=== PATIENT | female | born 1935 | race Caucasian/White ===

== ENCOUNTER 2019-07-28 20:53 | Observation (INO) | payer OTHER, SELFPAY ==
--- NOTE | ~2019-07-28 | XR_ITS ---
EXAMINATION: XR chest 2V EXAM DATE: 07/28/2019 21:34 INDICATION: Hypertension. TECHNIQUE: Frontal and lateral projections of the chest obtained and reviewed. There is no prior arline dy for comparison. FINDINGS: The lungs are clear. There are no pleural effusions. The cardiomediastinal silhouette is within normal limits. There is no pneumothorax suspected. Mild to moderate thoracolumbar scoliosis. IMPRESSION: No acute cardiopulmonary findings. Reviewed, dictated and finalized at location A.
--- NOTE | ~2019-07-28 | CT_ITS ---
EXAMINATION: CT brain wo con EXAM DATE: 07/29/2019 00:05 INDICATION: Generalized weakness for 3 days. Confusion. TECHNIQUE: Spiral CT of the head was performed without contrast. Axial, coronal and sagittal images were reviewed. The dose-length product (DLP) for this examination was 605.33 mGy-cm. The exposure w as tailored according to patient size, and iterative reconstruction (ASIR) was used as additional dos e reduction technique. Comparison is made to prior examination from 05/21/2011. FINDINGS: There is no acute intraparenchymal hemorrhage. No evidence of intraparenchymal brain mass lesion. No evidence of acute infarction. Please note that initial head CT has limited sensitivity f or small or acute infarctions. There is small old left internal capsule lacunar infarction. This was present on the prior study. There is mild periventricular and subcortical hypodensity, nonspecific but probably related to small vessel ischemic disease. There is moderate prominence of the sulci an d ventricles related to cerebral atrophy. There is intracranial carotid arteriosclerosis. There ar e no extra-axial collections. There is no mass effect or midline shift. Patient has had bilateral o cular lens surgery. Soft tissue is unremarkable. The visualized sinuses and mastoid air cells are w ell aerated. IMPRESSION: 1. 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 2. Chronic age related findings. Reviewed, dictated and finalized at location G.
--- NOTE | ~2019-07-28 | US_ITS ---
EXAMINATION: US carotid duplex BI DATE: 07/29/2019 09:37 INDICATION: Infarcts in left internal capsule and left basal ganglia. TECHNIQUE: Grayscale, color Doppler, and pulsed Doppler images of the cervical carotid arteries were obtained. The degree of vessel stenosis is placed in one of the following categories: normal, <50%, 5 0-69%, >=70% but less than near-occlusion, near-occlusion, or total occlusion. Note that percent sten osis relative to normal distal artery lumen diameter is indirectly measured from velocity measurement s as described by Pb, et al. Radiology 2003; 229:340-346. COMPARISON: Ultrasound 01/20/2010 FINDINGS: RIGHT: The right common carotid artery (CCA) peak systolic velocity (PSV) is 74 cm/s. The right internal car otid artery (ICA) PSV is 86 cm/s. The right ICA end-diastolic velocity (EDV) is 18 cm/s. The right IC A/CCA PSV ratio is 1.2. Grayscale and color Doppler images yield an estimate of <50% diameter reducti on from plaque in the ICA. There is antegrade flow in the right vertebral artery. LEFT: The left CCA PSV is 79 cm/s. The left ICA PSV is 96 cm/s. The left ICA EDV is 27 cm/s. The left ICA/C CA PSV ratio is 1.2. Grayscale and color Doppler images yield an estimate of <50% diameter reduction from plaque in the ICA. There is antegrade flow in the left vertebral artery. IMPRESSION: 1. <50% stenosis in the right internal carotid artery. 2. <50% stenosis in the left internal carotid artery. Reviewed, dictated and finalized at location A.
--- NOTE | ~2019-07-28 | MR_ITS ---
EXAMINATION: MR brain/brain stem wo/w con DATE: 07/29/2019 09:24 INDICATION: Confusion. TECHNIQUE: Magnetic resonance imaging (MRI) of the brain and brainstem was performed without and with 14 mL MultiHance intravenous contrast. Sequences included sagittal and axial T1-weighted FSE, axial diffusion-weighted FS EPI, axial T2*-weighted GRE, axial T2-weighted FLAIR Propeller, and axial T2-we ighted Propeller. Postcontrast sequences included axial and coronal T1-weighted FSE. Apparent diffusi on coefficient (ADC) maps were created. COMPARISON: Brain MRI 01/20/2010, head CT 07/28/2019 FINDINGS: There are old infarcts involving the left internal capsule and left basal ganglia. There ar e scattered areas of nonspecific increased T2-weighted signal intensity in the cerebral white matter. There is no intracranial hemorrhage, acute infarction, or abnormal intracranial mass lesion. The noemy tricles are normal in size. The paranasal sinuses are clear. There are likely changes of ocular lens replacement surgeries. The mastoid air cells are normal. IMPRESSION: 1. Old infarcts involving the left internal capsule and left basal ganglia. 2. Mild nonspecific cerebral white matter disease, which likely represents chronic small vessel ische maria del rosario disease. Reviewed, dictated and finalized at location A. IMPRESSION: 1. Old infarcts involving the left internal capsule and left basal ganglia. 2. Mild nonspecific cerebral white matter disease, which likely represents housing relocation priscilla small vessel ischemic disease.
[2019-07-28 20:49] VITALS: BP 165/112; PULSE 84; RESP 20; TEMP 37.4; O2SAT 99
--- NOTE | 2019-07-28 20:58 | ECG_ITS ---
Measurements Intervals [place] Rate: 82 P: 66 ID: [id number] QRS: -26 QRSD: 104 T: 97 QT: 335 QTc: 392 Interpretive Statements SINUS RHYTHM BORDERLINE ST-T WAVE ABNORMALITY- HIGH LATERAL LEADS BASELINE WANDER- I, AVL BORDERLINE ECG Electronically Signed On 07-29-2019 7:20:26 CDT by Sunday Alston D.O.
[2019-07-28 21:23] LABS: Basophils Percent Auto 0.5 % (0.2-1.2); Eosinophils Absolute Auto 0.1 K/mm3 (0-0.3); Eosinophils Percent Auto 1.2 % (0-4.4); Hematocrit 31.5 % (37.0-47.0); Hemoglobin 10.6 g/dL (12.0-15.0); Immature Granulocyte Absolute 0.03 K/mm3 (0.00-0.031); Immature Granulocyte Percent A 0.4 % (0-0.5); Lymphocytes Absolute Auto 2.31 K/mm3 (0.9-3.2); Lymphocytes Percent Auto 30.4 % (18.3-44.2); Mean Corpuscular HGB Conc 33.7 g/dl (32-36); Mean Corpuscular Hemoglobin 31.8 pg (26-34); Mean Corpuscular Volume 94.6 fl (80-100); Monocytes Percent Auto 12.5 % (2.6-8.5); Neutrophils Absolute Auto 4.2 K/mm3 (1.3-6.7); Platelet Count Result 243 k/mm3 (150-375); Red Blood Count 3.33 M/mm3 (4.2-5.4); Red Cell Distribution Width 12.7 % (11.5-14.5); White Blood Count 7.6 K/mm3 (4.5-10.0)
[2019-07-28 21:26] LABS: Add Urine Microscopic? YES; Appearance Urine Clear (Clear); Bacteria Urine Trace /hpf; Bilirubin Urine Negative (Negative); Blood Urine 1+ (Negative); Color Urine Colorless (Yellow); Glucose Urine UA Negative (Negative); Ketones Urine Negative (Negative); Leukocyte Esterase Ur Negative LEU/UL (Negative); Nitrate Urine Negative (Negative); Protein Urine 2+ mg/dL (Negative); RBC Urine 0-2 /hpf (0-2); Specific Grav Ur 1.006 (1.001-1.035); Squamous Epithelial Cell Urine Rare /hpf (Few); Urobilinogen Urine Negative mg/dL (<2.0); WBC Urine 0-3 /hpf
[2019-07-28 21:37] LABS: Alanine Aminotransferase 13 U/L (4-35); Albumin Level 4.5 g/dL (3.5-5.1); Alkaline Phosphatase 89 U/L (38-126); Aspartate Amino Transferase 28 U/L (14-36); Bilirubin,Total 0.6 mg/dL (0.2-1.3); Blood Urea Nitrogen 23 mg/dL (7-17); Calcium 9.2 mg/dL (8.4-10.2); Carbon Dioxide 25 mmol/L (22-30); Chloride 100 mmol/L (98-107); Estimated Glomerular Filt Rate 48; Glucose 118 mg/dL (65-105); Potassium 4.1 mmol/L (3.4-5.0); Sodium 133 mmol/L (137-145)
[2019-07-28 21:50] VITALS: BP 213/84; PULSE 76; RESP 20; O2SAT 100
--- NOTE | 2019-07-28 21:54 | PC.NURSE ---
pt able to ambulate to restroom and return without only stand by assistance. Tolerated well, denies increased pain or SOB.
--- NOTE | 2019-07-28 22:53 | PC.NURSE ---
Pt transported to new room assignment. Report given to SATYA Campbell.
--- NOTE | 2019-07-28 23:39 | ED.GENADULT ---
HPI - General Adult General Chief complaint: Weakness Stated complaint: weak Time Seen by Provider: 07/28/19 22:23 Source: patient and family Mode of arrival: EMS History of Present Illness HPI narrative: This patient is an 84 year old female who presents for evaluation of confusion. Patient's niece is at bedside giving history. She states she talked to patient at 730 pm and she appeared out of it . She states that she was confused and she could not tell her what she did today or if she took her medications. Patient lives alone and she states she does not normally have confusion. She denies history of dementia. Previous to that she last talked to her Saturday and she was normal at that time. Patient has no complaints. She does not remember is she took her medications today. Related Data Home Medications Medication Instructions Recorded Confirmed aspirin 325 mg PO DAILY 07/28/19 07/29/19 lisinopril-hydrochlorothiazide 1 tablet PO BID 07/28/19 07/29/19 metformin 500 mg PO BID 07/28/19 07/29/19 simvastatin 20 mg PO HS 07/28/19 07/29/19 sulindac 200 mg PO BID 07/28/19 07/29/19 omega 5-mqp-ivq-fish oil [Fish Oil] 300 cap PO DAILY 07/29/19 07/29/19 sennosides-docusate sodium 1 tab-cap PO EVERY OTHER DAY 07/29/19 07/29/19 Allergies Allergy/AdvReac Type Severity Reaction Status Date / Time No Known Allergies Allergy Verified 07/28/19 22:52 Review of Systems Review of Systems: All systems reviewed & are unremarkable except as noted in HPI and below Constitutional: Constitutional: Denies chills, Denies fever(s) and Denies weakness Eyes: Eyes: Reports no additional eye complaints Cardiovascular: Cardiovascular: Denies chest pain Respiratory: Respiratory: Denies cough and Denies dyspnea Gastrointestinal: Gastrointestinal: Denies abdominal pain and Denies vomiting Neurologic: Denies dizziness, Denies headache(s) and Denies focal weakness [facility] Past Medical History Medical History (Updated 07/29/19 @ 08:06 by Kusum Peralta MD) Hypertension Surgical History Surgical History (Updated 07/28/19 @ 23:40 by Kusum Peralta MD) History of left knee replacement Social History Social History Smoking status: Never smoker Alcohol intake: never Substance use: never Substance use type: does not use Gender identity (if verbalized by the patient): Female Spiritual care concerns: No Exam Narrative: Exam Narrative: GENERAL: Well-appearing, well-nourished, and in no acute distress. HEAD: Normocephalic, atraumatic EYES: PERRLA and EOMI, conjunctiva clear without discharge EARS: TM's clear bilaterally without erythema or dullness NOSE: Nares clear, no rhinorrhea or epistaxis THROAT:Mucous membranes moist, Oropharynx normal without erythema, exudate, peritonsillar swelling or fluctuance NECK: Supple, without lymphadenopathy or mass RESPIRATORY: No respiratory distress, Airway patent, Respirations non-labored, Clear to auscultation without rales, rhonchi or wheeze HEART: Regular rate and rhythm. No murmur heard. Normal peripheral pulses. ABDOMEN: Soft, nontender, nondistended, normal active bowel sounds. No masses. No rebound or guarding, No organomegaly. EXTREMITIES: No edema, normal strength with full range of motion. SKIN: Warm, dry, normal color without rash NEURO: Alert and oriented x person, place, date. CN 2-12 grossly intact. No focal deficits. speech is slow, PSYCH: Normal mood and affect. Course Consultations Consultation #1: I discussed case with Dr. Rodriguez who accepts patient for TIA, stroke rule out give patient new confusion Date: 07/29/19 Time: 02:40 Vital Signs Vital signs: Vital Signs Temperature 99.4 F 07/28/19 20:49 Pulse Rate 84 07/28/19 20:49 Respiratory Rate 20 07/28/19 20:49 Blood Pressure 165/112 H 07/28/19 20:49 Pulse Oximetry 99 07/28/19 20:49 Temperature 99.3 F 07/29/19 06:00 Pulse Rate 72 07/29/19 06:00 Respiratory Rate 18
[2019-07-28 23:52] VITALS: BP 190/59; PULSE 78; RESP 19; O2SAT 100
[2019-07-28] MEDS: lisinopriL 20 MG TABLET PO (23:54)
[2019-07-28] MEDS: hydroCHLOROthiazide 12.5 MG CAPSULE PO (23:54)
[2019-07-29] VITALS (11 sets, daily range): BP systolic 112–184; BP diastolic 58–94; PULSE 62–80; RESP 16–20; TEMP 36.6–37.4; O2SAT 97–100; BMI 26.8
--- NOTE | 2019-07-29 | ECHO_ITS ---
Patient Info Name: Liza Clark Age: 84 years : 1935 Gender: Female Ht: 62 in Wt: 146 lbs BSA: 1.72 m2 HR: 62 bpm Heart Rhythm: Sinus Rhythm Technical Quality: Good Exam Date: 07/29/2019 12:42 PM Exam Location: [facility] Pulmonary Exam Room: 324 Patient Status: Inpatient Admit Date: 07/29/2019 Staff Ordering Physician: Barrett Burks PA-C Architectural Project Manager: Mandie Niño RDCS Attending Provider: Barrett Burks PA-C Referring Physician: Vitaliy CUELLAR; Exam Type: CA echo doppler w bubble study Study Info Indications - hx/o cva mental status change confusion Complete two-dimensional, color flow and Doppler transthoracic echocardiogram is performed with agitated saline. Contrast/Agitated Saline Contrast/Ag. Saline: Agitated Saline Amount: 20.00 ml Existing IV Access: Yes Summary 1. Good global left ventricular systolic function. Apical lateral hypokinesis noted on the apical four-chamber view. Estimated ejection fraction 60-65%. Grade 1 diastolic dysfunction is present. Moderate concentric left ventricular hypertrophy is present. 2. There is mild aortic valve calcification with no stenosis. 3. Left atrial chamber dimension is moderately enlarged. 4. The mitral valve annulus is moderately calcified with no regurgitation. 5. Bubble study did not show any evidence of an intracardiac shunt during normal respiration and Valsalva. 6. Normal sinus rhythm. Left Ventricle Left ventricular chamber dimension is normal. Left ventricular systolic function is normal, estimated at 60-65%. There is moderately increased left ventricular wall thickness. Left ventricular septal wall motion is normal. The left ventricular diastolic function is grade I diastolic dysfunction. Right Ventricle Right ventricular chamber dimension is normal. Right ventricular systolic function is normal. Left Atria Left atrial chamber dimension is moderately enlarged. Right Atria Right atrial chamber dimension is normal. Aortic Valve The aortic valve is trileaflet. There is no aortic valve sclerosis. There is no aortic valve stenosis. There is no aortic valve regurgitation. There is mild aortic valve calcification with no stenosis. Pulmonic Valve The pulmonic valve is normal. There is no pulmonic valve stenosis. There is no pulmonic regurgitation. Mitral Valve The mitral valve has thickened leaflets. There is no mitral valve stenosis. There is no mitral valve regurgitation. The mitral valve annulus is moderately calcified with no regurgitation. Tricuspid Valve The tricuspid valve leaflets are normal. There is no significant tricuspid valve stenosis. There is trace tricuspid valve regurgitation. No pulmonary hypertension, estimated pulmonary arterial systolic pressure is 31 mmHg. Pericardium/Pleural The pericardium appears normal. There is no pericardial effusion. Inferior Vena Cava Normal inferior vena cava with >50% collapse upon inspiration consistent with Empty right atrial pressure, 10 mmHg. Aorta The aortic root size at the sinus of Valsalva is normal. The prox ascending aorta size is normal. There is mild aortic atherosclerosis. Left Ventricular Outflow Tract Name Value Normal LVOT 2D
[2019-07-29 00:26] LABS: Troponin I 0.014 ng/mL (0.000-0.034)
--- NOTE | 2019-07-29 03:52 | ADMGEN ---
This patient, Liza Clark, was admitted to [facility] Surg Room 324-01. Patient/family oriented to hospital policies and general routines including ID bracelet, bed and alarms, visiting hours, pain management, procedures, bathroom and other care routines, personal items, smoking policy, room service/diet, and visiting hours. Valuables list has been completed. Information on how to activate the Rapid Response Team has been discussed. Patient/Family are encouraged to report perceived risks to care and to ask questions if they do not understand what they are told or what they should do.
[2019-07-29 07:59] LABS: Glucose Point of Care 111 (65-105)
[2019-07-29 08:14] LABS: Hematocrit 31.9 % (37.0-47.0); Hemoglobin 10.8 g/dL (12.0-15.0); Mean Corpuscular HGB Conc 33.9 g/dl (32-36); Mean Corpuscular Hemoglobin 31.7 pg (26-34); Mean Corpuscular Volume 93.5 fl (80-100); Mean Platelet Volume 9.8 fl (7.4-10.4); Platelet Count Result 238 k/mm3 (150-375); Red Blood Count 3.41 M/mm3 (4.2-5.4); Red Cell Distribution Width 12.8 % (11.5-14.5); White Blood Count 6.8 K/mm3 (4.5-10.0)
[2019-07-29 08:30] LABS: Hemoglobin A1C 6.5 % (<5.7)
[2019-07-29 08:31] LABS: Blood Urea Nitrogen 18 mg/dL (7-17); Calcium 9.4 mg/dL (8.4-10.2); Carbon Dioxide 26 mmol/L (22-30); Chloride 104 mmol/L (98-107); Estimated CRCL calculation 31 ml/min; Estimated Glomerular Filt Rate 48; Glucose 119 mg/dL (65-105); Potassium 4.1 mmol/L (3.4-5.0); Sodium 136 mmol/L (137-145)
[2019-07-29 09:35] LABS: Folic Acid > 20.0 ng/mL (2.76->20)
--- NOTE | 2019-07-29 10:29 | PM.IMHP ---
H&P: HPI History of Present Illness Chief complaint: confusion Narrative: Liza Clark is a 84 year old female with history of CVA (2009), HTN, and prediabetes who presented to the ER via EMS from home on 07/27 with reports of elevated blood pressure and confusion while at home. Patient is a fair historian, but does not provide detailed information on some of her history. She is A&Ox4 for me today. History is obtained via EMS, patient, and grand-neice, Mikala, who summoned EMS yesterday. Per patient she is in the hospital due to her high blood pressure . When asked for other reasons coming into the hospital, she states I guess I was a bit confused yesterday . When discussed with Mikala, she states she called her yesterday evening to check in on her and noticed she was not making much sense, not finishing sentences at times, and not knowing what she did or ate earlier in the day. She came to her house and measured her BP which was 210/90 which prompted her to summon EMS; on their arrival, BP was 210/110, per Mikala, which prompted them to proceed to the ER. Mikala denies any other signs or symptoms she noticed. Patient denies any other signs/symptoms as well, and has no other complaints at this moment, other than wanting to leave to care for her dogs at home. Denies recent cold/infection, f/c/s, myalgias/arthralgias, headaches, dizziness, lightheadedness, changes in v/h, cp/palpitations, sob/cough, n/v/d/c, abd pain, changes in BMs, dysuria, hematuria, cloudy urine, calf pain/swelling. While in the ER, patient's BP was found to be as high as 213/84, but significantly improved after she received a home dose of her lisinopril-HCTZ. Patient admitted under the setting of HTN urgency and CVA r/o. Imaging thus far has been unremarkable. Review of Systems Review of Systems: All systems reviewed & are unremarkable except as noted in HPI and below PMFSH Past Medical History Medical History Breast CA CVA, old, dysarthria DJD (degenerative joint disease) GERD (gastroesophageal reflux disease) Hypertension Prediabetes Surgical History Surgical History H/O left mastectomy History of cataract surgery History of hemorrhoidectomy History of left knee replacement History of right hip replacement History of shoulder surgery Social History Social History (Updated 07/29/19 @ 10:46 by Barrett Burks PA-C) Social History: Patient lives at home alone. Grand-niece, Mikala, checks in on her occasionally, either via phone or physically, although has been less due to COVID outbreak. Her PCP is Dr. Coleman. She is listed as a Full Code Smoking status: Never smoker Alcohol intake: never Substance use: never Substance use type: does not use Gender identity (if verbalized by the patient): Female Spiritual care concerns: No Meds Home Medications and Allergies Home Medications Medication Instructions Recorded Confirmed Type aspirin 325 mg PO DAILY 07/28/19 07/29/19 History lisinopril-hydrochlorothiazide 1 tablet PO BID 07/28/19 07/29/19 History metformin 500 mg PO BID 07/28/19 07/29/19 History simvastatin 20 mg PO HS 07/28/19 07/29/19 History sulindac 200 mg PO BID 07/28/19 07/29/19 History omega 3-gai-bbs-fish oil [Fish Oil] 300 cap PO DAILY 07/29/19 07/29/19 History sennosides-docusate sodium 1 tab-cap PO EVERY OTHER DAY 07/29/19 07/29/19 History Allergies Allergy/AdvReac Type Severity Reaction Status Date / Time No Known Allergies Allergy Verified 07/28/19 22:52 Vital Signs Vital Signs - 24 hr 07/28/19 20:49 07/28/19 21:50 07/28/19 23:52 Temperature 99.4 F Pulse Rate 84 76 78 Respiratory Rate 20 20 19 Blood Pressure 165/112 H 213/84 H 190/59 H Pulse Oximetry 99 100 100 07/29/19 00:52 07/29/19 02:45 07/29/19 03:30 Temperature 99.4 F Pulse Rate 79 77 77 Respiratory Rate 16 17 18 Blood Press
[2019-07-29] MEDS: OMEGA 3 POLYUNSAT FATTY ACIDS 1 GM CAP PO (11:47)
[2019-07-29] MEDS: ASPIRIN 325 MG TABLET PO (11:47)
[2019-07-29 12:47] LABS: Glucose Point of Care 159 (65-105)
[2019-07-29] MEDS: lisinopriL 20 MG TABLET PO (17:18)
[2019-07-29] MEDS: hydroCHLOROthiazide 12.5 MG CAPSULE PO (17:18)
[2019-07-29 18:29] LABS: Glucose Point of Care 206 (65-105)
[2019-07-29] MEDS: SIMVASTATIN 20 MG TABLET PO (20:05)
[2019-07-29 21:18] LABS: Glucose Point of Care 255 (65-105)
[2019-07-30] VITALS: PULSE 86
[2019-07-30 04:00] VITALS: PULSE 63
[2019-07-30 06:00] VITALS: BP 179/62; PULSE 79; RESP 16; TEMP 36.6; O2SAT 99
[2019-07-30 06:25] LABS: Blood Urea Nitrogen 27 mg/dL (7-17); Carbon Dioxide 25 mmol/L (22-30); Chloride 103 mmol/L (98-107); Estimated CRCL calculation 27 ml/min; Estimated Glomerular Filt Rate 39; Glucose 127 mg/dL (65-105); Magnesium 1.9 mg/dL (1.6-2.3); Potassium 4.2 mmol/L (3.4-5.0); Sodium 134 mmol/L (137-145)
[2019-07-30 08:00] VITALS: PULSE 77
[2019-07-30 08:18] LABS: Glucose Point of Care 112 (65-105)
[2019-07-30] MEDS: ASPIRIN 325 MG TABLET PO (08:38)
[2019-07-30] MEDS: CYANOCOBALAMIN INJ 1,000 MCG/ML VIAL 1000 MCG IM (08:39)
[2019-07-30] MEDS: lisinopriL 20 MG TABLET PO (08:39)
[2019-07-30] MEDS: OMEGA 3 POLYUNSAT FATTY ACIDS 1 GM CAP PO (08:39)
[2019-07-30] MEDS: hydroCHLOROthiazide 12.5 MG CAPSULE PO (08:39)
[2019-07-30] MEDS: AMLODIPINE BESYLATE 2.5 MG TABLET PO (09:04)
--- NOTE | 2019-07-30 09:27 | PM.DS ---
DS: Admitting Diagnosis Admitting Diagnosis Admitting Diagnosis: Essential (primary) hypertension DS: Discharge Diagnosis Discharge Diagnosis (1) Hypertension: Code(s): I10 - Essential (primary) hypertension Status: Acute Assessment and Plan: Patient's BP in the field and on arrival in 200s. BP 170s this morning and 150s-160s sys overnight. Amlodipine 2.5 mg daily added this morning. Unclear if patient is compliant with home medication at home, but discussed with Mikala who will be monitoring her medications more closely. Will continue her home lisinopril-HCTZ at Start amlodipine 2.5 mg at discharge Will need prompt F/u with PCP. Discussed with both patient and Mikala that she needs to monitor her BP daily after discharge. Hold amlodipine if having symptoms or if hypotensive; she is to call PCP with any issues. Both patient and Mikala understood and agreeable with plan (2) Acute confusion: Code(s): R41.0 - Disorientation, unspecified Status: Acute Assessment and Plan: CVA workup and r/o. MRI of brain today negative for acute stroke; old strokes noted. Carotid Dopplers unremarkable. Echo grossly unremarkable for etiology of symptoms; normal EF, no intracardiac shunting. Confusion possibly related to hypertensive urgency vs less likely TIA or dehydration. Patient appears to be at baseline today. Telemetry shows sinus rhythm with occasional PAC/PVC vs artifact; asymptomatic. F/u with PCP (3) CVA, old, 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 Status: Acute Assessment and Plan: MRI of brain shows old CVAs. Patient states CVA in 2009 Continue home dose omega 3, simvastatin, and full dose aspirin Monitor (4) Prediabetes: Code(s): R73.03 - Prediabetes Status: Acute Assessment and Plan: A1c 6.5; technically diabetic Will hold metformin during stay; will continue at discharge Accuchecks ACHS, hypoglycemia protocol, correctional insulin, diabetic diet during stay Monitor (5) DJD (degenerative joint disease): Code(s): M19.90 - Unspecified osteoarthritis, unspecified site Status: Acute Assessment and Plan: Patient has no issues at the moment Sulindac held as this is NF; resume at discharge Monitor DS: Summary Hospital Course Reason for hospitalization: Hypertensive urgency; confusion Hospital Course: Patient is a 84 yo F with history of CVA with known dysarthria, GERD, and HTN who presented to the ER via EMS from home on 07/27 with reports of elevated blood pressure and confusion while at home. Per Mikala romero, patient's BP was in the 200s sys while at home. While in the ER, she was found to have BP as high as 213/84. Given confusion while at home, there was concern over possible CVA. Patient admitted under this setting. Please see H&P for further details. Presenting VS: Temp Pulse Resp BP Pulse Ox 99.4 F 84 20 165/112 H 99 07/28/19 20:49 07/28/19 20:49 07/28/19 20:49 07/28/19 20:49 07/28/19 20:49 Presenting Pertinent labs: CBC, chemistry, UA grossly unremarkable Micro: none Imaging: Chest X-Ray 07/28/19 21:35 IMPRESSION: No acute cardiopulmonary findings. Head CT 07/29/19 00:06 IMPRESSION: 1. 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 2. Chronic age related findings. Brain MRI 07/29/19 09:29 IMPRESSION: 1. Old infarcts involving the left internal capsule and left basal ganglia. 2. Mild nonspecific cerebral white matter disease, which likely represents chronic small vessel ischemic disease. Carotid Doppler Study 07/29/19 09:38 IMPRESSION: 1. <50% stenosis in the right internal carotid artery. 2. <50% stenosis in the left internal carotid artery. Echo 07/29/19 Summary 1. Good global left
[2019-07-30 10:08] VITALS: BP 174/70
[2019-07-30 10:09] VITALS: PULSE 67
== END 2019-07-30 11:19 | disposition home or self-care (01) ==
LOC: ANHED 07-29 02:44 → ANH3MEDSUR 07-29 03:04
PROVIDERS: Physician Assistant; Admitting Provider Internal Medicine; Emergency Provider General Practice; PCP Family Medicine Adolescent Medicine; Visit Provider Internal Medicine
DX: I16.0 Hypertensive urgency (principal); I10 Essential (primary) hypertension; R41.0 Disorientation, unspecified; I69.322 Dysarthria following cerebral infarction; R73.03 Prediabetes; K21.9 Gastro-esophageal reflux disease without esophagitis; M19.90 Unspecified osteoarthritis, unspecified site; Z79.899 Other long term (current) drug therapy; Z85.3 Personal history of malignant neoplasm of breast; Z96.641 Presence of right artificial hip joint; Z96.652 Presence of left artificial knee joint
CPT/HCPCS: 36415; 70450; 70553; 71046; 80048; 80053; 81001; 82607; 82746; 83036; 83735; 84443; 84484; 85025; 85027; 93005; 93306; 93880; 96372; 96375; 97161; 97165; 99285; A9270; A9577; G0378; J3420

== ENCOUNTER 2019-08-02 15:23 | Emergency (ER) | payer OTHER, SELFPAY ==
[2019-08-02] VITALS (32 sets, daily range): BP systolic 175–227; BP diastolic 66–91; PULSE 66–85; RESP 9–19; TEMP 36.8–37.6; O2SAT 94–100
--- NOTE | ~2019-08-02 | CT_ITS ---
EXAMINATION: CT brain wo con EXAM DATE: 08/02/2019 16:29 INDICATION: Elevated blood pressure, central headache. TECHNIQUE: Spiral CT of the head was performed without contrast. Axial, coronal and sagittal images were reviewed. The dose-length product (DLP) for this examination was 605.33 mGy-cm. The exposure w as tailored according to patient size, and iterative reconstruction (ASIR) was used as additional dos e reduction technique. Comparison is made to prior examination from 07/28/2019. FINDINGS: There is no acute intraparenchymal hemorrhage. No evidence of intraparenchymal brain mass lesion. No evidence of acute infarction. Please note that initial head CT has limited sensitivity f or small or acute infarctions. Small old left internal capsular lacunar infarction. Small old left b geraldo ganglia lacunar infarctions. There is mild to moderate periventricular and subcortical hypodensi ty, nonspecific but probably related to small vessel ischemic disease. There is mild to moderate pr ominence of the sulci and ventricles related to cerebral atrophy. There is intracranial carotid art eriosclerosis. There are no extra-axial collections. There is no mass effect or midline shift. Pat ient has had bilateral ocular lens surgery. Soft tissue is unremarkable. The visualized sinuses and mastoid air cells are well aerated. There is no significant interval change. IMPRESSION: 1. Small old left sided lacunar infarctions. 2. Chronic age related findings. Reviewed, dictated and finalized at location A.
--- NOTE | 2019-08-02 16:02 | ED.GENADULT ---
HPI - General Adult General Chief complaint: Recheck/Abnormal Lab/Rx Stated complaint: Elevated blood pressure Time Seen by Provider: 08/02/19 16:02 Source: patient and family History of Present Illness HPI narrative: Patient is a 84 y/o female complaining headache and high blood pressure. She state that she feel pressure in her head and feels like her head is going to explode. This started about 10:00 AM this morning. She rates her headache as 8/10. She believes that her headache is worsened by HTN. She checked her BP earlier and systolic was over 200. Related Data Home Medications Medication Instructions Recorded Confirmed aspirin 325 mg PO DAILY 07/28/19 07/29/19 lisinopril-hydrochlorothiazide 1 tablet PO BID 07/28/19 07/29/19 metformin 500 mg PO BID 07/28/19 07/29/19 simvastatin 20 mg PO HS 07/28/19 07/29/19 sulindac 200 mg PO BID 07/28/19 07/29/19 omega 1-yit-qkf-fish oil [Fish Oil] 300 cap PO DAILY 07/29/19 07/29/19 sennosides-docusate sodium 1 tab-cap PO EVERY OTHER DAY 07/29/19 07/29/19 Allergies Allergy/AdvReac Type Severity Reaction Status Date / Time No Known Allergies Allergy Verified 07/28/19 22:52 Review of Systems Constitutional: Constitutional: Denies chills, Denies fever(s), Reports headache(s) and Denies weakness Eyes: Eyes: Denies blurry vision ENT: Denies headache(s) and Denies neck pain Cardiovascular: Cardiovascular: Denies chest pain and Denies dyspnea Respiratory: Respiratory: Denies cough and Denies dyspnea Gastrointestinal: Gastrointestinal: Denies abdominal pain, Denies diarrhea, Denies nausea and Denies vomiting Genitourinary: Genitourinary: Denies hematuria and Denies dysuria Musculoskeletal: Musculoskeletal: Denies back pain and Denies neck pain Neurologic: Reports headache(s) and Denies weakness PMFSH Past Medical History Medical History Breast CA CVA, old, dysarthria DJD (degenerative joint disease) GERD (gastroesophageal reflux disease) Hypertension Prediabetes Surgical History Surgical History H/O left mastectomy History of cataract surgery History of hemorrhoidectomy History of left knee replacement History of right hip replacement History of shoulder surgery Social History Social History Social History: Patient lives at home alone. Grand-niece, Mikala, checks in on her occasionally, either via phone or physically, although has been less due to COVID outbreak. Her PCP is Dr. Coleman. She is listed as a Full Code Smoking status: Never smoker Alcohol intake: never Substance use: never Substance use type: does not use Gender identity (if verbalized by the patient): Female Spiritual care concerns: No Exam Const: General: no acute distress and well developed Orientation/consciousness: oriented to person, oriented to place, oriented to time and patient oriented x3 HENMT: Head: normocephalic Ears: external ears normal General nose exam: Normal external nose present Eyes: General: appearance normal, both eyes and all related structures Conjunctivae: conjunctivae normal Neck: Neck: normal visual inspection and full ROM Chest: Chest palpation & inspection: normal inspection of the chest and no tenderness Resp: Effort & Inspection: normal respiratory effort Cardio: Rate: regular rate Rhythm: regular rhythm GI: GI Palp: No abdominal tenderness and Yes Soft to palpation Skin: General skin exam: normal color and turgor normal Neuro: General: oriented to person, oriented to place, oriented to time and patient oriented x3 Cranial nerves: Yes CN's II-XII intact bilaterally Cognition (Neuro): normal cognition Speech: normal speech Motor exam (neuro): 5/5 motor strength present throughout Sensory Exam: normal sensation Coordination: sawder-nz-lmbf test normal and qaas-za-[id number] test n
--- NOTE | 2019-08-02 16:03 | ECG_ITS ---
Measurements Intervals Cub Run Rate: 76 P: 27 AR: 192 QRS: -32 QRSD: 128 T: 87 QT: 358 QTc: 404 Interpretive Statements SINUS RHYTHM LEFT AXIS DEVIATION INTRAVENTRICULAR CONDUCTION DELAY EARLY PRECORDIAL R/S TRANSITION NONSPECIFIC ST & T-WAVE ABNORMALITY- HIGH LATERAL LEADS BASELINE ARTIFACT- V3 BORDERLINE ECG Electronically Signed On 08-02-2019 19:33:03 CDT by Sunday Alston D.O.
[2019-08-02 16:48] LABS: Basophils Percent Auto 0.6 % (0.2-1.2); Eosinophils Absolute Auto 0.1 K/mm3 (0-0.3); Eosinophils Percent Auto 0.8 % (0-4.4); Hematocrit 30.8 % (37.0-47.0); Hemoglobin 10.1 g/dL (12.0-15.0); Immature Granulocyte Absolute 0.03 K/mm3 (0.00-0.031); Immature Granulocyte Percent A 0.5 % (0-0.5); Lymphocytes Absolute Auto 1.73 K/mm3 (0.9-3.2); Lymphocytes Percent Auto 27.7 % (18.3-44.2); Mean Corpuscular HGB Conc 32.8 g/dl (32-36); Mean Corpuscular Hemoglobin 30.9 pg (26-34); Mean Corpuscular Volume 94.2 fl (80-100); Monocytes Absolute Auto 0.6 K/mm3 (0.1-0.6); Monocytes Percent Auto 9.9 % (2.6-8.5); Neutrophils Absolute Auto 3.8 K/mm3 (1.3-6.7); Neutrophils Percent Auto 60.5 % (45.5-73.1); Platelet Count Result 264 k/mm3 (150-375); Red Blood Count 3.27 M/mm3 (4.2-5.4); Red Cell Distribution Width 12.7 % (11.5-14.5); White Blood Count 6.2 K/mm3 (4.5-10.0)
[2019-08-02 17:00] LABS: Blood Urea Nitrogen 26 mg/dL (7-17); Calcium 9.4 mg/dL (8.4-10.2); Carbon Dioxide 26 mmol/L (22-30); Chloride 99 mmol/L (98-107); Estimated CRCL calculation 35 ml/min; Estimated Glomerular Filt Rate 53; Glucose 165 mg/dL (65-105); Potassium 4.6 mmol/L (3.4-5.0); Sodium 133 mmol/L (137-145)
[2019-08-02] MEDS: AMLODIPINE BESYLATE 5 MG TABLET PO (17:42)
--- NOTE | 2019-08-02 19:23 | PC.NURSE ---
Assumed care of pt at this time. report from SATYA Green
--- NOTE | 2019-08-02 20:30 | PC.NURSE ---
IV removed from L hand. not originally charted.
== END 2019-08-02 20:30 | disposition home or self-care (01) ==
PROVIDERS: Emergency Provider Emergency Medicine; PCP Family Medicine Adolescent Medicine
DX: R51 Headache (principal); I10 Essential (primary) hypertension; Z85.3 Personal history of malignant neoplasm of breast; I69.922 Dysarthria following unspecified cerebrovascular disease; K21.9 Gastro-esophageal reflux disease without esophagitis; R73.03 Prediabetes; Z79.82 Long term (current) use of aspirin; Z79.84 Long term (current) use of oral hypoglycemic drugs; Z98.49 Cataract extraction status, unspecified eye; Z96.652 Presence of left artificial knee joint; Z96.641 Presence of right artificial hip joint; I45.9 Conduction disorder, unspecified; R94.31 Abnormal electrocardiogram [ECG] [EKG]
CPT/HCPCS: 36415; 70450; 80048; 85025; 93005; 99284; A9270

== ENCOUNTER 2020-05-11 11:38 | Emergency (ER) | payer OTHER, SELFPAY ==
--- NOTE | ~2020-05-11 | XR_ITS ---
EXAMINATION: XR hip RT 2V w AP pelvis EXAM DATE: 05/11/2020 13:24 INDICATION: No known recent injury provided at this time. Pain of the right hip. TECHNIQUE: Right hip frontal, 'frog leg' projections for interpretation. Frontal projection pelvis. Comparison is made to prior examination from 07/17/2017. FINDINGS: There is right hip arthroplasty, hardware in expected position. Severe left hip arthritis with mild protrusio acetabula. Some advanced lower lumbar spondylosis. There are no acute fractures o r dislocations identified. There is no subcutaneous gas. The soft tissue is unremarkable. Lumbar l evoscoliosis and spondylosis. IMPRESSION: 1. Intact right hip arthroplasty. 2. Severe left hip arthritis. Reviewed, dictated and finalized at location A.
--- NOTE | ~2020-05-11 | US_ITS ---
EXAMINATION: US venous doppler [facility] EXAM DATE: 05/11/2020 13:31 INDICATION: Left leg swelling. TECHNIQUE: Multiple grayscale, color flow and Doppler images of the left lower extremity deep venous system were obtained and reviewed. There is no prior study for comparison. FINDINGS: The left common femoral, femoral and profunda veins demonstrate normal color flow, respirat ory variation, augmentation and compressibility. Compressibility, color flow confirmed within the le ft popliteal, posterior tibial, peroneal, and greater saphenous veins. IMPRESSION: 1. No left lower extremity deep venous thrombosis. Reviewed, dictated and finalized at location A.
--- NOTE | ~2020-05-11 | XR_ITS ---
EXAMINATION: XR femur LT min 2V EXAM DATE: 05/11/2020 13:24 INDICATION: Initial encounter following injury, with pain of the left femur. TECHNIQUE: Left femur frontal and lateral projections of the proximal aspect, frontal and lateral pro jections of the lower aspect for review. Comparison is made to prior examination from 04/20/2014. FINDINGS: There is severe left hip arthritis, significant progression compared to 2014. There is left knee arthroplasty, hardware is intact. There are no acute fractures identified. Extensive arterial s clerosis of the initial femoral artery. IMPRESSION: 1. Severe left hip arthritis. 2. Intact knee arthroplasty. Reviewed, dictated and finalized at location A.
[2020-05-11 11:52] VITALS: BP 152/50; PULSE 82; RESP 16; TEMP 36.4; O2SAT 100
--- NOTE | 2020-05-11 12:15 | PC.NURSE ---
Pt's son Antonio Frazier contacted at [phone] and informed that he can come into the room after being screened.
[2020-05-11 12:17] VITALS: BP 152/50; PULSE 82; RESP 18; TEMP 36.4; O2SAT 100
[2020-05-11 12:21] VITALS: BP 176/66; O2SAT 100
[2020-05-11 12:32] VITALS: BP 171/64; O2SAT 99
--- NOTE | 2020-05-11 12:53 | ED.GENADULT ---
HPI - General Adult General Chief complaint: Unspecified Stated complaint: hip pain Time Seen by Provider: 05/11/20 12:23 Source: patient and family Mode of arrival: ambulatory Limitations: no limitations History of Present Illness HPI narrative: This is an 84 year old female with history of right hip arthroplasty in 1999 who presents for evaluation of right hip pain. Her son states patient started complaining of pain to her right posterior hip since yesterday morning. She denies falling. She has been able to walk and she denies pain at rest. She has been taking aleve and using aspercreme, and it has improved her pain. She denies numbness tingling or weakness. She is also concerned that she hit her left thigh in February. She reports she had a large bruise to her left thigh at time. She reports she continues to have left leg swelling so she is concern that this may have caused her pain to her right posterior hip. Related Data Home Medications Medication Instructions Recorded Confirmed aspirin 325 mg PO DAILY 07/28/19 07/29/19 lisinopril-hydrochlorothiazide 1 tablet PO BID 07/28/19 07/29/19 metformin 1,000 mg PO DAILY 07/28/19 07/29/19 simvastatin 20 mg PO HS 07/28/19 07/29/19 sulindac 200 mg PO BID 07/28/19 07/29/19 sennosides-docusate sodium 1 tab-cap PO EVERY OTHER DAY 07/29/19 07/29/19 amlodipine 5 mg PO BID 05/11/20 nwkldmtw-yua-LN-lycopen-lutein 1 tablet PO DAILY 05/11/20 [Centrum Silver] omega 0-cod-rei-fish oil [Fish Oil] 1 cap DAILY 05/11/20 Allergies Allergy/AdvReac Type Severity Reaction Status Date / Time No Known Allergies Allergy Unverified 05/11/20 12:23 Review of Systems Review of Systems: Narrative: CONSTITUTIONAL: Denies fever, chills, or sweats. EYES: Denies visual changes, redness, or discharge. ENT: Denies rhinorrhea, congestion, sore throat, or otalgia. CARDIOVASCULAR: Denies chest pain, palpitations, or edema. RESPIRATORY: Denies cough or dyspnea. GASTROINTESTINAL: Denies abdominal pain, nausea, vomiting, or diarrhea. GENITOURINARY: Denies dysuria or hematuria. SKIN: Denies rash or itching. NEUROLOGIC: Denies headache, numbness, or weakness. PSYCHIATRIC: Denies anxiety or depression. All systems reviewed & are unremarkable except as noted in HPI and below Constitutional: Constitutional: Denies body ache(s), Denies chills and Denies fatigue PMFSH Past Medical History Medical History (Updated 05/11/20 @ 23:30 by Kusum Peralta MD) Breast CA CVA, old, dysarthria DJD (degenerative joint disease) GERD (gastroesophageal reflux disease) Hypertension Prediabetes Surgical History Surgical History H/O left mastectomy History of cataract surgery History of hemorrhoidectomy History of left knee replacement History of right hip replacement History of shoulder surgery Social History Social History Social History: Patient lives at home alone. Grand-niece, Mikala, checks in on her occasionally, either via phone or physically, although has been less due to COVID outbreak. Her PCP is Dr. Coleman. She is listed as a Full Code Smoking status: Never smoker Alcohol intake: never Substance use: never Substance use type: does not use Gender identity (if verbalized by the patient): Female Spiritual care concerns: No Exam Narrative: Exam Narrative: GENERAL: Well-appearing, well-nourished, and in no acute distress. HEAD: Normocephalic, atraumatic EYES: PERRLA and EOMI, conjunctiva clear without discharge THROAT:Mucous membranes moist, NECK: Supple, without lymphadenopathy or mass RESPIRATORY: No respiratory distress, Airway patent, Respirations non-labored, Clear to auscultation without rales, rhonchi or wheeze HEART: Regular rate and rhythm. No murmur heard. Normal peripheral pulses. ABDOMEN: Soft, nontender, nondistended, normal active bowel sounds. No m
[2020-05-11 13:58] LABS: Basophils Percent Auto 0.4 % (0.2-1.2); Eosinophils Percent Auto 0.5 % (0-4.4); Hematocrit 29.8 % (37.0-47.0); Hemoglobin 9.8 g/dL (12.0-15.0); Immature Granulocyte Absolute 0.05 K/mm3 (0.00-0.031); Immature Granulocyte Percent A 0.7 % (0-0.5); Lymphocytes Absolute Auto 1.56 K/mm3 (0.9-3.2); Lymphocytes Percent Auto 21.2 % (18.3-44.2); Mean Corpuscular HGB Conc 32.9 g/dl (32-36); Mean Corpuscular Hemoglobin 31.3 pg (26-34); Mean Corpuscular Volume 95.2 fl (80-100); Mean Platelet Volume 9.9 fl (7.4-10.4); Monocytes Absolute Auto 0.5 K/mm3 (0.1-0.6); Monocytes Percent Auto 6.6 % (2.6-8.5); Neutrophils Absolute Auto 5.2 K/mm3 (1.3-6.7); Neutrophils Percent Auto 70.6 % (45.5-73.1); Platelet Count Result 235 k/mm3 (150-375); Red Blood Count 3.13 M/mm3 (4.2-5.4); Red Cell Distribution Width 12.7 % (11.5-14.5); White Blood Count 7.4 K/mm3 (4.5-10.0)
[2020-05-11 14:11] LABS: Alanine Aminotransferase 14 U/L (4-35); Albumin Level 4.2 g/dL (3.5-5.1); Alkaline Phosphatase 150 U/L (38-126); Anion Gap 9 mmol/L (8-16); Aspartate Amino Transferase 24 U/L (14-36); Bilirubin,Total 0.4 mg/dL (0.2-1.3); Blood Urea Nitrogen 24 mg/dL (7-17); CRP < 0.5 mg/dL (<1.0); Calcium 9.8 mg/dL (8.4-10.2); Carbon Dioxide 27 mmol/L (22-30); Chloride 104 mmol/L (98-107); Estimated CRCL calculation 25 ml/min; Estimated Glomerular Filt Rate 36; Glucose 148 mg/dL (65-105); Potassium 4.4 mmol/L (3.4-5.0); Sodium 140 mmol/L (137-145)
--- NOTE | 2020-05-11 14:45 | PC.NURSE ---
pt ambulated well with walker. c/o pain to right buttock when walking. edp notified.
== END 2020-05-11 15:30 | disposition home or self-care (01) ==
PROVIDERS: Emergency Provider General Practice; PCP Family Medicine Adolescent Medicine
DX: M25.551 Pain in right hip (principal); M79.89 Other specified soft tissue disorders; I69.922 Dysarthria following unspecified cerebrovascular disease; K21.9 Gastro-esophageal reflux disease without esophagitis; R73.03 Prediabetes; Z98.42 Cataract extraction status, left eye; Z96.652 Presence of left artificial knee joint; Z96.641 Presence of right artificial hip joint
CPT/HCPCS: 36415; 73502; 73552; 80053; 85025; 86140; 93971; 99284

== ENCOUNTER 2020-05-24 16:05 | Inpatient (IN) | payer OTHER, SELFPAY ==
[2020-05-24] VITALS (18 sets, daily range): BP systolic 132–176; BP diastolic 60–117; PULSE 77–99; RESP 13–20; TEMP 36.4; O2SAT 98–100
--- NOTE | ~2020-05-24 | MR_ITS ---
EXAMINATION: MR abdomen wo con DATE: 05/26/2020 13:08 INDICATION: Pancreas mass. TECHNIQUE: Magnetic resonance imaging (MRI) of the abdomen was performed without intravenous contrast . Sequences included coronal T2-weighted FS FSE, coronal and axial FS FIESTA, axial T2-weighted FSE, coronal LAVA-flex, axial STIR FSE, axial DWI, axial dual-echo T1-weighted FSPGR, and axial LAVA. COMPARISON: CT abdomen and pelvis 05/25/2020, CT abdomen 05/11/2004 FINDINGS: The liver and spleen are normal. The gallbladder is absent. There are multiple cystic lesions in the pancreas measuring up to 13 mm. Some of these cystic lesions are contiguous with the main pancreatic duct, which is at the upper normal limits of normal in size. The adrenal glands are normal. There is mild atrophy of right kidney. Left kidney is normal. There are no dilated loops of bowel. There are n o pathologically enlarged lymph nodes. There is no free intraperitoneal fluid. IMPRESSION: 1. Multiple cystic lesions of the pancreas measuring up to 13 mm. The differential diagnosis includes pseudocyst, intraductal papillary mucinous neoplasm (IPMN), mucinous cystic neoplasm (MCN), serous c ystadenoma, and neuroendocrine tumor. Abdomen MRI without and with contrast is recommended in 2 years . Reviewed, dictated and finalized at location A. IMPRESSION: 1. Multiple cystic lesions of the pancreas measuring up to 13 mm. The different ial diagnosis includes pseudocyst, intraductal papillary mucinous neoplasm (IPM N), mucinous cystic neoplasm (MCN), serous cystadenoma, and neuroendocrine tumo r. Abdomen MRI without and with contrast is recommended in 2 years.
--- NOTE | ~2020-05-24 | US_ITS ---
EXAMINATION: US venous doppler [facility] DATE: 05/25/2020 17:32 INDICATION: Right lower limb swelling. TECHNIQUE: Grayscale ultrasound images without and with compression and Doppler ultrasound images of the bilateral lower extremity veins were obtained. COMPARISON: None. FINDINGS: The visualized portions of right common femoral vein, profunda (deep) femoral vein, femoral vein, pop liteal vein, peroneal veins, posterior tibial veins, and greater saphenous vein outflow are patent. The visualized portions of left common femoral vein, profunda femoral vein, femoral vein, popliteal v ein, peroneal veins, posterior tibial veins, and greater saphenous vein outflow are patent. IMPRESSION: 1. No deep venous thrombosis. Reviewed, dictated and finalized at location A.
--- NOTE | ~2020-05-24 | XR_ITS ---
EXAMINATION: XR femur RT min 2V DATE: 05/25/2020 17:08 INDICATION: Right femur pain. TECHNIQUE: 2 views of right femur on 4 radiographs were obtained. COMPARISON: Right hip radiographs 05/11/2020, 07/17/2017 FINDINGS: There is a total right hip arthroplasty in near-anatomic alignment with chronic lucencies a round the acetabular component. No fracture. The right knee demonstrates severe osteoarthritis of the medial compartment and mild osteoarthritis of the lateral and patellofemoral compartments. There is a small knee joint effusion. IMPRESSION: 1. Total right hip arthroplasty with chronic lucencies around the acetabular component, consistent wi th loosening. 2. Severe right knee osteoarthritis. 3. Knee joint effusion. Reviewed, dictated and finalized at location A. IMPRESSION: 1. Total right hip arthroplasty with chronic lucencies around the acetabular co mponent, consistent with loosening. 2. Severe right knee osteoarthritis. 3. Knee joint effusion.
--- NOTE | ~2020-05-24 | CT_ITS ---
EXAMINATION: CT abdomen pelvis wo con DATE: 05/25/2020 01:45 INDICATION: Acute gastrointestinal bleed. TECHNIQUE: Computed tomography (CT) of the abdomen and pelvis was performed without intravenous contr ast. Automated exposure control and iterative reconstruction technique were employed. The dose-length product was 557.05 mGy-cm. COMPARISON: CT abdomen dated 05/11/2004 FINDINGS: Status post left mastectomy with overlying left breast prosthesis. A couple calcified nodules at the left lung base, calcified paraesophageal lymph nodes and multiple small splenic calcifications, all c onsistent with old granulomatous disease. Heart size is normal. Atherosclerotic coronary artery calci fications. Aortic valve callus location. No pericardial or pleural effusion. Small sliding-type hiata l hernia. There is suggestion of mild wall thickening at the gastric pylorus with mild stranding in t he in the adjacent mesentery. Cholecystectomy clips the gallbladder fossa. Liver, bilateral adrenal glands and kidneys are normal. There is fatty atrophy of the pancreas with a few residual nodular densities along the body and tail of the pancreas which are not appreciated on the prior study. There is mild colonic diverticulosis wi th a sigmoid predominance. There is no adjacent inflammatory change to suggest diverticulitis. Small bowel and appendix are normal. Bladder, anteverted uterus and bilateral adnexa are unremarkable. Sma ll fat-containing left inguinal hernia. No free intraperitoneal gas or fluid. No pathologically enlar ged abdominal or pelvic lymphadenopathy. Upper lumbar levoscoliosis with severe spondylosis. Severe l eft hip osteoarthritis. Right total hip arthroplasty with lucency at the bone cement interface at the radiolucent acetabular component. IMPRESSION: 1. Mild wall thickening at the gastric pylorus with mild stranding in the adjacent fat raising suspic ion for gastritis or peptic ulcer disease. 2. Small sliding-type hiatal hernia. 3. Couple residual nodular densities along the body and tail of the otherwise atrophic pancreas with differential including peripancreatic tissue, peripancreatic lymph nodes, neoplasia or dilated pancre atic ductal side branches related to chronic pancreatitis. Consider further evaluation with clinical history and with pre and postcontrast MRI. 4. Mild colonic diverticulosis. 5. Small fat-containing left inguinal hernia. Reviewed, dictated and finalized at location A. IMPRESSION: 1. Mild wall thickening at the gastric pylorus with mild stranding in the adjac ent fat raising suspicion for gastritis or peptic ulcer disease. 2. Small sliding-type hiatal hernia. 3. Couple residual nodular densities along the body and tail of the otherwise a trophic pancreas with differential including peripancreatic tissue, peripancrea tic lymph nodes, neoplasia or dilated pancreatic ductal side branches related t o chronic pancreatitis. Consider further evaluation with clinical history and w ith pre and postcontrast MRI. 4. Mild colonic diverticulosis. 5. Small fat-containing left inguinal hernia.
--- NOTE | ~2020-05-24 | XR_ITS ---
EXAMINATION: XR hip RT min 3V w AP pelvis DATE: 05/25/2020 17:09 INDICATION: Right hip pain. TECHNIQUE: An anteroposterior view of the pelvis and 3 views of right hip were obtained. COMPARISON: Pelvis and right hip radiographs 05/11/2020 FINDINGS: There is a total right hip arthroplasty in near-anatomic alignment with chronic lucencies a round the acetabular component and acetabular protrusio. No fracture. There is severe left hip osteoa rthritis. There is lumbar levoscoliosis and moderate spondylosis. IMPRESSION: 1. Total right hip arthroplasty in near-anatomic alignment with chronic lucencies around the acetabul ar component, consistent with loosening. 2. Severe left hip osteoarthritis. Reviewed, dictated and finalized at location A. IMPRESSION: 1. Total right hip arthroplasty in near-anatomic alignment with chronic lucenci es around the acetabular component, consistent with loosening. 2. Severe left hip osteoarthritis.
--- NOTE | ~2020-05-24 | US_ITS ---
EXAMINATION: US hip asp inj w image RT DATE: 05/26/2020 13:52 INDICATION: Right hip pain with right total hip arthroplasty loosening. Assess for infection. TECHNIQUE: The procedure including the risks and benefits was discussed with the patient. Risks discu ssed included bleeding and infection. The patient understood the risks and agreed to proceed. The sk in overlying the right hip was prepped and draped in usual sterile fashion. Anesthetic was administe red with 1% lidocaine subcutaneously. A 20 gauge final needle was advanced under continuous ultrasoun d observation to a small fluid collection along the anterior margin of the neck of the femoral compon ent of a right total hip arthroplasty. 5 mm of hsbjeud-ctajz-hjftslp fluid was aspirated and sent to the lab for Gram stain and cultures as ordered by the referring physician. The needle was removed an d the entry site was cleaned and dressed. Post procedure ultrasound demonstrated no hemorrhage. FINDINGS: Ultrasound images demonstrate a small hypoechoic fluid collection centered near the head ne ck junction of an echogenic and shadowing right total hip arthroplasty. Subsequent images demonstrate the needle tip within the fluid collection. IMPRESSION: 1. Successful Ultrasound-guided right hip aspiration. Reviewed, dictated and finalized at location A.
[2020-05-24 17:05] LABS: Prothrombin Time 13.6 Seconds (11.1-14.7)
[2020-05-24 17:06] LABS: Partial Thromboplastin Time 26.7 SECONDS (22.3-36.8)
[2020-05-24 17:07] LABS: Basophils Percent Auto 0.2 % (0.2-1.2); Eosinophils Percent Auto 0.2 % (0-4.4); Hematocrit 24.4 % (37.0-47.0); Hemoglobin 8.2 g/dL (12.0-15.0); Immature Granulocyte Absolute 0.09 K/mm3 (0.00-0.031); Immature Granulocyte Percent A 0.7 % (0-0.5); Lymphocytes Absolute Auto 1.31 K/mm3 (0.9-3.2); Lymphocytes Percent Auto 10.1 % (18.3-44.2); Mean Corpuscular HGB Conc 33.6 g/dl (32-36); Mean Corpuscular Hemoglobin 31.3 pg (26-34); Mean Corpuscular Volume 93.1 fl (80-100); Mean Platelet Volume 9.8 fl (7.4-10.4); Monocytes Absolute Auto 1.4 K/mm3 (0.1-0.6); Monocytes Percent Auto 10.5 % (2.6-8.5); Neutrophils Absolute Auto 10.1 K/mm3 (1.3-6.7); Neutrophils Percent Auto 78.3 % (45.5-73.1); Platelet Count Result 340 k/mm3 (150-375); Red Blood Count 2.62 M/mm3 (4.2-5.4); Red Cell Distribution Width 12.6 % (11.5-14.5); White Blood Count 12.9 K/mm3 (4.5-10.0)
[2020-05-24 17:11] LABS: Alanine Aminotransferase 14 U/L (4-35); Albumin Level 3.9 g/dL (3.5-5.1); Alkaline Phosphatase 105 U/L (38-126); Anion Gap 6 mmol/L (8-16); Aspartate Amino Transferase 24 U/L (14-36); Bilirubin,Total 0.3 mg/dL (0.2-1.3); Blood Urea Nitrogen 30 mg/dL (7-17); Calcium 9.2 mg/dL (8.4-10.2); Carbon Dioxide 28 mmol/L (22-30); Chloride 96 mmol/L (98-107); Estimated Glomerular Filt Rate 31; Glucose 234 mg/dL (65-105); Potassium 4.5 mmol/L (3.4-5.0); Sodium 130 mmol/L (137-145)
--- NOTE | 2020-05-24 20:32 | ED.GIBLEED ---
HPI - GI Bleed General Chief complaint: GI Bleed Stated complaint: tarry stools for week Time Seen by Provider: 05/24/20 19:34 History of Present Illness HPI Narrative: Patient is an 84-year-old female who presents ER with blood in stool. Patient recently evaluated for hip injury. She has been taking sulindac, naproxen and prednisone at different intervals for this pain. She reports she has had increased acid reflux burning in the back of her throat. No fevers or chills or sweats. No loss of consciousness. No grossly bloody loose stools just pencil-like black stools. Related Data Home Medications Medication Instructions Recorded Confirmed aspirin 325 mg PO DAILY 07/28/19 07/29/19 lisinopril-hydrochlorothiazide 1 tablet PO BID 07/28/19 07/29/19 metformin 1,000 mg PO DAILY 07/28/19 07/29/19 simvastatin 20 mg PO HS 07/28/19 07/29/19 sulindac 200 mg PO BID 07/28/19 07/29/19 sennosides-docusate sodium 1 tab-cap PO EVERY OTHER DAY 07/29/19 07/29/19 amlodipine 5 mg PO BID 05/11/20 tnhltbcp-ejq-HE-lycopen-lutein 1 tablet PO DAILY 05/11/20 [Centrum Silver] omega 4-zoc-ozp-fish oil [Fish Oil] 1 cap DAILY 05/11/20 Allergies Allergy/AdvReac Type Severity Reaction Status Date / Time No Known Allergies Allergy Unverified 05/11/20 12:23 Review of Systems Review of Systems: All systems reviewed & are unremarkable except as noted in HPI and below Constitutional: Constitutional: Denies chills and Denies fever(s) Cardiovascular: Cardiovascular: Denies chest pain, Denies rapid heart rate and Denies radiating jaw, neck or arm pain Respiratory: Respiratory: Denies cough and Denies dyspnea Gastrointestinal: Gastrointestinal: Denies abdominal pain, Denies constipation, Reports heartburn, Denies diarrhea, Denies nausea and Denies vomiting Genitourinary: Genitourinary: Denies nocturia, Denies dysuria and Denies flank pain PMFSH Past Medical History Medical History (Updated 05/24/20 @ 21:30 by Rudolph Loza MD) Breast CA CVA, old, dysarthria DJD (degenerative joint disease) GERD (gastroesophageal reflux disease) Hypertension Prediabetes Surgical History Surgical History H/O left mastectomy History of cataract surgery History of hemorrhoidectomy History of left knee replacement History of right hip replacement History of shoulder surgery Social History Social History Social History: Patient lives at home alone. Grand-niece, Mikala, checks in on her occasionally, either via phone or physically, although has been less due to COVID outbreak. Her PCP is Dr. Coleman. She is listed as a Full Code Smoking status: Never smoker Alcohol intake: never Substance use: never Substance use type: does not use Gender identity (if verbalized by the patient): Female Spiritual care concerns: No Exam Narrative: Exam Narrative: GENERAL: Well-appearing, well-nourished, and in no acute distress. HEAD: Normocephalic, atraumatic. ENT: Mucous membranes moist. CHEST: Clear to auscultation. No respiratory distress. HEART: Regular rate and rhythm. Normal peripheral pulses. ABDOMEN: Soft, nontender, nondistended. Stool on digital rectal exam that is guaiac positive. No gross blood. Nonthrombosed nonbleeding external hemorrhoids noted that are not tender. EXTREMITIES: Normal range of motion. No edema. SKIN: Warm, dry, no rash. NEURO: Alert and oriented x3. PSYCH: Normal mood and affect. Course Course Emergency Course: Discussed case with Dr. Juan Antonio Gómez who recommends patient be admitted and started on Protonix. Will likely require EGD. Vital Signs Vital signs: Vital Signs Temperature 97.5 F L 05/24/20 17:30 Pulse Rate 84 05/24/20 17:30 Respiratory Rate 18 05/24/20 17:30 Blood Pressure 143/84 H 05/24/20 17:30 Pulse Oximetry 100 05/24/20 17:30 Temperature 97.5 F L 05/24/20 17:30 Pu
[2020-05-24] MEDS: PANTOPRAZOLE SODIUM IV 40 MG VIAL IV PUSH (20:51)
--- NOTE | 2020-05-24 21:22 | PC.NURSE ---
Per FILEMON Loza, no orthostatic blood pressures needed at this time.
[2020-05-25] VITALS (18 sets, daily range): BP systolic 128–189; BP diastolic 48–86; PULSE 68–89; RESP 14–20; TEMP 36.4–37.1; O2SAT 97–100; BMI 26.2
--- NOTE | 2020-05-25 00:18 | ADMGEN ---
This patient, Liza Clark, was admitted to [facility] Surg Room 324-02. Patient/family oriented to hospital policies and general routines including ID bracelet, bed and alarms, visiting hours, pain management, procedures, bathroom and other care routines, personal items, smoking policy, room service/diet, and visiting hours. Information on how to activate the Rapid Response Team has been discussed. Patient/Family are encouraged to report perceived risks to care and to ask questions if they do not understand what they are told or what they should do.
[2020-05-25 01:32] LABS: Hematocrit 21.1 % (37.0-47.0)
--- NOTE | 2020-05-25 01:36 | PM.IMHP ---
H&P: HPI History of Present Illness Date/Time: 05/25/20 01:36 Chief Complaint: Bloody Stools+ Narrative: This is an 84-year-old female with known history of chronic hypertension, hyperlipidemia, and prediabetes who presented to the hospital with a complaint of bloody stools. Patient is known to be on aspirin therapy and has recently been taking NSAIDs secondary to a recent fall for which she was seen in the ER approximately 2 weeks ago. The patient denies any nausea or vomiting but did report black stools. She denies any fevers, chills, cough, chest pain, palpitations, shortness of breath, or passing out. On my encounter with the patient amelia she is complaining of right lower quadrant abdominal pain on exam. She denies any dysuria, hematuria, or focal neurological deficits. ER provider has consulted gastroenterology and we been asked to admit the patient to the hospital for what appears to be an acute GI bleed. Patient can't tell me the last time she has had a colonoscopy performed. Review of Systems Review of Systems: All systems reviewed & are unremarkable except as noted in HPI and below PMFSH Past Medical History Medical History Acute blood loss anemia Breast CA CVA, old, dysarthria DJD (degenerative joint disease) GERD (gastroesophageal reflux disease) GIB (gastrointestinal bleeding) Hip pain, right Hypertension Melena NSAID long-term use Prediabetes Surgical History Surgical History H/O left mastectomy History of cataract surgery History of hemorrhoidectomy History of left knee replacement History of right hip replacement History of shoulder surgery Social History Social History Social History: Patient lives at home alone. Grand-niece, Mikala, checks in on her occasionally, either via phone or physically, although has been less due to COVID outbreak. Her PCP is Dr. Coleman. She is listed as a Full Code Smoking status: Never smoker Alcohol intake: never Substance use: never Substance use type: does not use Gender identity (if verbalized by the patient): Female Spiritual care concerns: No Meds Home Medications and Allergies Home Medications Medication Instructions Recorded Confirmed Type aspirin 325 mg PO DAILY 07/28/19 05/25/20 History lisinopril-hydrochlorothiazide 1 tablet PO BID 07/28/19 05/25/20 History metformin 1,000 mg PO DAILY 07/28/19 05/25/20 History simvastatin 20 mg PO HS 07/28/19 05/25/20 History sulindac 200 mg PO BID 07/28/19 05/25/20 History sennosides-docusate sodium 1 tab-cap PO EVERY OTHER DAY 07/29/19 05/25/20 History amlodipine 5 mg PO BID 05/11/20 05/25/20 History tghqeaku-eit-SG-lycopen-lutein 1 tablet PO DAILY 05/11/20 05/25/20 History [Centrum Silver] omega 4-nmd-yxy-fish oil [Fish Oil] 1 cap PO DAILY 05/11/20 05/25/20 History Allergies Allergy/AdvReac Type Severity Reaction Status Date / Time No Known Allergies Allergy Verified 05/25/20 01:57 Vital Signs Vital Signs - 24 hr 05/24/20 17:30 05/24/20 19:26 05/24/20 19:42 Temperature 36.4 C L Pulse Rate 84 80 83 Respiratory Rate 18 16 18 Blood Pressure 143/84 H 132/84 Pulse Oximetry 100 98 05/24/20 19:45 05/24/20 20:00 05/24/20 21:10 Temperature Pulse Rate 84 78 81 Respiratory Rate 19 20 16 Blood Pressure 176/60 H Pulse Oximetry 99 05/24/20 21:21 05/24/20 21:30 05/24/20 21:33 Temperature Pulse Rate 80 83 77 Respiratory Rate 13 17 17 Blood Pressure 148/117 H Pulse Oximetry 05/24/20 21:45 05/24/20 21:46 05/24/20 22:15 Temperature Pulse Rate 80 81 83 Respiratory Rate 13 14 13 Blood Pressure 155/60 H Pulse Oximetry 100 05/24/20 22:32 05/24/20 22:45 05/24/20 22:46 Temperature Pulse Rate 82 80 82 Respiratory Rate 18 19 16 Blood Pressure 156/61 H Pulse Oximetry
[2020-05-25] MEDS: SODIUM CHLORIDE 0.9% IV 1,000 ML 125 ML IV CONT (03:24)
[2020-05-25 06:53] LABS: Basophils Percent Auto 0.3 % (0.2-1.2); Eosinophils Absolute Auto 0.1 K/mm3 (0-0.3); Eosinophils Percent Auto 0.6 % (0-4.4); Immature Granulocyte Absolute 0.08 K/mm3 (0.00-0.031); Immature Granulocyte Percent A 0.8 % (0-0.5); Lymphocytes Absolute Auto 2.01 K/mm3 (0.9-3.2); Mean Corpuscular HGB Conc 32.8 g/dl (32-36); Mean Corpuscular Hemoglobin 30.9 pg (26-34); Monocytes Absolute Auto 1.1 K/mm3 (0.1-0.6); Monocytes Percent Auto 10.6 % (2.6-8.5); Neutrophils Absolute Auto 7.3 K/mm3 (1.3-6.7); Neutrophils Percent Auto 68.7 % (45.5-73.1); Platelet Count Result 270 k/mm3 (150-375); Red Blood Count 2.17 M/mm3 (4.2-5.4); Red Cell Distribution Width 12.7 % (11.5-14.5); White Blood Count 10.6 K/mm3 (4.5-10.0)
[2020-05-25 06:58] LABS: Hematocrit 20.4 % (37.0-47.0); Hemoglobin 6.7 g/dL (12.0-15.0)
[2020-05-25 07:01] LABS: Glucose Point of Care 159 (65-105)
[2020-05-25 07:05] LABS: Anion Gap 2 mmol/L (8-16); Blood Urea Nitrogen 34 mg/dL (7-17); Carbon Dioxide 27 mmol/L (22-30); Chloride 102 mmol/L (98-107); Estimated CRCL calculation 22 ml/min; Estimated Glomerular Filt Rate 36; Glucose 160 mg/dL (65-105); Potassium 4.5 mmol/L (3.4-5.0); Sodium 131 mmol/L (137-145)
[2020-05-25] MEDS: TUBING, BLOOD PLUM PUMP TUBING 1 EACH XX (11:00)
--- NOTE | 2020-05-25 11:44 | WPDANESEPPF ---
Anes - Initial Pre Proc Eval Procedure: Operation Date: 05/25/20 14:30 Proposed Procedures p Esophagogastroduodenoscopy - Toan Giron MD Date/Time: 05/25/20 11:44 Surgeon: Molly Nicholson PA-C Pre Op Diagnosis: gi bleed Patient Data Age: 84 Gender: F Height: 5 ft 2 in Weight: 64.9 kg Last Vital Signs Temp 97.9 F 05/25/20 11:36 Pulse 76 05/25/20 11:36 Resp 20 05/25/20 11:36 BP 189/63 H 05/25/20 11:36 Pulse Ox 98 05/25/20 11:36 Allergies Allergy/AdvReac Type Severity Reaction Status Date / Time No Known Allergies Allergy Verified 05/25/20 01:57 Home Medications Medication Instructions Recorded Confirmed Type aspirin 325 mg PO DAILY 07/28/19 05/25/20 History lisinopril-hydrochlorothiazide 1 tablet PO BID 07/28/19 05/25/20 History metformin 1,000 mg PO DAILY 07/28/19 05/25/20 History simvastatin 20 mg PO HS 07/28/19 05/25/20 History sulindac 200 mg PO BID 07/28/19 05/25/20 History sennosides-docusate sodium 1 tab-cap PO EVERY OTHER DAY 07/29/19 05/25/20 History amlodipine 5 mg PO BID 05/11/20 05/25/20 History rczvdijd-ser-XG-lycopen-lutein 1 tablet PO DAILY 05/11/20 05/25/20 History [Centrum Silver] omega 7-bbp-fgt-fish oil [Fish Oil] 1 cap PO DAILY 05/11/20 05/25/20 History Laboratory Tests 05/24/20 05/24/20 05/24/20 16:47 16:47 16:47 WBC 12.9 K/mm3 H K/mm3 (4.5-10.0) RBC 2.62 M/mm3 L M/mm3 (4.2-5.4) Hgb 8.2 g/dL L g/dL (12.0-15.0) Hct 24.4 % L % (37.0-47.0) MCV 93.1 fl fl (80-100) MCH 31.3 pg pg (26-34) MCHC 33.6 g/dl g/dl (32-36) RDW 12.6 % % (11.5-14.5) Plt Count 340 k/mm3 k/mm3 (150-375) MPV 9.8 fl fl (7.4-10.4) Immature Gran % (Auto) 0.7 % H % (0-0.5) Neut % (Auto) 78.3 % H % (45.5-73.1) Lymph % (Auto) 10.1 % L % (18.3-44.2) Hendricks % (Auto) 10.5 % H % (2.6-8.5) Eos % (Auto) 0.2 % % (0-4.4) Baso % (Auto) 0.2 % % (0.2-1.2) Lymph # (Auto) 1.31 K/mm3 K/mm3 (0.9-3.2) Hendricks # (Auto) 1.4 K/mm3 H K/mm3 (0.1-0.6) Eos # (Auto) 0.0 K/mm3 K/mm3 (0-0.3) Baso # (Auto) 0.0 K/mm3 K/mm3 (0.0-0.1) Abs Immat Gran (auto) 0.09 K/mm3 H K/mm3 (0.00-0.031) Absolute Neuts (auto) 10.1 K/mm3 H K/mm3 (1.3-6.7) Absolute Nucleated RBC 0.0 K/mm3 K/mm3 (0.0-0.012) Nucleated RBC % 0.0 % % (0.0-0.2) PT 13.6 Seconds Seconds (11.1-14.7) INR 1.0 APTT 26.7 SECONDS SECONDS (22.3-36.8) Sodium 130 mmol/L L mmol/L (137-145) Potassium 4.5 mmol/L mmol/L (3.4-5.0) Chloride 96 mmol/L L mmol/L (98-107) Carbon Dioxide 28 mmol/L mmol/L (22-30) Anion Gap 6 mmol/L L mmol/L (8-16) BUN 30 mg/dL H mg/dL (7-17) Creatinine 1.60 mg/dL H mg/dL (0.7-1.0) Estim Creat Clear Calc Not Reportable Estimated GFR 31 L (59 - ) Glucose 234 mg/dL H mg/dL (65-105) POC Capillary Glucose Calcium 9.2 mg/dL mg/dL (8.4-10.2) Total Bilirubin 0.3 mg/dL mg/dL (0.2-1.3) AST 24 U/L U/L (14-36) ALT 14 U/L U/L (4-35) Alkaline Phosphatase 105 U/L U/L (38-126) Total Protein 7.0 g/dL g/dL (6.3-8.2) Albumin 3.9 g/dL g/dL (3.5-5.1) Blood Type Antibody Screen Crossmatch 05/24/20 05/25/20 05/25/20 16:47 01:17 06:13 WBC RBC Hgb 7.0 g/dL L g/dL (12.0-15.0) Hct 21.1 % L % (37.0-47.0) MCV MCH MCHC RDW Plt Count MPV Immature Gran % (Auto) Neut % (Auto) Lymph % (Auto) Hendricks % (Auto) Eos % (Auto)
--- NOTE | 2020-05-25 12:13 | WPDGICN ---
Assessment and Plan Assessment and plan (1) GIB (gastrointestinal bleeding): Code(s): K92.2 - Gastrointestinal hemorrhage, unspecified Status: Acute Assessment and Plan: on protonix iv, getting blood transfusion will proceed with urgent EGD (2) Melena: Code(s): K92.1 - Melena Status: Acute Assessment and Plan: recently taking nsaid's, now on ppi, trend hb and EGD shamika (3) Acute blood loss anemia: Code(s): D62 - Acute posthemorrhagic anemia Status: Acute Assessment and Plan: transfusion (4) Acute renal failure: Qualifiers: Acute renal failure type: unspecified Qualified Code(s): N17.9 - Acute kidney failure, unspecified Code(s): N17.9 - Acute kidney failure, unspecified Status: Acute Assessment and Plan: medical management, also using nsaid's (5) Hypertension: Qualifiers: Hypertension type: essential hypertension Qualified Code(s): I10 - Essential (primary) hypertension Code(s): I10 - Essential (primary) hypertension Status: Chronic (6) Abdominal pain: Qualifiers: Abdominal location: right lower quadrant Qualified Code(s): R10.31 - Right lower quadrant pain Code(s): R10.9 - Unspecified abdominal pain Status: Acute (7) NSAID long-term use: Code(s): Z79.1 - meterman (current) use of non-steroidal anti-inflammatories (NSAID) Status: Acute Assessment and Plan: discontinue (8) Hip pain, right: Code(s): M25.551 - Pain in right hip Status: Acute Assessment and Plan: chronic pain, worse lately GI Consult Note Consult date/time: 05/25/20 12:13 Reason for consult: melena HPI: Liza Clark is a 84 year old female here with new onset of dark stools. She has history of hypertension, hyperlipidemia, also right hip arthroplasty in 1999 who was in the ER several days ago for evaluation of right hip pain, no history of falls and since then has been taking aleve and ibuprofen. Still complaining of pain in right hip, she is not taking any ppi and denies history of ulcers. Hb 9.8 during recent ER visit, most recent 6.7, bun 34, creat 1.4 (normal at baseline). She is getting blood transfusion and started on ppi iv. CT scan reviewed, mild wall thickening at the gastric pylorus with mild stranding in the adjacent fat raising suspicion for gastritis or peptic ulcer disease, small sliding-type hiatal hernia. Review of Systems Constitutional: Constitutional: Reports weakness Eyes: Eyes: Denies blurry vision ENT: Reports Normal hearing present Cardiovascular: Cardiovascular: Denies chest pain Respiratory: Respiratory: Denies cough Gastrointestinal: Gastrointestinal: Reports melena Genitourinary: Genitourinary: Denies hematuria Musculoskeletal: Musculoskeletal: Reports arthralgias (right hip) Integumentary/Breasts: Skin/Breast: Denies pruritus Neurologic: Denies headache(s) Psychiatric: Psychiatric: Reports no additional psychiatric complaints [facility] Past Medical History Medical History Breast CA CVA, old, dysarthria DJD (degenerative joint disease) GERD (gastroesophageal reflux disease) Hypertension Prediabetes Surgical History Surgical History H/O left mastectomy History of cataract surgery History of hemorrhoidectomy History of left knee replacement History of right hip replacement History of shoulder surgery Social History Social History Social History: Patient lives at home alone. Grand-niece, Mikala, checks in on her occasionally, either via phone or physically, although has been less due to COVID outbreak. Her PCP is Dr. Coleman. She is listed as a Full Code Smoking status: Never smoker Alcohol intake: never Substance use: never Substance use type: does n
[2020-05-25] MEDS: LACTATED RINGERS 1,000 ML 150 ML IV CONT (12:15)
--- NOTE | 2020-05-25 14:44 | PM.IMPN ---
Progress Note: A&P Assessment and Plan (1) Acute upper GI bleed: Code(s): K92.2 - Gastrointestinal hemorrhage, unspecified Status: Acute Assessment and Plan: Patient has been taking NSAIDs daily due to her right hip pain. She is not on any and acids for this. Patient is also on a high dose aspirin due to history of old strokes in the past. Patient's H&H this morning was severely low at 6.7/20% and required 1 unit of blood to be transfused. Repeat H&H after transfusion was 9.3/27%. Acute GI bleed is from reflux esophagitis, gastritis, gastric ulcer and duodenitis which was found on the EGD today by Dr. Romano. Patient is to be continued on IV Protonix drip and to continue monitoring H&H. Recommended discontinuing NSAIDs and hold aspirin at this time. GI would like to repeat EGD in 3 months for further assessment on healing She is able to eat a liquid diet tonight and continue monitoring. Monitor H&H, transfuse p.r.n.. Gastroenterology has been consulted and appreciate GI input. (2) Frequent urination: Code(s): R35.0 - Frequency of micturition Status: Acute Assessment and Plan: Nurse states the patient is complaining of needing to urinate about every 20-30 minutes. Will check a urinalysis for further evaluation and rule out UTI. Pending UA with reflux culture results. (3) Hip pain, right: Code(s): M25.551 - Pain in right hip Status: Acute Assessment and Plan: Patient is complaining of a lot of pain to her right hip. She had a hip surgery in the past. She has been taking a lot of NSAIDs recently due to this increased hip pain. She has not seen an orthopedic surgeon for this as an outpatient yet. I will recheck x-rays of her right hip, order physical and occupational therapy to evaluate her. Order a heating pad, pain control with Tylenol and tramadol if needed. No acute abnormality noted on physical examination. (4) Acute renal failure: Qualifiers: Acute renal failure type: unspecified Qualified Code(s): N17.9 - Acute kidney failure, unspecified Code(s): N17.9 - Acute kidney failure, unspecified Status: Acute Assessment and Plan: Likely pre renal in secondary to GI bleeding. Continue IV fluids challenge. Baseline kidney function appears to be around 1.1 Creatinine this morning improved to 1.4 Monitor renal function, avoid nephrotoxin agents. Consider renal ultrasound and Nephrology consultation in a.m.. Monitor urine output (5) Abdominal pain: Qualifiers: Abdominal location: right lower quadrant Qualified Code(s): R10.31 - Right lower quadrant pain Code(s): R10.9 - Unspecified abdominal pain Status: Acute Assessment and Plan: No more abdominal pain at this time. CT abd/pelvis showed mild wall thickening at the gastric pylorus with mild stranding suspicious for gastritis or peptic ulcer disease. After EGD showing signs of gastric ulcer, esophagitis, duodenitis her pain is improved and she is was wanting to eat at this time Continue monitoring. (6) Hypertension: Qualifiers: Hypertension type: essential hypertension Qualified Code(s): I10 - Essential (primary) hypertension Code(s): I10 - Essential (primary) hypertension Status: Chronic Assessment and Plan: Patient's blood pressure is still elevated today, 148/57 this morning. Could be secondary to pain, holding her oral medications due to EGD. Will restart the patient's amlodipine which he takes twice daily, will hold lisinopril and hydrochlorothiazide at this time due to elevated creatinine levels. If improved tomorrow will consider restarting other home medications Monitor blood press
[2020-05-25] MEDS: SODIUM CHLORIDE 0.9% IV 250 ML 30 ML IV CONT (15:00)
[2020-05-25 15:30] LABS: Hematocrit 27.6 % (37.0-47.0); Hemoglobin 9.3 g/dL (12.0-15.0)
[2020-05-25] MEDS: traMADol HCL (*CRX) 25 MG TABLET PO (15:53)
[2020-05-25] MEDS: amLODIPine BESYLATE 5 MG TABLET PO (15:54)
[2020-05-25 17:47] LABS: Glucose Point of Care 142 (65-105)
[2020-05-25] MEDS: SODIUM CHLORIDE 0.9% IV 1,000 ML 75 ML IV CONT (19:52)
[2020-05-26] VITALS (8 sets, daily range): BP systolic 149–173; BP diastolic 65–70; PULSE 66–91; RESP 18; TEMP 36.5–37.2; O2SAT 100
[2020-05-26 00:30] LABS: Glucose Point of Care 174 (65-105)
[2020-05-26 06:44] LABS: Glucose Point of Care 111 (65-105)
[2020-05-26 07:16] LABS: Hematocrit 26.6 % (37.0-47.0); Hemoglobin 9.1 g/dL (12.0-15.0); Mean Corpuscular HGB Conc 34.2 g/dl (32-36); Mean Corpuscular Hemoglobin 30.1 pg (26-34); Mean Corpuscular Volume 88.1 fl (80-100); Mean Platelet Volume 9.5 fl (7.4-10.4); Platelet Count Result 288 k/mm3 (150-375); Red Blood Count 3.02 M/mm3 (4.2-5.4); Red Cell Distribution Width 14.9 % (11.5-14.5)
[2020-05-26 07:34] LABS: Anion Gap 5 mmol/L (8-16); Blood Urea Nitrogen 24 mg/dL (7-17); Calcium 8.4 mg/dL (8.4-10.2); Carbon Dioxide 24 mmol/L (22-30); Chloride 106 mmol/L (98-107); Estimated CRCL calculation 24 ml/min; Estimated Glomerular Filt Rate 39; Glucose 116 mg/dL (65-105); Potassium 3.9 mmol/L (3.4-5.0); Sodium 135 mmol/L (137-145)
[2020-05-26 07:40] LABS: Hemoglobin A1C 5.9 % (<5.7)
--- NOTE | 2020-05-26 08:31 | PCOTNOTE ---
Attempt OT evaluation, per RN hold occupational therapy evaluation today due to medical status, will follow and attempt at later time.
[2020-05-26] MEDS: amLODIPine BESYLATE 5 MG TABLET PO ×2 (08:32→17:07)
[2020-05-26] MEDS: SENNA/DOCUSATE SODIUM TABLET 1 TAB PO (08:32)
[2020-05-26] MEDS: SODIUM CHLORIDE 0.9% IV 1,000 ML 75 ML IV CONT (08:39)
--- NOTE | 2020-05-26 09:34 | PCPTNOTE ---
Attempted PT SATYA moraes stated to hold therapy due to medical status. Will try again at later time.
--- NOTE | 2020-05-26 10:06 | WPDGIPROGNO ---
Progress Note: A&P Assessment and Plan (1) GIB (gastrointestinal bleeding): Code(s): K92.2 - Gastrointestinal hemorrhage, unspecified Status: Acute Assessment and Plan: she had a large gastric ulcer with clot treated with gold probe but also duodenal/esophageal ulcers all from NSAID's use hb stable after transfusion, ok to advance her diet and will switch now to protonix twice daily (still in drip) (2) Acute blood loss anemia: Code(s): D62 - Acute posthemorrhagic anemia Status: Acute Assessment and Plan: better after transfusion continue to monitor (3) Gastric ulcer: Code(s): K25.9 - Gastric ulcer, unspecified as acute or chronic, without hemorrhage or perforation Status: Acute Assessment and Plan: consider to repeat egd in 3 months to assess for healing I will [facility] ppi twice daily given findings (4) Melena: Code(s): K92.1 - Melena Status: Acute (5) Duodenal ulcer: Code(s): K26.9 - Duodenal ulcer, unspecified as acute or chronic, without hemorrhage or perforation Status: Acute (6) NSAID long-term use: Code(s): 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 Her main complaint is persistent pain in her hip Review of Systems Review of Systems: All systems reviewed & are unremarkable except as noted in HPI and below Exam Const: General: comfortable and no acute distress Other: elderly HENMT: General nose exam: Normal nares present Eyes: General: appearance normal, both eyes and all related structures Neck: Neck: no JVD Resp: Auscultation: clear to auscultation bilaterally Cardio: Rate: regular rate Rhythm: regular rhythm GI: Inspection: non-distended GI Palp: Yes Soft to palpation Skin: General skin exam: normal color Neuro: Speech: normal speech Motor exam (neuro): Normal motor muscle tone present throughout Extrem: General: normal to inspection Psych: Mental Status: mental status grossly normal Objective Data Vital Signs Vital Signs: Vital Signs - 24 hr 05/25/20 10:13 05/25/20 11:13 05/25/20 11:36 Temperature 97.5 F L 97.9 F 97.9 F Pulse Rate 77 76 76 Respiratory Rate 14 20 20 Blood Pressure 160/86 H 189/63 H 189/63 H Pulse Oximetry 100 98 98 05/25/20 11:58 05/25/20 12:00 05/25/20 12:40 Temperature 97.5 F L Pulse Rate 75 83 68 Respiratory Rate 18 16 Blood Pressure 182/69 H 128/48 L Pulse Oximetry 100 100 05/25/20 12:44 05/25/20 12:50 05/25/20 13:45 Temperature Pulse Rate 68 69 73 Respiratory Rate 16 18 18 Blood Pressure 128/48 L 146/58 H 187/54 H Pulse Oximetry 100 100 98 05/25/20 14:00 05/25/20 16:00 05/25/20 20:00 Temperature 98.1 F Pulse Rate 72 83 89 Respiratory Rate 16 Blood Pressure 175/52 H Pulse Oximetry 97 05/25/20 22:00 05/26/20 00:00 05/26/20 04:00 Temperature 98.7 F Pulse Rate 83 79 66 Respiratory Rate 20 Blood Pressure 156/65 H Pulse Oximetry 100 05/26/20 06:00 Temperature 97.7 F Pulse Rate 72 Respiratory Rate 18 Blood Pressure 149/65 H Pulse Oximetry 100 Intake/Output Intake/Output: Intake & Output 05/23/20 05/24/20 05/25/20 05/26/20 23:59 23:59 23:59 23:59 Intake Total 2800 2210 Output Total 1900 Balance 900 2210 Meds/Results Medications: Active Medications Generic Name Dose Route Start Last Admin Trade Name Freq PRN Reason Stop Dose Admin Amlodipine Besylate 5 mg 05/25/20 17:00 05/26/20 08:32 Amlodipine Besylate 5 Mg Tablet PO 5 mg BID ALEXYS Administration Dextrose 12.5 gm 05/25/20 01:44 Dextrose 50% 25 Gm/50 Ml Syringe IV PUSH
--- NOTE | 2020-05-26 11:26 | PM.IMPN ---
Progress Note: A&P Assessment and Plan (1) Right hip pain: Code(s): M25.551 - Pain in right hip Status: Acute Assessment and Plan: Patient is complaining of a lot of pain to her right hip. She had a hip surgery in the past. She has been taking a lot of NSAIDs recently due to this increased hip pain. She has not seen an orthopedic surgeon for this as an outpatient yet. 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 Called Dr. Kyle her Ortho Surgeon of her Right Hip who recommended after reviewing her XR that we need to rule out infection with a right hip aspiration- Cell Count, Culture, Cytology and Gram Stain Dr. Kyle recommended her to follow up with [facility] for any further surgery that is needed on her right hip. She may need further reconstruction and it would be better to go to [facility]. This will need to be a referral from her Primary Care Provider. Continue PT/OT Continue with heating pad, pain control with Tylenol, tramadol or [place] if needed. (2) Acute upper GI bleed: Code(s): K92.2 - Gastrointestinal hemorrhage, unspecified Status: Acute Assessment and Plan: Patient has been taking NSAIDs daily due to her right hip pain. She is not on any and acids for this. Patient is also on a high dose aspirin due to history of old strokes in the past. Patient's H&H 05/25/20 was severely low at 6.7/20% and required 1 unit of blood to be transfused. Repeat H&H stable today 9.1/26.6%. Acute GI bleed is from reflux esophagitis, gastritis, gastric ulcer and duodenitis which was found on the EGD today by Dr. Romano. Patient is to be continued on IV Protonix drip and to continue monitoring H&H. Recommended discontinuing NSAIDs and hold aspirin at this time. GI would like to repeat EGD in 3 months for further assessment on healing GI to advance diet Monitor H&H, transfuse p.r.n.. Gastroenterology has been consulted and appreciate GI input. (3) Acute renal failure: Qualifiers: Acute renal failure type: unspecified Qualified Code(s): N17.9 - Acute kidney failure, unspecified Code(s): N17.9 - Acute kidney failure, unspecified Status: Acute Assessment and Plan: Likely pre renal in secondary to GI bleeding. Continue IV fluids challenge. Baseline kidney function appears to be around 1.1 Creatinine this morning improved to 1.3 Monitor renal function, avoid nephrotoxin agents. Consider renal ultrasound and Nephrology consultation in a.m.. Monitor urine output (4) Frequent urination: Code(s): R35.0 - Frequency of micturition Status: Acute Assessment and Plan: Nurse states the patient is complaining of needing to urinate about every 20-30 minutes. UA shows 2+ protein and 1+ glucose. No abnormality or signs of infection. (5) Abdominal pain: Qualifiers: Abdominal location: right lower quadrant Qualified Code(s): R10.31 - Right lower quadrant pain Code(s): R10.9 - Unspecified abdominal pain Status: Acute Assessment and Plan: No more abdominal pain at this time. CT abd/pelvis showed mild wall thickening at the gastric pylorus with mild stranding suspicious for gastritis or peptic ulcer disease. After EGD showing signs of gastric ulcer, esophagitis, duodenitis her pain is improved and she is was wanting to eat at this time Continue monitoring. (6) Hypertension: Qualifiers: Hypertension type: essential hypertension Qualified Code(s): I10 - Essential (primary) hypertension Code(s): I10 - Essential (primary) hyperten
[2020-05-26 12:16] LABS: Add Urine Microscopic? YES; Appearance Urine Clear (Clear); Bacteria Urine Trace /hpf; Bilirubin Urine Negative (Negative); Blood Urine Negative (Negative); Color Urine Straw (Yellow); Glucose Urine UA 1+ mg/dL (Negative); Ketones Urine Negative (Negative); Leukocyte Esterase Ur Negative LEU/UL (Negative); Nitrate Urine Negative (Negative); Protein Urine 2+ mg/dL (Negative); Specific Grav Ur 1.009 (1.001-1.035); Squamous Epithelial Cell Urine Rare /hpf (Few); Urobilinogen Urine Negative mg/dL (<2.0); WBC Urine 0-3 /hpf
[2020-05-26] MEDS: INSULIN ASPART (*BKC) 100 UNITS/ML SUB-Q (12:20)
--- NOTE | 2020-05-26 12:41 | PC.NURSE ---
Was unable to get a stool collection bowl in time for patient to have a bowel movement. Unable to send a IFOB sample at this time.
[2020-05-26 12:58] LABS: Glucose Point of Care 213 (65-105)
[2020-05-26 17:41] LABS: Glucose Point of Care 123 (65-105)
[2020-05-26] MEDS: PANTOPRAZOLE SODIUM IV 40 MG VIAL IV PUSH (19:27)
[2020-05-26 21:16] LABS: Glucose Point of Care 211 (65-105)
[2020-05-27] VITALS (7 sets, daily range): BP systolic 125–147; BP diastolic 59–61; PULSE 73–81; RESP 16–18; TEMP 36.4; O2SAT 97–100
[2020-05-27 06:08] LABS: Hematocrit 25.2 % (37.0-47.0); Hemoglobin 8.5 g/dL (12.0-15.0)
[2020-05-27 06:23] LABS: Anion Gap 6 mmol/L (8-16); Blood Urea Nitrogen 19 mg/dL (7-17); Calcium 8.5 mg/dL (8.4-10.2); Carbon Dioxide 22 mmol/L (22-30); Chloride 107 mmol/L (98-107); Estimated CRCL calculation 24 ml/min; Estimated Glomerular Filt Rate 39; Glucose 132 mg/dL (65-105); Potassium 4.1 mmol/L (3.4-5.0); Sodium 135 mmol/L (137-145)
[2020-05-27] MEDS: amLODIPine BESYLATE 5 MG TABLET PO ×2 (08:15→16:51)
[2020-05-27] MEDS: PANTOPRAZOLE SODIUM IV 40 MG VIAL IV PUSH (08:15)
[2020-05-27 08:16] LABS: Glucose Point of Care 131 (65-105)
[2020-05-27] MEDS: HYDROcodone/acetaminophen (*CRX) 5-325 MG TABLET 1 TAB PO (08:29)
[2020-05-27 11:27] LABS: Appearance Synovial Fluid Cloudy (Clear); Color Synovial Fluid Red (Colorless); Source Synovial Fluid Synovial fluid
[2020-05-27 11:28] LABS: Lymphocytes Synovial Fluid 59 %; Macrophages Synovial Fluid 3 %
[2020-05-27 11:29] LABS: Monocytes Synovial Fluid 10 %; Other Cells Synovial Fluid 18 %
[2020-05-27 11:30] LABS: Crystals Synovial Fluid None Seen (None Seen); Neutrophils Synovial Fluid 10 % (0-25)
[2020-05-27 12:06] LABS: Glucose Point of Care 258 (65-105)
[2020-05-27] MEDS: INSULIN ASPART (*BKC) 100 UNITS/ML SUB-Q (12:52)
[2020-05-27] MEDS: traMADol HCL (*CRX) 25 MG TABLET PO (14:16)
[2020-05-27 15:15] LABS: Hemoglobin 9.1 g/dL (12.0-15.0)
--- NOTE | 2020-05-27 15:42 | PM.DS ---
DS: Admitting Diagnosis Admitting Diagnosis Admitting Diagnosis: Dark stool DS: Discharge Diagnosis Discharge Diagnosis (1) Right hip pain: Code(s): M25.551 - Pain in right hip Status: Acute Assessment and Plan: Patient is complaining of a lot of pain to her right hip. She had a hip surgery in the past. She has been taking a lot of NSAIDs recently due to this increased hip pain. She has not seen an orthopedic surgeon for this as an outpatient yet. 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 Called Dr. Kyle her Ortho Surgeon of her Right Hip who recommended after reviewing her XR that we need to rule out infection. Right hip aspiration- Cell Count showing red cloudy with normal nuc cells. Culture Anaerobic shows moderate WBC, no organism seen and Aerobic shows no growth. Gram Stain shows rare WBCs. No organism. Pending Cytology. Dr. Kyle recommended her to follow up with [facility] for any further surgery that is needed on her right hip. She may need further reconstruction and it would be better to go to [facility]. This will need to be a referral from her Primary Care Provider. Hip is better at this time. Plan for her to continue with heating pad, pain control with Tylenol, tramadol if needed. (2) Acute upper GI bleed: Code(s): K92.2 - Gastrointestinal hemorrhage, unspecified Status: Acute Assessment and Plan: Patient has been taking NSAIDs daily due to her right hip pain. She is not on any and acids for this. Patient is also on a high dose aspirin due to history of old strokes in the past. Patient's H&H 05/25/20 was severely low at 6.7/20% and required 1 unit of blood to be transfused. Repeat H&H stable today 9.1/27%. Acute GI bleed is from reflux esophagitis, gastritis, gastric ulcer and duodenitis which was found on the EGD today by Dr. Romano. 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 Recommended discontinuing NSAIDs Dr. Romano recommends holding aspirin for at least 2 weeks, follow-up with primary care provider for further evaluation and recommendations on restarting aspirin and to consider low-dose aspirin. GI would like to repeat EGD in 3 months for further assessment on healing Patient is feeling better at this time and requesting discharge. Will have her check labs in 1 week and follow-up with primary care provider. Attempted to call her primary care's office but he was not there, left a message with his aide about the patient getting an appointment in 1 week. She says they will call her on Saturday for scheduling. (3) Acute renal failure: Qualifiers: Acute renal failure type: unspecified Qualified Code(s): N17.9 - Acute kidney failure, unspecified Code(s): N17.9 - Acute kidney failure, unspecified Status: Acute Assessment and Plan: Likely pre renal in secondary to GI bleeding. Continue IV fluids challenge. Creatinine this morning stable, 1.3 (4) Frequent urination: Code(s): R35.0 - Frequency of micturition Status: Acute Assessment and Plan: Nurse states the patient is complaining of needing to urinate about every 20-30 minutes. UA shows 2+ protein and 1+ glucose. No abnormality or signs of infection. Could be from IV fluids. (5) Abdominal pain: Qualifiers: Abdominal location: right lower quadrant Qualified Code(s): R10.31 - Right lower quadrant pain Code(s): R10.9 - Unspecified abdominal pain Status: Acute Assessment and Plan: No more abdominal pain at this time. CT abd/pelvis showed mild wall thickening at the gastric pylorus with mild strandi
--- NOTE | 2020-05-27 16:00 | WPDGIPROGNO ---
Progress Note: A&P Assessment and Plan (1) GIB (gastrointestinal bleeding): Code(s): K92.2 - Gastrointestinal hemorrhage, unspecified Status: Acute Assessment and Plan: she had a large gastric ulcer with clot treated with gold probe but also duodenal/esophageal ulcers all from NSAID's use hb stable after transfusion she will need fdc ppi twice a day and do not use any more nsaid's (this was discussed with her nephew at her bedside today) no more melena and she is going home today (2) Acute blood loss anemia: Code(s): D62 - Acute posthemorrhagic anemia Status: Acute Assessment and Plan: better after transfusion cbc as outpatient also hold aspirin at least for 2 weeks and then her primary can reassess (3) Gastric ulcer: Code(s): K25.9 - Gastric ulcer, unspecified as acute or chronic, without hemorrhage or perforation Status: Acute Assessment and Plan: consider to repeat egd in 3 months to assess for healing I will favor fdc ppi twice daily given findings (4) Melena: Code(s): K92.1 - Melena Status: Acute (5) Duodenal ulcer: Code(s): K26.9 - Duodenal ulcer, unspecified as acute or chronic, without hemorrhage or perforation Status: Acute (6) NSAID long-term use: Code(s): Z79.1 - emt intermediate (current) use of non-steroidal anti-inflammatories (NSAID) Status: Acute Assessment and Plan: discontinue (7) Hip pain, right: Code(s): M25.551 - Pain in right hip Status: Acute Assessment and Plan: ortho evaluated patient Subjective Date/time seen: 05/27/20 15:00 Interval history: she is eating regular diet and no more melena Review of Systems Review of Systems: All systems reviewed & are unremarkable except as noted in HPI and below Exam Const: General: comfortable and no acute distress Other: elderly HENMT: General nose exam: Normal nares present Eyes: General: appearance normal, both eyes and all related structures Neck: Neck: no JVD Resp: Auscultation: clear to auscultation bilaterally Cardio: Rate: regular rate Rhythm: regular rhythm GI: Inspection: non-distended GI Palp: Yes Soft to palpation Skin: General skin exam: normal color Neuro: Speech: normal speech Motor exam (neuro): Normal motor muscle tone present throughout Extrem: General: normal to inspection Psych: Mental Status: mental status grossly normal Objective Data Vital Signs Vital Signs: Vital Signs - 24 hr 05/26/20 22:00 05/27/20 00:00 05/27/20 04:00 Temperature 98.9 F Pulse Rate 81 77 73 Respiratory Rate 18 Blood Pressure 173/66 H Pulse Oximetry 100 05/27/20 06:00 05/27/20 08:00 05/27/20 10:22 Temperature 97.6 F Pulse Rate 77 81 Respiratory Rate 18 Blood Pressure 147/61 H Pulse Oximetry 99 97 05/27/20 12:00 05/27/20 14:00 Temperature 97.5 F L Pulse Rate 80 77 Respiratory Rate 16 Blood Pressure 125/59 L Pulse Oximetry 100 Intake/Output Intake/Output: Intake & Output 05/24/20 05/25/20 05/26/20 05/27/20 23:59 23:59 23:59 23:59 Intake Total 2800 4390 1650 Output Total 1900 230 300 Balance 900 4160 1350 Meds/Results Radiology Results: ITS Impressions Abdomen/Pelvis CT 05/25/20 07:54 IMPRESSION: 1. Mild wall thickening at the gastric pylorus with mild stranding in the adjacent fat raising suspicion for gastritis or peptic ulcer disease. 2. Small sliding-type hiatal hernia. 3. Couple residual nodular densities along the body and tail of the otherwise atrophic pancreas with differential including peripancreatic tissue, peripancreatic lymph nodes, neoplasia or dilated pancreatic ductal side branches related to chronic pancreatitis. Consider further evaluation with clinical history and with pre and postcontrast MRI. 4. Mild colonic diverticulosis. 5. Small fat-containing left inguinal hernia. Femur X-Ray 05/25/20 17:09 IMPRESSION: 1. Total right h
== END 2020-05-27 17:15 | disposition home health service (06) | DRG 378 ==
LOC: ANHED 21:30 → ANH3MEDSUR 22:17
PROVIDERS: Internal Medicine Gastroenterology; Physician Assistant; Admitting Provider Family Medicine; Emergency Provider Emergency Medicine; PCP Family Medicine Adolescent Medicine; Visit Provider Family Medicine
PROC: 0DJ08ZZ Inspection of Upper Intestinal Tract, Via Natural or Artificial Opening Endoscopic (ICD-10-PCS; CPT 43235; principal; 2020-05-25 14:30)
DX: K25.0 Acute gastric ulcer with hemorrhage (principal); D62 Acute posthemorrhagic anemia; N17.9 Acute kidney failure, unspecified; T39.395A Adverse effect of other nonsteroidal anti-inflammatory drugs [NSAID], initial encounter; R93.5 Abnormal findings on diagnostic imaging of other abdominal regions, including retroperitoneum; M25.551 Pain in right hip; Z96.641 Presence of right artificial hip joint; K29.80 Duodenitis without bleeding; K21.00 Gastro-esophageal reflux disease with esophagitis, without bleeding; K44.9 Diaphragmatic hernia without obstruction or gangrene; R35.0 Frequency of micturition; R73.03 Prediabetes; M19.90 Unspecified osteoarthritis, unspecified site; I10 Essential (primary) hypertension; E78.5 Hyperlipidemia, unspecified; Z96.652 Presence of left artificial knee joint; I69.322 Dysarthria following cerebral infarction; Z79.1 Long term (current) use of non-steroidal anti-inflammatories (NSAID); Z85.3 Personal history of malignant neoplasm of breast; Z79.82 Long term (current) use of aspirin
CPT/HCPCS: 20611; 36415; 36430; 73502; 73552; 74176; 74181; 80048; 80053; 81001; 82948; 83036; 85014; 85018; 85025; 85027; 85610; 85730; 86850; 86900; 86901; 86920; 87070; 87075; 87081; 87205; 88108; 88305; 89051; 89060; 93970; 96365; 96366; 96375; 97110; 97116; 97161; 97165; 97535; 99285; A9270; C9113; G0378; J0131; J1815; J2001; J2704; J7030; J7050; J7060; J7120; P9016

== ENCOUNTER 2020-06-02 12:51 | Outpatient (NON) | payer OTHER, SELFPAY ==
[2020-06-02 12:59] LABS: Hematocrit 23.9 % (37.0-47.0); Hemoglobin 7.9 g/dL (12.0-15.0); Mean Corpuscular HGB Conc 33.1 g/dl (32-36); Mean Corpuscular Hemoglobin 30.2 pg (26-34); Mean Corpuscular Volume 91.2 fl (80-100); Mean Platelet Volume 9.4 fl (7.4-10.4); Platelet Count Result 271 k/mm3 (150-375); Red Blood Count 2.62 M/mm3 (4.2-5.4); Red Cell Distribution Width 13.6 % (11.5-14.5); White Blood Count 5.3 K/mm3 (4.5-10.0)
[2020-06-02 13:29] LABS: Anion Gap 4 mmol/L (8-16); Blood Urea Nitrogen 20 mg/dL (7-17); Calcium 8.7 mg/dL (8.4-10.2); Carbon Dioxide 26 mmol/L (22-30); Chloride 102 mmol/L (98-107); Estimated Glomerular Filt Rate 31; Glucose 138 mg/dL (65-105); Potassium 4.6 mmol/L (3.4-5.0); Sodium 132 mmol/L (137-145)
== END 2020-06-02 12:52 ==
PROVIDERS: PCP Family Medicine Adolescent Medicine; Visit Provider Physician Assistant
DX: D62 Acute posthemorrhagic anemia (principal); K25.9 Gastric ulcer, unspecified as acute or chronic, without hemorrhage or perforation; K26.9 Duodenal ulcer, unspecified as acute or chronic, without hemorrhage or perforation; N17.9 Acute kidney failure, unspecified
CPT/HCPCS: 80048; 85027

== ENCOUNTER 2020-06-08 03:51 | Emergency (ER) | payer OTHER, SELFPAY ==
--- NOTE | ~2020-06-08 | XR_ITS ---
EXAMINATION: XR hip RT 2V w AP pelvis EXAM DATE: 06/08/2020 04:48 INDICATION: pain x 1 month, no injury, rt hip replacement 20 years ago. TECHNIQUE: Right hip frontal, 'frog leg' projections for interpretation. Frontal projection pelvis. Comparison is made to prior examination from 05/25/2020. FINDINGS: Again there is total right hip arthroplasty intact. There is chronic lucency surrounding th e acetabular component, consistent with loosening of this component. There is moderate to severe left hip primary osteoarthritis. There are no acute fractures identified. There are arterial calcificatio ns, arteriosclerosis. There is no significant interval change. IMPRESSION: 1. Total right hip arthroplasty with chronic acetabular component lucency at its articulation with the pelvis, consistent with loosening. 2. Moderate to severe left hip osteoarthritis. Reviewed, dictated and finalized at location A.
[2020-06-08 03:57] VITALS: BP 194/69; PULSE 86; RESP 18; TEMP 36.9; O2SAT 100
--- NOTE | 2020-06-08 04:05 | ED.GENADULT ---
HPI - General Adult General Chief complaint: Extremity Problem,Nontraumatic Stated complaint: right hip pain Time Seen by Provider: 06/08/20 03:54 History of Present Illness HPI narrative: Patient 84-year-old female that presents to emergency department with chief complaint of right hip pain. Patient reports that she has been having discomfort for some time was started on a nonsteroidal admitted to the hospital after she had worsening pain and then developed a GI bleed. The patient states that currently she is having pain in the right hip states it hurts more whenever she moves it and is improved with rest. The patient reports that she has been holding her legs down and has had them in a dependent position whenever she sits continuously the patient reports that she has had some increasing peripheral edema to her lower extremities. Patient denies chest pain denies shortness of breath. The patient denies any trauma to the hip or extremities Related Data Home Medications Medication Instructions Recorded Confirmed aspirin 325 mg PO DAILY 07/28/19 05/25/20 lisinopril-hydrochlorothiazide 1 tablet PO BID 07/28/19 05/25/20 metformin 1,000 mg PO DAILY 07/28/19 05/25/20 simvastatin 20 mg PO HS 07/28/19 05/25/20 sennosides-docusate sodium 1 tab-cap PO EVERY OTHER DAY 07/29/19 05/25/20 Centrum Silver 1 tablet PO DAILY 05/11/20 05/25/20 amlodipine 5 mg PO BID 05/11/20 05/25/20 omega 3-nci-qhq-fish oil [Fish Oil] 1 cap PO DAILY 05/11/20 05/25/20 Allergies Allergy/AdvReac Type Severity Reaction Status Date / Time No Known Allergies Allergy Verified 05/25/20 01:57 Review of Systems Review of Systems: Narrative: A 10 system review of systems was completed on the patient and is negative except for what is stated in the HPI. Nursing and ancillary documentation was reviewed. [facility] Past Medical History Medical History Acute blood loss anemia Breast CA CVA, old, dysarthria DJD (degenerative joint disease) Duodenal ulcer Gastric ulcer GERD (gastroesophageal reflux disease) GIB (gastrointestinal bleeding) Hip pain, right Hypertension Melena NSAID long-term use Prediabetes Surgical History Surgical History H/O left mastectomy History of cataract surgery History of hemorrhoidectomy History of left knee replacement History of right hip replacement History of shoulder surgery Social History Social History Social History: Patient lives at home alone. Grand-niece, Mikala, checks in on her occasionally, either via phone or physically, although has been less due to COVID outbreak. Her PCP is Dr. Coleman. She is listed as a Full Code Smoking status: Never smoker Alcohol intake: never Substance use: never Substance use type: does not use Gender identity (if verbalized by the patient): Female Spiritual care concerns: No Exam Narrative: Exam Narrative: GENERAL: Well-appearing, well-nourished, and in no acute distress. HEAD: Normocephalic, atraumatic. EYES: PERRLA and EOMI. ENT: Nares clear, no rhinorrhea or epistaxis. Mucous membranes moist. NECK: Supple. CHEST: Clear to auscultation. No respiratory distress. HEART: Regular rate and rhythm. No murmur heard. Normal peripheral pulses. ABDOMEN: Soft, nontender, nondistended, normal active bowel sounds. EXTREMITIES: Normal range of motion. No edema. SKIN: Warm, dry, no rash. NEURO: No focal deficits. Alert and oriented x3. PSYCH: Normal mood and affect. Course Vital Signs Vital signs: Vital Signs Temperature 36.9 C 06/08/20 03:57 Pulse Rate 86 06/08/20 03:57 Respiratory Rate 18 06/08/20 03:57 Blood Pressure 194/69 H 06/08/20 03:57 Pulse Oximetry 100 06/08/20 03:57 Temperature 36.9 C 06/08/20 03:57 Pulse Rate 86 06/08/20 03:57 Respiratory Rate
[2020-06-08] MEDS: MORPHINE SULFATE (*CRX) 4 MG/ML INJ IV PUSH (04:24)
[2020-06-08 04:25] LABS: Basophils Percent Auto 0.8 % (0.2-1.2); Eosinophils Absolute Auto 0.2 K/mm3 (0-0.3); Hematocrit 26.5 % (37.0-47.0); Hemoglobin 8.7 g/dL (12.0-15.0); Immature Granulocyte Absolute 0.01 K/mm3 (0.00-0.031); Immature Granulocyte Percent A 0.2 % (0-0.5); Lymphocytes Absolute Auto 1.38 K/mm3 (0.9-3.2); Lymphocytes Percent Auto 27.5 % (18.3-44.2); Mean Corpuscular HGB Conc 32.8 g/dl (32-36); Mean Corpuscular Hemoglobin 30.3 pg (26-34); Mean Corpuscular Volume 92.3 fl (80-100); Mean Platelet Volume 9.2 fl (7.4-10.4); Monocytes Absolute Auto 0.6 K/mm3 (0.1-0.6); Monocytes Percent Auto 12.7 % (2.6-8.5); Neutrophils Absolute Auto 2.8 K/mm3 (1.3-6.7); Neutrophils Percent Auto 55.8 % (45.5-73.1); Platelet Count Result 301 k/mm3 (150-375); Red Blood Count 2.87 M/mm3 (4.2-5.4); Red Cell Distribution Width 13.7 % (11.5-14.5)
[2020-06-08 04:45] LABS: NT Pro B Type Natriuretic Pept 1140 PG/ML (5-100)
[2020-06-08 04:50] LABS: Alanine Aminotransferase 13 U/L (4-35); Albumin Level 3.9 g/dL (3.5-5.1); Alkaline Phosphatase 103 U/L (38-126); Anion Gap 6 mmol/L (8-16); Aspartate Amino Transferase 34 U/L (14-36); Bilirubin,Total 0.5 mg/dL (0.2-1.3); Blood Urea Nitrogen 20 mg/dL (7-17); Calcium 8.7 mg/dL (8.4-10.2); Carbon Dioxide 24 mmol/L (22-30); Chloride 104 mmol/L (98-107); Estimated CRCL calculation 25 ml/min; Estimated Glomerular Filt Rate 36; Glucose 110 mg/dL (65-105); Potassium 4.7 mmol/L (3.4-5.0); Sodium 134 mmol/L (137-145)
[2020-06-08 05:59] VITALS: BP 166/76; PULSE 52; RESP 18; TEMP 36.6; O2SAT 100
== END 2020-06-08 05:59 | disposition home or self-care (01) ==
PROVIDERS: Emergency Provider Emergency Medicine; PCP Family Medicine Adolescent Medicine
DX: M25.551 Pain in right hip (principal); I69.922 Dysarthria following unspecified cerebrovascular disease; K21.9 Gastro-esophageal reflux disease without esophagitis; I10 Essential (primary) hypertension; R73.03 Prediabetes; Z85.3 Personal history of malignant neoplasm of breast; Z79.82 Long term (current) use of aspirin; Z79.84 Long term (current) use of oral hypoglycemic drugs
CPT/HCPCS: 36415; 73502; 80053; 83880; 85025; 96374; 99284; J2270

== ENCOUNTER 2020-08-29 12:54 | Emergency (ER) | payer OTHER, SELFPAY ==
[2020-08-29] VITALS (21 sets, daily range): BP systolic 132–213; BP diastolic 64–125; PULSE 74–95; RESP 18–20; TEMP 36.2; O2SAT 94–100
[2020-08-29 13:23] LABS: Basophils Percent Auto 0.5 % (0.2-1.2); Eosinophils Percent Auto 0.5 % (0-4.4); Hematocrit 29.3 % (37.0-47.0); Hemoglobin 9.4 g/dL (12.0-15.0); Immature Granulocyte Absolute 0.01 K/mm3 (0.00-0.031); Immature Granulocyte Percent A 0.2 % (0-0.5); Lymphocytes Absolute Auto 1.53 K/mm3 (0.9-3.2); Lymphocytes Percent Auto 23.8 % (18.3-44.2); Mean Corpuscular HGB Conc 32.1 g/dl (32-36); Mean Corpuscular Hemoglobin 29.2 pg (26-34); Mean Platelet Volume 9.3 fl (7.4-10.4); Monocytes Absolute Auto 0.8 K/mm3 (0.1-0.6); Monocytes Percent Auto 12.1 % (2.6-8.5); Neutrophils Absolute Auto 4.1 K/mm3 (1.3-6.7); Neutrophils Percent Auto 62.9 % (45.5-73.1); Platelet Count Result 302 k/mm3 (150-375); Red Blood Count 3.22 M/mm3 (4.2-5.4); Red Cell Distribution Width 15.3 % (11.5-14.5); White Blood Count 6.4 K/mm3 (4.5-10.0)
[2020-08-29 13:33] LABS: Alanine Aminotransferase 14 U/L (4-35); Albumin Level 4.2 g/dL (3.5-5.1); Alkaline Phosphatase 82 U/L (38-126); Anion Gap 10 mmol/L (8-16); Aspartate Amino Transferase 28 U/L (14-36); Bilirubin,Total 0.3 mg/dL (0.2-1.3); Blood Urea Nitrogen 24 mg/dL (7-17); Calcium 9.4 mg/dL (8.4-10.2); Carbon Dioxide 20 mmol/L (22-30); Chloride 105 mmol/L (98-107); Estimated CRCL calculation 23 ml/min; Estimated Glomerular Filt Rate 39; Glucose 164 mg/dL (65-105); Lipase 21 U/L (23-300); Sodium 135 mmol/L (137-145)
--- NOTE | 2020-08-29 14:36 | PC.NURSE ---
Patient reports no complaints at this time and that she is not able to give a urine sample due to going to the bathroom in the waiting room without obtaining a sample.
[2020-08-29 15:39] LABS: Add Urine Microscopic? YES; Appearance Urine Clear (Clear); Bilirubin Urine Negative (Negative); Blood Urine Negative (Negative); Color Urine Straw (Yellow); Glucose Urine UA Negative (Negative); Ketones Urine Negative (Negative); Leukocyte Esterase Ur Negative LEU/UL (Negative); Mucus Urine Rare /lpf; Nitrate Urine Negative (Negative); Protein Urine 3+ mg/dL (Negative); RBC Urine 0-2 /hpf (0-2); Squamous Epithelial Cell Urine Rare /hpf (Few); Urobilinogen Urine Negative mg/dL (<2.0); WBC Urine 0-3 /hpf
--- NOTE | 2020-08-29 15:56 | PC.NURSE ---
Patient ambulatory to the restroom without difficulty and in no distress. patient reports having no pain.
--- NOTE | 2020-08-29 16:05 | ED.GENADULT ---
HPI - General Adult General Chief complaint: Nausea/Vomiting/Diarrhea Stated complaint: Feels Terrible Time Seen by Provider: 08/29/20 14:41 Source: patient History of Present Illness HPI narrative: Patient is a 85 y/o female complaining moderate generalized weakness, nausea and shakiness since this morning. There is no known alleviating or exacerbating factor. She has no vomiting. She has no focal weakness or numbness. Related Data Home Medications Medication Instructions Recorded Confirmed aspirin 325 mg PO DAILY 07/28/19 05/25/20 lisinopril-hydrochlorothiazide 1 tablet PO BID 07/28/19 05/25/20 metformin 1,000 mg PO DAILY 07/28/19 05/25/20 simvastatin 20 mg PO HS 07/28/19 05/25/20 sennosides-docusate sodium 1 tab-cap PO EVERY OTHER DAY 07/29/19 05/25/20 Centrum Silver 1 tablet PO DAILY 05/11/20 05/25/20 omega 3-tmj-xym-fish oil [Fish Oil] 1 cap PO DAILY 05/11/20 05/25/20 Allergies Allergy/AdvReac Type Severity Reaction Status Date / Time No Known Allergies Allergy Verified 05/25/20 01:57 Review of Systems Review of Systems: All systems reviewed & are unremarkable except as noted in HPI and below Constitutional: Constitutional: Denies chills, Denies fever(s), Denies headache(s) and Reports weakness Eyes: Eyes: Denies blurry vision ENT: Denies headache(s) and Denies neck pain Cardiovascular: Cardiovascular: Denies chest pain and Denies dyspnea Respiratory: Respiratory: Denies cough and Denies dyspnea Gastrointestinal: Gastrointestinal: Denies abdominal pain, Denies diarrhea, Reports nausea and Denies vomiting Genitourinary: Genitourinary: Denies hematuria and Denies dysuria Musculoskeletal: Musculoskeletal: Denies back pain and Denies neck pain Neurologic: Denies headache(s), Reports weakness and Reports other ( shaky ) [facility] Past Medical History Medical History Acute blood loss anemia Breast CA CVA, old, dysarthria DJD (degenerative joint disease) Duodenal ulcer Gastric ulcer GERD (gastroesophageal reflux disease) GIB (gastrointestinal bleeding) Hip pain, right Hypertension Melena NSAID long-term use Prediabetes Surgical History Surgical History H/O left mastectomy History of cataract surgery History of hemorrhoidectomy History of left knee replacement History of right hip replacement History of shoulder surgery Social History Social History Social History: Patient lives at home alone. Grand-niece, Mikala, checks in on her occasionally, either via phone or physically, although has been less due to COVID outbreak. Her PCP is Dr. Coleman. She is listed as a Full Code Smoking status: Never smoker Alcohol intake: never Substance use: never Substance use type: does not use Gender identity (if verbalized by the patient): Female Spiritual care concerns: No Exam Const: General: no acute distress and well developed Orientation/consciousness: oriented to person, oriented to place, oriented to time and patient oriented x3 HENMT: Head: normocephalic Ears: external ears normal General nose exam: Normal external nose present Eyes: General: appearance normal, both eyes and all related structures Conjunctivae: conjunctivae normal Neck: Neck: normal visual inspection and full ROM Chest: Chest palpation & inspection: normal inspection of the chest and no tenderness Resp: Effort & Inspection: normal respiratory effort Auscultation: clear to auscultation bilaterally Cardio: Rate: regular rate Rhythm: regular rhythm GI: GI Palp: No abdominal tenderness and Yes Soft to palpation Skin: General skin exam: normal color and turgor normal Neuro: General: oriented to person, oriented to place, oriented to time and patient oriented x3 Cognition (Neuro): normal cognition Extrem: General: normal to inspection, full ROM and no
[2020-08-29] MEDS: ONDANSETRON INJ 4 MG/2 ML VIAL IV PUSH (16:15)
[2020-08-29] MEDS: SODIUM CHLORIDE 0.9% IV 1,000 ML 999 ML IV CONT (16:15)
[2020-08-29] MEDS: LORazepam INJ (*CRX) 2 MG/ML VIAL 0.5 MG IV PUSH (16:16)
[2020-08-29] MEDS: lisinopriL 20 MG TABLET PO (19:49)
[2020-08-29] MEDS: hydroCHLOROthiazide 12.5 MG CAPSULE PO (19:49)
--- NOTE | 2020-08-29 19:54 | PC.NURSE ---
Pt initially refused amlodipine as ordered for elevated bp, reports her doctor 'took her off of that medicine'. pt's nephew present in room and verbally argumentative with staff. Left dept. to go home and get pt's medication bottles. pt a/o x 4. reports she would like to go home multiple times to this RN and ED MD. Lisinopril/Hctz given as ordered.
--- NOTE | 2020-08-29 20:33 | PC.NURSE ---
This RN spoke with pt's emergency contact, shawn Alvarez, who reports he will be here in approx. 10 min to pick pt up.
--- NOTE | 2020-08-29 20:35 | PC.NURSE ---
Pt iv removed. discharge packet provided and pt verbally instructed to follow up with pcp and continue taking home medications as ordered. verbalized understanding. taken to wr in [place] by acquisitions editor.
== END 2020-08-29 20:59 | disposition home or self-care (01) ==
PROVIDERS: Emergency Medicine; Emergency Provider Emergency Medicine; PCP Family Medicine Adolescent Medicine
DX: R53.1 Weakness (principal); F41.9 Anxiety disorder, unspecified; I10 Essential (primary) hypertension; I69.922 Dysarthria following unspecified cerebrovascular disease; K21.9 Gastro-esophageal reflux disease without esophagitis; R73.03 Prediabetes; Z90.10 Acquired absence of unspecified breast and nipple; Z85.3 Personal history of malignant neoplasm of breast; Z98.49 Cataract extraction status, unspecified eye; Z96.652 Presence of left artificial knee joint; Z96.641 Presence of right artificial hip joint; Z79.82 Long term (current) use of aspirin
CPT/HCPCS: 36415; 80053; 81001; 83690; 85025; 96361; 96374; 96375; 99284; A9270; J2060; J2405; J7030

== ENCOUNTER 2020-11-22 02:47 | Day surgery (SDC) | payer OTHER, SELFPAY ==
[2020-11-14 14:24] VITALS: BMI 25.8
[2020-11-22] MEDS: LACTATED RINGERS 1,000 ML 150 ML IV CONT (09:33)
[2020-11-22 09:44] VITALS: BP 191/69; PULSE 63; RESP 18; TEMP 36.6; O2SAT 100
[2020-11-22 09:47] LABS: Glucose Point of Care 103 mg/dl (65-105)
--- NOTE | 2020-11-22 10:12 | WPDANESEPPF ---
Anes - Initial Pre Proc Eval Procedure: Operation Date: 11/22/20 10:30 Proposed Procedures p Esophagogastroduodenoscopy - Toan Giron MD Date/Time: 11/22/20 10:12 Surgeon: Toan Giron MD Pre Op Diagnosis: gastric ulcer Patient Data Age: 85 Gender: F Height: 1.57 m Weight: 56.3 kg Last Vital Signs Temp 98 F 11/22/20 09:44 Pulse 63 11/22/20 09:44 Resp 18 11/22/20 09:44 BP 191/69 H 11/22/20 09:44 Pulse Ox 100 11/22/20 09:44 Allergies Allergy/AdvReac Type Severity Reaction Status Date / Time No Known Allergies Allergy Verified 11/22/20 09:42 Home Medications Medication Instructions Recorded Confirmed Type aspirin 325 mg PO DAILY 07/28/19 11/22/20 History lisinopril-hydrochlorothiazide 1 tablet PO BID 07/28/19 11/22/20 History metformin 500 mg PO BID 07/28/19 11/22/20 History simvastatin 20 mg PO HS 07/28/19 11/22/20 History sennosides-docusate sodium 1 tab-cap PO EVERY OTHER DAY 07/29/19 11/22/20 History Centrum Silver 1 tablet PO DAILY 05/11/20 11/22/20 History omega 9-hro-stv-fish oil [Fish Oil] 1 cap PO DAILY 05/11/20 11/22/20 History pantoprazole 40 mg PO BID #60 tablet 05/27/20 11/22/20 Rx spironolactone 50 mg PO DAILY 11/14/20 11/22/20 History Laboratory Tests 11/22/20 09:45 POC Capillary Glucose 103 mg/dl mg/dl (65-105) Patient hx anesthesia problems: none Family hx anesthesia problems: none Results Review: All pre-operative results and documents have been reviewed as part of the pre-operative evaluation. [facility] Past Medical History Medical History Acute blood loss anemia Breast CA CVA, old, dysarthria DJD (degenerative joint disease) Duodenal ulcer Gastric ulcer GERD (gastroesophageal reflux disease) GIB (gastrointestinal bleeding) Hip pain, right Hypertension Melena NSAID long-term use Prediabetes Surgical History Surgical History H/O left mastectomy History of cataract surgery History of hemorrhoidectomy History of left knee replacement History of right hip replacement History of shoulder surgery Social History Social History Social History: Patient lives at home alone. Grand-niece, Mikala, checks in on her occasionally, either via phone or physically, although has been less due to COVID outbreak. Her PCP is Dr. Coleman. She is listed as a Full Code Smoking status: Never smoker Alcohol intake: never Substance use: never Substance use type: does not use Living arrangements: alone Gender identity (if verbalized by the patient): Female Spiritual care concerns: No Anes - Eval Final PreProcedure Day of Procedure 11/22/20 10:12 Patient weight: overweight Heart: regular rate and rhythm Lungs: clear to auscultation Airway: Mallampati scale class II Neurological: alert and oriented Last oral intake: >/= 8 hours ASA classification: III Emergent: no Anesthetic plan: proceed Anesthesia type and monitoring: general GIVS and standard monitoring Results Review: All pre-operative results and documents have been reviewed as part of the pre-operative evaluation. Informed Consent: The patient's anesthetic plan and its attendant risks and benefits were discussed with the patient/family/POA. Questions were solicited and answers provided to the satisfaction of the patient/family/POA.
--- NOTE | 2020-11-22 10:35 | PM.HPGS ---
History of Present Illness History of Present Illness Consent: Risks, benefits, and alternatives have been discussed and questions answered. Patient agrees to proceed with procedure. Chief complaint: gastric ulcer Narrative: Liza Clark is a 85 year old female with gastric ulcer 04/2020, she denies any bleeding but she can not tell me if still taking ppi (she has poor memory) Review of Systems Constitutional: Constitutional: Denies headache(s) and Denies weakness Eyes: Eyes: Denies blurry vision ENT: Reports Normal hearing present, Denies headache(s) and Denies neck pain Cardiovascular: Cardiovascular: Denies chest pain and Denies dyspnea Respiratory: Respiratory: Denies dyspnea Gastrointestinal: Gastrointestinal: Reports no additional gastrointestinal complaints Genitourinary: Genitourinary: Denies dysuria Musculoskeletal: Musculoskeletal: Denies neck pain Integumentary/Breasts: Skin/Breast: Denies dry skin Neurologic: Reports Normal hearing present, Denies headache(s) and Denies weakness Psychiatric: Psychiatric: Denies anxiety Endocrine: Endocrine: Denies change in body appearance Hematologic/Lymphatic: Hematologic/Lymphatic: Denies easy bleeding Allergic/Immunologic: Allergic/Immunologic: Denies urticaria PMFSH Past Medical History Medical History Acute blood loss anemia Breast CA CVA, old, dysarthria DJD (degenerative joint disease) Duodenal ulcer Gastric ulcer GERD (gastroesophageal reflux disease) GIB (gastrointestinal bleeding) Hip pain, right Hypertension Melena NSAID long-term use Prediabetes Surgical History Surgical History H/O left mastectomy History of cataract surgery History of hemorrhoidectomy History of left knee replacement History of right hip replacement History of shoulder surgery Social History Social History Social History: Patient lives at home alone. Grand-niece, Mikala, checks in on her occasionally, either via phone or physically, although has been less due to COVID outbreak. Her PCP is Dr. Coleman. She is listed as a Full Code Smoking status: Never smoker Alcohol intake: never Substance use: never Substance use type: does not use Living arrangements: alone Gender identity (if verbalized by the patient): Female Spiritual care concerns: No Meds Home Medications and Allergies Home Medications Medication Instructions Recorded Confirmed Type aspirin 325 mg PO DAILY 07/28/19 11/22/20 History lisinopril-hydrochlorothiazide 1 tablet PO BID 07/28/19 11/22/20 History metformin 500 mg PO BID 07/28/19 11/22/20 History simvastatin 20 mg PO HS 07/28/19 11/22/20 History sennosides-docusate sodium 1 tab-cap PO EVERY OTHER DAY 07/29/19 11/22/20 History Centrum Silver 1 tablet PO DAILY 05/11/20 11/22/20 History omega 3-zzj-ofy-fish oil [Fish Oil] 1 cap PO DAILY 05/11/20 11/22/20 History pantoprazole 40 mg PO BID #60 tablet 05/27/20 11/22/20 Rx spironolactone 50 mg PO DAILY 11/14/20 11/22/20 History Allergies Allergy/AdvReac Type Severity Reaction Status Date / Time No Known Allergies Allergy Verified 11/22/20 09:42 Vital Signs Vital Signs - 24 hr 11/22/20 09:44 Temperature 98 F Pulse Rate 63 Respiratory Rate 18 Blood Pressure 191/69 H Pulse Oximetry 100 Exam Const: General: comfortable and no acute distress HENMT: General nose exam: Normal nares present Eyes: General: appearance normal, both eyes and all related structures Neck: Neck: no JVD Resp: Auscultation: clear to auscultation bilaterally Cardio: Rate: regular rate Rhythm: regular rhythm GI: Inspection: non-distended GI Palp: Yes Soft to palpation Skin: General skin exam: normal color Neuro: General: gait normal Speech: normal speech Extrem: General: normal to inspection Psych: Mental Status:
[2020-11-22 10:55] VITALS: BP 171/47; PULSE 62; RESP 20; O2SAT 100
[2020-11-22 11:05] VITALS: BP 173/68; PULSE 62; RESP 16; O2SAT 95
[2020-11-22 11:15] VITALS: BP 180/81; PULSE 65; RESP 18; O2SAT 100
== END 2020-11-22 11:30 | disposition home or self-care (01) ==
PROVIDERS: PCP Family Medicine Adolescent Medicine; Visit Provider Internal Medicine Gastroenterology
PROC: 0DJ08ZZ Inspection of Upper Intestinal Tract, Via Natural or Artificial Opening Endoscopic (ICD-10-PCS; CPT 43235; principal; 2020-11-22 10:30)
DX: Z09 Encounter for follow-up examination after completed treatment for conditions other than malignant neoplasm (principal); K44.9 Diaphragmatic hernia without obstruction or gangrene; K22.2 Esophageal obstruction; K29.50 Unspecified chronic gastritis without bleeding; Z87.11 Personal history of peptic ulcer disease; I69.322 Dysarthria following cerebral infarction; K21.9 Gastro-esophageal reflux disease without esophagitis; I10 Essential (primary) hypertension; R73.03 Prediabetes; Z85.3 Personal history of malignant neoplasm of breast; Z79.82 Long term (current) use of aspirin; Z79.84 Long term (current) use of oral hypoglycemic drugs
CPT/HCPCS: 43249; 43239; 82948; 88305; C1726; J2704; J7120

== ENCOUNTER 2021-06-24 13:25 | Observation (INO) | payer OTHER, SELFPAY ==
[2021-06-24] VITALS (7 sets, daily range): BP systolic 153–206; BP diastolic 61–88; PULSE 73–92; RESP 15–18; TEMP 36.4–37.2; O2SAT 98–100; BMI 23.6
[2021-06-24 13:50] LABS: Basophils Absolute Auto 0.1 K/mm3 (0.0-0.1); Basophils Percent Auto 1.1 % (0.2-1.2); Eosinophils Absolute Auto 0.1 K/mm3 (0-0.3); Eosinophils Percent Auto 1.2 % (0-4.4); Hematocrit 32.8 % (37.0-47.0); Hemoglobin 10.5 g/dL (12.0-15.0); Immature Granulocyte Absolute 0.01 K/mm3 (0.00-0.031); Immature Granulocyte Percent A 0.2 % (0-0.5); Lymphocytes Percent Auto 24.6 % (18.3-44.2); Mean Corpuscular Volume 96.8 fl (80-100); Monocytes Absolute Auto 0.6 K/mm3 (0.1-0.6); Monocytes Percent Auto 10.5 % (2.6-8.5); Neutrophils Absolute Auto 3.6 K/mm3 (1.3-6.7); Neutrophils Percent Auto 62.4 % (45.5-73.1); Platelet Count Result 239 k/mm3 (150-375); Red Blood Count 3.39 M/mm3 (4.2-5.4); Red Cell Distribution Width 14.8 % (11.5-14.5); White Blood Count 5.7 K/mm3 (4.5-10.0)
[2021-06-24 14:12] LABS: Troponin I 0.019 ng/mL (0.000-0.034)
[2021-06-24 14:15] LABS: Alanine Aminotransferase 14 U/L (4-35); Albumin Level 3.8 g/dL (3.5-5.1); Alkaline Phosphatase 71 U/L (38-126); Anion Gap 4 mmol/L (8-16); Aspartate Amino Transferase 26 U/L (14-36); Bilirubin,Total 0.8 mg/dL (0.2-1.3); Blood Urea Nitrogen 38 mg/dL (7-17); Calcium 9.1 mg/dL (8.4-10.2); Carbon Dioxide 16 mmol/L (22-30); Chloride 112 mmol/L (98-107); Estimated CRCL calculation 15 ml/min; Estimated Glomerular Filt Rate 24; Glucose 166 mg/dL (65-110); Potassium 6.1 mmol/L (3.4-5.0); Sodium 132 mmol/L (137-145)
--- NOTE | 2021-06-24 14:18 | ECG_ITS ---
Measurements Intervals [place] Rate: 82 P: 30 [place]: 167 QRS: -19 QRSD: 99 T: 83 QT: 338 QTc: 396 Interpretive Statements SINUS RHYTHM WITH SINUS ARRHYTHMIA NONSPECIFIC ST & T-WAVE ABNORMALITY COMPARED TO ECG 08/02/2019 16:37:57 SINUS ARRHYTHMIA NOW PRESENT T-WAVE ABNORMALITY NOW PRESENT Electronically Signed On 06-24-2021 16:16:56 CDT by Comfort Mtz M.D.
--- NOTE | 2021-06-24 14:26 | ED.GENADULT ---
HPI - General Adult General Chief complaint: Recheck/Abnormal Lab/Rx Stated complaint: hypertension Time Seen by Provider: 06/24/21 13:28 Source: patient, RN notes reviewed and old records reviewed Mode of arrival: ambulatory Limitations: no limitations History of Present Illness HPI narrative: 85-year-old female history of hypertension presenting to the emergency department for evaluation of elevated blood pressure over the last 48 hours. Niece states that the patient's blood pressure has been running over 200 systolic for the last 2 days. Patient also states that she has had decreased p.o. intake due to loss of appetite. Patient suspects that she is taking her medications but her niece is the one who sets up the medications in her pillbox and patient is unaware of the medications that she takes. Patient's only complaint is decreased p.o. intake for the last 2 days. Patient denies any associated chest pain or shortness of breath. Patient denies any associated nausea vomiting diarrhea or abdominal pain. Patient does have history of diabetes and hypertension. Related Data Home Medications Medication Instructions Recorded Confirmed lisinopril-hydrochlorothiazide 1 tablet PO BID 07/28/19 11/22/20 sennosides-docusate sodium 1 tab-cap PO EVERY OTHER DAY 07/29/19 11/22/20 Centrum Silver 1 tablet PO DAILY 05/11/20 11/22/20 omega 5-xcy-kkl-fish oil [Fish Oil] 1 cap PO DAILY 05/11/20 11/22/20 spironolactone 50 mg PO DAILY 11/14/20 11/22/20 amlodipine 5 mg tablet 5 mg PO BID 03/16/21 03/16/21 hydrocodone 5 mg-acetaminophen 325 1 tablet PO Q6H PRN 03/16/21 03/16/21 mg tablet metformin 500 mg tablet,extended 1,000 mg PO DAILY tablet 03/16/21 release 24 hr Allergies Allergy/AdvReac Type Severity Reaction Status Date / Time No Known Allergies Allergy Verified 03/16/21 12:41 Review of Systems Review of Systems: CONSTITUTIONAL: Denies fever, chills, or sweats. EYES: Denies visual changes, redness, or discharge. ENT: Denies rhinorrhea, congestion, sore throat, or otalgia. CARDIOVASCULAR: Denies chest pain, palpitations, or edema. RESPIRATORY: Denies cough or dyspnea. GASTROINTESTINAL: See HPI GENITOURINARY: Denies dysuria or hematuria. SKIN: Denies rash or itching. MUSCULOSKELETAL: Denies back pain, joint pain, or myalgia. NEUROLOGIC: Denies headache, numbness, or weakness. 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 Grand-niece, Mikala, checks in on her occasionally, either via phone or physically, although has been less due to COVID outbreak. Her PCP is Dr. Coleman. She is listed as a Full Code Smoking status: Never smoker Second hand tobacco smoke exposure: No Alcohol intake: never Substance use: never Substance use type: does not use Gender identity (if verbalized by the patient): Female Sexual Orientation (if Verbalized by the Patient): Straight or Heterosexual Spiritual care concerns: No Agree to blood products: Yes Exam Narrative: APPEARANCE: Well appearing, no pain, no distress, well-nourished. HEAD: normocephalic, atraumatic. EYES: PERRLA/EOMI, conjunctivae clear. THROAT: Pharynx clear, no exudate. NECK: Supple. No adenopathy, no masses. RESPIRATORY: Airway patent, respirations nonlabored. Clear to auscultation bilaterally, no ral
[2021-06-24] MEDS: CALCIUM GLUCONATE 1,000 MG/10 ML VIAL 1000 MG IV PUSH (14:30)
[2021-06-24] MEDS: SODIUM BICARBONATE 8.4% 50 MEQ/50 ML SYRINGE IV PUSH (14:30)
[2021-06-24] MEDS: SODIUM ZIRCONIUM CYCLOSILICATE 10 GM POWD.PACK PO (14:30)
[2021-06-24] MEDS: DEXTROSE 50% 25 GM/50 ML SYRINGE IV PUSH (14:30)
[2021-06-24] MEDS: INSULIN HUMAN REGULAR (*BKC) 100 UNITS/ML 10 UNITS IV PUSH (14:31)
[2021-06-24 15:25] LABS: Add Urine Microscopic? YES; Appearance Urine Cloudy (Clear); Bacteria Urine Trace /hpf; Bilirubin Urine Negative (Negative); Blood Urine Negative (Negative); Color Urine Yellow (Yellow); Glucose Urine UA 3+ mg/dL (Negative); Ketones Urine Negative (Negative); Leukocyte Esterase Ur Trace LEU/UL (Negative); Nitrate Urine Negative (Negative); Protein Urine 3+ mg/dL (Negative); RBC Urine 0-2 /hpf (0-2); Specific Grav Ur 1.012 (1.001-1.035); Squamous Epithelial Cell Urine Occasional /hpf (Few); Urobilinogen Urine Negative mg/dL (<2.0)
[2021-06-24] MEDS: SODIUM CHLORIDE 0.9% IV 1,000 ML 150 ML IV CONT (15:54)
[2021-06-24] MEDS: hydrALAZINE HCL 20 MG/ML VIAL 10 MG IV PUSH (15:54)
--- NOTE | 2021-06-24 16:48 | PM.IMHP ---
H&P: HPI History of Present Illness Date/Time: 06/24/21 16:48 ED-HPI narrative: 85-year-old female history of hypertension presenting to the emergency department for evaluation of elevated blood pressure over the last 48 hours. Niece states that the patient's blood pressure has been running over 200 systolic for the last 2 days. Patient also states that she has had decreased p.o. intake due to loss of appetite. Patient suspects that she is taking her medications but her niece is the one who sets up the medications in her pillbox and patient is unaware of the medications that she takes. Patient's only complaint is decreased p.o. intake for the last 2 days. Patient denies any associated chest pain or shortness of breath. Patient denies any associated nausea vomiting diarrhea or abdominal pain. patient is 85-year-old female with history of hypertension who lives home alone and was brought emergency department and was found to have emergently elevated blood pressure systolic to 200, and potassium was 6.1, and metabolic acidosis unfortunately patient is not able to provide any review of symptoms or history, her niece who manages her medication is not present and the ER I tried to call her no answer, left a message, spoke with ER physician, patient was given hydralazine her blood pressure trending, patient with hyperkalemia there are no acute changes on EKG patient is given Lokelma, for metabolic acidosis most likely secondary to acute on chronic kidney disease patient was given bicarb 50 meq IV push time and being hydrated, repeat labs are ordered and will follow-up. 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 Grand-niece, Mikala, checks in on her occasionally, either via phone or physically, although has been less due to COVID outbreak. Her PCP is Dr. Coleman. She is listed as a Full Code Smoking status: Never smoker Second hand tobacco smoke exposure: Yes Alcohol intake: never Substance use: never Substance use type: does not use Gender identity (if verbalized by the patient): Female Sexual Orientation (if Verbalized by the Patient): Straight or Heterosexual Spiritual care concerns: No Agree to blood products: Yes Meds Home Medications and Allergies Home Medications Medication Instructions Recorded Confirmed Type lisinopril-hydrochlorothiazide 1 tablet PO BID 07/28/19 06/24/21 History Centrum Silver 1 tablet PO DAILY 05/11/20 06/24/21 History omega 0-eip-sna-fish oil [Fish Oil] 1 cap PO DAILY 05/11/20 06/24/21 History spironolactone 50 mg PO DAILY 11/14/20 06/24/21 History metformin 500 mg tablet,extended 1,000 mg PO DAILY tablet 03/16/21 06/24/21 History release 24 hr pantoprazole 40 mg tablet,delayed 40 mg PO BID #180 tablet 03/16/21 06/24/21 Rx release silver sulfadiazine 1 % topical 1 applic TOPICAL DAILY #50 g 03/16/21 06/24/21 Rx cream simvastatin 20 mg tablet 20 mg PO HS #90 tablet 03/27/21 06/24/21 Rx
--- NOTE | 2021-06-24 16:53 | PC.NURSE ---
called to lab for BMP. they state they have it and will run it. IMU waiting for lab result to see if pt can go to a medical floor instead of IMU.
[2021-06-24 17:02] LABS: Anion Gap 6 mmol/L (8-16); Blood Urea Nitrogen 38 mg/dL (7-17); Calcium 9.4 mg/dL (8.4-10.2); Carbon Dioxide 18 mmol/L (22-30); Chloride 112 mmol/L (98-107); Estimated CRCL calculation 15 ml/min; Estimated Glomerular Filt Rate 24; Glucose 95 mg/dL (65-110); Potassium 5.2 mmol/L (3.4-5.0); Sodium 136 mmol/L (137-145)
--- NOTE | 2021-06-24 17:11 | PC.NURSE ---
Spoke with Dr. Chinchilla regarding decrease in pt's potassium after treatment. Potassium down from 6.1 to 5.2. Pt's BP has decreased to WNL as well. Down from 202/71 to 156/[address] Chinchilla agrees with downgrade/admission to med/tele instead of IMU. Supervisor [employer] aware
[2021-06-24 17:14] LABS: Troponin I 0.023 ng/mL (0.000-0.034)
--- NOTE | 2021-06-24 17:16 | PC.NURSE ---
IMU called and states Dr. Chinchilla is okay w/ pt going to a medical tele bed instead of IMU. cost control supervisor and charge authorizer made aware and will call back with a new bed number.
--- NOTE | 2021-06-24 18:29 | ADMGEN ---
This patient, Liza Clark, was admitted to Medical Room 256-. Patient/family oriented to hospital policies and general routines including ID bracelet, bed and alarms, visiting hours, pain management, procedures, bathroom and other care routines, personal items, smoking policy, room service/diet, and visiting hours. Information on how to activate the Rapid Response Team has been discussed. Patient/Family are encouraged to report perceived risks to care and to ask questions if they do not understand what they are told or what they should do.
[2021-06-24 21:15] LABS: Glucose Point of Care 133 mg/dl (65-105)
[2021-06-25] VITALS (12 sets, daily range): BP systolic 151–170; BP diastolic 62–88; PULSE 73–84; RESP 15–21; TEMP 36.1–37; O2SAT 97–100
[2021-06-25 05:25] LABS: Hematocrit 28.5 % (37.0-47.0); Hemoglobin 9.2 g/dL (12.0-15.0); Mean Corpuscular HGB Conc 32.3 g/dl (32-36); Mean Platelet Volume 9.8 fl (7.4-10.4); Platelet Count Result 198 k/mm3 (150-375); Red Blood Count 2.97 M/mm3 (4.2-5.4); Red Cell Distribution Width 14.9 % (11.5-14.5); White Blood Count 5.1 K/mm3 (4.5-10.0)
[2021-06-25 05:36] LABS: Anion Gap 4 mmol/L (8-16); Blood Urea Nitrogen 33 mg/dL (7-17); Calcium 8.7 mg/dL (8.4-10.2); Carbon Dioxide 17 mmol/L (22-30); Chloride 115 mmol/L (98-107); Estimated CRCL calculation 16 ml/min; Estimated Glomerular Filt Rate 25; Glucose 112 mg/dL (65-110); Magnesium 1.7 mg/dL (1.6-2.3); Potassium 5.3 mmol/L (3.4-5.0); Sodium 136 mmol/L (137-145)
[2021-06-25 07:52] LABS: Glucose Point of Care 107 mg/dl (65-105)
[2021-06-25] MEDS: amLODIPine BESYLATE 5 MG TABLET PO (10:07)
[2021-06-25] MEDS: SODIUM CHLORIDE 0.9% IV 1,000 ML 100 ML IV CONT ×2 (10:07→22:03)
[2021-06-25] MEDS: MULTIVITAMINS /C LUTEIN (CENTRUM SILVER) TABLET *BKC 1 TAB PO (10:07)
[2021-06-25] MEDS: OMEGA 3 POLYUNSAT FATTY ACIDS 1 GM CAP PO (10:07)
[2021-06-25] MEDS: ASPIRIN 325 MG TABLET PO (10:07)
[2021-06-25] MEDS: PANTOPRAZOLE 40 MG TABLET PO ×2 (10:08→20:41)
[2021-06-25 11:11] LABS: Glucose Point of Care 156 mg/dl (65-105)
[2021-06-25] MEDS: SODIUM ZIRCONIUM CYCLOSILICATE 10 GM POWD.PACK PO (12:04)
--- NOTE | 2021-06-25 12:21 | PM.IMPN ---
Progress Note: A&P Assessment and Plan (1) Acute hyperkalemia: Code(s): E87.5 - Hyperkalemia Status: Acute Assessment and Plan: most likely secondary dehydration and acute on chronic kidney disease, patient remains clinically stable there are no acute changes on EKG is given Lokelma and will monitor. 06/25/2021 inerval history: Patient is a very hard of hearing and does not want to put her hearing aids, patient remains confused, her blood pressure is trending down her potassium is still high will give the patient Lokelma, patient with CHARLI a creatinine is still elevated unable to resume patient's home medication lisinopril and hydrochlorothiazide, will start the patient on amlodipine 5 mg q.day and monitor her blood pressure is it is trending down, will have PT OT evaluate the and further recommendation to follow, may not be able to take care of herself and may need a placement. will continue gently hydrate the patient and monitor further recommendation to follow. (2) CHARLI (acute kidney injury): Code(s): N17.9 - Acute kidney failure, unspecified Status: Acute Assessment and Plan: most likely secondary to dehydration and due to poor p.o. intake patient is being gently hydrated will monitor (3) Generalized anxiety disorder: Code(s): F41.1 - Generalized anxiety disorder Status: Acute Assessment and Plan: will continue home regimen and monitor (4) Type 2 diabetes mellitus with diabetic peripheral angiopathy without gangrene: Code(s): E11.51 - Type 2 diabetes mellitus with diabetic peripheral angiopathy without gangrene Status: Acute Assessment and Plan: will continue home regimen and monitor with sliding scale (5) Metabolic acidosis: Code(s): E87.2 - Acidosis Status: Acute Assessment and Plan: most likely secondary to acute on chronic kidney disease and dehydration patient was given bicarb and being hydrated will monitor (6) Hypertensive urgency: Code(s): I16.0 - Hypertensive urgency Status: Acute Assessment and Plan: patient appeared to have dementia and poor historian most likely patient had not been taking home medication now has a him urgently elevated blood pressure, patient remains clinically stable, patient was given hydralazine, blood pressure is trending down once medications are reconciled will resume home medication Subjective Date/time seen: 06/25/21 12:21 HPI: patient is 85-year-old female with history of hypertension who lives home alone and was brought emergency department and was found to have emergently elevated blood pressure systolic to 200, and potassium was 6.1, and metabolic acidosis unfortunately patient is not able to provide any review of symptoms or history, her niece who manages her medication is not present and the ER I tried to call her no answer, left a message, spoke with ER physician, patient was given hydralazine her blood pressure trending, patient with hyperkalemia there are no acute changes on EKG patient is given Lokelma, for metabolic acidosis most likely secondary to acute on chronic kidney disease patient was given bicarb 50 meq IV push time and being hydrated, repeat labs are ordered and will follow-up. 06/25/2021 inerval history: Patient is a very hard of hearing and does not want to put her hearing aids, patient remains confused, her blood pressure is trending down her potassium is still high will give the patient Lokelma, patient with CHARLI a creatinine is still elevated unable to resume patient's home medication lisinopril and hydrochlorothiazide, will start the patient on amlodipine 5 mg q.day and monitor her blood pressure is it is trending down, will have PT OT evaluate the and further recommendation to follow, may not be able to take care of herself and may need a placement. will continue gently hydrate the patient and monitor further recommendation to follow. Exam Na
[2021-06-25 16:10] LABS: Glucose Point of Care 148 mg/dl (65-105)
[2021-06-25] MEDS: SIMVASTATIN 20 MG TABLET PO (20:41)
[2021-06-25 21:10] LABS: Glucose Point of Care 110 mg/dl (65-105)
[2021-06-26] VITALS (7 sets, daily range): BP systolic 148–173; BP diastolic 60–70; PULSE 75–93; RESP 18–20; TEMP 36.1–36.8; O2SAT 98–100
[2021-06-26 05:44] LABS: Hematocrit 29.1 % (37.0-47.0); Hemoglobin 9.6 g/dL (12.0-15.0); Mean Corpuscular Hemoglobin 31.2 pg (26-34); Mean Corpuscular Volume 94.5 fl (80-100); Mean Platelet Volume 9.9 fl (7.4-10.4); Platelet Count Result 200 k/mm3 (150-375); Red Blood Count 3.08 M/mm3 (4.2-5.4); Red Cell Distribution Width 14.9 % (11.5-14.5); White Blood Count 5.6 K/mm3 (4.5-10.0)
[2021-06-26 06:18] LABS: Anion Gap 6 mmol/L (8-16); Blood Urea Nitrogen 30 mg/dL (7-17); Calcium 8.1 mg/dL (8.4-10.2); Carbon Dioxide 16 mmol/L (22-30); Chloride 115 mmol/L (98-107); Estimated CRCL calculation 17 ml/min; Estimated Glomerular Filt Rate 27; Glucose 107 mg/dL (65-110); Potassium 4.2 mmol/L (3.4-5.0); Sodium 137 mmol/L (137-145)
[2021-06-26 07:37] LABS: Glucose Point of Care 111 mg/dl (65-105)
[2021-06-26] MEDS: ASPIRIN 325 MG TABLET PO (09:05)
[2021-06-26] MEDS: OMEGA 3 POLYUNSAT FATTY ACIDS 1 GM CAP PO (09:05)
[2021-06-26] MEDS: MULTIVITAMINS /C LUTEIN (CENTRUM SILVER) TABLET *BKC 1 TAB PO (09:05)
[2021-06-26] MEDS: amLODIPine BESYLATE 5 MG TABLET PO (09:05)
[2021-06-26] MEDS: PANTOPRAZOLE 40 MG TABLET PO ×2 (09:05→20:41)
[2021-06-26 11:34] LABS: Glucose Point of Care 188 mg/dl (65-105)
--- NOTE | 2021-06-26 12:25 | PM.DS ---
DS: Admitting Diagnosis Discharge Date 06/26/2021 Admitting Diagnosis hyperkalemia, elevated blood pressure and dehydration DS: Discharge Diagnosis Discharge Diagnosis (1) Acute hyperkalemia: Code(s): E87.5 - Hyperkalemia Status: Acute Assessment and Plan: most likely secondary dehydration and acute on chronic kidney disease, patient remains clinically stable there are no acute changes on EKG is given Lokelma and will monitor. 06/25/2021 inerval history: Patient is a very hard of hearing and does not want to put her hearing aids, patient remains confused, her blood pressure is trending down her potassium is still high will give the patient Lokelma, patient with CHARLI a creatinine is still elevated unable to resume patient's home medication lisinopril and hydrochlorothiazide, will start the patient on amlodipine 5 mg q.day and monitor her blood pressure is it is trending down, will have PT OT evaluate the and further recommendation to follow, may not be able to take care of herself and may need a placement. will continue gently hydrate the patient and monitor further recommendation to follow. (2) CHARLI (acute kidney injury): Code(s): N17.9 - Acute kidney failure, unspecified Status: Acute Assessment and Plan: most likely secondary to dehydration and due to poor p.o. intake patient is being gently hydrated will monitor (3) Generalized anxiety disorder: Code(s): F41.1 - Generalized anxiety disorder Status: Acute Assessment and Plan: will continue home regimen and monitor (4) Type 2 diabetes mellitus with diabetic peripheral angiopathy without gangrene: Code(s): E11.51 - Type 2 diabetes mellitus with diabetic peripheral angiopathy without gangrene Status: Acute Assessment and Plan: will continue home regimen and monitor with sliding scale (5) Metabolic acidosis: Code(s): E87.2 - Acidosis Status: Acute Assessment and Plan: most likely secondary to acute on chronic kidney disease and dehydration patient was given bicarb and being hydrated will monitor (6) Hypertensive urgency: Code(s): I16.0 - Hypertensive urgency Status: Acute Assessment and Plan: patient appeared to have dementia and poor historian most likely patient had not been taking home medication now has a him urgently elevated blood pressure, patient remains clinically stable, patient was given hydralazine, blood pressure is trending down once medications are reconciled will resume home medication DS: Summary Hospital Course Reason for hospitalization: ED-HPI narrative: 85-year-old female history of hypertension presenting to the emergency department for evaluation of elevated blood pressure over the last 48 hours. Niece states that the patient's blood pressure has been running over 200 systolic for the last 2 days. Patient also states that she has had decreased p.o. intake due to loss of appetite. Patient suspects that she is taking her medications but her niece is the one who sets up the medications in her pillbox and patient is unaware of the medications that she takes. Patient's only complaint is decreased p.o. intake for the last 2 days. Patient denies any associated chest pain or shortness of breath. Patient denies any associated nausea vomiting diarrhea or abdominal pain. patient is 85-year-old female with history of hypertension who lives home alone and was brought emergency department and was found to have emergently elevated blood pressure systolic to 200, and potassium was 6.1, and metabolic acidosis unfortunately patient is not able to provide any review of symptoms or history, her niece who manages her medication is not present and the ER I tried to call her no answer, left a message, spoke with ER physician, patient was given hydralazine her blood pressure trending, patient with hyperkalemia there are no acute changes on EKG patient is given
[2021-06-26] MEDS: SILVER SULFADIAZINE 1% CR 400 GM JAR (*BKC) 1 APPLIC TOPICAL (12:50)
--- NOTE | 2021-06-26 13:56 | PM.IMPN ---
Progress Note: A&P Assessment and Plan (1) Acute hyperkalemia: Code(s): E87.5 - Hyperkalemia Status: Acute Assessment and Plan: most likely secondary dehydration and acute on chronic kidney disease, patient remains clinically stable there are no acute changes on EKG is given Lokelma and will monitor. 06/25/2021 inerval history: Patient is a very hard of hearing and does not want to put her hearing aids, patient remains confused, her blood pressure is trending down her potassium is still high will give the patient Lokelma, patient with CHARLI a creatinine is still elevated unable to resume patient's home medication lisinopril and hydrochlorothiazide, will start the patient on amlodipine 5 mg q.day and monitor her blood pressure is it is trending down, will have PT OT evaluate the and further recommendation to follow, may not be able to take care of herself and may need a placement. will continue gently hydrate the patient and monitor further recommendation to follow. 06/26/2021 inerval history: Patient is a very hard of hearing and does not want to put her hearing aids, patient remains confused, her blood pressure is trending down her potassium was high, gave the patient Lokelma, patient with CHARLI a creatinine is still elevated unable to resume patient's home medication lisinopril and hydrochlorothiazide, will start the patient on amlodipine 5 mg q.day and monitor her blood pressure is it is trending down, will continue gentle hydration, as her CO2 is still low and Scr is high, will have PT OT evaluate the patient and further recommendation to follow, may not be able to take care of herself and may need a placement. will continue gently hydration and monitor further recommendation to follow. (2) CHARLI (acute kidney injury): Code(s): N17.9 - Acute kidney failure, unspecified Status: Acute Assessment and Plan: most likely secondary to dehydration and due to poor p.o. intake patient is being gently hydrated will monitor (3) Generalized anxiety disorder: Code(s): F41.1 - Generalized anxiety disorder Status: Acute Assessment and Plan: will continue home regimen and monitor (4) Type 2 diabetes mellitus with diabetic peripheral angiopathy without gangrene: Code(s): E11.51 - Type 2 diabetes mellitus with diabetic peripheral angiopathy without gangrene Status: Acute Assessment and Plan: will continue home regimen and monitor with sliding scale (5) Metabolic acidosis: Code(s): E87.2 - Acidosis Status: Acute Assessment and Plan: most likely secondary to acute on chronic kidney disease and dehydration patient was given bicarb and being hydrated will monitor (6) Hypertensive urgency: Code(s): I16.0 - Hypertensive urgency Status: Acute Assessment and Plan: patient appeared to have dementia and poor historian most likely patient had not been taking home medication now has a him urgently elevated blood pressure, patient remains clinically stable, patient was given hydralazine, blood pressure is trending down once medications are reconciled will resume home medication Subjective Date/time seen: 06/26/21 13:56 06/26/2021 inerval history: Patient is a very hard of hearing and does not want to put her hearing aids, patient remains confused, her blood pressure is trending down her potassium was high, gave the patient Lokelma, patient with CHARLI a creatinine is still elevated unable to resume patient's home medication lisinopril and hydrochlorothiazide, will start the patient on amlodipine 5 mg q.day and monitor her blood pressure is it is trending down, will continue gentle hydration, as her CO2 is still low and Scr is high, will have PT OT evaluate the patient and further recommendation to follow, may not be able to take care of herself and may need a placement. will continue gently hydration and monitor further recommendation to follow.
[2021-06-26] MEDS: SODIUM CHLORIDE 0.9% IV 1,000 ML 100 ML IV CONT (14:32)
[2021-06-26 16:44] LABS: Glucose Point of Care 141 mg/dl (65-105)
[2021-06-26] MEDS: SIMVASTATIN 20 MG TABLET PO (20:41)
[2021-06-26 20:58] LABS: Glucose Point of Care 117 mg/dl (65-105)
[2021-06-27] MEDS: SODIUM CHLORIDE 0.9% IV 1,000 ML 100 ML IV CONT (02:32)
[2021-06-27 05:16] LABS: Hematocrit 28.3 % (37.0-47.0); Hemoglobin 9.4 g/dL (12.0-15.0); Mean Corpuscular HGB Conc 33.2 g/dl (32-36); Mean Corpuscular Hemoglobin 31.2 pg (26-34); Platelet Count Result 203 k/mm3 (150-375); Red Blood Count 3.01 M/mm3 (4.2-5.4); White Blood Count 5.5 K/mm3 (4.5-10.0)
[2021-06-27 05:33] LABS: Anion Gap 5 mmol/L (8-16); Blood Urea Nitrogen 31 mg/dL (7-17); Calcium 7.9 mg/dL (8.4-10.2); Carbon Dioxide 16 mmol/L (22-30); Chloride 115 mmol/L (98-107); Estimated CRCL calculation 18 ml/min; Estimated Glomerular Filt Rate 29; Glucose 106 mg/dL (65-110); Potassium 4.2 mmol/L (3.4-5.0); Sodium 136 mmol/L (137-145)
[2021-06-27 06:00] VITALS: BP 151/90; PULSE 73; RESP 21; TEMP 36.1; O2SAT 100
[2021-06-27 08:07] LABS: Glucose Point of Care 105 mg/dl (65-105)
[2021-06-27] MEDS: PANTOPRAZOLE 40 MG TABLET PO (09:14)
[2021-06-27] MEDS: amLODIPine BESYLATE 5 MG TABLET PO (09:14)
[2021-06-27] MEDS: ASPIRIN 325 MG TABLET PO (09:14)
[2021-06-27] MEDS: MULTIVITAMINS /C LUTEIN (CENTRUM SILVER) TABLET *BKC 1 TAB PO (09:14)
[2021-06-27] MEDS: OMEGA 3 POLYUNSAT FATTY ACIDS 1 GM CAP PO (09:14)
[2021-06-27] MEDS: SILVER SULFADIAZINE 1% CR 400 GM JAR (*BKC) 1 APPLIC TOPICAL (09:26)
--- NOTE | 2021-06-27 09:29 | PM.IMPN ---
Progress Note: A&P Assessment and Plan (1) Acute hyperkalemia: Code(s): E87.5 - Hyperkalemia Status: Acute Assessment and Plan: most likely secondary dehydration and acute on chronic kidney disease, patient remains clinically stable there are no acute changes on EKG is given Lokelma and will monitor. (2) CHARLI (acute kidney injury): Code(s): N17.9 - Acute kidney failure, unspecified Status: Acute Assessment and Plan: most likely secondary to dehydration and due to poor p.o. intake patient is being gently hydrated will monitor continue IV hydration (3) Generalized anxiety disorder: Code(s): F41.1 - Generalized anxiety disorder Status: Acute Assessment and Plan: will continue home regimen and monitor (4) Type 2 diabetes mellitus with diabetic peripheral angiopathy without gangrene: Code(s): E11.51 - Type 2 diabetes mellitus with diabetic peripheral angiopathy without gangrene Status: Acute Assessment and Plan: will continue home regimen and monitor with sliding scale (5) Metabolic acidosis: Code(s): E87.2 - Acidosis Status: Acute Assessment and Plan: most likely secondary to acute on chronic kidney disease and dehydration patient was given bicarb and being hydrated will monitor (6) Hypertensive urgency: Code(s): I16.0 - Hypertensive urgency Status: Acute Assessment and Plan: patient appeared to have dementia and poor historian most likely patient had not been taking home medication now has a him urgently elevated blood pressure, patient was given hydralazine, titrate blood pressure medication (7) Back pain: Code(s): M54.9 - Dorsalgia, unspecified Status: Acute Assessment and Plan: Lower back pain associated with right leg numbness will get MRI of the thoracic spine re-evaluate continue pain control (8) Pancreatic cyst: Code(s): K86.2 - Cyst of pancreas Status: Acute Assessment and Plan: Pancreatic cyst on the recent MRI follow-up with PCP as outpatient Subjective Date/time seen: 06/27/21 09:29 Interval history: Patient seen and examined Patient feels weak still complaining of back pain also complained of right leg numbness Patient denies fever headache chest pain shortness of breath I am seeing the patient for acute renal failure Exam Narrative: Alert Chest no wheeze crackles Abdomen nontender nondistended CVS S1 + S2 Lower extremity edema Neurology weakness lower extremity bilateral 4/5 Objective Data Vital Signs Vital Signs: Vital Signs - 24 hr 06/26/21 12:00 06/26/21 14:00 06/26/21 22:00 Temperature 98.2 F 97.2 F L Pulse Rate 87 80 85 Respiratory Rate 18 20 Blood Pressure 148/60 H 173/64 H Pulse Oximetry 100 98 06/27/21 06:00 Temperature 97.0 F L Pulse Rate 73 Respiratory Rate 21 H Blood Pressure 151/90 H Pulse Oximetry 100 Intake/Output Intake/Output: Intake & Output 06/24/21 06/25/21 06/26/21 06/27/21 23:59 23:59 23:59 23:59 Intake Total 120 2790 2672 1770 Output Total 600 1100 Balance 120 2790 2072 670 Meds/Results Medications: Active Medications Generic Name Dose Route Start Last Admin Trade Name Freq PRN Reason Stop Dose Admin Amlodipine Besylate 5 mg 06/25/21 09:00 06/27/21 09:14 Amlodipine Besylate 5 Mg Tablet PO 5 mg QAM ALEXYS Administration Aspirin 325 mg 06/25/21 09:00 06/27/21 09:14 Aspirin 325 Mg Tablet PO 325 mg DAILY ALEXYS Administration Dextrose 12.5 gm 06/24/21 17:03 Dextrose 50% 25 Gm/50 Ml Syringe IV PUSH PRN PRN Hypoglycemia Protocol Docusate Sodium 100 mg 06/25/21 00:01 Docusate Sodium 100 Mg Capsule PO DAILY PRN Constipation Fish Oil 1 gm 06/25/21 09:00 06/27/21 09:14 Brillion 3 Polyunsat Fatty Acids 1 Gm Cap PO 1 gm DAILY ALEXYS Administration Glucagon 1 mg 06/24/21 17:03 Glucagon For Inj 1 Mg Vial IM PRN P
[2021-06-27 11:46] LABS: Glucose Point of Care 141 mg/dl (65-105)
[2021-06-27] MEDS: DOCUSATE SODIUM 100 MG CAPSULE PO (12:17)
--- NOTE | 2021-06-27 12:25 | PM.DS ---
DS: Admitting Diagnosis Discharge Date 06/28/2019 Admitting Diagnosis Hypertensive urgency DS: Discharge Diagnosis Discharge Diagnosis (1) Acute hyperkalemia: Code(s): E87.5 - Hyperkalemia Status: Acute Assessment and Plan: most likely secondary dehydration and acute on chronic kidney disease, patient remains clinically stable there are no acute changes on EKG is given Lokelma repeat CMP in 1 week resolved DC ALMA-inhibitor Aldactone (2) CHARLI (acute kidney injury): Code(s): N17.9 - Acute kidney failure, unspecified Status: Acute Assessment and Plan: most likely secondary to dehydration and due to poor p.o. intake treated with IV hydration results (3) Generalized anxiety disorder: Code(s): F41.1 - Generalized anxiety disorder Status: Acute Assessment and Plan: will continue home regimen and monitor (4) Type 2 diabetes mellitus with diabetic peripheral angiopathy without gangrene: Code(s): E11.51 - Type 2 diabetes mellitus with diabetic peripheral angiopathy without gangrene Status: Acute Assessment and Plan: will continue home regimen a (5) Metabolic acidosis: Code(s): E87.2 - Acidosis Status: Acute Assessment and Plan: most likely secondary to acute on chronic kidney disease and dehydration patient was given bicarb and being hydrated will monitor (6) Hypertensive urgency: Code(s): I16.0 - Hypertensive urgency Status: Acute Assessment and Plan: patient appeared to have dementia and poor historian most likely patient had not been taking home medication now has a him urgently elevated blood pressure, patient was given hydralazine, titrate blood pressure medication Patient will be discharged on amlodipine and Lasix blood pressure improved patient asymptomatic Acute on top of chronic renal failure improved follow-up with PCP as outpatient repeat CMP in 1 week (7) Pancreatic cyst: Code(s): K86.2 - Cyst of pancreas Status: Acute Assessment and Plan: Pancreatic cyst on the recent MRI follow-up with PCP as outpatient DS: Summary Hospital Course Hospital Course: 85 years old female with past medical history of hypertension presented to the hospital with generalized weakness uncontrolled hypertension associated with acute renal failure and hyperkalemia Aldactone and lisinopril was discontinued patient was treated with IV fluid patient was started on amlodipine also was given p.r.n. hydralazine her blood pressure has improved renal function improved hyperkalemia resolved patient to follow-up with PCP in 1 week Renal function improved Restart Lasix Follow-up with PCP in 1 week Time Spent with Patient Time attestation: Total time spent providing and/or coordinating discharge services: DS: Data Data Completed and Pending Labs on day of discharge: Labs from last 24 hours 06/27/21 06/27/21 06/27/21 11:31 08:04 04:57 WBC RBC Hgb Hct MCV MCH MCHC RDW Plt Count MPV Sodium 136 L Potassium 4.2 Chloride 115 H Carbon Dioxide 16 L Anion Gap 5 L BUN 31 H Creatinine 1.70 H Estim Creat Clear Calc 18 Estimated GFR 29 L Glucose 106 POC Capillary Glucose 141 H 105 Calcium 7.9 L 06/27/21 06/26/21 06/26/21 04:57 20:30 16:33 WBC 5.5 RBC 3.01 L Hgb 9.4 L Hct 28.3 L MCV 94.0 MCH 31.2 MCHC 33.2 RDW 15.0 H Plt Count 203 MPV 10.0 Sodium Potassium Chloride Carbon Dioxide Anion Gap BUN Creatinine Estim Creat Clear Calc Estimated GFR Glucose POC Capillary Glucose 117 H 141 H Calcium Discharge Plan Discharge Attending physician on discharge: Olena Chinchilla Discharging Clinician: Olena Chinchilla Patient Disposition: Home, Self-Care Activity: as tolerated Diet: heart healthy Discharge Instructions: Patient will be taken car
[2021-06-27 14:00] VITALS: BP 152/66; PULSE 83; RESP 18; TEMP 36.4; O2SAT 100
== END 2021-06-27 16:20 | disposition home or self-care (01) ==
LOC: ANHED 15:43 → ANH2MED 06-25 07:42
PROVIDERS: Admitting Provider Internal Medicine; Emergency Provider Emergency Medicine; PCP Family Medicine Adolescent Medicine; Visit Provider Family Medicine
DX: E87.5 Hyperkalemia (principal); I16.0 Hypertensive urgency; N17.9 Acute kidney failure, unspecified; F41.1 Generalized anxiety disorder; E11.51 Type 2 diabetes mellitus with diabetic peripheral angiopathy without gangrene; E87.2 Acidosis; K86.2 Cyst of pancreas; M54.9 Dorsalgia, unspecified; R20.0 Anesthesia of skin
CPT/HCPCS: 36415; 80048; 80053; 81001; 82948; 83735; 84484; 85025; 85027; 93005; 96361; 96374; 96375; 97161; 97165; 97535; 99285; A9270; G0378; J0360; J0610; J1815; J7030

== ENCOUNTER 2021-07-10 08:03 | Inpatient (IN) | payer OTHER, SELFPAY ==
[2021-07-10] VITALS (34 sets, daily range): BP systolic 150–225; BP diastolic 41–100; PULSE 59–81; RESP 11–28; TEMP 36.1–36.9; O2SAT 91–100; BMI 25.9
--- NOTE | 2021-07-10 | ECHO_ITS ---
Patient Info Name: Liza Clark Age: 86 years : 1935 Gender: Female Ht: 62 in Wt: 143 lbs BSA: 1.70 m2 HR: 78 bpm BP: 180 / 79 mmHg Technical Quality: Fair Exam Date: 07/10/2021 2:32 PM Exam Location: [facility] Pulmonary Exam Room: 201 Patient Status: Outpatient Admit Date: 07/10/2021 Staff Ordering Physician: Tessie Ramos NP Solution Strategist: Mandie Niño RDCS Attending Provider: Zach Garcia MD Referring Physician: Rachel PATTERSON; Exam Type: CA echo doppler color flow Study Info Indications - ELEVATED BNP SOB Complete two-dimensional, color flow and Doppler transthoracic echocardiogram is performed. Summary 1. Complete two-dimensional, color flow and Doppler transthoracic echocardiogram is performed. 2. Borderline LV enlargement, moderate LVH, moderate global LV systolic dysfunction, ejection fraction about 35-40%. Diastolic dysfunction is present with elevated left atrial pressures. Moderate left atrial enlargement. Mild right atrial enlargement. Mild mitral annular calcification, mild MR. Mild aortic valve calcification, no significant stenosis by Doppler. Mild TR, severe pulmonary hypertension, RVSP 64 mmHg. Left Ventricle Left ventricular chamber dimension is mildly enlarged. Left ventricular systolic function is moderately reduced, estimated at 35-40%. There is moderately increased left ventricular wall thickness. The left ventricular diastolic function is abnormal. Right Ventricle Right ventricular chamber dimension is normal. Right ventricular systolic function is normal. Left Atria Left atrial chamber dimension is moderately enlarged. Right Atria Right atrial chamber dimension is mildly enlarged. Aortic Valve There is mild aortic valve calcification. Pulmonic Valve The pulmonic valve is not well visualized. There is trace pulmonic regurgitation. Mitral Valve There is mild mitral valve regurgitation. There is mild mitral valve calcification. Tricuspid Valve The tricuspid valve leaflets are normal. There is mild tricuspid valve regurgitation. Severe pulmonary hypertension, estimated pulmonary arterial systolic pressure is 64 mmHg. Pericardium/Pleural There is trivial pericardial effusion. Aorta The aortic root size at the sinus of Valsalva is normal. Left Ventricular Outflow Tract Name Value Normal LVOT 2D LVOT Diameter 2.0 cm LVOT Doppler LVOT Peak Gradient 4 mmHg LVOT Mean Gradient 2 mmHg LVOT VTI 24 cm LVOT VTI/AV VTI Ratio 0.9 LVOT Stroke Volume 76 ml LVOT CO 13.2 l/min LVOT CI 7.8 l/min/m2 Pulmonic Valve Name Value Normal PV Doppler PV Peak Gradient 3 mmHg
--- NOTE | ~2021-07-10 | US_ITS ---
EXAMINATION: US retroperitoneal comp DATE: 07/14/2021 10:08 INDICATION: Renal failure TECHNIQUE: Multiple ultrasound grayscale images of the kidneys were obtained. COMPARISON: CT abdomen and pelvis dated 05/25/2020 FINDINGS: The right kidney measures 10.9 x 2.9 x 3.1 cm. The left kidney measures 9.2 x 3.4 x 4.0 cm. The kidne ys demonstrate normal echogenicity. There is no hydronephrosis in either kidney. No stones identifie d. The bladder is normal. IMPRESSION: 1. Mild bilateral renal atrophy. No hydronephrosis. Reviewed, dictated and finalized at location A.
--- NOTE | ~2021-07-10 | XR_ITS ---
EXAMINATION: XR knee LT 2V DATE: 07/17/2021 13:17 INDICATION: Left knee pain and swelling. TECHNIQUE: 2 views of left knee were obtained. COMPARISON: Left femur radiographs 05/11/2020 FINDINGS: There is a total left knee arthroplasty in near-anatomic alignment with patellar resurfacin g. No fracture. No periprosthetic lucency to suggest loosening or infection. No knee joint effusion. IMPRESSION: 1. Total left knee arthroplasty in near-anatomic alignment. Reviewed, dictated and finalized at location A.
--- NOTE | ~2021-07-10 | XR_ITS ---
EXAMINATION: XR knee RT 2V DATE: 07/17/2021 13:17 INDICATION: Right knee pain and swelling. TECHNIQUE: 2 views of right knee were obtained. COMPARISON: Right femur radiographs 05/25/2020 FINDINGS: There is varus angulation at the knee. No fracture. There is severe osteoarthritis of media l and patellofemoral compartments and mild osteoarthritis of lateral compartment. No knee joint effus ion. IMPRESSION: 1. Severe right knee osteoarthritis. Reviewed, dictated and finalized at location A.
--- NOTE | ~2021-07-10 | XR_ITS ---
EXAMINATION: XR chest 2V DATE: 07/10/2021 08:34 INDICATION: Shortness of breath. TECHNIQUE: Frontal and lateral views of the chest were obtained. COMPARISON: Chest 2 views 07/28/2019 FINDINGS: There are small pleural effusions. There are airspace opacities at the lung bases. There is a diffuse interstitial pattern in the lungs. The heart size is obscured. No pneumothorax. IMPRESSION: 1. Diffuse lung disease, likely a combination of pulmonary edema and basilar atelectasis versus pneum onia. 2. Small pleural effusions. Reviewed, dictated and finalized at location B. IMPRESSION: 1. Diffuse lung disease, likely a combination of pulmonary edema and basilar at electasis versus pneumonia. 2. Small pleural effusions.
--- NOTE | ~2021-07-10 | XR_ITS ---
EXAMINATION: XR chest 2V DATE: 07/14/2021 10:08 INDICATION: Shortness of breath TECHNIQUE: frontal and lateral views of the chest were obtained. COMPARISON: Chest radiograph dated 07/10/21 FINDINGS: Small lung volumes with opacities in the bilateral mid and lower lung zones consistent with small to moderate-sized bilateral pleural effusions and associated basilar atelectasis and/or pneumonia. Cardi ac silhouette is largely obscured but appears enlarged. Visualized bones and soft tissues are unremar kable. IMPRESSION: 1. Diffuse opacities of the mid and lower lungs which may represent edema or pneumonia. 2: Small pleural effusions. Reviewed, dictated and finalized at location A. IMPRESSION: 1. Diffuse opacities of the mid and lower lungs which may represent edema or pn eumonia. 2: Small pleural effusions.
--- NOTE | 2021-07-10 08:06 | ECG_ITS ---
Measurements Intervals [place] Rate: 72 P: -39 HI: 164 QRS: -20 QRSD: 113 T: 81 QT: 398 QTc: 437 Interpretive Statements SINUS RHYTHM ATRIAL AND VENTRICULAR PREMATURE COMPLEXES INTRAVENTRICULAR CONDUCTION DELAY LEFT VENTRICULAR HYPERTROPHY WITH ST-T CHANGE CANNOT RULE OUT SEPTAL INFARCT, AGE INDETERMINATE BASELINE ARTIFACT- I, II, III, AVR, V4-V6 ABNORMAL ECG Electronically Signed On 07-10-2021 8:16:17 CDT by Sunday Alston D.O.
[2021-07-10 08:32] LABS: Basophils Percent Auto 0.3 % (0.2-1.2); Eosinophils Absolute Auto 0.1 K/mm3 (0-0.3); Eosinophils Percent Auto 0.4 % (0-4.4); Hematocrit 31.4 % (37.0-47.0); Hemoglobin 10.1 g/dL (12.0-15.0); Immature Granulocyte Absolute 0.18 K/mm3 (0.00-0.031); Immature Granulocyte Percent A 1.3 % (0-0.5); Lymphocytes Absolute Auto 0.92 K/mm3 (0.9-3.2); Lymphocytes Percent Auto 6.7 % (18.3-44.2); Mean Corpuscular HGB Conc 32.2 g/dl (32-36); Mean Corpuscular Hemoglobin 30.7 pg (26-34); Mean Corpuscular Volume 95.4 fl (80-100); Mean Platelet Volume 9.7 fl (7.4-10.4); Monocytes Absolute Auto 1.1 K/mm3 (0.1-0.6); Monocytes Percent Auto 7.9 % (2.6-8.5); Neutrophils Absolute Auto 11.5 K/mm3 (1.3-6.7); Neutrophils Percent Auto 83.4 % (45.5-73.1); Platelet Count Result 340 k/mm3 (150-375); Red Blood Count 3.29 M/mm3 (4.2-5.4); Red Cell Distribution Width 14.7 % (11.5-14.5); White Blood Count 13.8 K/mm3 (4.5-10.0)
[2021-07-10 08:43] LABS: Alanine Aminotransferase 19 U/L (6-35); Albumin Level 4.3 g/dL (3.5-5.1); Alkaline Phosphatase 93 U/L (38-126); Anion Gap 10 mmol/L (8-16); Aspartate Amino Transferase 30 U/L (14-36); Bilirubin,Total 0.9 mg/dL (0.2-1.3); Blood Urea Nitrogen 49 mg/dL (7-17); Calcium 8.9 mg/dL (8.4-10.2); Carbon Dioxide 22 mmol/L (22-30); Chloride 100 mmol/L (98-107); Estimated CRCL calculation 11 ml/min; Estimated Glomerular Filt Rate 17; Glucose 157 mg/dL (65-110); Potassium 4.6 mmol/L (3.4-5.0); Sodium 132 mmol/L (137-145)
[2021-07-10 08:49] LABS: NT Pro B Type Natriuretic Pept 23800 pg/mL (5-100); Troponin I 0.022 ng/mL (0.000-0.034)
[2021-07-10 09:00] LABS: Alveolar/Arterial O2 Gradient 166.9 mmHg; Base Excess ABG -4.7 mEq/l (+/-2.0); Fractional Inspired Oxygen 40 %; HCO3 ABG 19.5 mEq/l (22.0-26.0); Oxygen Content ABG 13.6 %vol (16.0-22.0); PCO2 ABG 32.6 mmHg (35.0-45.0); PO2 ABG 80.8 mmHg (80.0-100.0); PO2 FiO2 Ratio Arterial Blood 2.02 %; Total Hemoglobin 10.2 g/dL (12.0-18.0); pH ABG 7.394 (7.350-7.450)
[2021-07-10 09:02] LABS: Device NASAL CANNULA; Modified Allen's Test Pass; Site Drawn LEFT RADIAL
[2021-07-10] MEDS: NITROGLYCERIN SL 0.4 MG TABLET SUBLINGUAL (09:11)
[2021-07-10] MEDS: FUROSEMIDE INJ 40 MG/4 ML VIAL IV PUSH ×2 (09:11→20:28)
--- NOTE | 2021-07-10 09:15 | PC.NURSE ---
pt tolerating cpap well. pulse ox 100% decreased work of breathing noted.
[2021-07-10 09:28] LABS: INR 1.2; Partial Thromboplastin Time 29.4 SECONDS (22.3-36.8); Prothrombin Time 14.3 Seconds (11.1-14.7)
--- NOTE | 2021-07-10 10:14 | ED.SOB ---
HPI - SOB/Dyspnea General Chief Complaint: Shortness of Breath/Dyspnea Stated Complaint: dyspnea Time Seen by Provider: 07/10/21 08:36 Source: patient, EMS and old records reviewed History of Present Illness HPI Narrative: Patient presents with shortness of breath. She reports she had a hard time sleeping last night due to shortness of breath and she is unable to lay flat as her symptoms were worse. Her symptoms worsened throughout the night and were severe this morning so she called EMS to come in for evaluation. She was recent hospitalized at this facility for hypertensive urgency and CHARLI. She denies prior history of CHF or COPD. Patient denies cough or fevers denies any focal areas of pain such as chest pain. She denies any abdominal pain nausea vomiting or diarrhea. Related Data Home Medications Medication Instructions Recorded Confirmed Centrum Silver 1 tablet PO DAILY 05/11/20 07/10/21 omega [id number] oil [Fish Oil] 1 cap PO DAILY 05/11/20 07/10/21 metformin 500 mg tablet,extended 500 mg PO BID tablet 03/16/21 07/10/21 release 24 hr docusate sodium [Colace] 100 mg PO HS 06/24/21 07/10/21 lorazepam 0.5 mg PO BID PRN 06/24/21 07/10/21 furosemide [Lasix] 40 mg PO DAILY 07/10/21 07/10/21 pantoprazole 40 mg PO DAILY 07/10/21 07/10/21 Allergies Allergy/AdvReac Type Severity Reaction Status Date / Time No Known Allergies Allergy Verified 07/10/21 12:42 Review of Systems Review of Systems: CONSTITUTIONAL: Denies fever, chills, or sweats. EYES: Denies visual changes, redness, or discharge. ENT: Denies rhinorrhea, congestion, sore throat, or otalgia. CARDIOVASCULAR: Denies chest pain, palpitations, or edema. RESPIRATORY: Reports shortness of breath GASTROINTESTINAL: Denies abdominal pain, nausea, vomiting, or diarrhea. GENITOURINARY: Denies dysuria or hematuria. SKIN: Denies rash or itching. MUSCULOSKELETAL: Denies back pain, joint pain, or myalgia. NEUROLOGIC: Denies headache, numbness, dizziness, or weakness. PSYCHIATRIC: Denies anxiety or depression. 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 Social History Social History (Updated 07/10/21 @ 12:47 by Tessie Ramos NP) Social History: Patient lives at home alone. Grand-niece, Mikala, checks in on her occasionally, either via phone or physically, although has been less due to COVID outbreak. Her PCP is Dr. Coleman. She is listed as a Do not resuscitate. Smoking status: Never smoker Second hand tobacco smoke exposure: Yes Alcohol intake: never Substance use: never Substance use type: does not use Gender identity (if verbalized by the patient): Female Sexual Orientation (if Verbalized by the Patient): Straight or Heterosexual Spiritual care concerns: No Agree to blood products: Yes Exam Narrative: GENERAL: Well-appearing, well-nourished, speaking in 3 word sentences HEAD: Normocephalic, atraumatic. EYES: PERRLA and EOMI. ENT: Nares clear, no rhinorrhea or epistaxis. Mu
--- NOTE | 2021-07-10 10:38 | PC.NURSE ---
pts tyroneece made aware of pts results and plan of care
[2021-07-10 11:37] LABS: SARS-CoV-2 RNA PCR Negative
--- NOTE | 2021-07-10 12:11 | PM.IMHP ---
H&P: HPI History of Present Illness Date/Time: 07/10/21 12:11Joel is a 86-year-old female patient who came into the emergency room with complaints of shortness of breath. The patient stated that she was unable to sleep due to the shortness of breath. She was not able to lay flat due to her symptoms. Her symptoms became worse during the night and more severe this morning. She called EMS to come in to the emergency room to be evaluated. she denies any history of congestive heart failure COPD. She does not wear oxygen at home. The patient is currently on BiPAP. Today patient's white count elevated to 13.8. Her H and H is 10.1 and 31.4 she does have chronic anemia. Arterial blood gases pH 7.394. CO2 is 32.6. Bicarb 19.5. She was placed on a BiPAP she is now 12/6 and is wanting to get off the BiPAP. The patient states that she is a DNR. Creatinine today is 2.7 with her last creatinine on 06/27/2021 at 1.7. Her BMP is 23,800. she is negative for COVID today. Her lisinopril/ hydrochlorothiazide, spironolactone and metformin are on hold. Patient was started on Lasix and Januvia as well as amlodipine. The patient did not receive any approval for Januvia from her insurance company at this time. chest x-ray was read as diffuse lung disease, likely a combination of pulmonary edema and basilar atelectasis versus pneumonia. Small pleural effusions. The patient was given a azithromycin and Rocephin as well as Lasix and nitroglycerin in the emergency room. Patient is being admitted to observation status on the date of service of 07/10/2021. ( Patient was recently discharged from here on 06/27/2021 with a diagnosis of hyperkalemia, acute kidney injury, generalized anxiety, diabetes type 2, metabolic acidosis, hypertensive urgency, and pancreatic cyst.) Chief Complaint: Shortness of breath Review of Systems Review of Systems: All systems reviewed & are unremarkable except as noted in HPI and below Constitutional: Constitutional: Reports as per HPI and Reports no additional constitutional complaints Eyes: Eyes: Reports as per HPI and Reports no additional eye complaints ENT: Reports system reviewed and no additional complaints, except as documented and Reports Normal hearing present Cardiovascular: Cardiovascular: Reports no additional cardiovascular complaints Respiratory: Respiratory: Reports no additional respiratory complaints and Reports no additional respiratory complaints Gastrointestinal: Gastrointestinal: Reports as per HPI and Reports no additional gastrointestinal complaints Musculoskeletal: Musculoskeletal: Reports no additional musculoskeletal complaints Integumentary/Breasts: Skin/Breast: Reports system reviewed and no additional complaints, except as docu and Reports as per HPI Neurologic: Reports system reviewed and no additional complaints, except as documented, Reports as per HPI and Reports Normal hearing present Psychiatric: Psychiatric: Reports no additional psychiatric complaints and Reports as per HPI Endocrine: Endocrine: Reports no additional endocrine complaints Hematologic/Lymphatic: Hematologic/Lymphatic: Reports no additional hematologic/lymphatic complaints Allergic/Immunologic: Allergic/Immunologic: Reports no additional allergic/immunologic complaints PMFSH Past Medical History Medical History Abdominal pain Acute hyperkalemia Acute renal failure Chronic kidney disease, stage 3a CVA, old, 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
--- NOTE | 2021-07-10 12:36 | PC.NURSE ---
This patient, Liza Clark, was admitted to IMU Room 201-01. Patient/family oriented to hospital policies and general routines including ID bracelet, bed and alarms, visiting hours, pain management, procedures, bathroom and other care routines, personal items, smoking policy, room service/diet, and visiting hours. Information on how to activate the Rapid Response Team has been discussed. Patient/Family are encouraged to report perceived risks to care and to ask questions if they do not understand what they are told or what they should do.
[2021-07-10 12:52] LABS: Glucose Point of Care 168 mg/dl (65-105)
[2021-07-10 16:39] LABS: Glucose Point of Care 113 mg/dl (65-105)
[2021-07-10 16:47] LABS: Hemoglobin A1C 5.7 % (<5.7)
[2021-07-10] MEDS: hydrALAZINE HCL 20 MG/ML VIAL 10 MG IV PUSH (19:00)
[2021-07-10 19:58] LABS: Glucose Point of Care 232 mg/dl (65-105)
[2021-07-10] MEDS: METOPROLOL TARTRATE 25 MG TABLET PO (20:28)
[2021-07-10] MEDS: DOCUSATE SODIUM 100 MG CAPSULE PO (20:28)
[2021-07-10] MEDS: SIMVASTATIN 20 MG TABLET PO (20:28)
[2021-07-11] VITALS (12 sets, daily range): BP systolic 170–188; BP diastolic 69–80; PULSE 62–88; RESP 18–24; TEMP 36–36.8; O2SAT 93–98
[2021-07-11 04:39] LABS: Basophils Percent Auto 0.3 % (0.2-1.2); Eosinophils Absolute Auto 0.1 K/mm3 (0-0.3); Eosinophils Percent Auto 0.8 % (0-4.4); Hematocrit 28.6 % (37.0-47.0); Hemoglobin 9.4 g/dL (12.0-15.0); Immature Granulocyte Absolute 0.05 K/mm3 (0.00-0.031); Immature Granulocyte Percent A 0.5 % (0-0.5); Lymphocytes Absolute Auto 1.16 K/mm3 (0.9-3.2); Lymphocytes Percent Auto 10.9 % (18.3-44.2); Mean Corpuscular HGB Conc 32.9 g/dl (32-36); Mean Corpuscular Hemoglobin 31.2 pg (26-34); Monocytes Absolute Auto 1.1 K/mm3 (0.1-0.6); Monocytes Percent Auto 10.5 % (2.6-8.5); Neutrophils Absolute Auto 8.2 K/mm3 (1.3-6.7); Platelet Count Result 313 k/mm3 (150-375); Red Blood Count 3.01 M/mm3 (4.2-5.4); Red Cell Distribution Width 14.9 % (11.5-14.5); White Blood Count 10.7 K/mm3 (4.5-10.0)
[2021-07-11 04:51] LABS: Alanine Aminotransferase 16 U/L (6-35); Albumin Level 3.6 g/dL (3.5-5.1); Alkaline Phosphatase 72 U/L (38-126); Anion Gap 9 mmol/L (8-16); Aspartate Amino Transferase 25 U/L (14-36); Bilirubin,Total 0.6 mg/dL (0.2-1.3); Blood Urea Nitrogen 53 mg/dL (7-17); Calcium 8.5 mg/dL (8.4-10.2); Carbon Dioxide 23 mmol/L (22-30); Chloride 98 mmol/L (98-107); Estimated CRCL calculation 14 ml/min; Estimated Glomerular Filt Rate 19; Glucose 133 mg/dL (65-110); Lactate Dehydrogenase 522 U/L (313-618); Potassium 4.3 mmol/L (3.4-5.0); Sodium 130 mmol/L (137-145)
[2021-07-11] MEDS: METOPROLOL TARTRATE 25 MG TABLET PO ×2 (08:10→20:52)
[2021-07-11] MEDS: FUROSEMIDE INJ 40 MG/4 ML VIAL IV PUSH ×2 (08:10→20:52)
[2021-07-11] MEDS: PANTOPRAZOLE 40 MG TABLET PO (08:10)
[2021-07-11] MEDS: ASPIRIN 325 MG TABLET PO (08:10)
[2021-07-11] MEDS: OMEGA 3 POLYUNSAT FATTY ACIDS 1 GM CAP PO (08:10)
[2021-07-11] MEDS: MULTIVITAMINS /C LUTEIN (CENTRUM SILVER) TABLET *BKC 1 TAB PO (08:10)
[2021-07-11] MEDS: buPROPion HCL XL (24 HR) 150 MG TABCR PO (08:10)
[2021-07-11 09:09] LABS: Glucose Point of Care 130 mg/dl (65-105)
[2021-07-11] MEDS: INSULIN ASPART (*BKC) 100 UNITS/ML SUB-Q (12:19)
[2021-07-11 12:26] LABS: Glucose Point of Care 225 mg/dl (65-105)
[2021-07-11] MEDS: LORazepam (*CRX) 0.5 MG TABLET PO ×2 (12:49→20:52)
--- NOTE | 2021-07-11 16:09 | PM.IMPN ---
Progress Note: A&P Assessment and Plan (1) Community acquired pneumonia: Code(s): J18.9 - Pneumonia, unspecified organism Status: Acute Assessment and Plan: patient has some mild elevation in her white blood count. She was treated with azithromycin and Rocephin. However the patient was recently hospitalized. 07/11/2021 interval history: patient 86-year-old female presented emergency department with a complaint of shortness of breath and lower extremity swelling patient states her symptoms were getting progressively worse and she was not able to sleep due 2 orthopnea most likely secondary to acute on chronic systolic congestive heart failure and recent echo showed moderately reduced ejection fraction of 35-40% patient is being diuresed a will continue to monitor, patient with history of chronic kidney disease patient being diuresed will closely monitor patient kidney function, patient chest x-ray also concerning for pneumonia with slightly elevated white count but no fever, patient is started on ceftriaxone and azithromycin, will repeat chest x-ray in 2 days and further recommendation to follow, patient is a very hard of hearing, will have a PT OT evaluate the patient patient will benefit going to SNF for rehab. (2) Pulmonary edema: Qualifiers: Chronicity: acute Qualified Code(s): J81.0 - Acute pulmonary edema Code(s): J81.1 - Chronic pulmonary edema Status: Acute Assessment and Plan: Continue with IV Lasix and an echo. Patient's BNP is elevated. Chest x-ray was read as small pleural effusions. Monitor her renal functions closely with the Lasix use. (3) CHARLI (acute kidney injury): Code(s): N17.9 - Acute kidney failure, unspecified Status: Acute Assessment and Plan: This is acute on chronic renal failure stage 3. Continue to monitor patient's BUN and creatinine daily. Patient recently was taken off of lisinopril and hydrochlorothiazide. She was also taken off of the metformin as well. (4) HTN (hypertension): Qualifiers: Hypertension type: unspecified Qualified Code(s): I10 - Essential (primary) hypertension Code(s): I10 - Essential (primary) hypertension Status: Acute Assessment and Plan: Patient is currently on metoprolol. Continue with her home dose. 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 (6) Other ill-defined heart diseases: Code(s): I51.89 - Other ill-defined heart diseases Status: Acute Assessment and Plan: An echo has been ordered. She is on metoprolol and Lasix. (7) Type 2 diabetes mellitus with diabetic chronic kidney disease: Code(s): E11.22 - Type 2 diabetes mellitus with diabetic chronic kidney disease Status: Acute Assessment and Plan: I did start her on sliding scale insulin. The patient was taken off of metformin most likely due to her renal failure. She was not able to get her insurance approval for Januvia. Subjective Date/time seen: 07/11/21 16:09 HPI-This is a 86-year-old female patient who came into the emergency room with complaints of shortness of breath. The patient stated that she was unable to sleep due to the shortness of breath. She was not able to lay flat due to her symptoms. Her symptoms became worse during the night and more severe this morning. She called EMS to come in to the emergency room to be evaluated. she denies any history of congestive heart failure COPD. She does not wear oxygen at home. The patient is currently on BiPAP. Today patient's white count elevated to 13.8. Her H and H is 10.1 and 31.4 she does have chronic anemia. Arterial blood gases pH 7.394. CO2 is 32.6. Bicarb 19.5. She was placed on a BiPAP she is now 12/6 and is wanting to get off the BiPAP. The patient states that she is a DNR. Creatinine today is 2.7 with her last creatinine
[2021-07-11 16:15] LABS: Glucose Point of Care 130 mg/dl (65-105)
--- NOTE | 2021-07-11 16:41 | PC.NURSE ---
Notified Dr. Chinchilla of patient's elevated BP. This AM BP was 187/69, Metoprolol 25mg PO and Lasix 40mg IVP was given. Vital signs obtained on afternoon rounds, and BP is still elevated at 188/76 in R arm and 186/73 in L arm. New order for Hydralazine 25mg PO PRN for SBP > 160. Amlodipine 5mg PO daily, first dose now. Don't give both medications together. We don't need to drop her blood pressure too fast. Give Amlodipine now and recheck BP in one hour.
[2021-07-11] MEDS: amLODIPine BESYLATE 5 MG TABLET PO (17:40)
[2021-07-11] MEDS: hydrALAZINE HCL 25 MG TABLET PO (18:52)
[2021-07-11 20:43] LABS: Glucose Point of Care 193 mg/dl (65-105)
[2021-07-11] MEDS: SIMVASTATIN 20 MG TABLET PO (20:52)
[2021-07-11] MEDS: DOCUSATE SODIUM 100 MG CAPSULE PO (20:52)
[2021-07-12] VITALS (9 sets, daily range): BP systolic 135–175; BP diastolic 56–86; PULSE 64–85; RESP 18–22; TEMP 35.9–36.6; O2SAT 93–99
[2021-07-12 07:55] LABS: Glucose Point of Care 227 mg/dl (65-105)
[2021-07-12] MEDS: OMEGA 3 POLYUNSAT FATTY ACIDS 1 GM CAP PO (08:14)
[2021-07-12] MEDS: FUROSEMIDE INJ 40 MG/4 ML VIAL IV PUSH ×2 (08:14→20:23)
[2021-07-12] MEDS: MULTIVITAMINS /C LUTEIN (CENTRUM SILVER) TABLET *BKC 1 TAB PO (08:14)
[2021-07-12] MEDS: METOPROLOL TARTRATE 25 MG TABLET PO ×2 (08:14→20:23)
[2021-07-12] MEDS: ASPIRIN 325 MG TABLET PO (08:14)
[2021-07-12] MEDS: amLODIPine BESYLATE 5 MG TABLET PO (08:14)
[2021-07-12] MEDS: LORazepam (*CRX) 0.5 MG TABLET PO (08:14)
[2021-07-12] MEDS: PANTOPRAZOLE 40 MG TABLET PO (08:14)
[2021-07-12] MEDS: buPROPion HCL XL (24 HR) 150 MG TABCR PO (08:14)
[2021-07-12] MEDS: INSULIN ASPART (*BKC) 100 UNITS/ML SUB-Q (08:15)
[2021-07-12 12:22] LABS: Glucose Point of Care 88 mg/dl (65-105)
--- NOTE | 2021-07-12 15:05 | PM.IMPN ---
Progress Note: A&P Assessment and Plan (1) Community acquired pneumonia: Code(s): J18.9 - Pneumonia, unspecified organism Status: Acute Assessment and Plan: Rocephin and azithromycin IV (2) Pulmonary edema: Qualifiers: Chronicity: acute Qualified Code(s): J81.0 - Acute pulmonary edema Code(s): J81.1 - Chronic pulmonary edema Status: Acute Assessment and Plan: Continue with IV Lasix and an echo. Patient's BNP is elevated. Chest x-ray was read as small pleural effusions. Monitor her renal functions closely with the Lasix use. (3) CHARLI (acute kidney injury): Code(s): N17.9 - Acute kidney failure, unspecified Status: Acute Assessment and Plan: This is acute on chronic renal failure stage 3. Continue to monitor patient's BUN and creatinine daily. Patient recently was taken off of lisinopril and hydrochlorothiazide. She was also taken off of the metformin as well. (4) HTN (hypertension): Qualifiers: Hypertension type: unspecified Qualified Code(s): I10 - Essential (primary) hypertension Code(s): I10 - Essential (primary) hypertension Status: Acute Assessment and Plan: Patient is currently on metoprolol. Continue with her home dose. 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 (6) Other ill-defined heart diseases: Code(s): I51.89 - Other ill-defined heart diseases Status: Acute Assessment and Plan: An echo has been ordered. She is on metoprolol and Lasix. (7) Type 2 diabetes mellitus with diabetic chronic kidney disease: Code(s): E11.22 - Type 2 diabetes mellitus with diabetic chronic kidney disease Status: Acute Assessment and Plan: I did start her on sliding scale insulin. Subjective Date/time seen: 07/12/21 15:05 Patient denies shortness of breath but she does appear to be mildly short of breath. She was resting comfortably when I entered the room. Exam Narrative: elderly frail Patient is comfortable, NAD HEENT: eyes are clear and none icteric LUNGS: bilateral fair air entry with rales and rhonchi HEART: RR S1S2 ABD: BS+, Soft and nontender Lower extremities: edema SKIN: nonjaundiced Neuro: grossly intact. Const: General: cooperative, comfortable, no acute distress, well developed, alert, awake, Physically active and ill appearing Nutritional Appearance: average body habitus Orientation/consciousness: oriented to person and oriented to place Limitations: no limitations HENMT: Head: normal to inspection, No palpable skull fracture present, normocephalic and atraumatic Ears: hearing grossly normal bilaterally and external ears normal General nose exam: Normal external nose present Eyes: General: appearance normal, both eyes and all related structures Alignment and Position: alignment normal Periorbital: periorbital findings normal Eyelids: eyelids normal Conjunctivae: conjunctivae normal Sclera: sclerae normal Cornea: corneas normal EOM: EOMs intact bilaterally Neck: Neck: normal visual inspection and full ROM Chest: Chest palpation & inspection: normal inspection of the chest Resp: Effort & Inspection: normal respiratory effort ( Currently on BiPAP) Auscultation: clear to auscultation bilaterally and diminished lung sounds Cardio: Palpation: normal PMI Rate: regular rate Rhythm: regular rhythm Heart sounds: S1 normal heart sound present and S2 normal heart sound present Peripheral pulses: Peripheral pulses 2+ throughout GI: Inspection: distended Auscultation: normal bowel sounds Rectal Exam: deferred Back/Spine/Pelvis: Cervical Spine: cervical ROM normal Skin: General skin exam: normal color Lesions: no lesions Rashes: no rashes Trauma: no lacerations or abrasions Wounds: no wounds Hair: normal Nails: normal Neuro: General: oriented to person and oriente
[2021-07-12 15:37] LABS: Hematocrit 32.2 % (37.0-47.0); Hemoglobin 10.5 g/dL (12.0-15.0); Mean Corpuscular HGB Conc 32.6 g/dl (32-36); Mean Corpuscular Hemoglobin 31.2 pg (26-34); Mean Corpuscular Volume 95.5 fl (80-100); Mean Platelet Volume 9.8 fl (7.4-10.4); Platelet Count Result 363 k/mm3 (150-375); Red Blood Count 3.37 M/mm3 (4.2-5.4); Red Cell Distribution Width 14.6 % (11.5-14.5); White Blood Count 8.7 K/mm3 (4.5-10.0)
[2021-07-12 16:29] LABS: Glucose Point of Care 143 mg/dl (65-105)
--- NOTE | 2021-07-12 16:32 | PC.NURSE ---
This patient, Liza Clark, was transferred to [[id number] ] on 07/12/21 at 1610. Personal belongings sent with patient. Report given to [ Norma @ 1600]. Appropriate documentation sent with patient.
[2021-07-12] MEDS: DOCUSATE SODIUM 100 MG CAPSULE PO (20:23)
[2021-07-12] MEDS: SIMVASTATIN 20 MG TABLET PO (20:23)
[2021-07-12 20:35] LABS: Glucose Point of Care 259 mg/dl (65-105)
[2021-07-13 04:38] VITALS: BP 168/67; PULSE 67; RESP 18; TEMP 36.4; O2SAT 98
[2021-07-13] MEDS: hydrALAZINE HCL 25 MG TABLET PO ×2 (05:12→16:45)
[2021-07-13 05:46] LABS: Hematocrit 30.1 % (37.0-47.0); Hemoglobin 10.1 g/dL (12.0-15.0); Mean Corpuscular HGB Conc 33.6 g/dl (32-36); Mean Corpuscular Hemoglobin 31.2 pg (26-34); Mean Corpuscular Volume 92.9 fl (80-100); Mean Platelet Volume 9.5 fl (7.4-10.4); Platelet Count Result 350 k/mm3 (150-375); Red Blood Count 3.24 M/mm3 (4.2-5.4); White Blood Count 7.4 K/mm3 (4.5-10.0)
[2021-07-13 06:01] LABS: Anion Gap 5 mmol/L (8-16); Blood Urea Nitrogen 50 mg/dL (7-17); Calcium 8.3 mg/dL (8.4-10.2); Carbon Dioxide 26 mmol/L (22-30); Chloride 93 mmol/L (98-107); Estimated CRCL calculation 12 ml/min; Estimated Glomerular Filt Rate 18; Glucose 140 mg/dL (65-110); Sodium 124 mmol/L (137-145)
[2021-07-13 06:09] LABS: NT Pro B Type Natriuretic Pept 14500 pg/mL (5-100)
[2021-07-13 07:54] LABS: Glucose Point of Care 155 mg/dl (65-105)
[2021-07-13 08:00] VITALS: PULSE 67; RESP 18; O2SAT 98
[2021-07-13 08:36] VITALS: O2SAT 97
[2021-07-13] MEDS: METOPROLOL TARTRATE 25 MG TABLET PO ×2 (09:40→19:45)
[2021-07-13] MEDS: ASPIRIN 325 MG TABLET PO (09:41)
[2021-07-13] MEDS: amLODIPine BESYLATE 5 MG TABLET PO (09:41)
[2021-07-13] MEDS: OMEGA 3 POLYUNSAT FATTY ACIDS 1 GM CAP PO (09:41)
[2021-07-13] MEDS: MULTIVITAMINS /C LUTEIN (CENTRUM SILVER) TABLET *BKC 1 TAB PO (09:41)
[2021-07-13] MEDS: PANTOPRAZOLE 40 MG TABLET PO (09:41)
[2021-07-13] MEDS: buPROPion HCL XL (24 HR) 150 MG TABCR PO (09:41)
[2021-07-13] MEDS: FUROSEMIDE INJ 40 MG/4 ML VIAL IV PUSH ×2 (09:46→19:47)
--- NOTE | 2021-07-13 11:14 | PM.IMPN ---
Progress Note: A&P Assessment and Plan (1) Community acquired pneumonia: Code(s): J18.9 - Pneumonia, unspecified organism Status: Acute Assessment and Plan: Rocephin and azithromycin IV (2) Pulmonary edema: Qualifiers: Chronicity: acute Qualified Code(s): J81.0 - Acute pulmonary edema Code(s): J81.1 - Chronic pulmonary edema Status: Acute Assessment and Plan: sob improved (3) CHARLI (acute kidney injury): Code(s): N17.9 - Acute kidney failure, unspecified Status: Acute Assessment and Plan: This is acute on chronic renal failure stage 3. ? worsening cr on ckd consult renal (4) HTN (hypertension): Qualifiers: Hypertension type: unspecified Qualified Code(s): I10 - Essential (primary) hypertension Code(s): I10 - Essential (primary) hypertension Status: Acute Assessment and Plan: Patient is currently on metoprolol. Continue with her home dose. 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 (6) Other ill-defined heart diseases: Code(s): I51.89 - Other ill-defined heart diseases Status: Acute Assessment and Plan: An echo has been ordered. She is on metoprolol and Lasix. (7) Type 2 diabetes mellitus with diabetic chronic kidney disease: Code(s): E11.22 - Type 2 diabetes mellitus with diabetic chronic kidney disease Status: Acute Assessment and Plan: ssi Subjective Date/time seen: 07/13/21 11:14 reports sob improved no new complaints wants to go home Exam Narrative: elderly frail Patient is comfortable, NAD HEENT: eyes are clear and none icteric LUNGS: bilateral fair air entry with rales and rhonchi HEART: RR S1S2 ABD: BS+, Soft and nontender Lower extremities: edema SKIN: nonjaundiced Neuro: grossly intact. Const: General: cooperative, comfortable, no acute distress, well developed, alert, awake, Physically active and ill appearing Nutritional Appearance: average body habitus Orientation/consciousness: oriented to person and oriented to place Limitations: no limitations HENMT: Head: normal to inspection, No palpable skull fracture present, normocephalic and atraumatic Ears: hearing grossly normal bilaterally and external ears normal General nose exam: Normal external nose present Eyes: General: appearance normal, both eyes and all related structures Alignment and Position: alignment normal Periorbital: periorbital findings normal Eyelids: eyelids normal Conjunctivae: conjunctivae normal Sclera: sclerae normal Cornea: corneas normal EOM: EOMs intact bilaterally Neck: Neck: normal visual inspection and full ROM Chest: Chest palpation & inspection: normal inspection of the chest Resp: Effort & Inspection: normal respiratory effort ( Currently on BiPAP) Auscultation: clear to auscultation bilaterally and diminished lung sounds Cardio: Palpation: normal PMI Rate: regular rate Rhythm: regular rhythm Heart sounds: S1 normal heart sound present and S2 normal heart sound present Peripheral pulses: Peripheral pulses 2+ throughout GI: Inspection: distended Auscultation: normal bowel sounds Rectal Exam: deferred Back/Spine/Pelvis: Cervical Spine: cervical ROM normal Skin: General skin exam: normal color Lesions: no lesions Rashes: no rashes Trauma: no lacerations or abrasions Wounds: no wounds Hair: normal Nails: normal Neuro: General: oriented to person and oriented to place Cranial nerves: Yes Normal hearing present Speech: normal speech Extrem: General: normal to inspection Right upper extremity: normal to inspection Left upper extremity: normal to inspection Right lower extremity: normal to inspection Left lower extremity: normal to inspection Psych: Appearance: grossly normal Mental Status: mental status grossly normal Speech and movement: Normal speech and movem
[2021-07-13 11:53] LABS: Glucose Point of Care 286 mg/dl (65-105)
[2021-07-13] MEDS: LORazepam (*CRX) 0.5 MG TABLET PO (12:10)
[2021-07-13] MEDS: ACETAMINOPHEN 325 MG TABLET 650 MG PO (12:14)
[2021-07-13] MEDS: INSULIN ASPART (*BKC) 100 UNITS/ML SUB-Q (12:15)
[2021-07-13 14:00] VITALS: BP 192/71; PULSE 64; RESP 20; TEMP 36; O2SAT 100
[2021-07-13 16:26] LABS: Glucose Point of Care 113 mg/dl (65-105)
[2021-07-13 19:35] VITALS: BP 158/65; PULSE 66; RESP 16; TEMP 36.4; O2SAT 99
[2021-07-13 19:45] VITALS: PULSE 66
[2021-07-13] MEDS: SIMVASTATIN 20 MG TABLET PO (19:46)
[2021-07-13] MEDS: DOCUSATE SODIUM 100 MG CAPSULE PO (19:46)
[2021-07-13 23:32] LABS: Glucose Point of Care 183 mg/dl (65-105)
[2021-07-14] VITALS (8 sets, daily range): BP systolic 171–185; BP diastolic 63–86; PULSE 56–66; RESP 16–24; TEMP 36.3–36.6; O2SAT 92–100
[2021-07-14] MEDS: ALBUTEROL SULFATE NEB 2.5 MG/3 ML INH INHALATION (03:18)
[2021-07-14 07:50] LABS: Glucose Point of Care 171 mg/dl (65-105)
[2021-07-14 09:17] LABS: Anion Gap 11 mmol/L (8-16); Blood Urea Nitrogen 47 mg/dL (7-17); Calcium 8.6 mg/dL (8.4-10.2); Carbon Dioxide 24 mmol/L (22-30); Chloride 86 mmol/L (98-107); Estimated CRCL calculation 14 ml/min; Estimated Glomerular Filt Rate 22; Glucose 241 mg/dL (65-110); Potassium 4.4 mmol/L (3.4-5.0); Sodium 121 mmol/L (137-145)
[2021-07-14] MEDS: ONDANSETRON INJ 4 MG/2 ML VIAL IV PUSH (09:32)
--- NOTE | 2021-07-14 09:33 | PM.CNNEP ---
Assessment and Plan Additional Plan 1. Liza has chronic kidney disease. She has no symptoms from the kidneys at this point. I do not think her nausea is from CKD with her GFR of 22. This is likely due to diabetes and hypertension. She also probably has vascular disease as well which may be playing a role. There are other causes for kidney disease 2, such as glomerulonephritis, interstitial nephritis, obstruction, infiltrative diseases, and vascular disease. I do not think any of these are necessarily occurring but we will check screening tests for these. 2. The patient has acute on chronic kidney disease. Her renal function was worse before the hospital stay. This may have been progression of kidney disease or this may be an acute process due to her diuretics. Her creatinine did rise while she was in the hospital but in spite of continuing to get diuretics her creatinine improved today. Sometimes renal venous hypertension can cause a rise in creatinine when volume overloaded and diuresis can actually help the creatinine. The pattern of her creatinine is not very reflective of this process, however. At this point will get urine electrolytes and a renal ultrasound and see where we stand. I am going to repeat her chest x-ray to see where we are with her volume status. She still does require oxygen. She is at4L right now. Some of the hypoxia may be due to pneumonia and some due to volume. Will see what the repeat chest x-ray shows. 3. The patient has anemia. Will check iron levels. She does not need EPO. 4. The patient has hyponatremia. she has chronically mildly low sodium. This has worsened in the last couple of days. This is likely due to her COPD and pulmonary hypertension In addition to Bupropion,diuretics, and possibly pantoprazole.. Of the things can cause hyponatremia as well. RFID ENGINEER issues can however she does not have any major RFID ENGINEER symptoms and CT brain in the past was negative when her sodium was already low. She has no history of cancer. We can check serum and urine osmolality As well as a cortisol and TSH. I think we have to keep her on pantoprazole because of her history of ulcers. she is on bupropion as well. I will cut the dose to 75. Will add salt tablets because she is on diuretics. Will follow the sodium as we go. 5. Diabetes. This is being managed by the hospitalists. 6. The patient has hypertension. Her blood pressure is high. She is currently on metoprolol and amlodipine. Will increase the amlodipine to 10. If swelling becomes more of an issue we will look for something else to use. 7. The patient has pulmonary hypertension. She is getting supportive care History of Present Illness Reason for Consult Consult date: 07/14/21 Chief Complaint Chief complaint: Hypoxia History of Present Illness Narrative: Liza is a very pleasant 86-year-old lady who has multiple medical problems including diabetes, GERD, hyperlipidemia, history of hyperkalemia, chronic kidney disease stage IIIB, old stroke, duodenal ulcer, gastric ulcer, GERD, long-term NSAID use, hypertension. The patient came in the hospital because she was short of breath. This had been going on for a few days. Is worse when she lay flat and better when she sat up. This was associated with little bit of swelling. she did not have chest pain. She has a little bit of a cough. No fevers. She is on spironolactone, hydrochlorothiazide at home. She went to the emergency room because of her shortness of breath. There chest x-ray showed that she had pleural effusions and possible pneumonia. She is felt to have shortness of breath due to pneumonia plus fluid overload. She was treated with antibiotics and furosemide. Her breathing has gotten better. She does still have a little bit of swelling. She has heart disease. She has moderate reduction of her ejection fraction and severe pulmonary hyper
[2021-07-14] MEDS: amLODIPine BESYLATE 5 MG TABLET PO (09:37)
[2021-07-14] MEDS: ASPIRIN 325 MG TABLET PO (09:37)
[2021-07-14] MEDS: hydrALAZINE HCL 25 MG TABLET PO ×2 (09:37→17:24)
[2021-07-14] MEDS: OMEGA 3 POLYUNSAT FATTY ACIDS 1 GM CAP PO (09:38)
[2021-07-14] MEDS: buPROPion HCL XL (24 HR) 150 MG TABCR PO (09:38)
[2021-07-14] MEDS: METOPROLOL TARTRATE 25 MG TABLET PO ×2 (09:38→21:07)
[2021-07-14] MEDS: FUROSEMIDE INJ 40 MG/4 ML VIAL IV PUSH (09:38)
[2021-07-14] MEDS: MULTIVITAMINS /C LUTEIN (CENTRUM SILVER) TABLET *BKC 1 TAB PO (09:38)
[2021-07-14] MEDS: PANTOPRAZOLE 40 MG TABLET PO (09:38)
[2021-07-14 10:54] LABS: Creatine Kinase 177 U/L (30-135)
[2021-07-14 11:01] LABS: Complement C3 120 mg/dL (88-165)
[2021-07-14 11:06] LABS: Parathyroid Intact 122.6 pg/mL (7.5-53.5)
[2021-07-14 11:30] LABS: Iron 48 ug/dL (37-170)
[2021-07-14 11:37] LABS: Glucose Point of Care 196 mg/dl (65-105)
[2021-07-14 11:37] LABS: Erythrocyte Sedimentation Rate 39 mm/hr (0-20)
[2021-07-14 11:39] LABS: Percent Iron Saturation 16 % (20-50)
[2021-07-14 12:20] LABS: Folic Acid > 20.0 ng/mL (2.76->20)
--- NOTE | 2021-07-14 12:36 | PM.IMPN ---
Progress Note: A&P Assessment and Plan (1) Community acquired pneumonia: Code(s): J18.9 - Pneumonia, unspecified organism Status: Acute Assessment and Plan: Rocephin and azithromycin IV (2) Pulmonary edema: Qualifiers: Chronicity: acute Qualified Code(s): J81.0 - Acute pulmonary edema Code(s): J81.1 - Chronic pulmonary edema Status: Acute Assessment and Plan: sob improved (3) CHARLI (acute kidney injury): Code(s): N17.9 - Acute kidney failure, unspecified Status: Acute Assessment and Plan: This is acute on chronic renal failure stage 3. ? worsening cr on ckd consult renal. Likely close to new baseline given the fact that she will need additional diuretic therapy. (4) HTN (hypertension): Qualifiers: Hypertension type: unspecified Qualified Code(s): I10 - Essential (primary) hypertension Code(s): I10 - Essential (primary) hypertension Status: Acute Assessment and Plan: Patient is currently on metoprolol. Will adjust her dose of amlodipine. 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 (6) Other ill-defined heart diseases: Code(s): I51.89 - Other ill-defined heart diseases Status: Acute Assessment and Plan: An echo has been ordered. She is on metoprolol and Lasix. (7) Type 2 diabetes mellitus with diabetic chronic kidney disease: Code(s): E11.22 - Type 2 diabetes mellitus with diabetic chronic kidney disease Status: Acute Assessment and Plan: ssi (8) Hyponatremia: Code(s): E87.1 - Hypo-osmolality and hyponatremia Status: Acute Assessment and Plan: Monitor electrolytes, appreciate renal input. Likely multifactorial. Salt tab started. Subjective Date/time seen: 07/14/21 12:36 Breathing is better. Exam Narrative: elderly frail Patient is comfortable, NAD HEENT: eyes are clear and none icteric LUNGS: bilateral fair air entry with rales and rhonchi HEART: RR S1S2 ABD: BS+, Soft and nontender Lower extremities: edema SKIN: nonjaundiced Neuro: grossly intact. Const: General: cooperative, comfortable, no acute distress, well developed, alert, awake, Physically active and ill appearing Nutritional Appearance: average body habitus Orientation/consciousness: oriented to person and oriented to place Limitations: no limitations HENMT: Head: normal to inspection, No palpable skull fracture present, normocephalic and atraumatic Ears: hearing grossly normal bilaterally and external ears normal General nose exam: Normal external nose present Eyes: General: appearance normal, both eyes and all related structures Alignment and Position: alignment normal Periorbital: periorbital findings normal Eyelids: eyelids normal Conjunctivae: conjunctivae normal Sclera: sclerae normal Cornea: corneas normal EOM: EOMs intact bilaterally Neck: Neck: normal visual inspection and full ROM Chest: Chest palpation & inspection: normal inspection of the chest Resp: Effort & Inspection: normal respiratory effort ( Currently on BiPAP) Auscultation: clear to auscultation bilaterally and diminished lung sounds Cardio: Palpation: normal PMI Rate: regular rate Rhythm: regular rhythm Heart sounds: S1 normal heart sound present and S2 normal heart sound present Peripheral pulses: Peripheral pulses 2+ throughout GI: Inspection: distended Auscultation: normal bowel sounds Rectal Exam: deferred Back/Spine/Pelvis: Cervical Spine: cervical ROM normal Skin: General skin exam: normal color Lesions: no lesions Rashes: no rashes Trauma: no lacerations or abrasions Wounds: no wounds Hair: normal Nails: normal Neuro: General: oriented to person and oriented to place Cranial nerves: Yes Normal hearing present Speech: normal speech Extrem: General: normal to inspection Right upper extremity
[2021-07-14] MEDS: LORazepam (*CRX) 0.5 MG TABLET PO ×2 (12:41→21:11)
[2021-07-14] MEDS: ACETAMINOPHEN 325 MG TABLET 650 MG PO (17:23)
[2021-07-14] MEDS: SODIUM CHLORIDE 1 GM TABLET PO (17:24)
[2021-07-14] MEDS: polyethylene glycoL 3350 17 GM POWD.PACK PO (17:24)
[2021-07-14 17:32] LABS: Glucose Point of Care 121 mg/dl (65-105)
[2021-07-14] MEDS: DOCUSATE SODIUM 100 MG CAPSULE PO (21:09)
[2021-07-14] MEDS: SIMVASTATIN 20 MG TABLET PO (21:09)
[2021-07-14 22:01] LABS: Glucose Point of Care 145 mg/dl (65-105)
[2021-07-15] VITALS (7 sets, daily range): BP systolic 135–180; BP diastolic 55–70; PULSE 54–69; RESP 16–18; TEMP 36.4–36.8; O2SAT 96–100
[2021-07-15 06:40] LABS: Albumin Level 3.3 g/dL (3.5-5.1); Anion Gap 7 mmol/L (8-16); Blood Urea Nitrogen 46 mg/dL (7-17); Calcium 8.4 mg/dL (8.4-10.2); Carbon Dioxide 28 mmol/L (22-30); Chloride 87 mmol/L (98-107); Estimated CRCL calculation 14 ml/min; Estimated Glomerular Filt Rate 22; Glucose 118 mg/dL (65-110); Phosphorus 4.3 mg/dL (2.5-4.5); Potassium 4.3 mmol/L (3.4-5.0); Sodium 122 mmol/L (137-145)
[2021-07-15 08:20] LABS: Glucose Point of Care 124 mg/dl (65-105)
[2021-07-15 08:37] LABS: NT Pro B Type Natriuretic Pept 12500 pg/mL (5-100)
[2021-07-15] MEDS: MULTIVITAMINS /C LUTEIN (CENTRUM SILVER) TABLET *BKC 1 TAB PO (08:53)
[2021-07-15] MEDS: amLODIPine BESYLATE 5 MG TABLET 10 MG PO (08:53)
[2021-07-15] MEDS: PANTOPRAZOLE 40 MG TABLET PO (08:53)
[2021-07-15] MEDS: OMEGA 3 POLYUNSAT FATTY ACIDS 1 GM CAP PO (08:53)
[2021-07-15] MEDS: METOPROLOL TARTRATE 25 MG TABLET PO ×2 (08:53→20:31)
[2021-07-15] MEDS: SODIUM CHLORIDE 1 GM TABLET PO ×2 (08:53→17:16)
[2021-07-15] MEDS: ASPIRIN 325 MG TABLET PO (08:54)
[2021-07-15] MEDS: buPROPion HCL 75 MG TABLET PO (08:54)
[2021-07-15] MEDS: FUROSEMIDE INJ 40 MG/4 ML VIAL IV PUSH (08:55)
[2021-07-15] MEDS: hydrALAZINE 10 MG TABLET PO ×4 (08:58→20:31)
[2021-07-15] MEDS: polyethylene glycoL 3350 17 GM POWD.PACK PO (08:58)
--- NOTE | 2021-07-15 10:06 | PM.IMPN ---
Progress Note: A&P Assessment and Plan (1) Community acquired pneumonia: Code(s): J18.9 - Pneumonia, unspecified organism Status: Acute Assessment and Plan: Rocephin and azithromycin IV (2) Pulmonary edema: Qualifiers: Chronicity: acute Qualified Code(s): J81.0 - Acute pulmonary edema Code(s): J81.1 - Chronic pulmonary edema Status: Acute Assessment and Plan: sob improved (3) CHARLI (acute kidney injury): Code(s): N17.9 - Acute kidney failure, unspecified Status: Acute Assessment and Plan: This is acute on chronic renal failure stage 3. ? worsening cr on ckd consult renal. Likely close to new baseline given the fact that she will need additional diuretic therapy. (4) HTN (hypertension): Qualifiers: Hypertension type: unspecified Qualified Code(s): I10 - Essential (primary) hypertension Code(s): I10 - Essential (primary) hypertension Status: Acute Assessment and Plan: Patient is currently on metoprolol. Will adjust her dose of amlodipine. Will add hydralazine to help with blood pressure (5) Pancreatic cyst: Code(s): K86.2 - Cyst of pancreas Status: Acute Assessment and Plan: Chronic. (6) Other ill-defined heart diseases: Code(s): I51.89 - Other ill-defined heart diseases Status: Acute Assessment and Plan: An echo has been ordered. She is on metoprolol and Lasix. (7) Type 2 diabetes mellitus with diabetic chronic kidney disease: Code(s): E11.22 - Type 2 diabetes mellitus with diabetic chronic kidney disease Status: Acute Assessment and Plan: ssi (8) Hyponatremia: Code(s): E87.1 - Hypo-osmolality and hyponatremia Status: Acute Assessment and Plan: Monitor electrolytes, appreciate renal input. Likely multifactorial. Salt tab started. Subjective Date/time seen: 07/15/21 10:06 Feeling better Exam Narrative: elderly frail Patient is comfortable, NAD HEENT: eyes are clear and none icteric LUNGS: bilateral fair air entry with rales and rhonchi HEART: RR S1S2 ABD: BS+, Soft and nontender Lower extremities: edema SKIN: nonjaundiced Neuro: grossly intact. Const: General: cooperative, comfortable, no acute distress, well developed, alert, awake, Physically active and ill appearing Nutritional Appearance: average body habitus Orientation/consciousness: oriented to person and oriented to place Limitations: no limitations HENMT: Head: normal to inspection, No palpable skull fracture present, normocephalic and atraumatic Ears: hearing grossly normal bilaterally and external ears normal General nose exam: Normal external nose present Eyes: General: appearance normal, both eyes and all related structures Alignment and Position: alignment normal Periorbital: periorbital findings normal Eyelids: eyelids normal Conjunctivae: conjunctivae normal Sclera: sclerae normal Cornea: corneas normal EOM: EOMs intact bilaterally Neck: Neck: normal visual inspection and full ROM Chest: Chest palpation & inspection: normal inspection of the chest Resp: Effort & Inspection: normal respiratory effort ( Currently on BiPAP) Auscultation: clear to auscultation bilaterally and diminished lung sounds Cardio: Palpation: normal PMI Rate: regular rate Rhythm: regular rhythm Heart sounds: S1 normal heart sound present and S2 normal heart sound present Peripheral pulses: Peripheral pulses 2+ throughout GI: Inspection: distended Auscultation: normal bowel sounds Rectal Exam: deferred Back/Spine/Pelvis: Cervical Spine: cervical ROM normal Skin: General skin exam: normal color Lesions: no lesions Rashes: no rashes Trauma: no lacerations or abrasions Wounds: no wounds Hair: normal Nails: normal Neuro: General: oriented to person and oriented to place Cranial nerves: Yes Normal hearing present Speech: normal speech Extrem: General:
[2021-07-15] MEDS: LORazepam (*CRX) 0.5 MG TABLET PO ×2 (11:24→20:31)
[2021-07-15 11:47] LABS: Glucose Point of Care 190 mg/dl (65-105)
--- NOTE | 2021-07-15 13:19 | PM.PNNEP ---
Progress Note: A&P Additional Plan 1. Liza has chronic kidney disease. She has no symptoms from the kidneys at this point. nausea is better. Renal ultrasound shows bilateral renal atrophy. Urinalysis shows protein plus sugar. Complements are okay. CPK is normal This is likely due to diabetes and hypertension. She also probably has vascular disease as well which may be playing a role. 2. The patient has acute on chronic kidney disease. Her renal function was worse before the hospital stay. This may have been progression of kidney disease or this may be an acute process due to her diuretics. Possibly prerenal from cardiorenal. her creatinine is about the same as it was. Will continue with the diuretics. 3. The patient has anemia. T sat is low. Add ferrous sulfate. 4. The patient has hyponatremia. she has chronically mildly low sodium. This has worsened in the last couple of days. This is likely due to her COPD and pulmonary hypertension In addition to Bupropion,diuretics, and possibly pantoprazole. Other the things can cause hyponatremia as well. 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 She has no history of cancer. osmolalityis pending TSH and cortisol are okay. I think we have to keep her on pantoprazole because of her history of ulcers. she is on Half dose bupropion. She is on salt tablets and furosemide. Will follow the sodium as we go. 5. Diabetes. This is being managed by the hospitalists. 6. The patient has hypertension. Her blood pressure is high. She is currently on Diuretics, metoprolol and amlodipine. her pulse is 60 so metoprolol is maxed out. Amlodipine is at the max dose. Will add hydralazine 7. The patient has pulmonary hypertension. She is getting supportive care Subjective Date/time seen: 07/15/21 13:19 Interval history: Liza is feeling about the same. Sitting up in a chair. Still on 4L of oxygen. She denies shortness of breath Review of Systems Cardiovascular: Cardiovascular: Reports no additional cardiovascular complaints Respiratory: Respiratory: Reports no additional respiratory complaints Gastrointestinal: Gastrointestinal: Reports no additional gastrointestinal complaints Genitourinary: Genitourinary: Reports no additional female genitourinary complaints Exam Narrative: WDWN in NAD skin no rash head ncat lungs decreased breath sounds at the bases cor reg no rub abd BS+ nontender and soft ext no edema. Objective Data Vital Signs Vital Signs: Vital Signs - 24 hr 07/14/21 14:00 07/14/21 15:45 07/14/21 21:07 Temperature 36.3 C L Pulse Rate 64 66 Respiratory Rate 16 Blood Pressure 171/63 H Pulse Oximetry 92 96 07/14/21 22:00 07/15/21 06:00 07/15/21 08:53 Temperature 36.4 C 36.4 C Pulse Rate 66 60 60 Respiratory Rate 20 18 Blood Pressure 185/82 H 180/70 H Pulse Oximetry 98 100 Intake/Output Intake/Output: Intake & Output 07/12/21 07/13/21 07/14/21 07/15/21 23:59 23:59 23:59 23:59 Intake Total 8337 987 9491 590 Output Total 1200 2300 750 400 Balance 610 -1410 730 190 Meds/Results Medications: Active Medications Generic Name Dose Route Start Last Admin Trade Name Freq PRN Reason Stop Dose Admin Acetaminophen 650 mg 07/13/21 12:04 07/14/21 17:23 Acetaminophen 325 Mg Tablet PO 650 mg Q6H PRN Administration Mild Pain (1-3) or Fever Albuterol 2.5 mg 07/14/21 03:01 07/14/21 03:18 Albuterol Sulfate Neb 2.5 Mg/3 Ml Inh INHALATION 2.5 mg Q6HRT PRN Administration Shortness Of Breath Amlodipine Besylate 10 mg 07/15/21 09:00 07/15/21 08:53 Amlodipine Besylate 5 Mg Tablet PO 10 mg QAM ALEXYS Administration Aspirin 325 mg 07/11/21 09:00 07/15/21 08:54 Aspirin 325 Mg Tablet PO 325 mg DAILY ALEXYS Administration Bupr
[2021-07-15 17:03] LABS: Glucose Point of Care 147 mg/dl (65-105)
[2021-07-15] MEDS: FERROUS SULFATE 324 MG TABLET PO (17:16)
[2021-07-15 17:46] LABS: Appearance Urine Clear (Clear); Bilirubin Urine Negative (Negative); Blood Urine Negative (Negative); Color Urine Yellow (Yellow); Glucose Urine UA Trace mg/dL (Negative); Ketones Urine Negative (Negative); Leukocyte Esterase Ur Negative LEU/UL (NEGATIVE); Nitrate Urine Negative (Negative); Protein Urine 3+ mg/dL (Negative); Specific Grav Ur >= 1.030 (1.001-1.035); Urobilinogen Urine 0.2 mg/dL (<2.0)
[2021-07-15 17:56] LABS: Creatinine Urine 75.3 mg/dL
[2021-07-15 17:57] LABS: Bacteria Urine Trace /hpf; Hyaline Casts Urine 15-19 /lpf; Mucus Urine Rare /lpf; RBC Urine 0-2 /hpf (0-2); Squamous Epithelial Cell Urine Few /hpf (Few); WBC Urine 0-3 /hpf (0-3)
[2021-07-15 17:58] LABS: Add Urine Microscopic? YES
[2021-07-15 18:04] LABS: Sodium Urine Random 25 meq/L
[2021-07-15 18:14] LABS: Total Protein Urine Random > 600 mg/dL
[2021-07-15 20:14] LABS: Glucose Point of Care 167 mg/dl (65-105)
[2021-07-15] MEDS: DOCUSATE SODIUM 100 MG CAPSULE PO (20:31)
[2021-07-15] MEDS: ACETAMINOPHEN 325 MG TABLET 650 MG PO (20:31)
[2021-07-15] MEDS: SIMVASTATIN 20 MG TABLET PO (20:31)
[2021-07-16] VITALS (8 sets, daily range): BP systolic 133–156; BP diastolic 52–59; PULSE 58–72; RESP 16–22; TEMP 35.8–36.9; O2SAT 95–98
[2021-07-16 06:14] LABS: Hematocrit 27.1 % (37.0-47.0); Mean Corpuscular HGB Conc 33.2 g/dl (32-36); Mean Corpuscular Hemoglobin 30.6 pg (26-34); Mean Corpuscular Volume 92.2 fl (80-100); Mean Platelet Volume 9.5 fl (7.4-10.4); Platelet Count Result 354 k/mm3 (150-375); Red Blood Count 2.94 M/mm3 (4.2-5.4); Red Cell Distribution Width 13.5 % (11.5-14.5); White Blood Count 8.9 K/mm3 (4.5-10.0)
[2021-07-16 06:18] LABS: Anion Gap 8 mmol/L (8-16); Blood Urea Nitrogen 53 mg/dL (7-17); Calcium 8.2 mg/dL (8.4-10.2); Carbon Dioxide 26 mmol/L (22-30); Chloride 88 mmol/L (98-107); Estimated CRCL calculation 14 ml/min; Estimated Glomerular Filt Rate 21; Glucose 113 mg/dL (65-110); Potassium 4.4 mmol/L (3.4-5.0); Sodium 122 mmol/L (137-145)
[2021-07-16 08:06] LABS: Glucose Point of Care 158 mg/dl (65-105)
[2021-07-16] MEDS: ACETAMINOPHEN 325 MG TABLET 650 MG PO ×3 (08:47→22:21)
[2021-07-16] MEDS: OMEGA 3 POLYUNSAT FATTY ACIDS 1 GM CAP PO (08:48)
[2021-07-16] MEDS: ASPIRIN 325 MG TABLET PO (08:48)
[2021-07-16] MEDS: LORazepam (*CRX) 0.5 MG TABLET PO ×2 (08:48→20:58)
[2021-07-16] MEDS: PANTOPRAZOLE 40 MG TABLET PO (08:48)
[2021-07-16] MEDS: amLODIPine BESYLATE 5 MG TABLET 10 MG PO (08:48)
[2021-07-16] MEDS: SODIUM CHLORIDE 1 GM TABLET PO ×2 (08:48→16:51)
[2021-07-16] MEDS: MULTIVITAMINS /C LUTEIN (CENTRUM SILVER) TABLET *BKC 1 TAB PO (08:48)
[2021-07-16] MEDS: buPROPion HCL 75 MG TABLET PO (08:48)
[2021-07-16] MEDS: hydrALAZINE 10 MG TABLET PO ×4 (08:48→20:58)
[2021-07-16] MEDS: METOPROLOL TARTRATE 25 MG TABLET PO ×2 (08:48→20:57)
[2021-07-16] MEDS: FERROUS SULFATE 324 MG TABLET PO ×2 (08:49→16:51)
[2021-07-16] MEDS: FUROSEMIDE INJ 40 MG/4 ML VIAL IV PUSH ×2 (08:49→16:51)
--- NOTE | 2021-07-16 10:20 | PCPTNOTE ---
Patient declined Physical Therapy at this time.
--- NOTE | 2021-07-16 11:27 | PCOTNOTE ---
Attempted to see pt for Occupational Therapy tx this AM at 11:26am. Due to pt observed to be very lethargic and not able to keep eyes open. RN reports that pt has been experiencing a mild anxiety attack this AM with pt c/o SOB despite o2 level in WNL at . Therapist will attempt later today if appropriate. Will continue per poc duration/frequency tomorrow.
[2021-07-16 11:52] LABS: Glucose Point of Care 283 mg/dl (65-105)
--- NOTE | 2021-07-16 11:54 | PCPTNOTE ---
Patient refused treatment this session due to not being able to breath and hear. RN and optometric assistant states patient is more anxious today.
[2021-07-16] MEDS: INSULIN ASPART (*BKC) 100 UNITS/ML SUB-Q (12:02)
--- NOTE | 2021-07-16 12:29 | PM.PNNEP ---
Progress Note: A&P Additional Plan 1. Liza has chronic kidney disease. She has no symptoms from the kidneys at this point. nausea is better. Renal ultrasound shows bilateral renal atrophy. Urinalysis shows protein plus sugar. Complements are okay. CPK is normal This is likely due to diabetes and hypertension. She also probably has vascular disease as well which may be playing a role. 2. The patient has acute on chronic kidney disease. Her renal function was worse before the hospital stay. This may have been progression of kidney disease or this may be an acute process due to her diuretics. Possibly prerenal from cardiorenal syndrome. her creatinine is about the same as it was. Will continue with the diuretics. still has some shortness of breath. Will increase the dose to twice a day. 3. The patient has anemia. T sat is low. Add ferrous sulfate. 4. The patient has hyponatremia. she has chronically mildly low sodium. This is stable from yesterday. This is likely due to her COPD and pulmonary hypertension In addition to Bupropion,diuretics, and possibly pantoprazole. Other the things can cause hyponatremia as well. 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 She has no history of cancer. osmolalityis pending TSH and cortisol are okay. I think we have to keep her on pantoprazole because of her history of ulcers. she is on Half dose bupropion. She is on salt tablets and furosemide. Will increase the furosemide to twice a day. This may help with free water clearance. Will fluid restrict [id number]. Will follow the sodium . 5. Diabetes. This is being managed by the hospitalists. 6. The patient has hypertension. Her blood pressure is high. She is currently on Diuretics, Hydralazine, metoprolol and amlodipine. her pulse is 60 so metoprolol is maxed out. Amlodipine is at the max dose. blood pressure looks better 7. The patient has pulmonary hypertension. She is getting supportive care Subjective Date/time seen: 07/16/21 12:29 Interval history: Liza is feeling about the same. sitting in semi-Jacobs's position eating lunch. She is complaining some shortness of breath. Still on 4L of oxygen. Exam Narrative: WDWN in NAD skin no rash head ncat lungs decreased breath sounds at the bases cor reg no rub or gallop abd BS+ nontender and soft ext no edema or cyanosis. Objective Data Vital Signs Vital Signs: Vital Signs - 24 hr 07/15/21 13:45 07/15/21 16:30 07/15/21 18:41 Temperature 36.4 C L Pulse Rate 54 L Respiratory Rate 16 Blood Pressure 135/62 Pulse Oximetry 96 100 98 07/15/21 19:36 07/15/21 20:31 07/16/21 05:32 Temperature 36.8 C 36.9 C Pulse Rate 69 69 72 Respiratory Rate 18 16 Blood Pressure 146/55 H 156/55 H Pulse Oximetry 97 95 07/16/21 08:48 07/16/21 09:00 07/16/21 10:40 Temperature 36.6 C Pulse Rate 72 58 L Respiratory Rate 16 Blood Pressure 144/59 H Pulse Oximetry 95 96 Intake/Output Intake/Output: Intake & Output 07/13/21 07/14/21 07/15/21 07/16/21 23:59 23:59 23:59 23:59 Intake Total 890 1480 1180 880 Output Total 2300 750 400 Balance -1410 730 780 880 Meds/Results Medications: Active Medications Generic Name Dose Route Start Last Admin Trade Name Freq PRN Reason Stop Dose Admin Acetaminophen 650 mg 07/13/21 12:04 07/16/21 08:47 Acetaminophen 325 Mg Tablet PO 650 mg Q6H PRN Administration Mild Pain (1-3) or Fever Albuterol 2.5 mg 07/14/21 03:01 07/14/21 03:18 Albuterol Sulfate Neb 2.5 Mg/3 Ml Inh INHALATION 2.5 mg Q6HRT PRN Administration Shortness Of Breath Amlodipine Besylate 10 mg 07/15/21 09:00 07/16/21 08:48 Amlodipine Besylate 5 Mg Tablet PO 10 mg QAM ALEXYS Administration Aspirin 325 mg 07/11/21 09:
--- NOTE | 2021-07-16 12:39 | PCOTNOTE ---
Attempted to see pt 2nd time today, however, pt continued to refuse due to fatigue and increase anxiety. Will continue per poc duration/frequency tomorrow.
[2021-07-16 16:38] LABS: Glucose Point of Care 153 mg/dl (65-105)
[2021-07-16] MEDS: DOCUSATE SODIUM 100 MG CAPSULE PO (20:57)
[2021-07-16] MEDS: SIMVASTATIN 20 MG TABLET PO (20:57)
[2021-07-16] MEDS: polyethylene glycoL 3350 17 GM POWD.PACK PO (20:58)
[2021-07-16 21:21] LABS: Glucose Point of Care 152 mg/dl (65-105)
[2021-07-17] VITALS (7 sets, daily range): BP systolic 148–156; BP diastolic 54–77; PULSE 55–70; RESP 18–20; TEMP 36.5–36.6; O2SAT 95–97
[2021-07-17] MEDS: ACETAMINOPHEN 325 MG TABLET 650 MG PO ×3 (05:37→20:49)
[2021-07-17 06:56] LABS: Albumin Level 3.1 g/dL (3.5-5.1); Anion Gap 8 mmol/L (8-16); Blood Urea Nitrogen 60 mg/dL (7-17); Calcium 7.8 mg/dL (8.4-10.2); Carbon Dioxide 26 mmol/L (22-30); Chloride 85 mmol/L (98-107); Estimated CRCL calculation 15 ml/min; Estimated Glomerular Filt Rate 21; Glucose 115 mg/dL (65-110); Phosphorus 4.3 mg/dL (2.5-4.5); Potassium 4.5 mmol/L (3.4-5.0); Sodium 119 mmol/L (137-145)
[2021-07-17 07:40] LABS: Glucose Point of Care 137 mg/dl (65-105)
[2021-07-17] MEDS: SODIUM CHLORIDE 1 GM TABLET PO ×2 (09:49→16:25)
[2021-07-17] MEDS: ASPIRIN 325 MG TABLET PO (09:49)
[2021-07-17] MEDS: OMEGA 3 POLYUNSAT FATTY ACIDS 1 GM CAP PO (09:49)
[2021-07-17] MEDS: amLODIPine BESYLATE 5 MG TABLET 10 MG PO (09:49)
[2021-07-17] MEDS: FERROUS SULFATE 324 MG TABLET PO ×2 (09:49→16:25)
[2021-07-17] MEDS: buPROPion HCL 75 MG TABLET PO (09:49)
[2021-07-17] MEDS: METOPROLOL TARTRATE 25 MG TABLET PO ×2 (09:50→20:49)
[2021-07-17] MEDS: MULTIVITAMINS /C LUTEIN (CENTRUM SILVER) TABLET *BKC 1 TAB PO (09:50)
[2021-07-17] MEDS: hydrALAZINE 10 MG TABLET PO ×4 (09:50→20:49)
[2021-07-17] MEDS: PANTOPRAZOLE 40 MG TABLET PO (09:50)
[2021-07-17] MEDS: FUROSEMIDE INJ 40 MG/4 ML VIAL IV PUSH ×2 (09:51→16:25)
[2021-07-17 11:49] LABS: Glucose Point of Care 149 mg/dl (65-105)
--- NOTE | 2021-07-17 11:51 | PM.IMPN ---
Progress Note: A&P Assessment and Plan (1) Community acquired pneumonia: Code(s): J18.9 - Pneumonia, unspecified organism Status: Acute Assessment and Plan: Rocephin and azithromycin IV Last day, July 18, 2021 (2) Pulmonary edema: Qualifiers: Chronicity: acute Qualified Code(s): J81.0 - Acute pulmonary edema Code(s): J81.1 - Chronic pulmonary edema Status: Acute Assessment and Plan: sob improved (3) CHARLI (acute kidney injury): Code(s): N17.9 - Acute kidney failure, unspecified Status: Acute Assessment and Plan: This is acute on chronic renal failure stage 3. ? worsening cr on ckd consult renal. Likely close to new baseline given the fact that she will need additional diuretic therapy. (4) HTN (hypertension): Qualifiers: Hypertension type: unspecified Qualified Code(s): I10 - Essential (primary) hypertension Code(s): I10 - Essential (primary) hypertension Status: Acute Assessment and Plan: Patient is currently on metoprolol. Will adjust her dose of amlodipine. Will add hydralazine to help with blood pressure (5) Pancreatic cyst: Code(s): K86.2 - Cyst of pancreas Status: Acute Assessment and Plan: Chronic. (6) Other ill-defined heart diseases: Code(s): I51.89 - Other ill-defined heart diseases Status: Acute Assessment and Plan: An echo has been ordered. She is on metoprolol and Lasix. (7) Type 2 diabetes mellitus with diabetic chronic kidney disease: Code(s): E11.22 - Type 2 diabetes mellitus with diabetic chronic kidney disease Status: Acute Assessment and Plan: ssi (8) Hyponatremia: Code(s): E87.1 - Hypo-osmolality and hyponatremia Status: Acute Assessment and Plan: Per Nephrology. Question need to increase salt tabs. Sodium level has dropped no neurologic side effects. Once sodium stabilized above 120 week and send the patient to skilled facility Subjective Date/time seen: 07/17/21 11:51 No complaints, off oxygen Exam Narrative: elderly frail Patient is comfortable, NAD HEENT: eyes are clear and none icteric LUNGS: bilateral fair air entry with rales and rhonchi HEART: RR S1S2 ABD: BS+, Soft and nontender Lower extremities: edema SKIN: nonjaundiced Neuro: grossly intact. Const: General: cooperative, comfortable, no acute distress, well developed, alert, awake, Physically active and ill appearing Nutritional Appearance: average body habitus Orientation/consciousness: oriented to person and oriented to place Limitations: no limitations HENMT: Head: normal to inspection, No palpable skull fracture present, normocephalic and atraumatic Ears: hearing grossly normal bilaterally and external ears normal General nose exam: Normal external nose present Eyes: General: appearance normal, both eyes and all related structures Alignment and Position: alignment normal Periorbital: periorbital findings normal Eyelids: eyelids normal Conjunctivae: conjunctivae normal Sclera: sclerae normal Cornea: corneas normal EOM: EOMs intact bilaterally Neck: Neck: normal visual inspection and full ROM Chest: Chest palpation & inspection: normal inspection of the chest Resp: Effort & Inspection: normal respiratory effort ( Currently on BiPAP) Auscultation: clear to auscultation bilaterally and diminished lung sounds Cardio: Palpation: normal PMI Rate: regular rate Rhythm: regular rhythm Heart sounds: S1 normal heart sound present and S2 normal heart sound present Peripheral pulses: Peripheral pulses 2+ throughout GI: Inspection: distended Auscultation: normal bowel sounds Rectal Exam: deferred Back/Spine/Pelvis: Cervical Spine: cervical ROM normal Skin: General skin exam: normal color Lesions: no lesions Rashes: no rashes Trauma: no lacerations or abrasions Wounds: no wounds Hair: normal Nails: normal Neuro:
[2021-07-17 13:15] LABS: Kappa\\Lambda Light Chains 2.06 (0.26-1.65); Lambda Light Chain 37.2 mg/L (5.7-26.3)
--- NOTE | 2021-07-17 15:31 | PM.PNNEP ---
Progress Note: A&P Assessment and Plan (1) Hyponatremia: Code(s): E87.1 - Hypo-osmolality and hyponatremia Status: Acute Assessment and Plan: thought to secondary to her COPD, pulmonary HTN, pneumonia as well as medications (bupropion, diuretics, PPI) evaluation to date: osmolality pending TSH and cortisol okay previous imaging of brain negative still on PPI due to history of ulcers; bupropion dosage decreased on salt tabs, lasix and fluid restriction sodium a bit worse today - will change fluid restriction to 1000cc/day follow trend of repeat sodiums (2) CHARLI (acute kidney injury): Code(s): N17.9 - Acute kidney failure, unspecified Status: Acute Assessment and Plan: presumably due to acute illness but cannot deny a component of disease progression prerenal factors or chronic prerenal azotemia could be playing a role as well evaluation to date: renal ultrasound shows bilateral renal atrophy urinalysis shows protein plus sugar complements are okay CPK is normal may have to accept a higher creatinine to optimize breathing/respiratory status (3) Stage 3b chronic kidney disease: Code(s): N18.32 - Chronic kidney disease, stage 3b Status: Chronic Assessment and Plan: baseline creatinine seems to run ~ 1.5 - 2.0mg/dl due to hypertension, diabetes, vascular disease, and age (4) Dyspnea: Qualifiers: Dyspnea type: unspecified Qualified Code(s): R06.00 - Dyspnea, unspecified Code(s): R06.00 - Dyspnea, unspecified Status: Acute Assessment and Plan: due to a combination of volume overload and pneumonia getting IV antibiotics on IV diuretics follow respiratory status (5) Anemia: Code(s): D64.9 - Anemia, unspecified Status: Acute Assessment and Plan: low TSAT noted ferrous sulfate added follow H/H (6) Hypertension: Code(s): I10 - Essential (primary) hypertension Status: Chronic Assessment and Plan: improvement noted ongoing diuresis may also help as well follow trend of hemodynamics (7) Diabetes: Code(s): E11.9 - Type 2 diabetes mellitus without complications Status: Chronic Assessment and Plan: follow accuchecks on SSI Will continue to follow Subjective Date/time seen: 07/17/21 15:31 Chart reviewed - assuming care from Dr. Augustin; patient states she seems to be doing a bit better at the time of my visit; no issues/events overnight or earlier this AM; off oxygen currently. Exam Narrative: General: WD/WN Caucasain female in NAD Heart: normal S1 and S2; no rub Lungs: decreased breath sounds at the bases Abdomen: soft, nontender, nondistended, positive bowel sounds Extremities: no cyanosis or clubbing; no edema Skin: warm and dry Objective Data Vital Signs Vital Signs: Vital Signs Temp Pulse Resp BP Pulse Ox 07/17/21 14:00 36.6 C 55 L 20 148/77 H 97 07/17/21 09:50 69 07/17/21 06:00 36.6 C 69 20 156/54 H 97 07/16/21 20:57 59 L 07/16/21 20:48 36.3 C L 58 L 22 H 137/52 L 98 07/16/21 20:00 59 L 22 H 98 Intake/Output Intake/Output: Intake & Output 07/14/21 07/15/21 07/16/21 07/17/21 23:59 23:59 23:59 23:59 Intake Total 1480 1180 1120 1080 Output Total 750 400 Balance 820 127 3975 1080 Meds/Results Medications: Active Medications Generic Name Dose Route Start Last Admin Trade Name Freq PRN Reason Stop Dose Admin Acetaminophen 650 mg 07/13/21 12:04 07/17/21 11:40 Acetaminophen 325 Mg Tablet PO 650 mg Q6H PRN Administration Mild Pain (1-3) or Fever Albuterol 2.5 mg 07/14/21 03:01 07/14/21 03:18 Albuterol Sulfate Neb 2.5 Mg/3 Ml Inh INHALATION 2.5 mg Q6HRT PRN Administration Shortness Of Breath Amlodipine Besylate 10 mg 07/15/21 09:00 07/17/21 09:49 Amlodipine Besylate 5 Mg Tablet PO 10 mg QAM ALEXYS Administration As
--- NOTE | 2021-07-17 15:31 | P.PNNP_ITS ---
Progress Note: A&P Assessment and Plan (1) Hyponatremia: Code(s): E87.1 - Hypo-osmolality and hyponatremia Status: Acute Assessment and Plan: * thought to secondary to her COPD, pulmonary HTN, pneumonia as well as medications (bupropion, diuretics, PPI) * evaluation to date: * osmolality pending * TSH and cortisol okay * previous imaging of brain negative * still on PPI due to history of ulcers; bupropion dosage decreased * on salt tabs, lasix and fluid restriction * sodium a bit worse today - will change fluid restriction to 1000cc/day * follow trend of repeat sodiums (2) CHARLI (acute kidney injury): Code(s): N17.9 - Acute kidney failure, unspecified Status: Acute Assessment and Plan: * presumably due to acute illness but cannot deny a component of disease progression * prerenal factors or chronic prerenal azotemia could be playing a role as well * evaluation to date: * renal ultrasound shows bilateral renal atrophy * urinalysis shows protein plus sugar * complements are okay * CPK is normal * may have to accept a higher creatinine to optimize breathing/respiratory status (3) Stage 3b chronic kidney disease: Code(s): N18.32 - Chronic kidney disease, stage 3b Status: Chronic Assessment and Plan: * baseline creatinine seems to run ~ 1.5 - 2.0mg/dl * due to hypertension, diabetes, vascular disease, and age (4) Dyspnea: Qualifiers: Dyspnea type: unspecified Qualified Code(s): R06.00 - Dyspnea, unspecified Code(s): R06.00 - Dyspnea, unspecified Status: Acute Assessment and Plan: * due to a combination of volume overload and pneumonia * getting IV antibiotics * on IV diuretics * follow respiratory status (5) Anemia: Code(s): D64.9 - Anemia, unspecified Status: Acute Assessment and Plan: * low TSAT noted * ferrous sulfate added * follow H/H (6) Hypertension: Code(s): I10 - Essential (primary) hypertension Status: Chronic Assessment and Plan: * improvement noted * ongoing diuresis may also help as well * follow trend of hemodynamics (7) Diabetes: Code(s): E11.9 - Type 2 diabetes mellitus without complications Status: Chronic Assessment and Plan: * follow accuchecks * on SSI Will continue to follow Subjective Date/time seen: 07/17/21 15:31 Chart reviewed - assuming care from Dr. Augustin; patient states she seems to be doing a bit better at the time of my visit; no issues/events overnight or shruthi ier this AM; off oxygen currently. Exam Narrative: General: WD/WN Caucasain female in NAD Heart: normal S1 and S2; no rub Lungs: decreased breath sounds at the bases Abdomen: soft, nontender, nondistended, positive bowel sounds Extremities: no cyanosis or clubbing; no edema Skin: warm and dry Objective Data Vital Signs Vital Signs: Vital Signs Temp Pulse Resp BP Pulse Ox 07/17/21 14:00 36.6 C 55 L 20 148/77 H 97 07/17/21 09:50 69 07/17/21 06:00 36.6 C 69 20 156/54 H 97 07/16/21 20:57 59 L 07/16/21 20:48 36.3 C L 58 L 22 H 137/52 L 98 07/16/21 20:00 59 L 22 H 98 Intake/Output Intake/Output: Intake & Output 07/14/21 07/15/21 07/16/21 07/17/21 23:59 23:59 23
--- NOTE | 2021-07-17 15:55 | WPDCDIQUERY2 ---
CDI Query Clarification Request Pulmonary edema: Qualifiers: Chronicity: acute Qualified Code(s): J81.0 - Acute pulmonary edema Code(s): J81.1 - Chronic pulmonary edema Status: Acute Assessment and Plan: Continue with IV Lasix and an echo. Patient's BNP is elevated. Chest x-ray was read as small pleural effusions. Monitor her renal functions closely with the Lasix use. NT-Pro-B Natriuret Pep [id number] H
--- NOTE | 2021-07-17 16:16 | WPDCDIQUERY2 ---
CDI Query Clarification Request 07/11 Hospitalist documented: 07/11/2021 interval history: patient 86-year-old female presented emergency department with a complaint of shortness of breath and lower extremity swelling patient states her symptoms were getting progressively worse and she was not able to sleep due 2 orthopnea most likely secondary to acute on chronic systolic congestive heart failure and recent echo showed moderately reduced ejection fraction of 35-40% patient is being diuresed a will continue to monitor 07/12 Hospitalist documented: Pulmonary edema: Qualifiers: Chronicity: acute Qualified Code(s): J81.0 - Acute pulmonary edema Code(s): J81.1 - Chronic pulmonary edema Status: Acute Assessment and Plan: Continue with IV Lasix and an echo. Patient's BNP is elevated. Chest x-ray was read as small pleural effusions. Monitor her renal functions closely with the Lasix use. 07/12 lab result: NT-Pro-B Natriuret Pep [id number] H Please clarify if diagnosis: CHF (Congestive Heart Failure, Acute on chronic systolic heart failure) has been ruled in, ruled out or undetermined.
[2021-07-17 16:20] LABS: Glucose Point of Care 163 mg/dl (65-105)
[2021-07-17] MEDS: polyethylene glycoL 3350 17 GM POWD.PACK PO (16:25)
[2021-07-17] MEDS: LORazepam (*CRX) 0.5 MG TABLET PO (16:25)
[2021-07-17 16:50] LABS: Complement Total CH50 >60 U/mL (31-60)
[2021-07-17 20:28] LABS: Glucose Point of Care 199 mg/dl (65-105)
[2021-07-17] MEDS: DOCUSATE SODIUM 100 MG CAPSULE PO (20:49)
[2021-07-17] MEDS: SIMVASTATIN 20 MG TABLET PO (20:49)
[2021-07-17] MEDS: ONDANSETRON INJ 4 MG/2 ML VIAL IV PUSH (20:50)
[2021-07-18] MEDS: ACETAMINOPHEN 325 MG TABLET 650 MG PO (04:35)
[2021-07-18 06:00] VITALS: BP 164/56; PULSE 63; RESP 20; TEMP 37.1; O2SAT 95
[2021-07-18 07:21] LABS: Glucose Point of Care 128 mg/dl (65-105)
--- NOTE | 2021-07-18 08:22 | P.PNNP_ITS ---
Progress Note: A&P Assessment and Plan (1) Hyponatremia: Code(s): E87.1 - Hypo-osmolality and hyponatremia Status: Acute Assessment and Plan: * thought to secondary to her COPD, pulmonary HTN, pneumonia as well as medications (bupropion, diuretics, PPI) * evaluation to date: * serum osmo = calc.U osmo pending * TSH and cortisol okay * previous imaging of brain negative * buprprion, and PPI may be underlying and pulmonary process may be a cause as well. * still on PPI due to history of ulcers; bupropion dosage decreased * will d/c the latter. * sodium down to 119. * on lasix, salt tabs, and fluid restriction. * inc salt tabs and change all to tid. * consider 3% saline? * no sx now so hold off today as we made a few changes. * check sodium later today (2) CHARLI (acute kidney injury): Code(s): N17.9 - Acute kidney failure, unspecified Status: Acute Assessment and Plan: * presumably due to acute illness but cannot deny a component of disease progression * prerenal factors or chronic prerenal azotemia could be playing a role as well * evaluation to date: * renal ultrasound shows bilateral renal atrophy * urinalysis shows protein plus sugar * complements are okay * CPK is normal * may have to accept a higher creatinine to optimize breathing/respiratory status (3) Stage 3b chronic kidney disease: Code(s): N18.32 - Chronic kidney disease, stage 3b Status: Chronic Assessment and Plan: * baseline creatinine seems to run ~ 1.5 - 2.0mg/dl * due to hypertension, diabetes, vascular disease, and age (4) Dyspnea: Qualifiers: Dyspnea type: unspecified Qualified Code(s): R06.00 - Dyspnea, unspecified Code(s): R06.00 - Dyspnea, unspecified Status: Acute Assessment and Plan: * due to a combination of volume overload and pneumonia * getting IV antibiotics * on IV diuretics * follow respiratory status (5) Anemia: Code(s): D64.9 - Anemia, unspecified Status: Acute Assessment and Plan: * low TSAT noted * ferrous sulfate added * follow H/H (6) Hypertension: Code(s): I10 - Essential (primary) hypertension Status: Chronic Assessment and Plan: * improvement noted * ongoing diuresis may also help as well * follow trend of hemodynamics (7) Diabetes: Code(s): E11.9 - Type 2 diabetes mellitus without complications Status: Chronic Assessment and Plan: * follow accuchecks * on SSI Will continue to follow Additional Plan 1. Liza has chronic kidney disease. She has no symptoms from the kidneys at this point. nausea is better. Renal ultrasound shows bilateral renal atrophy. Urinalysis shows protein plus sugar. Complements are okay. CPK is normal This is likely due to diabetes and hypertension. She also probably has vascular disease as well which may be playing a role. 2. The patient has acute on chronic kidney disease. Her renal function was worse before the hospital stay. This may have been progression of kidney disease or this may be an acute process due to her diuretics. Possibly prerenal from cardiorenal syndrome. her creatinine is about the same as it was. Will continue with the diuretics. still has some shortness of breath. Will increase the dose to twice a day. 3. The patient has anemia. T sat is low. Add ferrous sulfate. 4. The patient has hyponatremia. she has c
--- NOTE | 2021-07-18 08:22 | PM.PNNEP ---
Progress Note: A&P Assessment and Plan (1) Hyponatremia: Code(s): E87.1 - Hypo-osmolality and hyponatremia Status: Acute Assessment and Plan: thought to secondary to her COPD, pulmonary HTN, pneumonia as well as medications (bupropion, diuretics, PPI) evaluation to date: serum osmo = calc.U osmo pending TSH and cortisol okay previous imaging of brain negative buprprion, and PPI may be underlying and pulmonary process may be a cause as well. still on PPI due to history of ulcers; bupropion dosage decreased will d/c the latter. sodium down to 119. on lasix, salt tabs, and fluid restriction. inc salt tabs and change all to tid. consider 3% saline? no sx now so hold off today as we made a few changes. check sodium later today (2) CHARLI (acute kidney injury): Code(s): N17.9 - Acute kidney failure, unspecified Status: Acute Assessment and Plan: presumably due to acute illness but cannot deny a component of disease progression prerenal factors or chronic prerenal azotemia could be playing a role as well evaluation to date: renal ultrasound shows bilateral renal atrophy urinalysis shows protein plus sugar complements are okay CPK is normal may have to accept a higher creatinine to optimize breathing/respiratory status (3) Stage 3b chronic kidney disease: Code(s): N18.32 - Chronic kidney disease, stage 3b Status: Chronic Assessment and Plan: baseline creatinine seems to run ~ 1.5 - 2.0mg/dl due to hypertension, diabetes, vascular disease, and age (4) Dyspnea: Qualifiers: Dyspnea type: unspecified Qualified Code(s): R06.00 - Dyspnea, unspecified Code(s): R06.00 - Dyspnea, unspecified Status: Acute Assessment and Plan: due to a combination of volume overload and pneumonia getting IV antibiotics on IV diuretics follow respiratory status (5) Anemia: Code(s): D64.9 - Anemia, unspecified Status: Acute Assessment and Plan: low TSAT noted ferrous sulfate added follow H/H (6) Hypertension: Code(s): I10 - Essential (primary) hypertension Status: Chronic Assessment and Plan: improvement noted ongoing diuresis may also help as well follow trend of hemodynamics (7) Diabetes: Code(s): E11.9 - Type 2 diabetes mellitus without complications Status: Chronic Assessment and Plan: follow accuchecks on SSI Will continue to follow Additional Plan 1. Liza has chronic kidney disease. She has no symptoms from the kidneys at this point. nausea is better. Renal ultrasound shows bilateral renal atrophy. Urinalysis shows protein plus sugar. Complements are okay. CPK is normal This is likely due to diabetes and hypertension. She also probably has vascular disease as well which may be playing a role. 2. The patient has acute on chronic kidney disease. Her renal function was worse before the hospital stay. This may have been progression of kidney disease or this may be an acute process due to her diuretics. Possibly prerenal from cardiorenal syndrome. her creatinine is about the same as it was. Will continue with the diuretics. still has some shortness of breath. Will increase the dose to twice a day. 3. The patient has anemia. T sat is low. Add ferrous sulfate. 4. The patient has hyponatremia. she has chronically mildly low sodium. 5. Diabetes. This is being managed by the hospitalists. 6. The patient has hypertension. Her blood pressure is high. She is currently on Diuretics, Hydralazine, metoprolol and amlodipine. her pulse is 60 so metoprolol is maxed out. Amlodipine is at the max dose. blood pressure looks better 7. The patient has pulmonary hypertension. She is getting supportive care Subjective Date/time seen: 07/18/21 08:22 Interval history: alert. off ox
[2021-07-18] MEDS: SODIUM CHLORIDE 1 GM TABLET 2 GM PO ×2 (08:40→16:55)
[2021-07-18] MEDS: amLODIPine BESYLATE 5 MG TABLET 10 MG PO (08:40)
[2021-07-18] MEDS: MULTIVITAMINS /C LUTEIN (CENTRUM SILVER) TABLET *BKC 1 TAB PO (08:40)
[2021-07-18] MEDS: ASPIRIN 325 MG TABLET PO (08:40)
[2021-07-18] MEDS: PANTOPRAZOLE 40 MG TABLET PO (08:41)
[2021-07-18] MEDS: METOPROLOL TARTRATE 25 MG TABLET PO ×2 (08:41→19:54)
[2021-07-18] MEDS: OMEGA 3 POLYUNSAT FATTY ACIDS 1 GM CAP PO (08:41)
[2021-07-18] MEDS: hydrALAZINE 10 MG TABLET PO ×4 (08:41→19:54)
[2021-07-18] MEDS: SODIUM CHLORIDE 500 MG TABLET PO ×2 (08:41→16:55)
[2021-07-18] MEDS: buPROPion HCL 75 MG TABLET PO (08:41)
[2021-07-18] MEDS: FERROUS SULFATE 324 MG TABLET PO ×2 (08:41→16:55)
[2021-07-18] MEDS: FUROSEMIDE INJ 40 MG/4 ML VIAL IV PUSH ×2 (08:42→16:55)
[2021-07-18] MEDS: ONDANSETRON INJ 4 MG/2 ML VIAL IV PUSH (09:15)
[2021-07-18 11:31] LABS: Glucose Point of Care 196 mg/dl (65-105)
--- NOTE | 2021-07-18 11:40 | PCNWS ---
Weekly nutritional screen. Patient is tolerating current diet with adequate intake. No weight loss reported. No nutritional needs at this time.
--- NOTE | 2021-07-18 11:43 | PM.IMPN ---
Progress Note: A&P Assessment and Plan (1) Community acquired pneumonia: Code(s): J18.9 - Pneumonia, unspecified organism Status: Acute Assessment and Plan: antibiotics have been completed (2) Pulmonary edema: Qualifiers: Chronicity: acute Qualified Code(s): J81.0 - Acute pulmonary edema Code(s): J81.1 - Chronic pulmonary edema Status: Acute Assessment and Plan: sob improved not requiring oxygen (3) CHARLI (acute kidney injury): Code(s): N17.9 - Acute kidney failure, unspecified Status: Acute Assessment and Plan: This is acute on chronic renal failure stage 3. ? worsening cr on ckd will recheck BMP in the morning (4) HTN (hypertension): Qualifiers: Hypertension type: unspecified Qualified Code(s): I10 - Essential (primary) hypertension Code(s): I10 - Essential (primary) hypertension Status: Acute Assessment and Plan: blood pressure improved continue current regimen (5) Pancreatic cyst: Code(s): K86.2 - Cyst of pancreas Status: Acute Assessment and Plan: Chronic. (6) Other ill-defined heart diseases: Code(s): I51.89 - Other ill-defined heart diseases Status: Acute Assessment and Plan: volume status appears okay. (7) Type 2 diabetes mellitus with diabetic chronic kidney disease: Code(s): E11.22 - Type 2 diabetes mellitus with diabetic chronic kidney disease Status: Acute Assessment and Plan: ssi (8) Hyponatremia: Code(s): E87.1 - Hypo-osmolality and hyponatremia Status: Acute Assessment and Plan: Per Nephrology. Question need to increase salt tabs. Sodium level has dropped no neurologic side effects. Once sodium stabilized above 120 week and send the patient to skilled facility Subjective Date/time seen: 07/18/21 11:43 patient is not on oxygen appears be breathing much better. She is having a little nausea this morning and had 1 episode of emesis. Otherwise no additional complaints Exam Narrative: elderly frail Patient is comfortable, NAD HEENT: eyes are clear and none icteric LUNGS: bilateral fair air entry with rales and rhonchi HEART: RR S1S2 ABD: BS+, Soft and nontender Lower extremities: edema SKIN: nonjaundiced Neuro: grossly intact. Const: General: cooperative, comfortable, no acute distress, well developed, alert, awake, Physically active and ill appearing Nutritional Appearance: average body habitus Orientation/consciousness: oriented to person and oriented to place Limitations: no limitations HENMT: Head: normal to inspection, No palpable skull fracture present, normocephalic and atraumatic Ears: hearing grossly normal bilaterally and external ears normal General nose exam: Normal external nose present Eyes: General: appearance normal, both eyes and all related structures Alignment and Position: alignment normal Periorbital: periorbital findings normal Eyelids: eyelids normal Conjunctivae: conjunctivae normal Sclera: sclerae normal Cornea: corneas normal EOM: EOMs intact bilaterally Neck: Neck: normal visual inspection and full ROM Chest: Chest palpation & inspection: normal inspection of the chest Resp: Effort & Inspection: normal respiratory effort ( Currently on BiPAP) Auscultation: clear to auscultation bilaterally and diminished lung sounds Cardio: Palpation: normal PMI Rate: regular rate Rhythm: regular rhythm Heart sounds: S1 normal heart sound present and S2 normal heart sound present Peripheral pulses: Peripheral pulses 2+ throughout GI: Inspection: distended Auscultation: normal bowel sounds Rectal Exam: deferred Back/Spine/Pelvis: Cervical Spine: cervical ROM normal Skin: General skin exam: normal color Lesions: no lesions Rashes: no rashes Trauma: no lacerations or abrasions Wounds: no wounds Hair: normal Nails: normal Neuro: General: oriented to person and or
--- NOTE | 2021-07-18 12:21 | PCNSR ---
On 07/18/21, the student, Sean Moscoso, provided care and completed [facility] documentation on this patient. I have reviewed the student's documentation and agree with the findings.
--- NOTE | 2021-07-18 13:11 | PCOTNOTE ---
Attempted to see patient this am, however patient sleeping upon entering and wanted to rest at this time.
[2021-07-18 13:31] LABS: Sodium 118 mmol/L (137-145)
[2021-07-18 14:00] VITALS: BP 149/73; PULSE 68; RESP 20; TEMP 36.7; O2SAT 92
[2021-07-18] MEDS: hydrALAZINE HCL 25 MG TABLET PO (15:15)
[2021-07-18] MEDS: LORazepam (*CRX) 0.5 MG TABLET PO (15:15)
[2021-07-18] MEDS: SODIUM CHLORIDE 3% 120 ML 30 ML IV CONT (15:21)
[2021-07-18 16:33] LABS: Glucose Point of Care 143 mg/dl (65-105)
[2021-07-18 19:27] VITALS: BP 157/61; PULSE 63; RESP 20; TEMP 36.5; O2SAT 93
[2021-07-18 19:54] VITALS: PULSE 63
[2021-07-18] MEDS: SIMVASTATIN 20 MG TABLET PO (19:54)
[2021-07-18 20:45] LABS: Sodium 116 mmol/L (137-145)
[2021-07-18 21:15] LABS: Glucose Point of Care 202 mg/dl (65-105)
[2021-07-18 21:45] VITALS: O2SAT 94
[2021-07-18 22:51] LABS: Sodium 118 mmol/L (137-145)
[2021-07-19] MEDS: SODIUM CHLORIDE 3% 180 ML 60 ML IV CONT (00:07)
[2021-07-19 04:27] VITALS: BP 164/60; PULSE 66; RESP 16; TEMP 36.6; O2SAT 93
[2021-07-19 05:41] LABS: Anion Gap 5 mmol/L (8-16); Blood Urea Nitrogen 61 mg/dL (7-17); Calcium 8.2 mg/dL (8.4-10.2); Carbon Dioxide 28 mmol/L (22-30); Chloride 88 mmol/L (98-107); Estimated CRCL calculation 15 ml/min; Estimated Glomerular Filt Rate 20; Glucose 96 mg/dL (65-110); Sodium 121 mmol/L (137-145)
[2021-07-19 08:02] LABS: Glucose Point of Care 104 mg/dl (65-105)
[2021-07-19] MEDS: OMEGA 3 POLYUNSAT FATTY ACIDS 1 GM CAP PO (09:02)
[2021-07-19] MEDS: hydrALAZINE 10 MG TABLET PO ×4 (09:03→20:11)
[2021-07-19] MEDS: ASPIRIN 325 MG TABLET PO (09:03)
[2021-07-19] MEDS: amLODIPine BESYLATE 5 MG TABLET 10 MG PO (09:03)
[2021-07-19] MEDS: SODIUM CHLORIDE 500 MG TABLET PO ×3 (09:03→16:37)
[2021-07-19] MEDS: PANTOPRAZOLE 40 MG TABLET PO (09:03)
[2021-07-19] MEDS: buPROPion HCL 75 MG TABLET PO (09:03)
[2021-07-19] MEDS: FERROUS SULFATE 324 MG TABLET PO ×2 (09:03→16:36)
[2021-07-19 09:04] VITALS: PULSE 66
[2021-07-19] MEDS: FUROSEMIDE INJ 40 MG/4 ML VIAL IV PUSH ×3 (09:04→16:36)
[2021-07-19] MEDS: METOPROLOL TARTRATE 25 MG TABLET PO ×2 (09:04→20:11)
[2021-07-19] MEDS: SODIUM CHLORIDE 1 GM TABLET 2 GM PO (09:04)
[2021-07-19] MEDS: MULTIVITAMINS /C LUTEIN (CENTRUM SILVER) TABLET *BKC 1 TAB PO (09:04)
[2021-07-19 10:33] LABS: Sodium 119 mmol/L (137-145)
--- NOTE | 2021-07-19 10:34 | PCPTNOTE ---
Patient refused treatment this session due to patient wanting to rest at this time.
[2021-07-19 11:48] LABS: Glucose Point of Care 142 mg/dl (65-105)
--- NOTE | 2021-07-19 12:11 | PCOTNOTE ---
Attempted to see patient this AM, patient eating breakfast. Will continue OT plan of care as appropriate.
[2021-07-19 13:51] VITALS: BP 145/62; PULSE 65; RESP 16; TEMP 36.3; O2SAT 93
[2021-07-19] MEDS: SODIUM CHLORIDE 1 GM TABLET PO ×2 (13:59→16:37)
[2021-07-19 14:18] LABS: Sodium 120 mmol/L (137-145)
--- NOTE | 2021-07-19 14:21 | PM.PNNEP ---
Progress Note: A&P Assessment and Plan (1) Hyponatremia: Code(s): E87.1 - Hypo-osmolality and hyponatremia Status: Acute Assessment and Plan: thought to secondary to her COPD, pulmonary HTN, pneumonia as well as medications (bupropion, diuretics, PPI) evaluation to date: serum osmo = calc.U osmo pending TSH and cortisol okay previous imaging of brain negative buprprion, and PPI may be underlying and pulmonary process may be a cause as well. still on PPI due to history of ulcers; bupropion dosage decreased will d/c the latter. sodium down to 119. on lasix, salt tabs, and fluid restriction. changed salt tabs to 1.5g tid may need to consider demeclocycline... (2) CHARLI (acute kidney injury): Code(s): N17.9 - Acute kidney failure, unspecified Status: Acute Assessment and Plan: presumably due to acute illness but cannot deny a component of disease progression prerenal factors or chronic prerenal azotemia could be playing a role as well evaluation to date: renal ultrasound shows bilateral renal atrophy urinalysis shows protein plus sugar complements are okay CPK is normal may have to accept a higher creatinine to optimize breathing/respiratory status (3) Stage 3b chronic kidney disease: Code(s): N18.32 - Chronic kidney disease, stage 3b Status: Chronic Assessment and Plan: baseline creatinine seems to run ~ 1.5 - 2.0mg/dl due to hypertension, diabetes, vascular disease, and age (4) Dyspnea: Qualifiers: Dyspnea type: unspecified Qualified Code(s): R06.00 - Dyspnea, unspecified Code(s): R06.00 - Dyspnea, unspecified Status: Acute Assessment and Plan: due to a combination of volume overload and pneumonia getting IV antibiotics on IV diuretics follow respiratory status (5) Anemia: Code(s): D64.9 - Anemia, unspecified Status: Acute Assessment and Plan: low TSAT noted ferrous sulfate added follow H/H (6) Hypertension: Code(s): I10 - Essential (primary) hypertension Status: Chronic Assessment and Plan: improvement noted ongoing diuresis may also help as well follow trend of hemodynamics (7) Diabetes: Code(s): E11.9 - Type 2 diabetes mellitus without complications Status: Chronic Assessment and Plan: follow accuchecks on SSI Will continue to follow Subjective Date/time seen: 07/19/21 14:21 Breathing/respiratory status seems to be doing better if not improving; sodium improving but seems quite resistant to interventions to date; no apparent distress voiced; no other acute issues/events overnight or earlier this morning. Exam Narrative: General: WD/WN female in NAD Heart: normal S1 and S2; no rub Lungs: decreased breath sounds at the bases Abdomen: soft, nontender, nondistended, positive bowel sounds Extremities: no cyanosis or clubbing; no edema Skin:warm and dry Objective Data Vital Signs Vital Signs: Vital Signs - 24 hr 07/18/21 14:00 07/18/21 19:27 07/18/21 19:54 Temperature 36.7 C 36.5 C Pulse Rate 68 63 63 Respiratory Rate 20 20 Blood Pressure 149/73 H 157/61 H Pulse Oximetry 92 93 Oxygen Delivery 07/19/21 04:27 07/18/21 21:45 07/19/21 09:04 Temperature 36.6 C Pulse Rate 66 66 Respiratory Rate 16 Blood Pressure 164/60 H Pulse Oximetry 93 94 Oxygen Delivery Room Air 07/19/21 13:51 Temperature 36.3 C L Pulse Rate 65 Respiratory Rate 16 Blood Pressure 145/62 H Pulse Oximetry 93 Oxygen Delivery Intake/Output Intake/Output: Intake & Output 07/17/21 07/18/21 07/19/21 07/20/21 23:59 23:59 23:59 23:59 Intake Total 5149 112 6510 480 Output Total 550 Balance 538 822 9928 480 Meds/Results Radiology Results: ITS Impressions Retroperitoneum Ultrasound 07/14/21 10:16 IMPRESSION: 1. Mild bilateral renal atrophy. No hydronephrosis.
--- NOTE | 2021-07-19 14:21 | P.PNNP_ITS ---
Progress Note: A&P Assessment and Plan (1) Hyponatremia: Code(s): E87.1 - Hypo-osmolality and hyponatremia Status: Acute Assessment and Plan: * thought to secondary to her COPD, pulmonary HTN, pneumonia as well as medications (bupropion, diuretics, PPI) * evaluation to date: * serum osmo = calc.U osmo pending * TSH and cortisol okay * previous imaging of brain negative * buprprion, and PPI may be underlying and pulmonary process may be a cause as well. * still on PPI due to history of ulcers; bupropion dosage decreased * will d/c the latter. * sodium down to 119. * on lasix, salt tabs, and fluid restriction. * changed salt tabs to 1.5g tid * may need to consider demeclocycline... (2) CHARLI (acute kidney injury): Code(s): N17.9 - Acute kidney failure, unspecified Status: Acute Assessment and Plan: * presumably due to acute illness but cannot deny a component of disease progression * prerenal factors or chronic prerenal azotemia could be playing a role as well * evaluation to date: * renal ultrasound shows bilateral renal atrophy * urinalysis shows protein plus sugar * complements are okay * CPK is normal * may have to accept a higher creatinine to optimize breathing/respiratory status (3) Stage 3b chronic kidney disease: Code(s): N18.32 - Chronic kidney disease, stage 3b Status: Chronic Assessment and Plan: * baseline creatinine seems to run ~ 1.5 - 2.0mg/dl * due to hypertension, diabetes, vascular disease, and age (4) Dyspnea: Qualifiers: Dyspnea type: unspecified Qualified Code(s): R06.00 - Dyspnea, unspecified Code(s): R06.00 - Dyspnea, unspecified Status: Acute Assessment and Plan: * due to a combination of volume overload and pneumonia * getting IV antibiotics * on IV diuretics * follow respiratory status (5) Anemia: Code(s): D64.9 - Anemia, unspecified Status: Acute Assessment and Plan: * low TSAT noted * ferrous sulfate added * follow H/H (6) Hypertension: Code(s): I10 - Essential (primary) hypertension Status: Chronic Assessment and Plan: * improvement noted * ongoing diuresis may also help as well * follow trend of hemodynamics (7) Diabetes: Code(s): E11.9 - Type 2 diabetes mellitus without complications Status: Chronic Assessment and Plan: * follow accuchecks * on SSI Will continue to follow Subjective Date/time seen: 07/19/21 14:21 Breathing/respiratory status seems to be doing better if not improving; sodium improving but seems quite resistant to interventions to date; no apparent distress voiced; no other acute issues/events overnight or earlier this morning. Exam Narrative: General: WD/WN female in NAD Heart: normal S1 and S2; no rub Lungs: decreased breath sounds at the bases Abdomen: soft, nontender, nondistended, positive bowel sounds Extremities: no cyanosis or clubbing; no edema Skin:warm and dry Objective Data Vital Signs Vital Signs: Vital Signs - 24 hr 07/18/21 14:00 07/18/21 19:27 07/18/21 19:54 Temperature 36.7 C 36.5 C Pulse Rate 68 63 63 Respiratory Rate 20 20 Blood Pressure 149/73 H 157/61 H Pulse Oximetry 92 93 Oxygen Delivery 07/19/21 04:27 07/18/21
[2021-07-19 16:34] LABS: Glucose Point of Care 270 mg/dl (65-105)
[2021-07-19] MEDS: INSULIN ASPART (*BKC) 100 UNITS/ML SUB-Q (16:36)
--- NOTE | 2021-07-19 16:45 | PM.IMPN ---
Progress Note: A&P Assessment and Plan (1) Community acquired pneumonia: Code(s): J18.9 - Pneumonia, unspecified organism Status: Acute Assessment and Plan: antibiotics have been completed 07/19/2021 interval history: patient remains clinically stable patient with hyponatremia seen by Nephrology on fluid restriction and being treated with salt tabs her sodium was trending up and plan was if the sodium is above 120 may discharge the patient to half-way however her sodium is 119 today will come to continue the present med reassess tomorrow, will continue to monitor (2) Pulmonary edema: Qualifiers: Chronicity: acute Qualified Code(s): J81.0 - Acute pulmonary edema Code(s): J81.1 - Chronic pulmonary edema Status: Acute Assessment and Plan: sob improved not requiring oxygen (3) CHARLI (acute kidney injury): Code(s): N17.9 - Acute kidney failure, unspecified Status: Acute Assessment and Plan: This is acute on chronic renal failure stage 3. ? worsening cr on ckd will recheck BMP in the morning (4) HTN (hypertension): Qualifiers: Hypertension type: unspecified Qualified Code(s): I10 - Essential (primary) hypertension Code(s): I10 - Essential (primary) hypertension Status: Acute Assessment and Plan: blood pressure improved continue current regimen (5) Pancreatic cyst: Code(s): K86.2 - Cyst of pancreas Status: Acute Assessment and Plan: Chronic. (6) Other ill-defined heart diseases: Code(s): I51.89 - Other ill-defined heart diseases Status: Acute Assessment and Plan: volume status appears okay. (7) Type 2 diabetes mellitus with diabetic chronic kidney disease: Code(s): E11.22 - Type 2 diabetes mellitus with diabetic chronic kidney disease Status: Acute Assessment and Plan: ssi (8) Hyponatremia: Code(s): E87.1 - Hypo-osmolality and hyponatremia Status: Acute Assessment and Plan: Per Nephrology. Question need to increase salt tabs. Sodium level has dropped no neurologic side effects. Once sodium stabilized above 120 week and send the patient to skilled facility Subjective Date/time seen: 07/19/21 16:45 patient 86-year-old female presented emergency department with a complaint of shortness of breath and lower extremity swelling patient states her symptoms were getting progressively worse and she was not able to sleep due 2 orthopnea most likely secondary to acute on chronic? systolic congestive heart failure and recent echo showed? moderately reduced ejection fraction of 35-40% patient is being diuresed a will continue to monitor,? patient with history of chronic kidney disease patient being diuresed will closely monitor patient kidney function,? patient chest x-ray also concerning for pneumonia with slightly elevated white count but no fever, patient is started on ceftriaxone and azithromycin, will? repeat chest x-ray in 2 days and further recommendation to follow,? patient is a very hard of hearing, will have a PT OT evaluate the patient patient will benefit going to SNF for rehab. 07/19/2021 interval history: patient remains clinically stable patient with hyponatremia seen by Nephrology on fluid restriction and being treated with salt tabs her sodium was trending up and plan was if the sodium is above 120 may discharge the patient to half-way however her sodium is 119 today will come to continue the present med reassess tomorrow, will continue to monitor Review of Systems Review of Systems: All systems reviewed & are unremarkable except as noted in HPI and below Cardiovascular: Cardiovascular: Reports no additional cardiovascular complaints Respiratory: Respiratory: Reports no additional respiratory complaints Gastrointestinal: Gastrointestinal: Reports no additional gastrointestinal complaints Genitourinary: Genitourinary: Re
[2021-07-19 19:47] VITALS: BP 150/64; PULSE 64; RESP 20; TEMP 36.6; O2SAT 95
[2021-07-19 20:11] VITALS: PULSE 64
[2021-07-19] MEDS: SIMVASTATIN 20 MG TABLET PO (20:11)
[2021-07-19] MEDS: ACETAMINOPHEN 325 MG TABLET 650 MG PO (20:14)
[2021-07-19 20:51] LABS: Glucose Point of Care 200 mg/dl (65-105)
[2021-07-20 04:03] VITALS: BP 154/56; PULSE 66; RESP 16; TEMP 36.5; O2SAT 95
[2021-07-20 06:28] LABS: Anion Gap 6 mmol/L (8-16); Blood Urea Nitrogen 59 mg/dL (7-17); Calcium 8.2 mg/dL (8.4-10.2); Carbon Dioxide 25 mmol/L (22-30); Chloride 91 mmol/L (98-107); Estimated CRCL calculation 14 ml/min; Estimated Glomerular Filt Rate 22; Glucose 99 mg/dL (65-110); Potassium 3.6 mmol/L (3.4-5.0); Sodium 122 mmol/L (137-145)
[2021-07-20 07:52] LABS: Glucose Point of Care 114 mg/dl (65-105)
[2021-07-20] MEDS: PANTOPRAZOLE 40 MG TABLET PO (09:01)
[2021-07-20] MEDS: SODIUM CHLORIDE 500 MG TABLET PO ×2 (09:01→13:56)
[2021-07-20] MEDS: OMEGA 3 POLYUNSAT FATTY ACIDS 1 GM CAP PO (09:01)
[2021-07-20] MEDS: buPROPion HCL 75 MG TABLET PO (09:01)
[2021-07-20] MEDS: ASPIRIN 325 MG TABLET PO (09:01)
[2021-07-20] MEDS: amLODIPine BESYLATE 5 MG TABLET 10 MG PO (09:02)
[2021-07-20] MEDS: MULTIVITAMINS /C LUTEIN (CENTRUM SILVER) TABLET *BKC 1 TAB PO (09:02)
[2021-07-20] MEDS: FUROSEMIDE INJ 40 MG/4 ML VIAL IV PUSH ×2 (09:02→13:56)
[2021-07-20] MEDS: hydrALAZINE 10 MG TABLET PO ×2 (09:02→13:56)
[2021-07-20] MEDS: FERROUS SULFATE 324 MG TABLET PO (09:02)
[2021-07-20] MEDS: SODIUM CHLORIDE 1 GM TABLET PO ×2 (09:02→13:56)
[2021-07-20] MEDS: METOPROLOL TARTRATE 25 MG TABLET PO (09:03)
[2021-07-20 11:51] LABS: Glucose Point of Care 191 mg/dl (65-105)
[2021-07-20 14:09] VITALS: BP 148/62; PULSE 70; RESP 18; TEMP 36.7; O2SAT 97
--- NOTE | 2021-07-20 14:26 | PM.DS ---
DS: Admitting Diagnosis Discharge Date 07/20/2021 Admitting Diagnosis shortness of breath DS: Discharge Diagnosis Discharge Diagnosis (1) Community acquired pneumonia: Code(s): J18.9 - Pneumonia, unspecified organism Status: Acute Assessment and Plan: antibiotics have been completed 07/19/2021 interval history: patient remains clinically stable patient with hyponatremia seen by Nephrology on fluid restriction and being treated with salt tabs her sodium was trending up and plan was if the sodium is above 120 may discharge the patient to residential however her sodium is 119 today will come to continue the present med reassess tomorrow, will continue to monitor (2) Pulmonary edema: Qualifiers: Chronicity: acute Qualified Code(s): J81.0 - Acute pulmonary edema Code(s): J81.1 - Chronic pulmonary edema Status: Acute Assessment and Plan: sob improved not requiring oxygen (3) CHARLI (acute kidney injury): Code(s): N17.9 - Acute kidney failure, unspecified Status: Acute Assessment and Plan: This is acute on chronic renal failure stage 3. ? worsening cr on ckd will recheck BMP in the morning (4) HTN (hypertension): Qualifiers: Hypertension type: unspecified Qualified Code(s): I10 - Essential (primary) hypertension Code(s): I10 - Essential (primary) hypertension Status: Acute Assessment and Plan: blood pressure improved continue current regimen (5) Pancreatic cyst: Code(s): K86.2 - Cyst of pancreas Status: Acute Assessment and Plan: Chronic. (6) Other ill-defined heart diseases: Code(s): I51.89 - Other ill-defined heart diseases Status: Acute Assessment and Plan: volume status appears okay. (7) Type 2 diabetes mellitus with diabetic chronic kidney disease: Code(s): E11.22 - Type 2 diabetes mellitus with diabetic chronic kidney disease Status: Acute Assessment and Plan: ssi (8) Hyponatremia: Code(s): E87.1 - Hypo-osmolality and hyponatremia Status: Acute Assessment and Plan: Per Nephrology. Question need to increase salt tabs. Sodium level has dropped no neurologic side effects. Once sodium stabilized above 120 week and send the patient to skilled facility DS: Summary Hospital Course Reason for hospitalization: This is a 86-year-old female? patient who came into the emergency room with complaints of shortness of breath.? The patient stated that she was unable to sleep due to the shortness of breath.? She was not able to lay flat due to her symptoms.? Her symptoms became worse during the night and more severe this morning.? She called EMS to come in to the emergency room to be evaluated. ? she denies any history of congestive heart failure COPD.? She does not wear oxygen at home.? The patient is currently on ? BiPAP.? Today patient's white count elevated to 13.8.? Her H and H is 10.1 and 31.4 she does have chronic anemia.? Arterial blood gases pH 7.394.? CO2 is 32.6.? Bicarb 19.5.? She was placed on a BiPAP she is now 01/30 and is wanting to get off the BiPAP.? The patient states that she is a DNR.? Creatinine today is 2.7 with her last creatinine on 06/27/2021 at 1.7.? Her BMP is? 23,800. she is negative for COVID today.? Her lisinopril/ hydrochlorothiazide, spironolactone and metformin are on hold.? Patient was started on Lasix and Januvia as well as amlodipine.? The patient did not receive any approval for Januvia from her insurance company at this time. chest x-ray was read as diffuse lung disease, likely a combination of pulmonary edema and basilar atelectasis versus pneumonia.? Small pleural effusions.? The patient was given a azithromycin and Rocephin as well as Lasix and nitroglycerin in the emergency room.? Patient is being admitted to observation status on the date of service of 07/10/2021. Hospital Course: ?patient remains clinically s
[2021-07-20 14:28] LABS: EDCOVIDSCREEN Negative (Negative)
[2021-07-20 15:30] LABS: Osmolality, Urine 337 mOsm/kg (50-1200)
== END 2021-07-20 17:00 | DRG 193 ==
LOC: ANHED 10:20 → ANHIMU 12:02 → ANH3MED 07-12 22:59 → ANHIMU 07-21 11:39
PROVIDERS: Chiropractor; Internal Medicine Nephrology; Nurse Practitioner; Admitting Provider Internal Medicine; Emergency Provider Emergency Medicine; PCP Family Medicine Adolescent Medicine; Visit Provider Family Medicine
DX: J18.9 Pneumonia, unspecified organism (principal); I50.23 Acute on chronic systolic (congestive) heart failure; N17.9 Acute kidney failure, unspecified; K86.2 Cyst of pancreas; E87.1 Hypo-osmolality and hyponatremia; I13.0 Hypertensive heart and chronic kidney disease with heart failure and stage 1 through stage 4 chronic kidney disease, or unspecified chronic kidney disease; Z20.822 Contact with and (suspected) exposure to COVID-19; E11.22 Type 2 diabetes mellitus with diabetic chronic kidney disease; I69.922 Dysarthria following unspecified cerebrovascular disease; E78.00 Pure hypercholesterolemia, unspecified; N18.32 Chronic kidney disease, stage 3b; K21.9 Gastro-esophageal reflux disease without esophagitis; Z79.899 Other long term (current) drug therapy; Z79.1 Long term (current) use of non-steroidal anti-inflammatories (NSAID)
CPT/HCPCS: 36415; 36600; 71046; 73560; 76770; 80048; 80053; 80069; 81001; 82533; 82550; 82570; 82607; 82746; 82805; 82948; 83036; 83540; 83550; 83605; 83615; 83735; 83880; 83883; 83930; 83935; 83970; 84156; 84295; 84300; 84443; 84484; 85025; 85027; 85610; 85652; 85730; 86038; 86160; 86162; 86334; 87040; 87426; 93005; 93306; 94640; 96365; 96366; 96367; 96375; 96376; 97110; 97116; 97161; 97166; 97530; 97535; 99285; A9270; C9803; G0378; J0360; J0456; J0696; J1815; J1940; J2405; J7131; U0003; U0005

== ENCOUNTER 2021-07-31 14:44 | Inpatient (IN) | payer OTHER, SELFPAY ==
[2021-07-31] VITALS (22 sets, daily range): BP systolic 82–142; BP diastolic 46–75; PULSE 45–54; RESP 13–18; TEMP 36.4–36.8; O2SAT 95–99; BMI 29.2
--- NOTE | ~2021-07-31 | US_ITS ---
EXAMINATION: US carotid duplex BI DATE: 08/01/2021 11:01 INDICATION: Slurred speech TECHNIQUE: Grayscale, color Doppler, and pulsed Doppler images of the cervical carotid arteries were obtained. The degree of vessel stenosis is placed in one of the following categories: normal, <50%, 5 0-69%, >=70% but less than near-occlusion, near-occlusion, or total occlusion. Note that percent sten osis relative to normal distal artery lumen diameter is indirectly measured from velocity measurement s as described by Pb, et al. Radiology 2003; 229:340-346. Notes: Normal: Peak systolic velocity <125 centimeters/sec and no plaque <50%. Peak systolic velocity <125 ( EDV <40; ICA/CCA PSV ratio <2.0; used these factors only a tandem lesions or low cardiac output or co ntralateral disease) 50-69 %: PSV 125-230 (EDV 40-100; ratio 2-4) >= 70% but less than near occlusion: PSV greater than 230 (EDV > 100; ratio> 4.0) Near Occlusion: PSV that is variable; markedly narrowed lumen Occlusion: Absent flow on color/spectral Doppler and no lumen on steele scale. COMPARISON: None. FINDINGS: RIGHT: The right common carotid artery (CCA) peak systolic velocity (PSV) is 79 cm/s. The right internal car otid artery (ICA) PSV is 57 cm/s. The right ICA end-diastolic velocity (EDV) is 8 cm/s. The right ICA /CCA PSV ratio is 0.8. The external carotid artery (ECA) PSV is 70 cm/s. There is antegrade flow in t he right vertebral artery. LEFT: The left CCA PSV is 94 cm/s. The left ICA PSV is 74 cm/s. The left ICA EDV is 11 cm/s. The left ICA/C CA PSV ratio is 0.9. The ECA PSV is 83 cm/s. There is antegrade flow in the left vertebral artery. IMPRESSION: 1. Less than 50% stenosis in the right internal carotid artery by sonographic criteria. 2. Less than 50% stenosis in the left internal carotid artery by sonographic criteria. Reviewed, dictated and finalized at location B. IMPRESSION: 1. Less than 50% stenosis in the right internal carotid artery by sonographic michael bella. 2. Less than 50% stenosis in the left internal carotid artery by sonographic hector flanagan.
--- NOTE | ~2021-07-31 | MR_ITS ---
EXAMINATION: MR brain/brain stem wo con DATE: 08/02/2021 16:31 INDICATION: AMS, slurred speech, right side weakness TECHNIQUE: Magnetic resonance imaging (MRI) of the brain and brainstem was performed without intraven ous contrast. Sequences included sagittal and axial T1-weighted SE, axial diffusion-weighted FS EPI A SSET, axial T2*-weighted GRE, axial T2-weighted FLAIR Propeller, and axial T2-weighted Propeller. Pos tcontrast axial and coronal T1-weighted SE was obtained. Apparent diffusion coefficient (ADC) maps we re created. COMPARISON: MR brain 07/29/2019, CT brain 08/01/2021. FINDINGS: Old left basal ganglia lacunar infarcts. No abnormal restricted diffusion to suggest acute ischemic i nfarct. No MRI evidence of hemorrhage or extra-axial collection. No suspicious foci of susceptibility to suggest prior intraparenchymal hemorrhage. Mild patchy periventricular white matter change likely representing small vessel disease. Mild generalized parenchymal volume loss. The ventricular system is mildly enlarged likely on the basis of parenchymal volume loss. Basal cisterns are patent. Flow vo ids are preserved. Mucosal thickening in the anterior ethmoid air cells. Bilateral lens replacements. IMPRESSION: 1. No MR evidence of acute infarct. Reviewed, dictated and finalized at location K.
--- NOTE | ~2021-07-31 | XR_ITS ---
XR chest 1V portable 07/31/2021 15:31 Indication: History of CHF. Bradycardia. Procedure: AP portable chest Comparison: Comparison to multiple prior studies sequentially, with oldest reviewed study dated 12/19/2012. Findings: There is pulmonary edema. There are bilateral pleural effusions. Cardiomegaly. No pneumothorax. No acute osseous abnormality. Impression: 1: Pulmonary edema with bilateral pleural effusions. Reviewed, dictated and finalized at location B. Impression: 1: Pulmonary edema with bilateral pleural effusions.
--- NOTE | ~2021-07-31 | US_ITS ---
EXAMINATION:US venous doppler LE BI INDICATION:Unilateral edema TECHNIQUE: Multiple grayscale, color flow and Doppler images of the right and left lower extremity de ep venous systems were obtained and reviewed. COMPARISON:No prior studies for comparison. FINDINGS: The common femoral, superficial femoral and popliteal veins demonstrate normal respiratory variation, augmentation and compressibility. Color flow is also seen within the posterior tibial, pe roneal, greater saphenous and profunda veins. IMPRESSION: 1: No lower extremity deep venous thrombosis. Reviewed, dictated and finalized at location B.
--- NOTE | ~2021-07-31 | CT_ITS ---
EXAMINATION: CT brain wo con DATE: 08/01/2021 08:53 INDICATION: Garbled speech TECHNIQUE: Computed tomography (CT) of the head was performed without intravenous contrast. The mA wa s adjusted according to patient size. Iterative reconstruction technique was employed. Exam dose: 83 2.33 mGy-cm total exam DLP. COMPARISON: 08/02/2019 CT brain FINDINGS: The examination is mildly limited by motion artifact. Vertebral, basilar and bilateral carotid siphon internal carotid artery calcifications are noted. The re is nonspecific diminished attenuation of the subcortical and periventricular cerebral white matter , likely due to chronic small vessel ischemic changes. Chronic left basal ganglia lacunar infarcts. There is central and cortical cerebral and cerebellar atrophy. No intracranial mass lesion or hemorrhage, midline shift or mass effect is evident. The mastoid air cells and included paranasal sinuses are unremarkable. No fracture or bone destruction of the cranial vault. IMPRESSION: No acute intracranial finding is noted; CT is not sensitive for detection of hyperacute nonhemorrhagic cerebrovascular accidents Chronic left basal ganglia lacunar infarcts Cerebral atherosclerosis and chronic small vessel ischemic changes of the cerebral white matter Central and cortical cerebral and cerebellar atrophy Reviewed, dictated and finalized at Location A. Reviewed, dictated and finalized at location A. IMPRESSION: No acute intracranial finding is noted; CT is not sensitive for de tection of hyperacute nonhemorrhagic cerebrovascular accidents Chronic left basal ganglia lacunar infarcts Cerebral atherosclerosis and chronic small vessel ischemic changes of the cereb ral white matter Central and cortical cerebral and cerebellar atrophy
[2021-07-31] MEDS: ALBUTEROL SULFATE NEB 2.5 MG/3 ML INH 5 MG INHALATION ×2 (15:00→21:30)
--- NOTE | 2021-07-31 15:09 | ECG_ITS ---
Measurements Intervals [place] Rate: 54 P: AL: 0 QRS: -12 QRSD: 116 T: 130 QT: 458 QTc: 435 Interpretive Statements SUPRAVENTRICULAR BRADYCARDIA MODERATE INTRAVENTRICULAR CONDUCTION DELAY [105+ ms QRS DURATION, 80+ ms Q/S IN V1/V2, NO Q AND 60+ ms R IN I/aVL/V5/V6] NONSPECIFIC T-WAVE ABNORMALITY COMPARED TO ECG 07/10/2021 08:11:45 T-WAVE ABNORMALITY NOW PRESENT Electronically Signed On 07-31-2021 15:41:24 CDT by Yared Harris MD
[2021-07-31 15:26] LABS: Basophils Percent Auto 0.4 % (0.2-1.2); Eosinophils Absolute Auto 0.1 K/mm3 (0-0.3); Eosinophils Percent Auto 1.2 % (0-4.4); Hematocrit 25.3 % (37.0-47.0); Immature Granulocyte Absolute 0.02 K/mm3 (0.00-0.031); Immature Granulocyte Percent A 0.4 % (0-0.5); Lymphocytes Percent Auto 9.8 % (18.3-44.2); Mean Corpuscular HGB Conc 31.6 g/dl (32-36); Mean Corpuscular Hemoglobin 30.5 pg (26-34); Mean Corpuscular Volume 96.6 fl (80-100); Mean Platelet Volume 9.8 fl (7.4-10.4); Monocytes Absolute Auto 0.4 K/mm3 (0.1-0.6); Monocytes Percent Auto 7.8 % (2.6-8.5); Neutrophils Absolute Auto 4.1 K/mm3 (1.3-6.7); Neutrophils Percent Auto 80.4 % (45.5-73.1); Platelet Count Result 217 k/mm3 (150-375); Red Blood Count 2.62 M/mm3 (4.2-5.4); Red Cell Distribution Width 16.1 % (11.5-14.5); White Blood Count 5.1 K/mm3 (4.5-10.0)
[2021-07-31 15:35] LABS: INR 1.2; Partial Thromboplastin Time 33.1 SECONDS (22.3-36.8); Prothrombin Time 14.8 Seconds (11.1-14.7)
[2021-07-31 15:36] LABS: Alanine Aminotransferase 105 U/L (6-35); Albumin Level 3.6 g/dL (3.5-5.1); Alkaline Phosphatase 133 U/L (38-126); Anion Gap 10 mmol/L (8-16); Aspartate Amino Transferase 106 U/L (14-36); Bilirubin,Total 0.2 mg/dL (0.2-1.3); Blood Urea Nitrogen 80 mg/dL (7-17); Calcium 8.7 mg/dL (8.4-10.2); Carbon Dioxide 18 mmol/L (22-30); Chloride 109 mmol/L (98-107); Estimated CRCL calculation 13 ml/min; Estimated Glomerular Filt Rate 17; Glucose 138 mg/dL (65-110); Potassium 4.4 mmol/L (3.4-5.0); Sodium 137 mmol/L (137-145)
--- NOTE | 2021-07-31 15:56 | ED.GENADULT ---
HPI - General Adult General Chief complaint: Weakness Stated complaint: low heart rate Time Seen by Provider: 07/31/21 14:44 History of Present Illness HPI narrative: 86-year-old female presented to the emergency department for evaluation of generalized fatigue and worsening shortness of breath. When EMS arrived on scene patient had a heart rate in the 30s to 40s. Patient was treated with atropine x 2 and heart rate increased to the 50s. Upon arrival to the emergency room patient noted to have significant wheeze. Patient was treated with albuterol and she does report she feels improved. Patient does still have some residual wheezing on exam. Patient does have history of CHF and chronic kidney disease. Patient does take metoprolol and amlodipine, Lasix and hydralazine Patient has had recent hospitalizations for her chronic kidney disease and hyponatremia. Patient was just discharged on 07/20. Related Data Home Medications Medication Instructions Recorded Confirmed omega 4-cbh-vir-fish oil 1,200 mg 1 cap PO DAILY 05/11/20 07/10/21 (144 mg-216 mg) capsule (Fish Oil) metformin 500 mg tablet,extended 500 mg PO BID 03/16/21 07/10/21 release 24 hr docusate sodium 100 mg capsule 100 mg PO HS 06/24/21 07/10/21 (Colace) pantoprazole 40 mg tablet,delayed 40 mg PO DAILY 07/10/21 07/10/21 release Allergies Allergy/AdvReac Type Severity Reaction Status Date / Time No Known Allergies Allergy Verified 07/10/21 12:42 Review of Systems Review of Systems: Patient very hard of hearing, patient denies any complaints and states she does feel improved since arrival. 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 Social History Social History Social History: Patient lives at home alone. Grand-niece, Mikala, checks in on her occasionally, either via phone or physically, although has been less due to COVID outbreak. Her PCP is Dr. Coleman. She is listed as a Do not resuscitate. Smoking status: Never smoker Second hand tobacco smoke exposure: Yes Alcohol intake: never Substance use: never Substance use type: does not use Gender identity (if verbalized by the patient): Female Sexual Orientation (if Verbalized by the Patient): Straight or Heterosexual Spiritual care concerns: No Agree to blood products: Yes Exam Narrative: APPEARANCE: Ill-appearing HEAD: normocephalic, atraumatic. EYES: PERRLA/EOMI, conjunctivae clear. NOSE: Normal no drainage NECK: Supple. No adenopathy, no masses. RESPIRATORY: Wheezing respirations with rhonchi and lower lung mallory. CARDIOVASCULAR: Regular rate and rhythm without murmurs rubs or gallops. ABDOMINAL: Soft, nontender, nondistended, normal bowel sounds MUSCULOSKELETAL: Moves all extremities. Lower extremity edema NEURO: Alert. Cranial nerves II through XII intact. Grossly intact SKIN: Warm, dry. Normal Color Course Course Emergency Course: Patient's EKG is sinus
[2021-07-31 15:59] LABS: Alveolar/Arterial O2 Gradient 38.8 mmHg; Base Excess ABG -7.6 mEq/l (+/-2.0); Fractional Inspired Oxygen 21 %; Oxygen Content ABG 10.5 %vol (16.0-22.0); Oxygen Saturation ABG 94.7 % (95.0-100.0); Oxyhemoglobin 91.1 % THb (90.0-100.0); PCO2 ABG 30.7 mmHg (35.0-45.0); PO2 ABG 74.2 mmHg (80.0-100.0); PO2 FiO2 Ratio Arterial Blood 3.53 %; Total Hemoglobin 8.1 g/dL (12.0-18.0); pH ABG 7.361 (7.350-7.450)
[2021-07-31 16:01] LABS: Device ROOM AIR; Modified Allen's Test Pass; Site Drawn RIGHT RADIAL
[2021-07-31 16:31] LABS: Magnesium 3.4 mg/dL (1.6-2.3)
[2021-07-31 16:42] LABS: NT Pro B Type Natriuretic Pept 6740 pg/mL (5-100)
[2021-07-31] MEDS: FUROSEMIDE INJ 40 MG/4 ML VIAL IV PUSH (17:16)
--- NOTE | 2021-07-31 19:25 | PC.NURSE ---
Pt up to bedside commode. Neg results.
--- NOTE | 2021-07-31 20:12 | PM.IMHP ---
H&P: HPI History of Present Illness Date/Time: Patient was placed observation status for expected length of stay less than 23 hours for management, will plan to re-evaluate tomorrow for improvement. 07/31/21 20:12 Chief Complaint: Generalized weakness Narrative: Ms. Clark is an 86-year-old female who presented to the emergency room via EMS with complaints of generalized fatigue and shortness of breath. Patient states that she has just had general fatigue and shortness of breath, but she cannot say for how long. Per emergency room records when EMS arrived to patient's house her heart rate was in the 30s and 40s. Patient was given atropine and her heart rate did improve to the 50s. Upon evaluation in emergency room patient was noted to have a significant wheeze and she was given an albuterol treatment and had stated she felt better. Patient has been hospitalized multiple times for acute kidney injury on chronic kidney disease and congestive heart failure. Patient was recently discharged on 07/20/2021. During that hospitalization patient did undergo an echo Doppler showed EF of 35-40% with severe pulmonary hypertension. Chest x-ray was performed in the emergency room and continues to show bilateral pleural effusions with pulmonary edema. Patient states she has been taking all medications at home. Patient denies any chest pain, lightheadedness, dizziness, syncopal, or near syncopal episodes. Patient has a known history of diabetes mellitus, hypertension, CVA, dyslipidemia, chronic kidney disease, congestive heart failure, and cardiomyopathy. Review of Systems Review of Systems: A 12 point review of systems was completed patient all pertinent positive and negative per HPI the remainder are unremarkable. [facility] Past Medical History Medical History Abdominal pain Acute hyperkalemia Acute renal failure Chronic kidney disease, stage 3a CVA, old, 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morrhoidectomy History of left knee replacement History of right hip replacement History of shoulder surgery Family History Family History Unknown Unknown family medical history her parents left her when she was young. Social History Social History Social History: Patient lives at home alone. Grand-niece, Mikala, checks in on her occasionally, either via phone or physically, although has been less due to COVID outbreak. Her PCP is Dr. Coleman. She is listed as a Do not resuscitate. Smoking status: Never smoker Second hand tobacco smoke exposure: Yes Alcohol intake: never Substance use: never Substance use type: does not use Gender identity (if verbalized by the patient): Female Sexual Orientation (if Verbalized by the Patient): Straight or Heterosexual Spiritual care concerns: No Agree to blood products: Yes Meds Home Medications and Allergies Home Medications Medication Instructions Recorded Confirmed Type omega 9-mix-ies-fish oil 1,200 mg 1 cap PO DAILY 05/11/20 07/10/21 History (144 mg-216 mg) capsule (Fish Oil) metformin 500 mg tablet,extended 500 mg PO BID 03/16/21 07/10/21 History release 24 hr simvastatin 20 mg tablet 20 mg PO HS #90 tabs 03/27/21 07/10/21 Rx aspirin 325 mg tablet 325 mg PO DAILY #90 tabs 04/24/21 07/10/21 Rx docusate sodium 100 mg capsule 100 mg PO HS 06/24/21 07/10/21 History (Colace) bupropion HCl 150
[2021-07-31 20:40] LABS: SARS-CoV-2 RNA PCR Negative
[2021-07-31] MEDS: HEPARIN SODIUM 5,000 UNITS/ML VIAL 5000 UNITS SUB-Q (21:20)
--- NOTE | 2021-07-31 21:25 | ADMGEN ---
This patient, Liza Clark, was admitted to IMU Room 213-01. Patient/family oriented to hospital policies and general routines including ID bracelet, bed and alarms, visiting hours, pain management, procedures, bathroom and other care routines, personal items, smoking policy, room service/diet, and visiting hours. Information on how to activate the Rapid Response Team has been discussed. Patient/Family are encouraged to report perceived risks to care and to ask questions if they do not understand what they are told or what they should do.
--- NOTE | 2021-07-31 21:31 | PM.CNCAR ---
Assessment and Plan Assessment and plan (1) CHF (congestive heart failure): Qualifiers: Heart failure chronicity: acute on chronic Code(s): I50.9 - Heart failure, unspecified Status: Acute (2) Bradycardia: Code(s): R00.1 - Bradycardia, unspecified Status: Acute (3) Pleural effusion: Code(s): J90 - Pleural effusion, not elsewhere classified Status: Acute (4) Stage 3b chronic kidney disease: Code(s): N18.32 - Chronic kidney disease, stage 3b Status: Chronic (5) Anemia: Code(s): D64.9 - Anemia, unspecified Status: Acute Plan - acute on chronic systolic and diastolic HF exacerbation' - junctional bradycarda - pleural effusions -ckd stage 3 b -history of cva - diabetes this is 86 y old admitted with fatigue and sob, LL edema. junctional bradycara, ef was 35% 06/2021, with also severe pulm hypertension of 60mmhg. new diagnosis apparently of chf. -hold BB -agree with lasix 40 mg IB bid -consider dobutamine 2.5 maria del rosario/kg /min to enhance cardiac contractility and diuresis. -monitor renal function. - hold other antihypertensive meds to allow room in bp for diuretics. will follow History of Present Illness History of Present Illness Consult date/time: DATE OF CXJBERD11/06/22 21:31 Requesting physician: Marino Madden MD Consult reason: congestive heart failure and Other (BRADYCARDIA) Reason For Visit: CHF, fatigure, bradycardia Narrative: this is 86 y old female with history of systolic HF with ER 35-40% in june 2021, CKD stage 3b, hypertension, stroke , DM and hyperlipidemia who presents with fatigue and increasing SOB and LL edema. EMS found HR 30-40 BMP and given 2 doses of atropine and HR increased to 50. she take metoprolol at home . EKG done here reviewed and analyzed myself showed junctional bradycardia. she does have dysarthria and poor historian . denies chest pain. denies tobacco use or alcohol. she was just d/c from the hospital on 07/20/2021 after was admitted with hyponatremia and sob. she was started on discharge on lasix 40 mg bid and salt tablets. HB 8, creatinine 2.7, cxr reviewed and analyzed myself shows pulmonary edema and bilateral effusions. albumin 3.6 Review of Systems Constitutional: Constitutional: Denies chills, Reports fatigue, Denies fever(s) and Denies poor appetite Eyes: Eyes: Denies eye discharge, Denies loss of vision, Denies eye pain and Denies photophobia ENT: Denies Normal hearing present (difficult hearing), Denies dizziness, Denies epistaxis, Denies nasal congestion and Denies sore throat Cardiovascular: Cardiovascular: Denies chest pain, Denies syncope, Denies pedal edema, Reports leg edema, Denies palpitations, Reports dyspnea, Reports dyspnea on exertion and Reports orthopnea Respiratory: Respiratory: Denies cough, Reports dyspnea, Reports dyspnea on exertion and Denies wheezing Gastrointestinal: Gastrointestinal: Denies abdominal pain, Denies diarrhea, Denies nausea and Denies vomiting Genitourinary: Genitourinary: Denies hematuria, Denies genital lesions and Denies dysuria Musculoskeletal: Musculoskeletal: Denies arthralgias, Denies joint swelling and Denies numbness Integumentary/Breasts: Skin/Breast: Denies pruritus and Denies rash Neurologic: Reports Abnormal speech present, Denies dizziness, Denies syncope, Denies loss of vision and Denies numbness Psychiatric: Psychiatric: Denies anxiety and Denies depression Endocrine: Endocrine: Denies cold intolerance, Denies heat intolerance and Denies palpitations Hematologic/Lymphatic: Hematologic/Lymphatic: Denies easy bleeding and Denies easy bruising Allergic/Immunologic: Allergic/Immunologic: Denies urticaria and Denies wheezing PMFSH Past Medical History Medical History Abdominal pain Acute hyperkalemia Acute renal failure Chronic kidney disease, stage 3a CVA, old, dysarthria 1
[2021-08-01] VITALS (24 sets, daily range): BP systolic 126–152; BP diastolic 57–73; PULSE 46–91; RESP 14–24; TEMP 35.8–36.6; O2SAT 88–97
[2021-08-01] MEDS: ALBUTEROL SULFATE NEB 2.5 MG/3 ML INH 5 MG INHALATION ×4 (02:40→20:44)
[2021-08-01 04:57] LABS: Basophils Percent Auto 0.7 % (0.2-1.2); Eosinophils Absolute Auto 0.2 K/mm3 (0-0.3); Eosinophils Percent Auto 3.9 % (0-4.4); Hematocrit 25.9 % (37.0-47.0); Hemoglobin 8.3 g/dL (12.0-15.0); Immature Granulocyte Absolute 0.01 K/mm3 (0.00-0.031); Immature Granulocyte Percent A 0.2 % (0-0.5); Lymphocytes Absolute Auto 0.82 K/mm3 (0.9-3.2); Lymphocytes Percent Auto 17.9 % (18.3-44.2); Mean Corpuscular Hemoglobin 30.4 pg (26-34); Mean Corpuscular Volume 94.9 fl (80-100); Mean Platelet Volume 9.5 fl (7.4-10.4); Monocytes Absolute Auto 0.5 K/mm3 (0.1-0.6); Monocytes Percent Auto 10.3 % (2.6-8.5); Neutrophils Absolute Auto 3.1 K/mm3 (1.3-6.7); Platelet Count Result 197 k/mm3 (150-375); Red Blood Count 2.73 M/mm3 (4.2-5.4); White Blood Count 4.6 K/mm3 (4.5-10.0)
[2021-08-01 05:19] LABS: Anion Gap 11 mmol/L (8-16); Blood Urea Nitrogen 86 mg/dL (7-17); Calcium 8.6 mg/dL (8.4-10.2); Carbon Dioxide 18 mmol/L (22-30); Chloride 109 mmol/L (98-107); Estimated CRCL calculation 13 ml/min; Estimated Glomerular Filt Rate 17; Glucose 114 mg/dL (65-110); Magnesium 3.3 mg/dL (1.6-2.3); Phosphorus 5.3 mg/dL (2.5-4.5); Potassium 4.1 mmol/L (3.4-5.0); Sodium 138 mmol/L (137-145)
--- NOTE | 2021-08-01 08:00 | P.PNIM_ITS ---
Progress Note: A&P Assessment and Plan (1) CHF (congestive heart failure): Qualifiers: Heart failure chronicity: acute on chronic Code(s): I50.9 - Heart failure, unspecified Status: Acute Assessment and Plan: * Chest xray indicated exacerbation with bilateral pleural effusions, and pulmonary edema * Echo from 07/10/21 shows EF of 35-40% with an abnormal diastolic dysfunction * BNP 6740 * Lasix IV 40mg BID * Trend daily weights * trend urine output * Cardiology consulted thank you for your help * Consider colin webb (2) Pleural effusion: Code(s): J90 - Pleural effusion, not elsewhere classified Status: Acute Assessment and Plan: * Chest xray shows bilateral pleural effusion * probably related to chf exacerbation * trend x ray for improvements (3) Bradycardia: Code(s): R00.1 - Bradycardia, unspecified Status: Acute Assessment and Plan: * HR noted to be in the 40-50 upon arrival * hold metoprolol * TSH appears high awaiting T4, T# * Cardiology on board * Trend heart rate * tele monitor (4) CHARLI (acute kidney injury): Code(s): N17.9 - Acute kidney failure, unspecified Status: Acute Assessment and Plan: * BUN/Cr 86/2.70 * Baseline appears to be 1.3-2 * Trend labs * Avoid nephrotoxic medications * Probably realted to fluid overload * trend renal output * Diuresis underway (5) Diabetes: Code(s): E11.9 - Type 2 diabetes mellitus without complications Status: Chronic Assessment and Plan: * Current glucose 114 * Accu checks * hold home medications for now * ISS * Trend labs * Adjust therapy as indicated (6) Hypertension: Code(s): I10 - Essential (primary) hypertension Status: Chronic Assessment and Plan: * BP 149/58 * Hold current BP medications to make room for diuretics * Trend BP * Restart home medications when appropiate (7) Anemia: Code(s): D64.9 - Anemia, unspecified Status: Acute Assessment and Plan: * H/H 8.3/25.9 * Trend labs * Anemia labs iron 48, TIBC 302, % sat 16, B12 425, Folate >20 from 07/14/21 * Probably anemia of chronic disease * Trend labs * Transfuse as indicated (8) Transaminitis: Code(s): R74.01 - Elevation of levels of liver transaminase levels Status: Acute Assessment and Plan: * AST/ALT 106/105 * Continue to tend * will check hep panel in the am * consider ultrasound of the RUQ if continues to rise * trend labs (9) Slurred speech: Code(s): R47.81 - Slurred speech Status: Acute Assessment and Plan: * Slurred speech * Head ct shows no acute findings, old infarcts * Carotid doppler<50% stenosis * Consider MRI, just not sure she will be able to lay flat that long * NIH 2 * Could be a TIA or could be from exhaustion (10) Dysphasia: Code(s): R47.02 - Dysphasia Status: Acute Assessment and Plan: * Gave her a sip of water * Coughed on liquids * ST ordered but no diet modification indicated Time Spent With Patient Time with patient: Greater than 35 minutes Subjective Date/time seen: 08/01/21 0800 Interval history:
--- NOTE | 2021-08-01 08:00 | PM.IMPN ---
Progress Note: A&P Assessment and Plan (1) CHF (congestive heart failure): Qualifiers: Heart failure chronicity: acute on chronic Code(s): I50.9 - Heart failure, unspecified Status: Acute Assessment and Plan: Chest xray indicated exacerbation with bilateral pleural effusions, and pulmonary edema Echo from 07/10/21 shows EF of 35-40% with an abnormal diastolic dysfunction BNP 6740 Lasix IV 40mg BID Trend daily weights trend urine output Cardiology consulted thank you for your help Consider colin jon (2) Pleural effusion: Code(s): J90 - Pleural effusion, not elsewhere classified Status: Acute Assessment and Plan: Chest xray shows bilateral pleural effusion probably related to chf exacerbation trend x ray for improvements (3) Bradycardia: Code(s): R00.1 - Bradycardia, unspecified Status: Acute Assessment and Plan: HR noted to be in the 40-50 upon arrival hold metoprolol TSH appears high awaiting T4, T# Cardiology on board Trend heart rate tele monitor (4) CHARLI (acute kidney injury): Code(s): N17.9 - Acute kidney failure, unspecified Status: Acute Assessment and Plan: BUN/Cr 86/2.70 Baseline appears to be 1.3-2 Trend labs Avoid nephrotoxic medications Probably realted to fluid overload trend renal output Diuresis underway (5) Diabetes: Code(s): E11.9 - Type 2 diabetes mellitus without complications Status: Chronic Assessment and Plan: Current glucose 114 Accu checks hold home medications for now ISS Trend labs Adjust therapy as indicated (6) Hypertension: Code(s): I10 - Essential (primary) hypertension Status: Chronic Assessment and Plan: BP 149/58 Hold current BP medications to make room for diuretics Trend BP Restart home medications when appropiate (7) Anemia: Code(s): D64.9 - Anemia, unspecified Status: Acute Assessment and Plan: H/H 8.3/25.9 Trend labs Anemia labs iron 48, TIBC 302, % sat 16, B12 425, Folate >20 from 07/14/21 Probably anemia of chronic disease Trend labs Transfuse as indicated (8) Transaminitis: Code(s): R74.01 - Elevation of levels of liver transaminase levels Status: Acute Assessment and Plan: AST/ALT 106/105 Continue to tend will check hep panel in the am consider ultrasound of the RUQ if continues to rise trend labs (9) Slurred speech: Code(s): R47.81 - Slurred speech Status: Acute Assessment and Plan: Slurred speech Head ct shows no acute findings, old infarcts Carotid doppler<50% stenosis Consider MRI, just not sure she will be able to lay flat that long NIH 2 Could be a TIA or could be from exhaustion (10) Dysphasia: Code(s): R47.02 - Dysphasia Status: Acute Assessment and Plan: Gave her a sip of water Coughed on liquids ST ordered but no diet modification indicated Time Spent With Patient Time with patient: Greater than 35 minutes Subjective Date/time seen: 08/01/21799 Interval history: 08/01/21799 Patient was sleeping when I went in to visit her. She did seem a little hard to arouse however she did wake up and tell me she was feeling okay. She denied any chest pain or shortness of breath however when she was talking to me she was tachypneic with accessory muscle use and really unable to hold a conversation without becoming very short of breath. She did tell me she wanted a drink of water I did get her drink of water however she did choke and cough on it will get speech therapy involved for a swallow study. She also did seem a little slurred with her speech. Head CT has been ordered and obtained Which showed no acute intracranial findings however does show some chronic infarctions. Rechecked
[2021-08-01] MEDS: buPROPion HCL XL (24 HR) 150 MG TABCR PO (08:23)
[2021-08-01] MEDS: PANTOPRAZOLE 40 MG TABLET PO (08:23)
[2021-08-01] MEDS: OMEGA 3 POLYUNSAT FATTY ACIDS 1 GM CAP PO (08:23)
[2021-08-01] MEDS: MULTIVITAMINS /C LUTEIN (CENTRUM SILVER) TABLET *BKC 1 TAB PO (08:24)
[2021-08-01] MEDS: FERROUS SULFATE 324 MG TABLET PO ×2 (08:24→16:42)
[2021-08-01] MEDS: SODIUM CHLORIDE 1 GM TABLET PO ×3 (08:24→16:42)
[2021-08-01] MEDS: HEPARIN SODIUM 5,000 UNITS/ML VIAL 5000 UNITS SUB-Q ×2 (08:24→20:22)
[2021-08-01] MEDS: ASPIRIN 325 MG TABLET PO (08:24)
[2021-08-01] MEDS: FUROSEMIDE INJ 40 MG/4 ML VIAL IV PUSH ×2 (08:25→20:22)
[2021-08-01 09:18] LABS: Free T4 Free Thyroxine Reflex 1.65 ng/dL (0.78-2.19)
--- NOTE | 2021-08-01 10:40 | PM.PNCARD ---
Subjective Date/time seen: 08/01/21 10:40 Interval history: Date of service 08/01/2021 Interval history: Objective Data Vital Signs Vital Signs: Vital Signs - 24 hr 07/31/21 14:48 07/31/21 14:55 07/31/21 15:01 Temperature 36.8 C Pulse Rate 54 L 53 L 53 L Respiratory Rate 16 16 Blood Pressure 137/67 Pulse Oximetry 96 Oxygen Delivery Room Air 07/31/21 15:08 07/31/21 15:09 07/31/21 15:48 Temperature Pulse Rate 52 L 51 L Respiratory Rate 17 13 Blood Pressure 131/62 Pulse Oximetry 96 97 Oxygen Delivery Room Air 07/31/21 15:55 07/31/21 17:16 07/31/21 15:02 Temperature Pulse Rate 49 L 53 L Respiratory Rate 14 14 Blood Pressure 142/59 H 134/69 Pulse Oximetry 96 97 Oxygen Delivery Room Air 07/31/21 15:49 07/31/21 16:01 07/31/21 16:16 Temperature Pulse Rate 51 L 51 L 51 L Respiratory Rate 15 14 14 Blood Pressure 131/62 116/75 125/69 Pulse Oximetry 99 97 97 Oxygen Delivery 07/31/21 16:31 07/31/21 16:46 07/31/21 17:01 Temperature Pulse Rate 51 L 50 L 52 L Respiratory Rate 13 14 15 Blood Pressure 134/61 137/66 128/60 Pulse Oximetry 96 96 97 Oxygen Delivery 07/31/21 17:15 07/31/21 17:31 07/31/21 18:01 Temperature Pulse Rate 49 L 49 L 48 L Respiratory Rate 13 14 14 Blood Pressure 142/59 H 133/58 L 140/61 Pulse Oximetry 95 96 98 Oxygen Delivery 07/31/21 18:31 07/31/21 21:34 07/31/21 21:37 Temperature 36.4 C L Pulse Rate 49 L 47 L 48 L Respiratory Rate 16 16 18 Blood Pressure 142/70 H 82/46 L 115/56 L Pulse Oximetry 98 95 98 Oxygen Delivery 07/31/21 21:34 07/31/21 22:00 07/31/21 22:00 Temperature Pulse Rate 49 L 45 L Respiratory Rate Blood Pressure Pulse Oximetry Oxygen Delivery Room Air 08/01/21 00:00 08/01/21 00:00 08/01/21 00:00 Temperature 36.6 C Pulse Rate 46 L 46 L Respiratory Rate 16 Blood Pressure 126/64 Pulse Oximetry 95 Oxygen Delivery Room Air 07/31/21 21:30 08/01/21 02:00 08/01/21 02:40 Temperature Pulse Rate 49 L 47 L Respiratory Rate 16 Blood Pressure Pulse Oximetry 91 Oxygen Delivery Room Air 08/01/21 02:20 08/01/21 02:30 08/01/21 04:00 Temperature Pulse Rate 47 L 51 L 46 L Respiratory Rate 14 14 Blood Pressure Pulse Oximetry Oxygen Delivery 08/01/21 04:00 08/01/21 04:00 08/01/21 06:00 Temperature 35.8 C L Pulse Rate 53 L 54 L Respiratory Rate 20 Blood Pressure 149/58 H Pulse Oximetry 95 Oxygen Delivery Room Air 08/01/21 08:00 08/01/21 09:04 08/01/21 09:00 Temperature Pulse Rate 78 51 L Respiratory Rate 16 14 Blood Pressure 151/62 H Pulse Oximetry 92 93 Oxygen Delivery Room Air 08/01/21 09:07 Temperature Pulse Rate 53 L Respiratory Rate 16 Blood Pressure Pulse Oximetry Oxygen Delivery Intake/Output Intake/Output: Intake & Output 07/29/21 07/30/21 07/31/21 08/01/21 23:59 23:59 23:59 23:59 Output Total 1200 Balance -1200 Meds/Results Medications: Active Medications Generic Name Dose Route Start Last Admin Trade Name Otisq PRN Reason Stop Dose Admin Albuterol 5 mg 07/31/21 20:00 08/01/21 09:02 Albuterol Sulfate Neb 2.5 Mg/3 Ml Inh INHALATION 5 mg Q6HRT ALEXYS Administration Aspirin 325 mg 08/01/21 09:00 08/01/21 08:24 Aspirin 325 Mg Tablet PO 325 mg DAILY ALEXYS Administration Bupropion HCl 150 mg 08/01/21 09:00 08/01/21 08:23 Bupropion Hcl Xl (24 Hr) 150 Mg Tabcr PO 150 mg QAM ALEXYS Administration Docusate Sodium 100 mg 08/01/21 21:00 Docusate Sodium 100 Mg Capsule PO HS ALEXYS Ferrous Sulfate 324 mg 08/01/21 08:00 08/01/21 08:24 Ferrous Sulfate 324 Mg Tablet PO 324 mg BIDWM ALEXYS Administration Fish Oil 1 gm 08/01/21 09:00 08/01/21 08:23 [place] 3 Polyunsat Fatty Acids 1 Gm Cap PO 1 gm DAILY ALEXYS Administration Furosemide 40 mg 08/01/21 09:00 08/01/21 08:25 Furosemide Inj 40 Mg/4 Ml Vial IV PU
[2021-08-01 10:50] LABS: Alveolar/Arterial O2 Gradient 33.9 mmHg; Base Excess ABG -6.2 mEq/l (+/-2.0); Carboxyhemoglobin 0.1 % THb (0-2.0); Fractional Inspired Oxygen 21 %; HCO3 ABG 18.9 mEq/l (22.0-26.0); Methemoglobin ABG 0.3 %THb (0-1.5); Oxygen Content ABG 11.3 %vol (16.0-22.0); Oxygen Saturation ABG 94.1 % (95.0-100.0); Oxyhemoglobin 91.8 % THb (90.0-100.0); PCO2 ABG 35.5 mmHg (35.0-45.0); PO2 ABG 73.3 mmHg (80.0-100.0); PO2 FiO2 Ratio Arterial Blood 3.49 %; Reduced Hemoglobin 7.8 %THb (0-5.0); Total Hemoglobin 8.7 g/dL (12.0-18.0); pH ABG 7.344 (7.350-7.450)
[2021-08-01 10:51] LABS: Modified Allen's Test Pass; Site Drawn LEFT RADIAL
--- NOTE | 2021-08-01 11:48 | PCSTNOTE ---
Please refer to the Bedside Swallow Evaluation in the EMR. Please note, silent aspiration cannot be ruled out at bedside.
[2021-08-01 12:26] LABS: Total Triiodothyronine (T3) 0.59 NG/ML (0.97-1.69)
--- NOTE | 2021-08-01 12:58 | PM.PNCARD ---
Progress Note: A&P Assessment and Plan (1) CHF (congestive heart failure): Qualifiers: Heart failure chronicity: acute on chronic Code(s): I50.9 - Heart failure, unspecified Status: Acute Assessment and Plan: Acute on chronic systolic (EF 35-50%) and diastolic heart failure exacerbation. Continue Lasix 40mg IV b.i.d. Holding antihypertensives to allow room in BP for diuretics Monitor renal function and electrolytes Accurate intake and output daily weights NORMA hose Low sodium diet (2) Bradycardia: Code(s): R00.1 - Bradycardia, unspecified Status: Acute Assessment and Plan: Junctional bradycardia. Holding beta robert. HR 50-60 generally. BP stable. Continue to hold BB TSH high, T4 pending...management per hospitalist Continue telemetry (3) Pleural effusion: Code(s): J90 - Pleural effusion, not elsewhere classified Status: Acute Assessment and Plan: Secondary to CHF. Continue diuresis (4) Stage 3b chronic kidney disease: Code(s): N18.32 - Chronic kidney disease, stage 3b Status: Chronic Assessment and Plan: CHARLI on chronic kidney disease. Monitor BMP closely with diuresis (5) Anemia: Code(s): D64.9 - Anemia, unspecified Status: Acute Assessment and Plan: Management per hospitalist Subjective Date/time seen: 08/01/21 12:58 Cardiology follow up for CHF, bradycardia Patient states her shortness of breath is improved today. She denies chest pain. Thinks her swelling is better. She is confused. Exam Const: General: cooperative, well developed, acute distress moderate and respiratory, ill appearing, lethargic, tired appearing and uncomfortable Nutritional Appearance: well nourished Orientation/consciousness: oriented to person and oriented to place Limitations: no limitations HENMT: Head: normal to inspection Ears: hearing grossly impaired General nose exam: Normal external nose present Mouth: Yes Normal oral and palatal mucosa present, Yes lip normal, Yes tongue normal and Yes dry mucous membranes Teeth and gingiva: abnormal tooth and associated gingiva and poor dentition Eyes: General: appearance normal, both eyes and all related structures Neck: Neck: normal visual inspection, full ROM, trachea midline and supple Chest: Chest palpation & inspection: normal inspection of the chest Resp: Effort & Inspection: abnormal respiratory effort, not able to speak in complete sentences, abnormal respiratory pattern, labored, nasal flaring, respiratory distress, tachypneic and uses accessory muscles Auscultation: wheezes expiratory wheezes and throughout and diminished lung sounds Cardio: Jugular venous distension: no JVD Rate: bradycardic Rhythm: regular rhythm Heart sounds: S1 normal heart sound present and S2 normal heart sound present Peripheral pulses: Peripheral pulses 2+ throughout GI: Inspection: abnormal to inspection, distended and visible herniation GI Palp: Yes Soft to palpation and No Tenderness to palpation present (GI) Auscultation: normal bowel sounds Skin: General skin exam: normal color and no rashes or lesions noted Lesions: no lesions Rashes: no rashes Trauma: no lacerations or abrasions Wounds: no wounds Hair: normal Nails: normal Neuro: General: oriented to person, oriented to place, moves all extremities, Normal light touch and pain sensation and CN's II-XI intact bilaterally Cranial nerves: Yes CN's II-XII intact bilaterally, Yes Equal, round and reactive pupils present, Yes Bilaterally intact EOM present, Yes facial symmetry, Yes Midline tongue present, Yes Normal hearing present and Yes hard of hearing Speech: Other speech findings present (Neuro) (slurred) Gait exam (Neuro): Unable to assess gait Extrem: General: normal to inspection Right upper extremity: normal to inspection, full ROM and normal capillary refill Left upper extremity: normal to inspection, ful
--- NOTE | 2021-08-01 15:31 | ECG_ITS ---
Measurements Intervals [place] Rate: 51 P: 83 NM: 229 QRS: -15 QRSD: 120 T: 130 QT: 481 QTc: 446 Interpretive Statements SINUS BRADYCARDIA WITH FIRST DEGREE AV BLOCK WITH OCCASIONAL VENTRICULAR PREMATURE COMPLEXES INCOMPLETE LEFT BUNDLE BRANCH BLOCK [120+ ms QRS DURATION, 80+ ms Q/S IN V1/V2, 85+ ms R IN I/aVL/V5/V6] COMPARED TO ECG 07/31/2021 14:49:07 PVC IS SEEN Electronically Signed On 08-04-2021 14:01:37 CDT by Edgar French M.D.
[2021-08-01] MEDS: SIMVASTATIN 20 MG TABLET PO (20:22)
[2021-08-01] MEDS: DOCUSATE SODIUM 100 MG CAPSULE PO (20:22)
[2021-08-02] VITALS (26 sets, daily range): BP systolic 158–181; BP diastolic 49–69; PULSE 67–96; RESP 17–32; TEMP 36–36.4; O2SAT 84–100
[2021-08-02] MEDS: ALBUTEROL SULFATE NEB 2.5 MG/3 ML INH 5 MG INHALATION ×4 (01:50→21:11)
[2021-08-02 05:05] LABS: Basophils Percent Auto 0.7 % (0.2-1.2); Eosinophils Absolute Auto 0.1 K/mm3 (0-0.3); Eosinophils Percent Auto 1.1 % (0-4.4); Hematocrit 26.5 % (37.0-47.0); Hemoglobin 8.4 g/dL (12.0-15.0); Immature Granulocyte Absolute 0.04 K/mm3 (0.00-0.031); Immature Granulocyte Percent A 0.7 % (0-0.5); Lymphocytes Absolute Auto 0.54 K/mm3 (0.9-3.2); Lymphocytes Percent Auto 9.8 % (18.3-44.2); Mean Corpuscular HGB Conc 31.7 g/dl (32-36); Mean Corpuscular Hemoglobin 31.1 pg (26-34); Mean Corpuscular Volume 98.1 fl (80-100); Mean Platelet Volume 9.9 fl (7.4-10.4); Monocytes Absolute Auto 0.5 K/mm3 (0.1-0.6); Monocytes Percent Auto 8.3 % (2.6-8.5); Neutrophils Absolute Auto 4.4 K/mm3 (1.3-6.7); Neutrophils Percent Auto 79.4 % (45.5-73.1); Nucleated Red Blood Cells Perc 0.4 % (0.0-0.2); Platelet Count Result 202 k/mm3 (150-375); Red Cell Distribution Width 16.5 % (11.5-14.5); White Blood Count 5.5 K/mm3 (4.5-10.0)
[2021-08-02 05:17] LABS: Alanine Aminotransferase 81 U/L (6-35); Albumin Level 3.5 g/dL (3.5-5.1); Alkaline Phosphatase 135 U/L (38-126); Anion Gap 10 mmol/L (8-16); Aspartate Amino Transferase 58 U/L (14-36); Bilirubin,Total 0.3 mg/dL (0.2-1.3); Blood Urea Nitrogen 83 mg/dL (7-17); Calcium 8.6 mg/dL (8.4-10.2); Carbon Dioxide 19 mmol/L (22-30); Chloride 110 mmol/L (98-107); Estimated CRCL calculation 13 ml/min; Estimated Glomerular Filt Rate 15; Glucose 98 mg/dL (65-110); Magnesium 3.2 mg/dL (1.6-2.3); Potassium 4.1 mmol/L (3.4-5.0); Sodium 139 mmol/L (137-145)
[2021-08-02 06:02] LABS: Hepatitis B Surface Antigen Negative (Negative)
[2021-08-02 06:07] LABS: HAV RESULT Negative (Negative); Hepatitis B Core IgM Result Negative (Negative)
[2021-08-02 06:19] LABS: Hepatitis C Virus Antibody Negative (Negative)
[2021-08-02] MEDS: OMEGA 3 POLYUNSAT FATTY ACIDS 1 GM CAP PO (08:31)
[2021-08-02] MEDS: FERROUS SULFATE 324 MG TABLET PO ×2 (08:31→16:42)
[2021-08-02] MEDS: MULTIVITAMINS /C LUTEIN (CENTRUM SILVER) TABLET *BKC 1 TAB PO (08:31)
[2021-08-02] MEDS: PANTOPRAZOLE 40 MG TABLET PO (08:31)
[2021-08-02] MEDS: HEPARIN SODIUM 5,000 UNITS/ML VIAL 5000 UNITS SUB-Q ×2 (08:31→20:51)
[2021-08-02] MEDS: buPROPion HCL XL (24 HR) 150 MG TABCR PO (08:31)
[2021-08-02] MEDS: FUROSEMIDE INJ 40 MG/4 ML VIAL IV PUSH (08:31)
[2021-08-02] MEDS: ASPIRIN 325 MG TABLET PO (08:31)
[2021-08-02] MEDS: SODIUM CHLORIDE 1 GM TABLET PO ×3 (08:31→16:42)
--- NOTE | 2021-08-02 13:16 | P.PNIM_ITS ---
Progress Note: A&P Assessment and Plan (1) CHF (congestive heart failure): Qualifiers: Heart failure chronicity: acute on chronic Code(s): I50.9 - Heart failure, unspecified Status: Acute Assessment and Plan: Acute on chronic systolic and diastolic CHF * CXR showed pulmonary edema with bilateral pleural effusions. BNP 6700 * Echo from 07/10/2021 revealed EF 35-40% with diastolic dysfunction * Appreciate cardiology consultation * Continue with IV diuresis. Lasix 40 mg IV b.i.d. * Monitor intake and output, daily weights. Heart healthy diet (2) Altered mental status: Code(s): R41.82 - Altered mental status, unspecified Status: Acute Assessment and Plan: Onset 08/01/2021. 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 This is not her baseline. * Head CT on 08/01 7 no acute intracranial findings with evidence of chronic left basal ganglia lacunar infarct * Carotid Doppler with <50% stenosis of bilateral internal carotid arteries * B12 and folate within normal limits * Ammonia pending * UA with reflex culture pending * May be related to uremia. Appreciate Nephrology consult * Brain MRI pending * Consult to Neurology. Recommendations appreciated * Monitor electrolytes. Magnesium slightly elevated (3.2) likely due to CHARLI, unlikely to be contributing to symptoms. Appreciate Nephrology recommendations (3) Pleural effusion: Code(s): J90 - Pleural effusion, not elsewhere classified Status: Acute Assessment and Plan: See above * [place] to be secondary to CHF exacerbation * Plan as above (4) Bradycardia: Code(s): R00.1 - Bradycardia, unspecified Status: Acute Assessment and Plan: HR noted to be in the 40-50 upon arrival * Received IV atropine * Metoprolol is on hold * TSH is slightly elevated with normal T4 * Heart rate has been well controlled * Appreciate cardiology consultation (5) Acute on chronic kidney failure: Code(s): N17.9 - Acute kidney failure, unspecified; N18.9 - Chronic kidney disease, unspecified Status: Acute Assessment and Plan: Baseline creatinine appears to be fluctuant, 1.7-2.0 * Creatinine is elevated up to 2.9 today. BUN 83 * Most likely due to need for IV diuresis * Appreciate nephrology consultation * Continue to monitor BMP closely (6) Diabetes: Code(s): E11.9 - Type 2 diabetes mellitus without complications Status: Chronic Assessment and Plan: A1c 5.7 (07/10/2021). Blood sugars well controlled this admission * Continue Accu-Cheks, sliding scale insulin, hypoglycemic protocol * Monitor glucose trends (7) Hypertension: Code(s): I10 - Essential (primary) hypertension Status: Chronic Assessment and Plan: Blood pressure reviewed and has been fluctuant. Has been elevated above target today * Amlodipine held per Cardiology to allow for increase in IV Lasix * Metoprolol on hold due to bradycardia * Blood pressure has been increasing. Resume home medications when okay with Cardiology * Hydralazine p.r.n. systolic BP >170 * Monitor blood pressure trends closely (8) Anemia: Code(s): D64.9 - Anemia, unspecified Status: Acute Assessment and Plan: Likely anemia disease * H&H has remained stable * Iron panel, B12, folate reviewed and is appropriate * Monitor H&H (9) Transaminitis: Code(s): R74.01 - Elevation of levels of l
--- NOTE | 2021-08-02 13:16 | PM.IMPN ---
Progress Note: A&P Assessment and Plan (1) CHF (congestive heart failure): Qualifiers: Heart failure chronicity: acute on chronic Code(s): I50.9 - Heart failure, unspecified Status: Acute Assessment and Plan: Acute on chronic systolic and diastolic CHF CXR showed pulmonary edema with bilateral pleural effusions. BNP 6700 Echo from 07/10/2021 revealed EF 35-40% with diastolic dysfunction Appreciate cardiology consultation Continue with IV diuresis. Lasix 40 mg IV b.i.d. Monitor intake and output, daily weights. Heart healthy diet (2) Altered mental status: Code(s): R41.82 - Altered mental status, unspecified Status: Acute Assessment and Plan: Onset 08/01/2021. 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 This is not her baseline. Head CT on 08/01 7 no acute intracranial findings with evidence of chronic left basal ganglia lacunar infarct Carotid Doppler with <50% stenosis of bilateral internal carotid arteries B12 and folate within normal limits Ammonia pending UA with reflex culture pending May be related to uremia. Appreciate Nephrology consult Brain MRI pending Consult to Neurology. Recommendations appreciated Monitor electrolytes. Magnesium slightly elevated (3.2) likely due to CHARLI, unlikely to be contributing to symptoms. Appreciate Nephrology recommendations (3) Pleural effusion: Code(s): J90 - Pleural effusion, not elsewhere classified Status: Acute Assessment and Plan: See above [place] to be secondary to CHF exacerbation Plan as above (4) Bradycardia: Code(s): R00.1 - Bradycardia, unspecified Status: Acute Assessment and Plan: HR noted to be in the 40-50 upon arrival Received IV atropine Metoprolol is on hold TSH is slightly elevated with normal T4 Heart rate has been well controlled Appreciate cardiology consultation (5) Acute on chronic kidney failure: Code(s): N17.9 - Acute kidney failure, unspecified; N18.9 - Chronic kidney disease, unspecified Status: Acute Assessment and Plan: Baseline creatinine appears to be fluctuant, 1.7-2.0 Creatinine is elevated up to 2.9 today. BUN 83 Most likely due to need for IV diuresis Appreciate nephrology consultation Continue to monitor BMP closely (6) Diabetes: Code(s): E11.9 - Type 2 diabetes mellitus without complications Status: Chronic Assessment and Plan: A1c 5.7 (07/10/2021). Blood sugars well controlled this admission Continue Accu-Cheks, sliding scale insulin, hypoglycemic protocol Monitor glucose trends (7) Hypertension: Code(s): I10 - Essential (primary) hypertension Status: Chronic Assessment and Plan: Blood pressure reviewed and has been fluctuant. Has been elevated above target today Amlodipine held per Cardiology to allow for increase in IV Lasix Metoprolol on hold due to bradycardia Blood pressure has been increasing. Resume home medications when okay with Cardiology Hydralazine p.r.n. systolic BP >170 Monitor blood pressure trends closely (8) Anemia: Code(s): D64.9 - Anemia, unspecified Status: Acute Assessment and Plan: Likely anemia disease H&H has remained stable Iron panel, B12, folate reviewed and is appropriate Monitor H&H (9) Transaminitis: Code(s): R74.01 - Elevation of levels of liver transaminase levels Status: Acute Assessment and Plan: LFTs are elevated Trending down today Hepatitis panel negative Consider RUQ if no improvement/worsening Subjective Date/time seen: 08/02/21 13:16 Objective Data Vital Signs Vital Signs: Vital Signs - 24 hr 08/01/21 14:28 08/01/21 14:36 08/01/21 14:00 Temperature Pulse Rate 62 68 91 Respiratory Rate 20 22 H Blood Pressure Pulse Oximetry Oxygen Delivery Oxygen Fl
[2021-08-02 15:27] LABS: Ammonia < 9 umol/L (9-30)
[2021-08-02 16:42] LABS: Glucose Point of Care 104 mg/dl (65-105)
--- NOTE | 2021-08-02 16:43 | PM.PNCARD ---
Progress Note: A&P Assessment and Plan (1) Acute combined systolic and diastolic congestive heart failure: Code(s): I50.41 - Acute combined systolic (congestive) and diastolic (congestive) heart failure Status: Acute Assessment and Plan: Acute on chronic systolic (EF 35-50%) and diastolic heart failure exacerbation. Improving Continue Lasix 40mg IV b.i.d. Holding antihypertensives to allow room in BP for diuretics (2) Cardiomyopathy: Code(s): I42.9 - Cardiomyopathy, unspecified Status: Acute Assessment and Plan: EF 30% (3) Altered mental status: Code(s): R41.82 - Altered mental status, unspecified Status: Acute Assessment and Plan: Being evaluated by hospitalist with an MRI (4) Bradycardia: Code(s): R00.1 - Bradycardia, unspecified Status: Acute Assessment and Plan: Junctional bradycardia. Holding beta robert. HR 50-60 generally. BP stable. Continue to hold BB Improved off beta-robert. (5) Anemia: Code(s): D64.9 - Anemia, unspecified Status: Acute Assessment and Plan: Management per hospitalist (6) Chronic kidney disease, stage IV (severe): Code(s): N18.4 - Chronic kidney disease, stage 4 (severe) Status: Acute Assessment and Plan: Worsening renal function. Daily BMP, may need to reduce diuretics Subjective Date/time seen: 08/02/21 16:43 08/01/21? 12:58 Cardiology follow up for CHF, bradycardia. Patient states her shortness of breath is improved today.? She denies chest pain.? Thinks her swelling is better.? She is confused.? Date of service 08/02/2021: Drowsy throughout the day, with altered mental status. Brain MRI ordered. Diuresed some yesterday. Nasal cannula changed to room air. Creatinine up to 2.9 today. Review of Systems Constitutional: Constitutional: Reports fatigue Eyes: Eyes: Reports no additional eye complaints ENT: Denies epistaxis Cardiovascular: Cardiovascular: Denies chest pain and Denies leg edema Respiratory: Respiratory: Denies dyspnea Gastrointestinal: Gastrointestinal: Denies abdominal pain Musculoskeletal: Musculoskeletal: Reports no additional musculoskeletal complaints Integumentary/Breasts: Skin/Breast: Denies rash Neurologic: Reports Abnormal speech present and Reports confusion Psychiatric: Psychiatric: Reports behavioral changes Exam Const: Other: Older female lying in bed, eyes open, mildly increased expiratory phase but no respiratory distress. HENMT: Mouth: Yes moist mucous membranes Eyes: EOM: EOMs intact bilaterally Neck: Neck: supple Resp: Effort & Inspection: abnormal respiratory effort Auscultation: rales (Few rales in the right lower lobe) Other: Prolonged expiratory phase of respiration Cardio: Rate: regular rate Rhythm: regular rhythm Heart sounds: Murmur heart sound present Other: 1-2/6 DONATO mid sternal borders GI: GI Palp: No Tenderness to palpation present (GI) Urinary Catheter: Urinary Catheter: patent and draining and urine clear Skin: General skin exam: no rashes or lesions noted Neuro: Speech: No normal speech Other: Garbled and slurred speech, does tell me she is at [facility] and believes it is May, drifts off during our conversation Extrem: General: edema (Trace pretibial edema) Psych: Mental Status: mental status grossly abnormal Other: Sleepy and lethargic Objective Data Vital Signs Vital Signs: Vital Signs - 24 hr 08/01/21 18:00 08/01/21 20:00 08/01/21 20:40 Temperature 97.9 F Pulse Rate 66 69 66 Respiratory Rate 20 20 Blood Pressure 148/73 H Pulse Oximetry 97 Oxygen Delivery Oxygen Flow Rate Fraction of Inspired Oxygen 08/01/21 20:45 08/01/21 20:47 08/01/21 20:00 Temperature Pulse Rate 69 67 Respiratory Rate 20 Blood Pressure Pulse Oximetry 91 Oxygen Delivery Room Air Oxygen Flow Rate Fraction of Inspired Oxyge
[2021-08-02 16:54] LABS: Appearance Urine Clear (Clear); Bilirubin Urine Negative (Negative); Blood Urine 2+ (Negative); Color Urine Yellow (Yellow); Glucose Urine UA Negative (Negative); Ketones Urine Negative (Negative); Leukocyte Esterase Ur 1+ LEU/UL (Negative); Nitrate Urine Negative (Negative); Protein Urine 3+ mg/dL (Negative); Urobilinogen Urine 0.2 mg/dL (<2.0); pH Urine 5.5 (5.0-9.0)
[2021-08-02 16:55] LABS: Bacteria Urine Trace /hpf; Mucus Urine Rare /lpf; RBC Urine 51-75 /hpf (0-2); Squamous Epithelial Cell Urine Rare /hpf (Few)
[2021-08-02 16:56] LABS: Add Urine Microscopic? YES
--- NOTE | 2021-08-02 17:51 | PM.CNNEP ---
Assessment and Plan Additional Plan 1. Liza has chronic kidney disease. This is most likely based on hypertension, diabetes, vascular disease, and chronic pre renal azotemia. the pre renal aspect of her kidney disease most likely is what lends her to resist diuresis. She is currently on Lasix 40 mg IV twice a day. Sometimes Bumex has a little bit more bioavailability to the renal tubules so I am going to switch her to that. We can add metolazone as well as her distal tubules are probably over productive and also resisting the effect of the loop diuretics. if this does not work she may need ultrafiltration to help get rid of the fluid. 2. The patient has congestive heart failure. She has a reduced ejection fraction but also more importantly she has severe pulmonary hypertension. 3. The patient has hypertension. Her blood pressure is doing pretty well right now. Will leave it on the high side to allow renal perfusion and the diuresis may help bring the blood pressure down. I do not want to over control and wrist to resistance to diuretics. 4. Patient has diabetes. She is on sliding-scale insulin per hospitalists. 5. History of GERD, duodenal ulcer, gastric ulcer. 6. Hemoglobin is only 8.4. T sat has been low in the past. Will give EPO plus iron. 7. Patient has a mild metabolic acidosis. Anion gap is only 10. 8. Her albumin is relatively preserved at 3.5. 9. The patient has decreased mental status. This could be due to the severity of her illness, hypothyroidism, increased BUN creatinine. Calcium and sodium are okay. History of Present Illness Reason for Consult Consult date: 08/02/21 Chief Complaint Chief complaint: CHF, fatigure, bradycardia History of Present Illness Narrative: Liza is a very pleasant 86-year-old lady who has multiple medical problems including diabetes, GERD, hyperlipidemia, history of hyperkalemia, chronic kidney disease stage IIIB, old stroke, duodenal ulcer, gastric ulcer, GERD, long-term NSAID use, hypertension, congestive heart failure with moderate reduction of her ejection fraction and severe pulmonary hypertension with chronic swelling. The patient came in the hospital on the 31 of July with shortness of breath and fatigue. This had been going on for at least a couple of days but unclear how much longer than that. He went to the emergency room because of this. They found that her heart rate was low and so was given some atropine. She also had wheezing so they gave her inhalers. Chest x-ray showed volume overload. She was given diuretics and admitted to the floor. On the day of admission her creatinine was 2.7. Her creatinine generally he has been running in the 2s this year and was in the high 1s last year and in the low 1s in 2020. She has had evaluation for chronic kidney disease. Her renal ultrasound showed bilateral renal atrophy. Urinalysis showed some protein but no blood serology was negative and CPK was normal. It is felt that her chronic kidney disease is most likely due to hypertension diabetes, and vascular disease. her renal function has been gradually deteriorating. Her severe pulmonary hypertension leads to significant swelling and requires diuretics to manage this. Increasing doses of diuretics has led to increasing creatinine values. In spite of all the above, the patient has still been volume overloaded and her creatinine is still high. She was admitted on 07/31 and is on IV diuretics. her creatinine has been stable but her urine output has not been very high. Only 600cc yesterday and about 1500cc so far today. She was very lethargic earlier today. She has improved this evening though and is able to interact. The patient admits to being swollen. This is for several days before she was admitted. It was gradually worse before she came in. It is not much better now than it was when she came in. She is not short of breath now. She is very weak howeve
[2021-08-02 18:56] LABS: Creatine Kinase 234 U/L (30-135)
[2021-08-02] MEDS: BUMETANIDE INJ 2.5 MG/10 ML VIAL 2 MG IV PUSH (18:58)
[2021-08-02] MEDS: metOLazone 5 MG TABLET PO (18:58)
[2021-08-02 20:45] LABS: Glucose Point of Care 96 mg/dl (65-105)
[2021-08-02] MEDS: DOCUSATE SODIUM 100 MG CAPSULE PO (20:51)
[2021-08-02] MEDS: SIMVASTATIN 20 MG TABLET PO (20:52)
[2021-08-03] VITALS (22 sets, daily range): BP systolic 107–189; BP diastolic 68–117; PULSE 74–93; RESP 10–24; TEMP 35.7–36.6; O2SAT 93–100
[2021-08-03] MEDS: ALBUTEROL SULFATE NEB 2.5 MG/3 ML INH 5 MG INHALATION ×4 (02:16→21:05)
[2021-08-03 05:00] LABS: Hematocrit 25.6 % (37.0-47.0); Hemoglobin 8.1 g/dL (12.0-15.0); Mean Corpuscular HGB Conc 31.6 g/dl (32-36); Mean Corpuscular Hemoglobin 31.4 pg (26-34); Mean Corpuscular Volume 99.2 fl (80-100); Mean Platelet Volume 10.1 fl (7.4-10.4); Platelet Count Result 190 k/mm3 (150-375); Red Blood Count 2.58 M/mm3 (4.2-5.4); Red Cell Distribution Width 16.8 % (11.5-14.5); White Blood Count 5.3 K/mm3 (4.5-10.0)
[2021-08-03 06:42] LABS: Alanine Aminotransferase 66 U/L (6-35); Albumin Level 3.6 g/dL (3.5-5.1); Alkaline Phosphatase 124 U/L (38-126); Anion Gap 13 mmol/L (8-16); Aspartate Amino Transferase 48 U/L (14-36); Bilirubin,Total 0.3 mg/dL (0.2-1.3); Blood Urea Nitrogen 80 mg/dL (7-17); Calcium 8.6 mg/dL (8.4-10.2); Carbon Dioxide 18 mmol/L (22-30); Chloride 110 mmol/L (98-107); Estimated CRCL calculation 12 ml/min; Estimated Glomerular Filt Rate 15; Glucose 64 mg/dL (65-110); Phosphorus 5.2 mg/dL (2.5-4.5); Potassium 3.8 mmol/L (3.4-5.0); Sodium 141 mmol/L (137-145)
[2021-08-03] MEDS: DEXTROSE 50% 25 GM/50 ML SYRINGE IV PUSH (08:20)
[2021-08-03 08:39] LABS: Glucose Point of Care 122 mg/dl (65-105)
[2021-08-03 08:56] LABS: Glucose Point of Care 62 mg/dl (65-105)
--- NOTE | 2021-08-03 09:40 | PM.PNCARD ---
Progress Note: A&P Assessment and Plan (1) Acute combined systolic and diastolic congestive heart failure: Code(s): I50.41 - Acute combined systolic (congestive) and diastolic (congestive) heart failure Status: Acute Assessment and Plan: Acute on chronic systolic (EF 35-40%) and diastolic heart failure exacerbation. Improving, approaching euvolemia. Will shift her to p.o. lasix 40mg b.i.d. for now. Will need to decrease dose before discharge. Antihypertensives have been held to allow room for diuresis. She is a bit hypertensive at this point. Will start her on spironolactone to treat her heart failure and blood pressure. Will need to watch potassium closely. When kidney function improves can also add ALMA/ARNI. (2) Cardiomyopathy: Code(s): I42.9 - Cardiomyopathy, unspecified Status: Acute Assessment and Plan: EF 30% (3) Altered mental status: Code(s): R41.82 - Altered mental status, unspecified Status: Acute Assessment and Plan: Improving today. (4) Bradycardia: Code(s): R00.1 - Bradycardia, unspecified Status: Acute Assessment and Plan: Junctional bradycardia. Holding beta robert. HR 50-60 generally. BP stable. Continue to hold BB Improved off beta-robert. (5) Anemia: Code(s): D64.9 - Anemia, unspecified Status: Acute Assessment and Plan: Management per hospitalist (6) Chronic kidney disease, stage IV (severe): Code(s): N18.4 - Chronic kidney disease, stage 4 (severe) Status: Acute Assessment and Plan: Worsening renal function. Stable today Daily BMP Shifting to p.o. diuretic Subjective Date/time seen: 08/03/21 09:40 Cardiology follow up for CHF Interval history: More alert today. She is oriented. Eating breakfast. She says she is feeling better. Swelling has improved significantly. Down to 1L O2 Review of Systems Constitutional: Constitutional: Reports fatigue Eyes: Eyes: Reports no additional eye complaints ENT: Reports Normal hearing present and Denies epistaxis Cardiovascular: Cardiovascular: Denies chest pain, Denies leg edema and Denies dyspnea Respiratory: Respiratory: Denies dyspnea Gastrointestinal: Gastrointestinal: Denies abdominal pain Musculoskeletal: Musculoskeletal: Reports no additional musculoskeletal complaints Integumentary/Breasts: Skin/Breast: Denies rash Neurologic: Reports Normal hearing present, Reports Abnormal speech present, Reports behavioral changes and Reports confusion Psychiatric: Psychiatric: Reports behavioral changes and Reports confusion Endocrine: Endocrine: Reports fatigue Exam Const: General: comfortable, no acute distress, alert and awake Orientation/consciousness: patient oriented x3 HENMT: Head: normal to inspection Eyes: General: appearance normal, both eyes and all related structures Pupils: Equal, round and reactive pupils present Neck: Neck: normal visual inspection, supple and no JVD Carotids: normal carotid upstroke Resp: Effort & Inspection: normal respiratory effort Auscultation: crackles (bases ) bilateral Cardio: Rate: regular rate Rhythm: regular rhythm Heart sounds: S1 normal heart sound present, S2 normal heart sound present and Murmur heart sound present systolic GI: Auscultation: normal bowel sounds Skin: General skin exam: normal color Neuro: General: patient oriented x3 Cranial nerves: Yes Equal, round and reactive pupils present Extrem: General: normal to inspection and no edema Psych: Appearance: grossly normal Mental Status: mental status grossly normal Objective Data Vital Signs Vital Signs: Vital Signs - 24 hr 08/02/21 10:00 08/02/21 12:00 08/02/21 12:00 Temperature 36.2 C L Pulse Rate 75 77 68 Respiratory Rate 22 H Blood Pressure 181/62 H Pulse Oximetry 95 Oxygen Delivery Oxygen Flow Rate Fraction of Inspired Oxygen 08/02/21 1
[2021-08-03] MEDS: FERROUS SULFATE 324 MG TABLET PO ×2 (09:41→17:02)
[2021-08-03] MEDS: OMEGA 3 POLYUNSAT FATTY ACIDS 1 GM CAP PO (09:41)
[2021-08-03] MEDS: metOLazone 5 MG TABLET PO (09:42)
[2021-08-03] MEDS: buPROPion HCL XL (24 HR) 150 MG TABCR PO (09:42)
[2021-08-03] MEDS: SODIUM CHLORIDE 1 GM TABLET PO ×3 (09:42→17:02)
[2021-08-03] MEDS: PANTOPRAZOLE 40 MG TABLET PO (09:42)
[2021-08-03] MEDS: MULTIVITAMINS /C LUTEIN (CENTRUM SILVER) TABLET *BKC 1 TAB PO (09:42)
[2021-08-03] MEDS: ASPIRIN 325 MG TABLET PO (09:42)
[2021-08-03] MEDS: BUMETANIDE INJ 2.5 MG/10 ML VIAL 2 MG IV PUSH ×2 (09:43→17:01)
[2021-08-03] MEDS: IRON SUCROSE COMPLEX 200 MG in SODIUM CHLORIDE 0.9% IV 50 ML 120 MG IVPB (09:48)
[2021-08-03] MEDS: HEPARIN SODIUM 5,000 UNITS/ML VIAL 5000 UNITS SUB-Q ×2 (09:50→20:13)
[2021-08-03 10:12] LABS: Magnesium 3.1 mg/dL (1.6-2.3)
[2021-08-03] MEDS: EPOETIN ALFA-EPBX 10,000 UNITS/ML VIAL 10000 UNITS SUB-Q (10:32)
--- NOTE | 2021-08-03 12:19 | PM.PNNEP ---
Progress Note: A&P Additional Plan 1. Liza has chronic kidney disease. This is most likely based on hypertension, diabetes, vascular disease, and chronic pre renal azotemia. the pre renal aspect of her kidney disease most likely is what lends her to resist diuresis. She is currently on Bumex 2 mg twice a day IV and metolazone 5 mg per day. She made a little more urine yesterday and then more overnight. Continue current diuretics. 2. The patient has congestive heart failure. She has a reduced ejection fraction but also more importantly she has severe pulmonary hypertension. 3. The patient has hypertension. Goal blood pressure is somewhere between 130 and 160 for now. 4. Patient has diabetes. She is on sliding-scale insulin per hospitalists. 5. History of GERD, duodenal ulcer, gastric ulcer. 6. Hemoglobin is only 8.4. On EPO plus iron. 7. Patient has a mild metabolic acidosis. Anion gap is only 10. will give sodium bicarbonate pills 8. Her albumin is relatively preserved at 3.5. 9. The patient's mental status is about the same. Subjective Date/time seen: 08/03/21 08:30 Interval history: Patient feels about the same. She is still generally weak. Review of Systems Cardiovascular: Cardiovascular: Reports no additional cardiovascular complaints Respiratory: Respiratory: Reports no additional respiratory complaints Gastrointestinal: Gastrointestinal: Reports no additional gastrointestinal complaints Genitourinary: Genitourinary: Reports no additional female genitourinary complaints Exam Narrative: WDWN in NAD skin no rash head ncat lungs increased expiratory phase. Decreased breath sounds at the bases. cor reg no rub or gallop abd BS+ nontender and soft ext 2+ presacral edema. Objective Data Vital Signs Vital Signs: Vital Signs - 24 hr 08/02/21 14:00 08/02/21 14:18 08/02/21 14:40 Temperature Pulse Rate 77 79 Respiratory Rate 24 H Blood Pressure Pulse Oximetry Oxygen Delivery Room Air Oxygen Flow Rate Fraction of Inspired Oxygen 08/02/21 14:50 08/02/21 16:00 08/02/21 16:00 Temperature 36.0 C L Pulse Rate 82 73 Respiratory Rate 24 H 22 H Blood Pressure 158/49 H Pulse Oximetry 98 93 Oxygen Delivery Nasal Cannula Oxygen Flow Rate 2 Fraction of Inspired Oxygen 08/02/21 16:00 08/02/21 18:00 08/02/21 20:00 Temperature 36.4 C L Pulse Rate 75 73 77 Respiratory Rate 18 Blood Pressure 159/59 H Pulse Oximetry 93 Oxygen Delivery Oxygen Flow Rate Fraction of Inspired Oxygen 08/02/21 21:12 08/02/21 21:12 08/02/21 20:00 Temperature Pulse Rate 73 75 Respiratory Rate 18 Blood Pressure Pulse Oximetry 99 Oxygen Delivery Nasal Cannula Oxygen Flow Rate 2 Fraction of Inspired Oxygen 08/02/21 20:00 08/02/21 21:25 08/03/21 00:00 Temperature Pulse Rate 75 79 74 Respiratory Rate 18 Blood Pressure Pulse Oximetry 99 Oxygen Delivery Nasal Cannula Oxygen Flow Rate 1 Fraction of Inspired Oxygen 35 08/03/21 00:00 08/03/21 00:00 08/03/21 02:00 Temperature 36.6 C Pulse Rate 74 77 74 Respiratory Rate 18 18 Blood Pressure 157/117 H Pulse Oximetry 99 100 Oxygen Delivery BiPAP Oxygen Flow Rate Fraction of Inspired Oxygen 35 08/02/21 22:25 08/03/21 02:16 08/03/21 02:13 Temperature Pulse Rate 82 76 82 Respiratory Rate 17 15 15 Blood Pressure Pulse Oximetry 95 99 Oxygen Delivery BiPAP BiPAP Oxygen Flow Rate Fraction of Inspired Oxygen 08/02/21 21:25 08/03/21 02:26 08/03/21 04:00 Temperature Pulse Rate 74 78 77 Respiratory Rate 18 15 Blood Pressure Pulse Oximetry Oxygen Delivery Oxygen Flow Rate Fraction of Inspired Oxygen 08/03/21 04:00 08/03/21 04:00 08/03/21 05:58 Temperature 36.6 C Pulse Rate 77 78 76 Respiratory Rate 15 18 Blood Pressure 132/103 H Pulse Oximetry 99 96 Oxygen Delivery Nasal
[2021-08-03 12:37] LABS: Glucose Point of Care 211 mg/dl (65-105)
--- NOTE | 2021-08-03 12:38 | WPDNEURCNPN ---
Consult date: 08/03/21 Time Seen: 11:00 Reason for consult: generalized weakness HPI: Liza Clark is a 86 year old female admitted to the hospital through the emergency room for the complaints of generalized weakness in addition to difficulties in breathing reportedly when the EMS arrived at the scene she had heart rate of 30s and 40s required atropine x2 which increase the heart rate to 50s on initial arrival in the emergency room she was wheezing for which she was treated with albuterol, had history of congestive heart failure and chronic kidney disease as well for which she had been taking metoprolol, amlodipine, Lasix, and hydralazine, initial neuro exam was nonfocal she was admitted for bradycardia and congestive heart failure has also been seen by mexican food maker hand for chronic prerenal azotemia on the basis of the chronic renal disease, being seen by the welding machine operator electroslag for cardiomyopathy with decreased ejection fraction, CT scan on 08/01 reveals no bleed has chronic left basal ganglia lacunar infarct with chronic small vessel ischemic changes and central cortical and cerebral and cerebellar atrophy but normal carotid Doppler study, normal venous Doppler study of the lower extremity also MRI of the brain without evidence of acute infarct [facility] Past Medical History Medical History (Updated 08/02/21 @ 18:40 by Comfort Mtz MD) Abdominal pain Acute hyperkalemia Acute renal failure Cardiomyopathy Chronic kidney disease, stage 3a CVA, old, 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morrhoidectomy History of left knee replacement History of right hip replacement History of shoulder surgery Family History Family History Unknown Unknown family medical history her parents left her when she was young. Social History Social History Social History: Patient lives at home alone. Grand-niece, Mikala, checks in on her occasionally, either via phone or physically, although has been less due to COVID outbreak. Her PCP is Dr. Coleman. She is listed as a Do not resuscitate. Smoking status: Never smoker Second hand tobacco smoke exposure: Yes Alcohol intake: never Substance use: never Substance use type: does not use Gender identity (if verbalized by the patient): Female Sexual Orientation (if Verbalized by the Patient): Straight or Heterosexual Spiritual care concerns: No Agree to blood products: Yes Meds Home Medications and Allergies Home Medications Medication Instructions Recorded Confirmed Type omega 1-lsk-bbp-fish oil 1,200 mg 1 cap PO DAILY 05/11/20 07/31/21 History (144 mg-216 mg) capsule (Fish Oil) metformin 500 mg tablet,extended 1,000 mg PO DAILY 03/16/21 07/31/21 History release 24 hr simvastatin 20 mg tablet 20 mg PO HS #90 tabs 03/27/21 07/31/21 Rx aspirin 325 mg tablet 325 mg PO DAILY #90 tabs 04/24/21 07/31/21 Rx docusate sodium 100 mg capsule 100 mg PO HS 06/24/21 07/31/21 History (Colace) bupropion HCl 150 mg 24 hr tablet, 150 mg PO QAM #30 tabs 07/05/21 07/31/21 Rx extended release metoprolol tartrate 25 mg tablet 25 mg PO BID #60 tabs 07/05/21 07/31/21 Rx pantoprazole 40 mg tablet,delayed 40 mg PO DAILY 07/10/21 07/31/21 History release ferrous sulfate 325 mg (65 mg 324 mg PO BIDWM #60 tabs 07/20/21 07/31/21 Rx iron) tablet furosemide 40 mg tablet (Lasix) 40 mg PO BID #60 tabs 07/20/21 07/31/21 Rx amlodipine 10 mg tablet 10 mg PO DAILY #30 tabs
--- NOTE | 2021-08-03 12:41 | P.PNIM_ITS ---
Progress Note: A&P Assessment and Plan (1) CHF (congestive heart failure): Qualifiers: Heart failure chronicity: acute on chronic Code(s): I50.9 - Heart failure, unspecified Status: Acute Assessment and Plan: Acute on chronic systolic and diastolic CHF * CXR showed pulmonary edema with bilateral pleural effusions. BNP 6700 * Echo from 07/10/2021 revealed EF 35-40% with diastolic dysfunction * Appreciate cardiology consultation * Transitioned to bumex and metolazone. Lasix discontinued * Started on spironolactone 25 mg daily * Monitor intake and output, daily weights. Heart healthy diet (2) Altered mental status: Code(s): R41.82 - Altered mental status, unspecified Status: Acute Assessment and Plan: Onset 08/01/2021. Patient was extremely drowsy with slurred speech * Discussed with patient's social contact worker/niece who reports this is not baseline * Head CT on 08/01 showed no acute intracranial findings with evidence of chronic left basal ganglia lacunar infarct * Carotid Doppler with <50% stenosis of bilateral internal carotid arteries * Brain MRI negative for acute infarct * B12, folate, ammonia within normal limits * UA without concerns for infection, reflex culture is pending. * May be due to worsening BUN/Cr. Nephrology is following and input is appreciated. * Appreciate Neurology consultation. Improved today. Patient much more alert and oriented. Still with slurred speech - will proceed with [facility]. (3) Pleural effusion: Code(s): J90 - Pleural effusion, not elsewhere classified Status: Acute Assessment and Plan: See above * [place] to be secondary to CHF exacerbation * Plan as above (4) Bradycardia: Code(s): R00.1 - Bradycardia, unspecified Status: Acute Assessment and Plan: HR noted to be in the 40-50 upon arrival * Received IV atropine * Metoprolol is on hold * TSH is slightly elevated with normal T4 * Heart rate has subsequently been well controlled * Appreciate cardiology consultation (5) Acute on chronic kidney failure: Code(s): N17.9 - Acute kidney failure, unspecified; N18.9 - Chronic kidney disease, unspecified Status: Acute Assessment and Plan: Baseline creatinine appears to be fluctuant, 1.7-2.0 * Creatinine is elevated up to 2.9 today. BUN 80 * Most likely due to need for IV diuresis. Lasix has been discontinued and transitioned to Bumex and metolazone * Monitor urine output * Appreciate nephrology consultation * Continue to monitor BMP closely (6) Diabetes: Code(s): E11.9 - Type 2 diabetes mellitus without complications Status: Chronic Assessment and Plan: A1c 5.7 (07/10/2021). Blood sugars well controlled this admission * Continue Accu-Cheks, sliding scale insulin, hypoglycemic protocol * Monitor glucose trends * Had episode of hypoglycemia this morning with glucose 64, likely due to decreased PO intake. Subsequent blood sugars stable and she is now tolerating PO intake. (7) Hypertension: Code(s): I10 - Essential (primary) hypertension Status: Chronic Assessment and Plan: Blood pressure reviewed and has been fluctuant, becoming slightly elevated. * Amlodipine held per Cardiology given increased diuretics * Metoprolol on hold due to bradycardia * Started on spironolactone * Monitor blood pressure trends closely * Per nephrology, avoid over treatment of BP to allow for renal perfusion (8) Anemia: Code(s):
--- NOTE | 2021-08-03 12:41 | PM.IMPN ---
Progress Note: A&P Assessment and Plan (1) CHF (congestive heart failure): Qualifiers: Heart failure chronicity: acute on chronic Code(s): I50.9 - Heart failure, unspecified Status: Acute Assessment and Plan: Acute on chronic systolic and diastolic CHF CXR showed pulmonary edema with bilateral pleural effusions. BNP 6700 Echo from 07/10/2021 revealed EF 35-40% with diastolic dysfunction Appreciate cardiology consultation Transitioned to bumex and metolazone. Lasix discontinued Started on spironolactone 25 mg daily Monitor intake and output, daily weights. Heart healthy diet (2) Altered mental status: Code(s): R41.82 - Altered mental status, unspecified Status: Acute Assessment and Plan: Onset 08/01/2021. Patient was extremely drowsy with slurred speech Discussed with patient's ground crew lines person/niece who reports this is not baseline Head CT on 08/01 showed no acute intracranial findings with evidence of chronic left basal ganglia lacunar infarct Carotid Doppler with <50% stenosis of bilateral internal carotid arteries Brain MRI negative for acute infarct B12, folate, ammonia within normal limits UA without concerns for infection, reflex culture is pending. May be due to worsening BUN/Cr. Nephrology is following and input is appreciated. Appreciate Neurology consultation. Improved today. Patient much more alert and oriented. Still with slurred speech - will proceed with [facility]. (3) Pleural effusion: Code(s): J90 - Pleural effusion, not elsewhere classified Status: Acute Assessment and Plan: See above [place] to be secondary to CHF exacerbation Plan as above (4) Bradycardia: Code(s): R00.1 - Bradycardia, unspecified Status: Acute Assessment and Plan: HR noted to be in the 40-50 upon arrival Received IV atropine Metoprolol is on hold TSH is slightly elevated with normal T4 Heart rate has subsequently been well controlled Appreciate cardiology consultation (5) Acute on chronic kidney failure: Code(s): N17.9 - Acute kidney failure, unspecified; N18.9 - Chronic kidney disease, unspecified Status: Acute Assessment and Plan: Baseline creatinine appears to be fluctuant, 1.7-2.0 Creatinine is elevated up to 2.9 today. BUN 80 Most likely due to need for IV diuresis. Lasix has been discontinued and transitioned to Bumex and metolazone Monitor urine output Appreciate nephrology consultation Continue to monitor BMP closely (6) Diabetes: Code(s): E11.9 - Type 2 diabetes mellitus without complications Status: Chronic Assessment and Plan: A1c 5.7 (07/10/2021). Blood sugars well controlled this admission Continue Accu-Cheks, sliding scale insulin, hypoglycemic protocol Monitor glucose trends Had episode of hypoglycemia this morning with glucose 64, likely due to decreased PO intake. Subsequent blood sugars stable and she is now tolerating PO intake. (7) Hypertension: Code(s): I10 - Essential (primary) hypertension Status: Chronic Assessment and Plan: Blood pressure reviewed and has been fluctuant, becoming slightly elevated. Amlodipine held per Cardiology given increased diuretics Metoprolol on hold due to bradycardia Started on spironolactone Monitor blood pressure trends closely Per nephrology, avoid over treatment of BP to allow for renal perfusion (8) Anemia: Code(s): D64.9 - Anemia, unspecified Status: Acute Assessment and Plan: Likely anemia of chronic disease H&H has remained stable Iron panel, B12, folate reviewed and is appropriate Received Epogen and IV Venofer per nephrology Monitor H&H closely (9) Transaminitis: Code(s): R74.01 - Elevation of levels of liver transaminase levels Status: Acute Assessment and Plan: LFTs are elevated Continued to trend downw
[2021-08-03] MEDS: INSULIN ASPART (*BKC) 100 UNITS/ML SUB-Q (13:23)
--- NOTE | 2021-08-03 14:23 | PCSTNOTE ---
ST attempted to complete communication evaluation on this date at 14:15 , but patient did not have level of alertness required to complete evaluation.
[2021-08-03 16:15] LABS: Creatinine Urine 18.4 mg/dL; Total Protein Urine Random 138 mg/dL
[2021-08-03 16:20] LABS: Sodium Urine Random 121 meq/L
[2021-08-03 16:58] LABS: Glucose Point of Care 168 mg/dl (65-105)
[2021-08-03] MEDS: SODIUM BICARBONATE TAB 650 MG TABLET PO (17:02)
[2021-08-03] MEDS: hydrALAZINE HCL 20 MG/ML VIAL 10 MG IV PUSH (18:16)
[2021-08-03] MEDS: DOCUSATE SODIUM 100 MG CAPSULE PO (20:13)
[2021-08-03] MEDS: SIMVASTATIN 20 MG TABLET PO (20:13)
[2021-08-03 21:54] LABS: Glucose Point of Care 186 mg/dl (65-105)
[2021-08-04] VITALS (16 sets, daily range): BP systolic 127–175; BP diastolic 61–85; PULSE 76–86; RESP 12–20; TEMP 35.9–36.8; O2SAT 95–100
[2021-08-04] MEDS: ALBUTEROL SULFATE NEB 2.5 MG/3 ML INH 5 MG INHALATION (02:29)
[2021-08-04 04:57] LABS: Hematocrit 27.2 % (37.0-47.0); Hemoglobin 8.5 g/dL (12.0-15.0); Mean Corpuscular HGB Conc 31.3 g/dl (32-36); Mean Corpuscular Hemoglobin 30.7 pg (26-34); Mean Corpuscular Volume 98.2 fl (80-100); Mean Platelet Volume 9.7 fl (7.4-10.4); Platelet Count Result 172 k/mm3 (150-375); Red Blood Count 2.77 M/mm3 (4.2-5.4); Red Cell Distribution Width 16.4 % (11.5-14.5); White Blood Count 6.1 K/mm3 (4.5-10.0)
[2021-08-04 05:13] LABS: Alanine Aminotransferase 56 U/L (6-35); Albumin Level 3.2 g/dL (3.5-5.1); Alkaline Phosphatase 117 U/L (38-126); Anion Gap 6 mmol/L (8-16); Aspartate Amino Transferase 42 U/L (14-36); Bilirubin,Total 0.3 mg/dL (0.2-1.3); Blood Urea Nitrogen 78 mg/dL (7-17); Calcium 8.7 mg/dL (8.4-10.2); Carbon Dioxide 24 mmol/L (22-30); Chloride 109 mmol/L (98-107); Estimated CRCL calculation 12 ml/min; Estimated Glomerular Filt Rate 15; Glucose 86 mg/dL (65-110); Magnesium 2.7 mg/dL (1.6-2.3); Phosphorus 4.6 mg/dL (2.5-4.5); Potassium 3.7 mmol/L (3.4-5.0); Sodium 139 mmol/L (137-145)
[2021-08-04] MEDS: ALBUTEROL SULFATE NEB 2.5 MG/0.5 ML INH 5 MG ×3 (07:58→19:41)
[2021-08-04] MEDS: MULTIVITAMINS /C LUTEIN (CENTRUM SILVER) TABLET *BKC 1 TAB PO (08:22)
[2021-08-04] MEDS: ASPIRIN 325 MG TABLET PO (08:22)
[2021-08-04] MEDS: IRON SUCROSE COMPLEX 200 MG in SODIUM CHLORIDE 0.9% IV 50 ML 120 MG IVPB (08:22)
[2021-08-04] MEDS: OMEGA 3 POLYUNSAT FATTY ACIDS 1 GM CAP PO (08:23)
[2021-08-04] MEDS: FERROUS SULFATE 324 MG TABLET PO ×2 (08:23→17:27)
[2021-08-04] MEDS: SODIUM BICARBONATE TAB 650 MG TABLET PO ×2 (08:23→17:28)
[2021-08-04] MEDS: metOLazone 5 MG TABLET PO (08:23)
[2021-08-04] MEDS: BUMETANIDE INJ 2.5 MG/10 ML VIAL 2 MG IV PUSH ×2 (08:23→17:27)
[2021-08-04] MEDS: SPIRONOLACTONE 25 MG TABLET PO (08:23)
[2021-08-04] MEDS: HEPARIN SODIUM 5,000 UNITS/ML VIAL 5000 UNITS SUB-Q ×2 (08:23→20:30)
[2021-08-04] MEDS: PANTOPRAZOLE 40 MG TABLET PO (08:23)
[2021-08-04] MEDS: SODIUM CHLORIDE 1 GM TABLET PO ×3 (08:23→17:28)
[2021-08-04] MEDS: buPROPion HCL XL (24 HR) 150 MG TABCR PO (08:23)
[2021-08-04 08:35] LABS: Glucose Point of Care 83 mg/dl (65-105)
[2021-08-04 11:32] LABS: Glucose Point of Care 211 mg/dl (65-105)
--- NOTE | 2021-08-04 11:40 | PCSTNOTE ---
Patient is unable to be seen for a Communication Evaluation due to lethargy. Patient had eaten about 50% of breakfast, fed herself according to the patient medicare specialist/DESIGN DRAFTSMAN and then participated in PT prior to ST attempt. Currently briefly opens eyes, did say [facility] and was grossly intelligible but otherwise would not stay awake to complete the Communication Evaluation
--- NOTE | 2021-08-04 11:57 | PM.PNNEP ---
Progress Note: A&P Additional Plan 1. Liza has chronic kidney disease. This is most likely based on hypertension, diabetes, vascular disease, and chronic pre renal azotemia. Her creatinine has stayed the same in spite of diuretics. She is currently on Bumex 2 mg twice a day IV and metolazone 5 mg per day. She made about 3L of urine yesterday. Continue current diuretics. 2. The patient has congestive heart failure. She has a reduced ejection fraction but also more importantly she has severe pulmonary hypertension. 3. The patient has hypertension. Goal blood pressure is somewhere between 130 and 160 for now. This is mostly the case currently. 4. Patient has diabetes. She is on sliding-scale insulin per hospitalists. 5. History of GERD, duodenal ulcer, gastric ulcer. 6. Hemoglobin is a little better at 8.5. On EPO plus iron. 7. metabolic acidosis is better on the sodium bicarb pills. Will keep an eye on the CO2. 8. Her albumin is relatively preserved at 3.5. 9. The patient's mental status looks better Subjective Date/time seen: 08/04/21 11:57 Interval history: patient looks a little stronger. She is eating breakfast. Exam Narrative: WDWN in NAD skin no rash head ncat lungs increased expiratory phase. Decreased breath sounds at the bases. cor reg no rub abd BS+ nontender and soft ext 2+ presacral edema. Objective Data Vital Signs Vital Signs: Vital Signs - 24 hr 08/03/21 12:00 08/03/21 12:00 08/03/21 12:00 Temperature 36.2 C L Pulse Rate 93 84 Respiratory Rate 14 Blood Pressure 107/81 Pulse Oximetry 97 98 Oxygen Delivery Nasal Cannula Oxygen Flow Rate 1 Fraction of Inspired Oxygen 08/03/21 14:00 08/03/21 15:30 08/03/21 15:38 Temperature Pulse Rate 83 80 78 Respiratory Rate 16 16 Blood Pressure Pulse Oximetry Oxygen Delivery Oxygen Flow Rate Fraction of Inspired Oxygen 08/03/21 15:45 08/03/21 16:00 08/03/21 16:00 Temperature 36.1 C L Pulse Rate 77 84 Respiratory Rate 16 Blood Pressure 189/69 H Pulse Oximetry 99 Oxygen Delivery Nasal Cannula Oxygen Flow Rate 1 Fraction of Inspired Oxygen 08/03/21 18:48 08/03/21 21:01 08/03/21 21:03 Temperature Pulse Rate 77 77 Respiratory Rate 15 Blood Pressure Pulse Oximetry 99 99 Oxygen Delivery BiPAP BiPAP Oxygen Flow Rate Fraction of Inspired Oxygen 35 08/03/21 21:05 08/03/21 21:10 08/03/21 20:00 Temperature 35.7 C L Pulse Rate 75 74 77 Respiratory Rate 15 18 10 L Blood Pressure 159/99 H Pulse Oximetry 98 Oxygen Delivery Oxygen Flow Rate Fraction of Inspired Oxygen 08/03/21 20:00 08/03/21 20:00 08/04/21 00:00 Temperature 35.9 C L Pulse Rate 76 76 76 Respiratory Rate 18 16 Blood Pressure 132/84 Pulse Oximetry 99 100 Oxygen Delivery Nasal Cannula Oxygen Flow Rate 1 Fraction of Inspired Oxygen 35 08/04/21 00:00 08/04/21 01:01 08/04/21 02:30 Temperature Pulse Rate 80 81 79 Respiratory Rate 16 16 Blood Pressure Pulse Oximetry 100 100 Oxygen Delivery BiPAP BiPAP Oxygen Flow Rate Fraction of Inspired Oxygen 08/04/21 02:31 08/04/21 02:39 08/04/21 04:00 Temperature Pulse Rate 80 81 85 Respiratory Rate 17 16 Blood Pressure Pulse Oximetry Oxygen Delivery Oxygen Flow Rate Fraction of Inspired Oxygen 08/04/21 04:00 08/04/21 08:00 08/04/21 08:00 Temperature 36.8 C Pulse Rate 80 83 Respiratory Rate 17 16 Blood Pressure 163/62 H Pulse Oximetry 98 98 Oxygen Delivery Nasal Cannula Oxygen Flow Rate 1 Fraction of Inspired Oxygen 08/04/21 08:09 08/04/21 08:09 08/04/21 08:00 Temperature 36.2 C L Pulse Rate 85 85 Respiratory Rate 16 20 Blood Pressure 175/76 H Pulse Oximetry 98 100 Oxygen Delivery Oxygen Flow Rate Fraction of Inspired Oxygen 08/04/21 08:00 08/04/21 08:00 Temperature Pulse Rate 82
[2021-08-04] MEDS: INSULIN ASPART (*BKC) 100 UNITS/ML SUB-Q (12:46)
--- NOTE | 2021-08-04 12:47 | PM.PNCARD ---
Progress Note: A&P Assessment and Plan (1) Acute combined systolic and diastolic congestive heart failure: Code(s): I50.41 - Acute combined systolic (congestive) and diastolic (congestive) heart failure Status: Acute Assessment and Plan: Acute on chronic systolic (EF 35-40%) and diastolic heart failure exacerbation. Improving, approaching euvolemia. Being diuresed with Bumex and metolazone. Antihypertensives have been held to allow room for diuresis. She is a bit hypertensive at this point. Will start her on spironolactone to treat her heart failure and blood pressure. Will need to watch potassium closely. When kidney function improves can also add ALMA/ARNI. Stable from a cardiac standpoint, no additional cardiac recommendations to make at this time. Anticipate discharge when renal function improves. (2) Cardiomyopathy: Code(s): I42.9 - Cardiomyopathy, unspecified Status: Acute Assessment and Plan: EF 30% (3) Altered mental status: Code(s): R41.82 - Altered mental status, unspecified Status: Acute Assessment and Plan: Improved (4) Bradycardia: Code(s): R00.1 - Bradycardia, unspecified Status: Acute Assessment and Plan: Junctional bradycardia. Holding beta robert. HR 50-60 generally. BP stable. Continue to hold BB Improved off beta-robert. (5) Anemia: Code(s): D64.9 - Anemia, unspecified Status: Acute Assessment and Plan: Management per hospitalist (6) Chronic kidney disease, stage IV (severe): Code(s): N18.4 - Chronic kidney disease, stage 4 (severe) Status: Acute Assessment and Plan: Worsening renal function. Stable today Daily BMP On Bumex and metolazone per renal Subjective Date/time seen: 08/04/21 11:37 Somnolent today, apparently became very fatigued after working with physical therapy. She is up in the chair but unable to stay awake to answer questions. Review of Systems Constitutional: Constitutional: Reports fatigue Eyes: Eyes: Reports no additional eye complaints ENT: Reports Normal hearing present and Denies epistaxis Cardiovascular: Cardiovascular: Denies chest pain, Denies leg edema and Denies dyspnea Respiratory: Respiratory: Denies dyspnea Gastrointestinal: Gastrointestinal: Denies abdominal pain Musculoskeletal: Musculoskeletal: Reports no additional musculoskeletal complaints Integumentary/Breasts: Skin/Breast: Denies rash Neurologic: Reports Normal hearing present, Reports Abnormal speech present, Reports behavioral changes and Reports confusion Psychiatric: Psychiatric: Reports behavioral changes and Reports confusion Endocrine: Endocrine: Reports fatigue Exam Const: General: cooperative, comfortable, no acute distress, well developed, alert, awake, acute distress moderate and respiratory, confusion, ill appearing, lethargic, tired appearing and uncomfortable Nutritional Appearance: well nourished Orientation/consciousness: oriented to person, oriented to place, patient oriented x3, confusion and lethargic Limitations: no limitations HENMT: Head: normal to inspection Ears: hearing grossly impaired General nose exam: Normal external nose present Mouth: Yes Normal oral and palatal mucosa present, Yes lip normal, Yes tongue normal and Yes dry mucous membranes Teeth and gingiva: abnormal tooth and associated gingiva and poor dentition Eyes: General: appearance normal, both eyes and all related structures Pupils: Equal, round and reactive pupils present Neck: Neck: normal visual inspection, full ROM, trachea midline, supple and no JVD Carotids: normal carotid upstroke Chest: Chest palpation & inspection: normal inspection of the chest Resp: Effort & Inspection: normal respiratory effort, not able to speak in complete sentences, abnormal respiratory pattern, labored, nasal flaring, respiratory distress, tachypneic and uses accessory muscl
[2021-08-04] MEDS: amLODIPine BESYLATE 5 MG TABLET 10 MG PO (14:46)
--- NOTE | 2021-08-04 15:39 | P.PNIM_ITS ---
Progress Note: A&P Assessment and Plan (1) CHF (congestive heart failure): Qualifiers: Heart failure chronicity: acute on chronic Code(s): I50.9 - Heart failure, unspecified Status: Acute Assessment and Plan: Acute on chronic systolic and diastolic CHF * CXR showed pulmonary edema with bilateral pleural effusions. BNP 6700 * Echo from 07/10/2021 revealed EF 35-40% with diastolic dysfunction * Appreciate cardiology consultation * Transitioned to bumex and metolazone. Lasix discontinued * Started on spironolactone 25 mg daily * Monitor intake and output, daily weights. Heart healthy diet * Volume status has improved significantly. (2) Altered mental status: Code(s): R41.82 - Altered mental status, unspecified Status: Acute Assessment and Plan: Onset 08/01/2021. Patient was extremely drowsy with slurred speech * Discussed with patient's lithography contact worker/niece who reports this is not baseline * Head CT on 08/01 showed no acute intracranial findings with evidence of c hronic left basal ganglia lacunar infarct * Carotid Doppler with <50% stenosis of bilateral internal carotid arteries * Brain MRI negative for acute infarct * B12, folate, ammonia within normal limits * UA without concerns for infection. Urine culture negative * Metabolic etiology seems unlikely on review of labs. BUN/Cr is slightly higher than baseline but remaining stable. Appreciate nephrology consultation * Adverse effect from medication seems unlikely. Medication list reviewed. * Appreciate Neurology consultation. Patient noted to be tremulous today. * Overall mental status improved. Patient A&O x4 today however is still drowsy at times (3) Bradycardia: Code(s): R00.1 - Bradycardia, unspecified Status: Acute Assessment and Plan: HR noted to be in the 40-50 upon arrival * Received IV atropine * Metoprolol is on hold * TSH is slightly elevated with normal T4 * Heart rate has subsequently been well controlled * Appreciate cardiology consultation (4) Acute on chronic kidney failure: Code(s): N17.9 - Acute kidney failure, unspecified; N18.9 - Chronic kidney disease, unspecified Status: Acute Assessment and Plan: Baseline creatinine appears to be fluctuant, 1.7-2.0 * Creatinine is elevated up to 2.9 today. BUN 78 * Most likely due to need for IV diuresis. Lasix has been discontinued and transitioned to Bumex and metolazone * Monitor urine output * Appreciate nephrology consultation * Continue to monitor BMP closely (5) Diabetes: Code(s): E11.9 - Type 2 diabetes mellitus without complications Status: Chronic Assessment and Plan: A1c 5.7 (07/10/2021). Blood sugars well controlled this admission * Continue Accu-Cheks, sliding scale insulin, hypoglycemic protocol * Monitor glucose trends * Had episode of hypoglycemia 08/03/21 with glucose 64, likely due to decreased PO intake. Subsequent blood sugars stable and she is tolerating PO intake. (6) Hypertension: Code(s): I10 - Essential (primary) hypertension Status: Chronic Assessment and Plan: Blood pressure reviewed and has been fluctuant, becoming slightly elevated. * Metoprolol on hold due to bradycardia * Amlodipine discontinued. May have contributed to lower extremity edema. * Started on spironolactone * Monitor blood pressure trends closely * Per nephrology, avoid over treatment of BP to allow for renal perfusion (7) Anemia: Code(s): D64.9 - Anemia, unspecified Status: Acut
--- NOTE | 2021-08-04 15:39 | PM.IMPN ---
Progress Note: A&P Assessment and Plan (1) CHF (congestive heart failure): Qualifiers: Heart failure chronicity: acute on chronic Code(s): I50.9 - Heart failure, unspecified Status: Acute Assessment and Plan: Acute on chronic systolic and diastolic CHF CXR showed pulmonary edema with bilateral pleural effusions. BNP 6700 Echo from 07/10/2021 revealed EF 35-40% with diastolic dysfunction Appreciate cardiology consultation Transitioned to bumex and metolazone. Lasix discontinued Started on spironolactone 25 mg daily Monitor intake and output, daily weights. Heart healthy diet Volume status has improved significantly. (2) Altered mental status: Code(s): R41.82 - Altered mental status, unspecified Status: Acute Assessment and Plan: Onset 08/01/2021. Patient was extremely drowsy with slurred speech Discussed with patient's shampoo person/niece who reports this is not baseline Head CT on 08/01 showed no acute intracranial findings with evidence of chronic left basal ganglia lacunar infarct Carotid Doppler with <50% stenosis of bilateral internal carotid arteries Brain MRI negative for acute infarct B12, folate, ammonia within normal limits UA without concerns for infection. Urine culture negative Metabolic etiology seems unlikely on review of labs. BUN/Cr is slightly higher than baseline but remaining stable. Appreciate nephrology consultation Adverse effect from medication seems unlikely. Medication list reviewed. Appreciate Neurology consultation. Patient noted to be tremulous today. Overall mental status improved. Patient A&O x4 today however is still drowsy at times (3) Bradycardia: Code(s): R00.1 - Bradycardia, unspecified Status: Acute Assessment and Plan: HR noted to be in the 40-50 upon arrival Received IV atropine Metoprolol is on hold TSH is slightly elevated with normal T4 Heart rate has subsequently been well controlled Appreciate cardiology consultation (4) Acute on chronic kidney failure: Code(s): N17.9 - Acute kidney failure, unspecified; N18.9 - Chronic kidney disease, unspecified Status: Acute Assessment and Plan: Baseline creatinine appears to be fluctuant, 1.7-2.0 Creatinine is elevated up to 2.9 today. BUN 78 Most likely due to need for IV diuresis. Lasix has been discontinued and transitioned to Bumex and metolazone Monitor urine output Appreciate nephrology consultation Continue to monitor BMP closely (5) Diabetes: Code(s): E11.9 - Type 2 diabetes mellitus without complications Status: Chronic Assessment and Plan: A1c 5.7 (07/10/2021). Blood sugars well controlled this admission Continue Accu-Cheks, sliding scale insulin, hypoglycemic protocol Monitor glucose trends Had episode of hypoglycemia 08/03/21 with glucose 64, likely due to decreased PO intake. Subsequent blood sugars stable and she is tolerating PO intake. (6) Hypertension: Code(s): I10 - Essential (primary) hypertension Status: Chronic Assessment and Plan: Blood pressure reviewed and has been fluctuant, becoming slightly elevated. Metoprolol on hold due to bradycardia Amlodipine discontinued. May have contributed to lower extremity edema. Started on spironolactone Monitor blood pressure trends closely Per nephrology, avoid over treatment of BP to allow for renal perfusion (7) Anemia: Code(s): D64.9 - Anemia, unspecified Status: Acute Assessment and Plan: Likely anemia of chronic disease H&H has remained stable Iron panel, B12, folate reviewed and is appropriate Received Epogen and IV Venofer per nephrology Monitor H&H closely (8) Transaminitis: Code(s): R74.01 - Elevation of levels of liver transaminase levels Status: Acute Assessment and Plan: LFTs are elevated Continued to trend downward Hepatitis panel
--- NOTE | 2021-08-04 15:56 | PCSTNOTE ---
Patient continues to not be appropriate for a communication evaluation as she is not able to arouse throughout the day during therapist attempts.
[2021-08-04 16:35] LABS: Glucose Point of Care 118 mg/dl (65-105)
[2021-08-04] MEDS: DOCUSATE SODIUM 100 MG CAPSULE PO (20:31)
[2021-08-04] MEDS: SIMVASTATIN 20 MG TABLET PO (20:31)
[2021-08-04 21:07] LABS: Glucose Point of Care 156 mg/dl (65-105)
[2021-08-05] VITALS (13 sets, daily range): BP systolic 147–180; BP diastolic 50–70; PULSE 57–102; RESP 16–21; TEMP 36.2–36.9; O2SAT 95–100
[2021-08-05] MEDS: ALBUTEROL SULFATE NEB 2.5 MG/3 ML INH 5 MG INHALATION ×3 (02:16→13:39)
[2021-08-05 06:02] LABS: Hematocrit 28.8 % (37.0-47.0); Hemoglobin 8.9 g/dL (12.0-15.0); Mean Corpuscular HGB Conc 30.9 g/dl (32-36); Mean Corpuscular Hemoglobin 30.7 pg (26-34); Mean Corpuscular Volume 99.3 fl (80-100); Mean Platelet Volume 10.1 fl (7.4-10.4); Platelet Count Result 168 k/mm3 (150-375); Red Cell Distribution Width 16.6 % (11.5-14.5); White Blood Count 6.6 K/mm3 (4.5-10.0)
[2021-08-05 06:10] LABS: Alanine Aminotransferase 45 U/L (6-35); Albumin Level 3.3 g/dL (3.5-5.1); Alkaline Phosphatase 110 U/L (38-126); Anion Gap 6 mmol/L (8-16); Aspartate Amino Transferase 35 U/L (14-36); Bilirubin,Total 0.3 mg/dL (0.2-1.3); Blood Urea Nitrogen 72 mg/dL (7-17); Calcium 8.7 mg/dL (8.4-10.2); Carbon Dioxide 25 mmol/L (22-30); Chloride 106 mmol/L (98-107); Estimated CRCL calculation 14 ml/min; Estimated Glomerular Filt Rate 18; Glucose 109 mg/dL (65-110); Magnesium 2.4 mg/dL (1.6-2.3); Potassium 3.9 mmol/L (3.4-5.0); Sodium 137 mmol/L (137-145)
[2021-08-05 07:47] LABS: Glucose Point of Care 108 mg/dl (65-105)
[2021-08-05] MEDS: buPROPion HCL XL (24 HR) 150 MG TABCR PO (09:12)
[2021-08-05] MEDS: MULTIVITAMINS /C LUTEIN (CENTRUM SILVER) TABLET *BKC 1 TAB PO (09:12)
[2021-08-05] MEDS: ASPIRIN 325 MG TABLET PO (09:12)
[2021-08-05] MEDS: SPIRONOLACTONE 25 MG TABLET PO (09:12)
[2021-08-05] MEDS: PANTOPRAZOLE 40 MG TABLET PO (09:12)
[2021-08-05] MEDS: OMEGA 3 POLYUNSAT FATTY ACIDS 1 GM CAP PO (09:12)
[2021-08-05] MEDS: SODIUM BICARBONATE TAB 650 MG TABLET PO (09:12)
[2021-08-05] MEDS: BUMETANIDE INJ 2.5 MG/10 ML VIAL 2 MG IV PUSH ×2 (09:12→17:27)
[2021-08-05] MEDS: SODIUM CHLORIDE 1 GM TABLET PO ×3 (09:13→17:28)
[2021-08-05] MEDS: FERROUS SULFATE 324 MG TABLET PO ×2 (09:13→17:27)
[2021-08-05] MEDS: HEPARIN SODIUM 5,000 UNITS/ML VIAL 5000 UNITS SUB-Q ×2 (09:33→20:22)
[2021-08-05] MEDS: EPOETIN ALFA-EPBX 10,000 UNITS/ML VIAL 10000 UNITS SUB-Q (09:34)
--- NOTE | 2021-08-05 09:34 | PC.NURSE ---
call to pharmacy for missing IVPB and med
[2021-08-05] MEDS: hydrALAZINE HCL 20 MG/ML VIAL 10 MG IV PUSH (10:00)
--- NOTE | 2021-08-05 10:50 | PM.PNCARD ---
Progress Note: A&P Assessment and Plan (1) Acute combined systolic and diastolic congestive heart failure: Code(s): I50.41 - Acute combined systolic (congestive) and diastolic (congestive) heart failure Status: Acute Assessment and Plan: Acute on chronic systolic (EF 35-40%) and diastolic heart failure exacerbation. Improving, approaching euvolemia. Being diuresed with Bumex and metolazone. Antihypertensives have been held to allow room for diuresis. She is a bit hypertensive at this point. Continue current meds. Will need to watch potassium closely. When kidney function improves can also add ALMA/ARNI. Stable from a cardiac standpoint, no additional cardiac recommendations to make at this time. Anticipate discharge when renal function improves. (2) Cardiomyopathy: Code(s): I42.9 - Cardiomyopathy, unspecified Status: Acute Assessment and Plan: EF 30% (3) Altered mental status: Code(s): R41.82 - Altered mental status, unspecified Status: Acute Assessment and Plan: Improved (4) Bradycardia: Code(s): R00.1 - Bradycardia, unspecified Status: Acute Assessment and Plan: Junctional bradycardia. Holding beta robert. HR 50-60 generally. BP stable. Continue to hold BB Improved off beta-robert. (5) Anemia: Code(s): D64.9 - Anemia, unspecified Status: Acute Assessment and Plan: Management per hospitalist (6) Chronic kidney disease, stage IV (severe): Code(s): N18.4 - Chronic kidney disease, stage 4 (severe) Status: Acute Assessment and Plan: Worsening renal function. Stable today Daily BMP On Bumex and metolazone per renal Subjective Date/time seen: 08/05/21 10:50 Interval history: Date of service: 08/05/2021 Liza Clark is an 86-year-old female with a history of CVA, CKD, CHF, Type 2 DM who is seen in follow up for CHF exacerbation. Date of service 08/05/2021: She denies any chest pain or shortness of breath today. No swelling. Review of Systems Constitutional: Constitutional: Reports fatigue Eyes: Eyes: Reports no additional eye complaints ENT: Reports Normal hearing present and Denies epistaxis Cardiovascular: Cardiovascular: Denies chest pain, Denies leg edema and Denies dyspnea Respiratory: Respiratory: Denies dyspnea Gastrointestinal: Gastrointestinal: Denies abdominal pain Musculoskeletal: Musculoskeletal: Reports no additional musculoskeletal complaints Integumentary/Breasts: Skin/Breast: Denies rash Neurologic: Reports Normal hearing present, Reports Abnormal speech present, Reports behavioral changes and Reports confusion Psychiatric: Psychiatric: Reports behavioral changes and Reports confusion Endocrine: Endocrine: Reports fatigue Exam Const: General: cooperative, comfortable, no acute distress, well developed, alert, awake, acute distress moderate and respiratory, confusion, ill appearing, lethargic, tired appearing and uncomfortable Nutritional Appearance: well nourished Orientation/consciousness: oriented to person, oriented to place, patient oriented x3, confusion and lethargic Limitations: no limitations Other: Older female lying in bed, eyes open, mildly increased expiratory phase but no respiratory distress. HENMT: Head: normal to inspection Ears: hearing grossly impaired General nose exam: Normal external nose present Mouth: Yes Normal oral and palatal mucosa present, Yes lip normal, Yes tongue normal, Yes moist mucous membranes and Yes dry mucous membranes Teeth and gingiva: abnormal tooth and associated gingiva and poor dentition Eyes: General: appearance normal, both eyes and all related structures Pupils: Equal, round and reactive pupils present EOM: EOMs intact bilaterally Neck: Neck: normal visual inspection, full ROM, trachea midline, supple and no JVD Carotids: normal carotid upstroke Chest: Chest palpation & inspection: no
--- NOTE | 2021-08-05 11:12 | PM.PNNEP ---
Progress Note: A&P Additional Plan 1. Liza has chronic kidney disease. This is most likely based on hypertension, diabetes, vascular disease, and chronic pre renal azotemia. Her creatinine has stayed the same in spite of diuretics. 2. The patient has congestive heart failure. She has a reduced ejection fraction but also more importantly she has severe pulmonary hypertension. patient is getting Bumex 2mg twice a day , spironolactone 25mg daily, and metolazone 5mg once a day. Will continue this regimen while she is here. Whenever she is ready for discharge then we can switch to p.o.. 3. The patient has hypertension. Goal blood pressure is somewhere between 130 and 160 for now. Her blood pressure is creeping up. She is on amlodipine and the diuretics. Will add hydralazine. Try to wean the amlodipine because of her swelling down the line. 4. Patient has diabetes. She is on sliding-scale insulin per hospitalists. 5. History of GERD, duodenal ulcer, gastric ulcer. 6. Hemoglobin is a little better at 8.9 Now. On EPO plus iron. 7. metabolic acidosis is better on the sodium bicarb pills. stop the bicarbonate pills. I am sure the metolazone will keep the bicarbonate up. 8. Her albumin is relatively preserved at 3.5. 9. The patient's mental status looks better Subjective Date/time seen: 08/05/21 11:12 Interval history: a little more interactive today. Breathing comfortably lying in semi-Jacobs's position. She is eating breakfast. Exam Narrative: WDWN in NAD skin no rash or subcu nodules head ncat lungs increased expiratory phase. Decreased breath sounds at the bases. cor reg no rub or gallop abd BS+ nontender and soft ext 2+ presacral edema. Objective Data Vital Signs Vital Signs: Vital Signs - 24 hr 08/04/21 12:00 08/04/21 12:00 08/04/21 14:25 Temperature 36.1 C L Pulse Rate 82 81 80 Respiratory Rate 12 16 Blood Pressure 170/77 H Pulse Oximetry 96 Oxygen Delivery Fraction of Inspired Oxygen 08/04/21 14:31 08/04/21 16:00 08/04/21 16:00 Temperature 36.2 C L Pulse Rate 81 84 85 Respiratory Rate 16 20 Blood Pressure 127/61 Pulse Oximetry 95 Oxygen Delivery Fraction of Inspired Oxygen 08/04/21 22:31 08/04/21 19:47 08/04/21 19:57 Temperature Pulse Rate 80 80 80 Respiratory Rate 14 16 16 Blood Pressure Pulse Oximetry 99 Oxygen Delivery BiPAP Fraction of Inspired Oxygen 08/04/21 20:00 08/04/21 20:00 08/04/21 20:00 Temperature 36.6 C Pulse Rate 82 80 86 Respiratory Rate 18 14 Blood Pressure 161/85 H Pulse Oximetry 97 99 Oxygen Delivery BiPAP Fraction of Inspired Oxygen 35 08/05/21 00:00 08/05/21 02:17 08/05/21 02:17 Temperature Pulse Rate 85 80 80 Respiratory Rate 16 16 Blood Pressure Pulse Oximetry 99 Oxygen Delivery BiPAP Fraction of Inspired Oxygen 08/05/21 00:45 08/05/21 02:33 08/05/21 04:00 Temperature 36.2 C L Pulse Rate 85 80 91 Respiratory Rate 21 H 16 Blood Pressure 163/61 H Pulse Oximetry 100 Oxygen Delivery Fraction of Inspired Oxygen 08/05/21 04:00 08/05/21 08:00 08/05/21 09:24 Temperature 36.9 C 36.9 C Pulse Rate 91 102 H 92 Respiratory Rate 18 16 16 Blood Pressure 147/50 H 179/61 H Pulse Oximetry 95 96 Oxygen Delivery Fraction of Inspired Oxygen 08/05/21 09:24 Temperature Pulse Rate Respiratory Rate Blood Pressure Pulse Oximetry 96 Oxygen Delivery Room Air Fraction of Inspired Oxygen Intake/Output Intake/Output: Intake & Output 08/02/21 08/03/21 08/04/21 08/05/21 23:59 23:59 23:59 23:59 Intake Total 875 880 800 640 Output Total 6076 4885 2175 1100 [facility] [phone] Meds/Results Medications: Active Medications Generic Name Dose Route Start Last Admin Trade Name Freq PRN Reason Stop Dose Admin Albuterol 5 mg 07/31/21 20:00 08/05/21 09:21 Albuterol Sulfate Neb 2.5 Mg/3 Ml
--- NOTE | 2021-08-05 11:21 | PCSTNOTE ---
Communication evaluation completed, see report in EMR.
[2021-08-05 11:22] LABS: Glucose Point of Care 182 mg/dl (65-105)
[2021-08-05] MEDS: metOLazone 5 MG TABLET PO (12:54)
[2021-08-05] MEDS: hydrALAZINE HCL 25 MG TABLET PO ×2 (12:54→17:27)
--- NOTE | 2021-08-05 12:57 | PC.NURSE ---
new med order for hydralazine PO administered, will continue to monitor BP
--- NOTE | 2021-08-05 13:26 | PCOTNOTE ---
Occupational therapy frequency change due to poor endurance and motivation. Changing from 5-7x/wk to 2-3x/wk.
--- NOTE | 2021-08-05 13:46 | P.PNIM_ITS ---
Progress Note: A&P Assessment and Plan (1) CHF (congestive heart failure): Qualifiers: Heart failure chronicity: acute on chronic Code(s): I50.9 - Heart failure, unspecified Status: Acute Assessment and Plan: Acute on chronic systolic and diastolic CHF * CXR showed pulmonary edema with bilateral pleural effusions. BNP 6700 * Echo from 07/10/2021 revealed EF 35-40% with diastolic dysfunction * Appreciate cardiology consultation * Transitioned to bumex and metolazone. Lasix discontinued * Continue spironolactone 25 mg daily * Monitor intake and output, daily weights. Heart healthy diet * Volume status has improved significantly. (2) Altered mental status: Code(s): R41.82 - Altered mental status, unspecified Status: Acute Assessment and Plan: Improving. Onset 08/01/2021. Patient was extremely drowsy with slurred speech * Discussed with patient's contact acid plant operator helper/niece who reports this is not baseline * Head CT on 08/01 showed no acute intracranial findings with evidence of chronic left basal ganglia lacunar infarct * Carotid Doppler with <50% stenosis of bilateral internal carotid arteries * Brain MRI negative for acute infarct * B12, folate, ammonia within normal limits * UA without concerns for infection. Urine culture negative * Metabolic etiology seems unlikely on review of labs. BUN/Cr is slightly higher than baseline but remaining stable. Appreciate nephrology consultation * Adverse effect from medication seems unlikely. Medication list reviewed. * Appreciate Neurology consultation. Patient noted to have mild resting tremor. * Overall mental status improved. Patient A&O x3 today and is more alert (3) Bradycardia: Code(s): R00.1 - Bradycardia, unspecified Status: Acute Assessment and Plan: HR noted to be in the 40-50 upon arrival * Received IV atropine * Metoprolol is on hold * TSH is slightly elevated with normal T4 * Heart rate has subsequently been well controlled * Appreciate cardiology consultation * No recent episodes of bradycardia. Will discontinue telemetry monitoring. (4) Acute on chronic kidney failure: Code(s): N17.9 - Acute kidney failure, unspecified; N18.9 - Chronic kidney disease, unspecified Status: Acute Assessment and Plan: Baseline creatinine appears to be fluctuant, 1.7-2.0. Creatinine increased up to 2.9 this admission * Creatinine is 2.5 today. BUN 72 * Most likely due to need for IV diuresis. Lasix has been discontinued and transitioned to Bumex and metolazone * Monitor urine output * Appreciate nephrology consultation * Continue to monitor BMP closely (5) Diabetes: Code(s): E11.9 - Type 2 diabetes mellitus without complications Status: Chronic Assessment and Plan: A1c 5.7 (07/10/2021). Blood sugars well controlled this admission * Continue Accu-Cheks, sliding scale insulin, hypoglycemic protocol * Monitor glucose trends * Had episode of hypoglycemia 08/03/21 with glucose 64, likely due to decreased PO intake. Subsequent blood sugars stable and she is tolerating PO intake. (6) Hypertension: Code(s): I10 - Essential (primary) hypertension Status: Chronic Assessment and Plan: Blood pressure reviewed and have been elevated * Metoprolol on hold due to bradycardia * Amlodipine discontinued. May have contributed to lower extremity edema. * Started on spironolactone * Discussed with nephrology. Will add 25 mg hydralazine t.i.d. * Monitor blood pressure trends closely (7) Anemia:
--- NOTE | 2021-08-05 13:46 | PM.IMPN ---
Progress Note: A&P Assessment and Plan (1) CHF (congestive heart failure): Qualifiers: Heart failure chronicity: acute on chronic Code(s): I50.9 - Heart failure, unspecified Status: Acute Assessment and Plan: Acute on chronic systolic and diastolic CHF CXR showed pulmonary edema with bilateral pleural effusions. BNP 6700 Echo from 07/10/2021 revealed EF 35-40% with diastolic dysfunction Appreciate cardiology consultation Transitioned to bumex and metolazone. Lasix discontinued Continue spironolactone 25 mg daily Monitor intake and output, daily weights. Heart healthy diet Volume status has improved significantly. (2) Altered mental status: Code(s): R41.82 - Altered mental status, unspecified Status: Acute Assessment and Plan: Improving. Onset 08/01/2021. Patient was extremely drowsy with slurred speech Discussed with patient's character impersonator/niece who reports this is not baseline Head CT on 08/01 showed no acute intracranial findings with evidence of chronic left basal ganglia lacunar infarct Carotid Doppler with <50% stenosis of bilateral internal carotid arteries Brain MRI negative for acute infarct B12, folate, ammonia within normal limits UA without concerns for infection. Urine culture negative Metabolic etiology seems unlikely on review of labs. BUN/Cr is slightly higher than baseline but remaining stable. Appreciate nephrology consultation Adverse effect from medication seems unlikely. Medication list reviewed. Appreciate Neurology consultation. Patient noted to have mild resting tremor. Overall mental status improved. Patient A&O x3 today and is more alert (3) Bradycardia: Code(s): R00.1 - Bradycardia, unspecified Status: Acute Assessment and Plan: HR noted to be in the 40-50 upon arrival Received IV atropine Metoprolol is on hold TSH is slightly elevated with normal T4 Heart rate has subsequently been well controlled Appreciate cardiology consultation No recent episodes of bradycardia. Will discontinue telemetry monitoring. (4) Acute on chronic kidney failure: Code(s): N17.9 - Acute kidney failure, unspecified; N18.9 - Chronic kidney disease, unspecified Status: Acute Assessment and Plan: Baseline creatinine appears to be fluctuant, 1.7-2.0. Creatinine increased up to 2.9 this admission Creatinine is 2.5 today. BUN 72 Most likely due to need for IV diuresis. Lasix has been discontinued and transitioned to Bumex and metolazone Monitor urine output Appreciate nephrology consultation Continue to monitor BMP closely (5) Diabetes: Code(s): E11.9 - Type 2 diabetes mellitus without complications Status: Chronic Assessment and Plan: A1c 5.7 (07/10/2021). Blood sugars well controlled this admission Continue Accu-Cheks, sliding scale insulin, hypoglycemic protocol Monitor glucose trends Had episode of hypoglycemia 08/03/21 with glucose 64, likely due to decreased PO intake. Subsequent blood sugars stable and she is tolerating PO intake. (6) Hypertension: Code(s): I10 - Essential (primary) hypertension Status: Chronic Assessment and Plan: Blood pressure reviewed and have been elevated Metoprolol on hold due to bradycardia Amlodipine discontinued. May have contributed to lower extremity edema. Started on spironolactone Discussed with nephrology. Will add 25 mg hydralazine t.i.d. Monitor blood pressure trends closely (7) Anemia: Code(s): D64.9 - Anemia, unspecified Status: Acute Assessment and Plan: Likely anemia of chronic disease H&H has remained stable Iron panel, B12, folate reviewed and is appropriate Received Epogen and IV Venofer per nephrology Monitor H&H closely (8) Transaminitis: Code(s): R74.01 - Elevation of levels of liver transaminase levels Status: Acute Assessment and Pl
[2021-08-05 16:34] LABS: Glucose Point of Care 134 mg/dl (65-105)
[2021-08-05] MEDS: IRON SUCROSE COMPLEX 200 MG in SODIUM CHLORIDE 0.9% IV 50 ML 120 MG IVPB (17:28)
[2021-08-05] MEDS: SIMVASTATIN 20 MG TABLET PO (20:22)
[2021-08-05] MEDS: DOCUSATE SODIUM 100 MG CAPSULE PO (20:22)
[2021-08-05 21:19] LABS: Glucose Point of Care 140 mg/dl (65-105)
[2021-08-06] VITALS (10 sets, daily range): BP systolic 149–180; BP diastolic 58–72; PULSE 59–96; RESP 14–18; TEMP 36.4–36.8; O2SAT 93–98
[2021-08-06 06:03] LABS: Hematocrit 29.8 % (37.0-47.0); Hemoglobin 9.5 g/dL (12.0-15.0); Mean Corpuscular HGB Conc 31.9 g/dl (32-36); Mean Corpuscular Volume 97.4 fl (80-100); Mean Platelet Volume 10.3 fl (7.4-10.4); Platelet Count Result 146 k/mm3 (150-375); Red Blood Count 3.06 M/mm3 (4.2-5.4); Red Cell Distribution Width 17.1 % (11.5-14.5); White Blood Count 6.1 K/mm3 (4.5-10.0)
[2021-08-06 06:22] LABS: Albumin Level 3.3 g/dL (3.5-5.1); Anion Gap 8 mmol/L (8-16); Blood Urea Nitrogen 73 mg/dL (7-17); Calcium 8.6 mg/dL (8.4-10.2); Carbon Dioxide 27 mmol/L (22-30); Chloride 102 mmol/L (98-107); Estimated CRCL calculation 15 ml/min; Estimated Glomerular Filt Rate 20; Glucose 106 mg/dL (65-110); Phosphorus 3.8 mg/dL (2.5-4.5); Potassium 3.8 mmol/L (3.4-5.0); Sodium 137 mmol/L (137-145)
[2021-08-06 07:39] LABS: Glucose Point of Care 108 mg/dl (65-105)
--- NOTE | 2021-08-06 09:14 | PM.PNCARD ---
Progress Note: A&P Assessment and Plan (1) Acute combined systolic and diastolic congestive heart failure: Code(s): I50.41 - Acute combined systolic (congestive) and diastolic (congestive) heart failure Status: Acute Assessment and Plan: Acute on chronic systolic (EF 35-40%) and diastolic heart failure exacerbation. Improving, approaching euvolemia. Being diuresed with Bumex and metolazone. Antihypertensives have been held to allow room for diuresis. She is a bit hypertensive at this point. Continue current meds. Will need to watch potassium closely. When kidney function improves can also add ALMA/ARNI. Diuretics per Nephrology Stable from a cardiac standpoint, no additional cardiac recommendations to make at this time. Anticipate discharge when renal function improves. (2) Cardiomyopathy: Code(s): I42.9 - Cardiomyopathy, unspecified Status: Acute Assessment and Plan: EF 30% (3) Altered mental status: Code(s): R41.82 - Altered mental status, unspecified Status: Acute Assessment and Plan: Improved (4) Bradycardia: Code(s): R00.1 - Bradycardia, unspecified Status: Acute Assessment and Plan: Junctional bradycardia. Holding beta robert. HR 50-60 generally. BP stable. Continue to hold BB Improved off beta-robert. (5) Anemia: Code(s): D64.9 - Anemia, unspecified Status: Acute Assessment and Plan: Management per hospitalist (6) Chronic kidney disease, stage IV (severe): Code(s): N18.4 - Chronic kidney disease, stage 4 (severe) Status: Acute Assessment and Plan: Worsening renal function. Stable today Daily BMP On Bumex and metolazone per renal Subjective Date/time seen: 08/06/21 09:14 Interval history: Date of service: 08/06/2021 Liza Clark is an 86-year-old female with a history of CVA, CKD, CHF, Type 2 DM who is seen in follow up for CHF exacerbation. Date of service 08/06/2021: She denies any chest pain. Has less shortness of breath today. Review of Systems Constitutional: Constitutional: Reports fatigue Eyes: Eyes: Reports no additional eye complaints ENT: Reports Normal hearing present and Denies epistaxis Cardiovascular: Cardiovascular: Denies chest pain, Denies leg edema and Denies dyspnea Respiratory: Respiratory: Denies dyspnea Gastrointestinal: Gastrointestinal: Denies abdominal pain Musculoskeletal: Musculoskeletal: Reports no additional musculoskeletal complaints Integumentary/Breasts: Skin/Breast: Denies rash Neurologic: Reports Normal hearing present, Reports Abnormal speech present, Reports behavioral changes and Reports confusion Psychiatric: Psychiatric: Reports behavioral changes and Reports confusion Endocrine: Endocrine: Reports fatigue Exam Const: General: cooperative, comfortable, no acute distress, well developed, alert, awake, acute distress moderate and respiratory, confusion, ill appearing, lethargic, tired appearing and uncomfortable Nutritional Appearance: well nourished Orientation/consciousness: oriented to person, oriented to place, patient oriented x3, confusion and lethargic Limitations: no limitations Other: Older female lying in bed, eyes open, mildly increased expiratory phase but no respiratory distress. HENMT: Head: normal to inspection Ears: hearing grossly impaired General nose exam: Normal external nose present Mouth: Yes Normal oral and palatal mucosa present, Yes lip normal, Yes tongue normal, Yes moist mucous membranes and Yes dry mucous membranes Teeth and gingiva: abnormal tooth and associated gingiva and poor dentition Eyes: General: appearance normal, both eyes and all related structures Pupils: Equal, round and reactive pupils present EOM: EOMs intact bilaterally Neck: Neck: normal visual inspection, full ROM, trachea midline, supple and no JVD Carotids: normal carotid upstroke Chest: Chest palpat
[2021-08-06] MEDS: FERROUS SULFATE 324 MG TABLET PO ×2 (09:18→17:06)
[2021-08-06] MEDS: HEPARIN SODIUM 5,000 UNITS/ML VIAL 5000 UNITS SUB-Q ×2 (09:19→20:21)
[2021-08-06] MEDS: IRON SUCROSE COMPLEX 200 MG in SODIUM CHLORIDE 0.9% IV 50 ML 120 MG IVPB (09:19)
[2021-08-06] MEDS: buPROPion HCL XL (24 HR) 150 MG TABCR PO (09:19)
[2021-08-06] MEDS: hydrALAZINE HCL 25 MG TABLET PO ×3 (09:19→17:06)
[2021-08-06] MEDS: ASPIRIN 325 MG TABLET PO (09:19)
[2021-08-06] MEDS: BUMETANIDE INJ 2.5 MG/10 ML VIAL 2 MG IV PUSH ×2 (09:19→17:06)
[2021-08-06] MEDS: OMEGA 3 POLYUNSAT FATTY ACIDS 1 GM CAP PO (09:20)
[2021-08-06] MEDS: SPIRONOLACTONE 25 MG TABLET PO (09:20)
[2021-08-06] MEDS: PANTOPRAZOLE 40 MG TABLET PO (09:20)
[2021-08-06] MEDS: metOLazone 5 MG TABLET PO (09:20)
[2021-08-06] MEDS: SODIUM CHLORIDE 1 GM TABLET PO (09:20)
[2021-08-06] MEDS: MULTIVITAMINS /C LUTEIN (CENTRUM SILVER) TABLET *BKC 1 TAB PO (09:20)
--- NOTE | 2021-08-06 09:27 | PM.PNNEP ---
Progress Note: A&P Additional Plan 1. Liza has chronic kidney disease. This is most likely based on hypertension, diabetes, vascular disease, and chronic pre renal azotemia. Her creatinine is actually improved with diuretics. Possibly renal venous hypertension? 2. The patient has congestive heart failure. She has a reduced ejection fraction but also more importantly she has severe pulmonary hypertension. patient is getting Bumex 2mg twice a day , spironolactone 25mg daily, and metolazone 5mg once a day. Will continue this regimen while she is here. 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 3. The patient has hypertension. Goal blood pressure is somewhere between 130 and 160 for now. Her blood pressure is creeping up. She is on hydralazine and the diuretics. Increase the hydralazine. 4. Patient has diabetes. She is on sliding-scale insulin per hospitalists. 5. History of GERD, duodenal ulcer, gastric ulcer. 6. Hemoglobin is a little better at 9.5 Now. On EPO plus iron. 7. metabolic acidosis is better on the sodium bicarb pills. stop the bicarbonate pills. I am sure the metolazone will keep the bicarbonate up. 8. Her albumin is relatively preserved at 3.5. 9. The patient's mental status looks better 10. sodium is doing well. stop the sodium tabs and watch the sodium Subjective Date/time seen: 08/06/21 09:27 Interval history: I am seeing for resistant edema and elevated creatinine. She ate a good breakfast. Exam Narrative: WDWN in NAD skin no rash or subcu nodules head ncat lungs decreased breath sounds at the bases. They sound clear. cor reg no rub or gallop abd BS+ nontender and soft ext 1-2+ presacral edema. Objective Data Vital Signs Vital Signs: Vital Signs - 24 hr 08/05/21 12:17 08/05/21 12:00 08/05/21 09:34 Temperature 36.2 C L Pulse Rate 91 93 95 Respiratory Rate 17 16 Blood Pressure 180/57 H Pulse Oximetry 99 Oxygen Delivery 08/05/21 16:00 08/05/21 16:00 08/05/21 20:00 Temperature 36.6 C 36.7 C Pulse Rate 93 91 57 L Respiratory Rate 16 17 Blood Pressure 158/69 H 158/70 H Pulse Oximetry 99 97 Oxygen Delivery 08/05/21 23:22 08/06/21 04:00 08/06/21 07:40 Temperature 36.6 C 36.7 C Pulse Rate 91 59 L Respiratory Rate 18 18 Blood Pressure 168/66 H 149/58 H Pulse Oximetry 97 96 98 Oxygen Delivery Room Air 08/06/21 08:00 Temperature 36.7 C Pulse Rate 91 Respiratory Rate 16 Blood Pressure 153/66 H Pulse Oximetry 94 Oxygen Delivery Intake/Output Intake/Output: Intake & Output 08/03/21 08/04/21 08/05/21 08/06/21 23:59 23:59 23:59 23:59 Intake Total 040 619 2636 300 Output Total 3075 2175 2300 1700 [facility] -9016 -1315 -1230 -1400 Meds/Results Medications: Active Medications Generic Name Dose Route Start Last Admin Trade Name Freq PRN Reason Stop Dose Admin Albuterol 5 mg 07/31/21 20:00 08/06/21 07:40 Albuterol Sulfate Neb 2.5 Mg/3 Ml Inh INHALATION Not Given Q6HRT [facility] Aspirin 325 mg 08/01/21 09:00 08/06/21 09:19 Aspirin 325 Mg Tablet PO 325 mg DAILY [facility] Administration Bumetanide 2 mg 08/02/21 19:00 08/06/21 09:19 Bumetanide Inj 2.5 Mg/10 Ml Vial IV PUSH 2 mg BID ALEXYS Administration Bupropion HCl 150 mg 08/01/21 09:00 08/06/21 09:19 Bupropion Hcl Xl (24 Hr) 150 Mg Tabcr PO 150 mg QAM ALEXYS Administration Dextrose 12.5 gm 08/02/21 13:29 08/03/21 08:20 Dextrose 50% 25 Gm/50 Ml Syringe IV PUSH 12.5 gm PRN PRN Administration Hypoglycemia Protocol Docusate Sodium 100 mg 08/01/21 21:00 08/05/21 20:22 Docusate Sodium 100 Mg Capsule PO 100 mg HS [facility] Administration Epoetin Eldon-epbx 10,000 units 08/03/21 09:00 08/05/21 09:34 Epoetin Eldon-Epbx 10,000 Units/Ml Vial SUB-Q 10,000 units TuThSa@0900 [facility] Administration Ferrous Sulfate 324 mg 08/01/21 08:00 08/06/21 09:18 Ferrous Sulf
[2021-08-06 11:21] LABS: Glucose Point of Care 211 mg/dl (65-105)
[2021-08-06] MEDS: INSULIN ASPART (*BKC) 100 UNITS/ML SUB-Q (12:00)
--- NOTE | 2021-08-06 13:08 | P.PNIM_ITS ---
Progress Note: A&P Assessment and Plan (1) CHF (congestive heart failure): Qualifiers: Heart failure chronicity: acute on chronic Code(s): I50.9 - Heart failure, unspecified Status: Acute Assessment and Plan: Acute on chronic systolic and diastolic CHF * CXR showed pulmonary edema with bilateral pleural effusions. BNP 6700 * Echo from 07/10/2021 revealed EF 35-40% with diastolic dysfunction * Appreciate cardiology consultation * Continue diuresis with bumex and metolazone. Lasix discontinued * Continue spironolactone 25 mg daily * Monitor intake and output, daily weights. Heart healthy diet * Volume status has improved significantly. (2) Altered mental status: Code(s): R41.82 - Altered mental status, unspecified Status: Acute Assessment and Plan: Resolved. Onset 08/01/2021. Patient was extremely drowsy with slurred speech * Head CT on 08/01 showed no acute intracranial findings with evidence of chronic left basal ganglia lacunar infarct * Carotid Doppler with <50% stenosis of bilateral internal carotid arteries * Brain MRI negative for acute infarct * B12, folate, ammonia within normal limits * UA without concerns for infection. Urine culture negative * May have been due to rising BUN/creatinine. This continues to improve. * Adverse effect from medication seems unlikely. Medication list reviewed. * Appreciate Neurology consultation. Patient noted to have mild resting tremor. * Overall mental status improved. Patient A&O x4 today and remains alert (3) Bradycardia: Code(s): R00.1 - Bradycardia, unspecified Status: Acute Assessment and Plan: HR noted to be in the 40-50 upon arrival * Received IV atropine * Metoprolol remains on hold * TSH is slightly elevated with normal T4 * Heart rate has subsequently been well controlled * Appreciate cardiology consultation (4) Acute on chronic kidney failure: Code(s): N17.9 - Acute kidney failure, unspecified; N18.9 - Chronic kidney disease, unspecified Status: Acute Assessment and Plan: Baseline creatinine appears to be fluctuant, 1.7-2.0. Creatinine increased up to 2.9 this admission * Creatinine is 2.3 today. BUN 73 * Most likely due to need for IV diuresis. Lasix has been discontinued and transitioned to Bumex and metolazone * Monitor urine output * Appreciate nephrology consultation * Continue to monitor BMP closely (5) Diabetes: Code(s): E11.9 - Type 2 diabetes mellitus without complications Status: Chronic Assessment and Plan: A1c 5.7 (07/10/2021). Blood sugars well controlled this admission * Continue Accu-Cheks, sliding scale insulin, hypoglycemic protocol * Monitor glucose trends * Had episode of hypoglycemia 08/03/21 with glucose 64, likely due to decreased PO intake. Subsequent blood sugars stable and she is tolerating PO intake. (6) Hypertension: Code(s): I10 - Essential (primary) hypertension Status: Chronic Assessment and Plan: Blood pressure reviewed and have been elevated * Metoprolol on hold due to bradycardia * Amlodipine discontinued. May have contributed to lower extremity edema. * Continue spironolactone * Continue with hydralazine 25 mg t.i.d.. * Monitor blood pressure trends closely (7) Anemia: Code(s): D64.9 - Anemia, unspecified Status: Acute Assessment and Plan: Likely anemia of chronic disease * H&H has remained stable * Iron panel, B12, folate reviewed and is appropriate * Received Epogen and IV
--- NOTE | 2021-08-06 13:08 | PM.IMPN ---
Progress Note: A&P Assessment and Plan (1) CHF (congestive heart failure): Qualifiers: Heart failure chronicity: acute on chronic Code(s): I50.9 - Heart failure, unspecified Status: Acute Assessment and Plan: Acute on chronic systolic and diastolic CHF CXR showed pulmonary edema with bilateral pleural effusions. BNP 6700 Echo from 07/10/2021 revealed EF 35-40% with diastolic dysfunction Appreciate cardiology consultation Continue diuresis with bumex and metolazone. Lasix discontinued Continue spironolactone 25 mg daily Monitor intake and output, daily weights. Heart healthy diet Volume status has improved significantly. (2) Altered mental status: Code(s): R41.82 - Altered mental status, unspecified Status: Acute Assessment and Plan: Resolved. Onset 08/01/2021. Patient was extremely drowsy with slurred speech Head CT on 08/01 showed no acute intracranial findings with evidence of chronic left basal ganglia lacunar infarct Carotid Doppler with <50% stenosis of bilateral internal carotid arteries Brain MRI negative for acute infarct B12, folate, ammonia within normal limits UA without concerns for infection. Urine culture negative May have been due to rising BUN/creatinine. This continues to improve. Adverse effect from medication seems unlikely. Medication list reviewed. Appreciate Neurology consultation. Patient noted to have mild resting tremor. Overall mental status improved. Patient A&O x4 today and remains alert (3) Bradycardia: Code(s): R00.1 - Bradycardia, unspecified Status: Acute Assessment and Plan: HR noted to be in the 40-50 upon arrival Received IV atropine Metoprolol remains on hold TSH is slightly elevated with normal T4 Heart rate has subsequently been well controlled Appreciate cardiology consultation (4) Acute on chronic kidney failure: Code(s): N17.9 - Acute kidney failure, unspecified; N18.9 - Chronic kidney disease, unspecified Status: Acute Assessment and Plan: Baseline creatinine appears to be fluctuant, 1.7-2.0. Creatinine increased up to 2.9 this admission Creatinine is 2.3 today. BUN 73 Most likely due to need for IV diuresis. Lasix has been discontinued and transitioned to Bumex and metolazone Monitor urine output Appreciate nephrology consultation Continue to monitor BMP closely (5) Diabetes: Code(s): E11.9 - Type 2 diabetes mellitus without complications Status: Chronic Assessment and Plan: A1c 5.7 (07/10/2021). Blood sugars well controlled this admission Continue Accu-Cheks, sliding scale insulin, hypoglycemic protocol Monitor glucose trends Had episode of hypoglycemia 08/03/21 with glucose 64, likely due to decreased PO intake. Subsequent blood sugars stable and she is tolerating PO intake. (6) Hypertension: Code(s): I10 - Essential (primary) hypertension Status: Chronic Assessment and Plan: Blood pressure reviewed and have been elevated Metoprolol on hold due to bradycardia Amlodipine discontinued. May have contributed to lower extremity edema. Continue spironolactone Continue with hydralazine 25 mg t.i.d.. Monitor blood pressure trends closely (7) Anemia: Code(s): D64.9 - Anemia, unspecified Status: Acute Assessment and Plan: Likely anemia of chronic disease H&H has remained stable Iron panel, B12, folate reviewed and is appropriate Received Epogen and IV Venofer per nephrology Monitor H&H closely (8) Transaminitis: Code(s): R74.01 - Elevation of levels of liver transaminase levels Status: Acute Assessment and Plan: Nearly resolved. AST is normal. ALT is just mildly elevated at 45 Hepatitis panel negative Continue to monitor LFTs Subjective Date/time seen: 08/06/21 13:08 Interval history: Date of service: 08/06/2021 Liza Clark
[2021-08-06 16:41] LABS: Glucose Point of Care 143 mg/dl (65-105)
[2021-08-06] MEDS: ALBUTEROL SULFATE NEB 2.5 MG/0.5 ML INH 5 MG (19:58)
[2021-08-06] MEDS: ALBUTEROL SULFATE NEB 2.5 MG/3 ML INH 5 MG INHALATION (20:01)
[2021-08-06] MEDS: SIMVASTATIN 20 MG TABLET PO (20:21)
[2021-08-06] MEDS: DOCUSATE SODIUM 100 MG CAPSULE PO (20:21)
[2021-08-06 21:54] LABS: Glucose Point of Care 176 mg/dl (65-105)
[2021-08-07] VITALS (13 sets, daily range): BP systolic 126–153; BP diastolic 52–87; PULSE 75–94; RESP 12–18; TEMP 36.1–36.9; O2SAT 94–100
--- NOTE | 2021-08-07 01:57 | PCRCNOTE ---
PT REFUSING 0200 UPD TREATMENT AND BIPAP. PT INFORMED THAT BIPAP IS CRUCIAL FOR IMPROVED VITALS AND ADL'S. PT INFORMED TO CALL RN IF BIPAP OR TREATMENT IS NEEDED.
[2021-08-07 05:48] LABS: Hematocrit 28.6 % (37.0-47.0); Mean Corpuscular HGB Conc 31.5 g/dl (32-36); Mean Corpuscular Hemoglobin 30.9 pg (26-34); Mean Corpuscular Volume 98.3 fl (80-100); Mean Platelet Volume 10.1 fl (7.4-10.4); Platelet Count Result 133 k/mm3 (150-375); Red Blood Count 2.91 M/mm3 (4.2-5.4)
[2021-08-07 06:04] LABS: Alanine Aminotransferase 33 U/L (6-35); Albumin Level 3.1 g/dL (3.5-5.1); Alkaline Phosphatase 101 U/L (38-126); Anion Gap 5 mmol/L (8-16); Aspartate Amino Transferase 32 U/L (14-36); Bilirubin,Total 0.5 mg/dL (0.2-1.3); Blood Urea Nitrogen 68 mg/dL (7-17); Calcium 8.2 mg/dL (8.4-10.2); Carbon Dioxide 30 mmol/L (22-30); Chloride 99 mmol/L (98-107); Estimated CRCL calculation 13 ml/min; Estimated Glomerular Filt Rate 20; Glucose 124 mg/dL (65-110); Phosphorus 3.8 mg/dL (2.5-4.5); Potassium 3.6 mmol/L (3.4-5.0); Sodium 134 mmol/L (137-145)
[2021-08-07 07:40] LABS: Glucose Point of Care 130 mg/dl (65-105)
[2021-08-07] MEDS: OMEGA 3 POLYUNSAT FATTY ACIDS 1 GM CAP PO (08:16)
[2021-08-07] MEDS: FERROUS SULFATE 324 MG TABLET PO ×2 (08:16→16:50)
[2021-08-07] MEDS: metOLazone 5 MG TABLET PO (08:16)
[2021-08-07] MEDS: hydrALAZINE HCL 25 MG TABLET PO ×3 (08:16→16:50)
[2021-08-07] MEDS: PANTOPRAZOLE 40 MG TABLET PO (08:16)
[2021-08-07] MEDS: ASPIRIN 325 MG TABLET PO (08:16)
[2021-08-07] MEDS: buPROPion HCL XL (24 HR) 150 MG TABCR PO (08:16)
[2021-08-07] MEDS: SPIRONOLACTONE 25 MG TABLET PO (08:16)
[2021-08-07] MEDS: HEPARIN SODIUM 5,000 UNITS/ML VIAL 5000 UNITS SUB-Q ×2 (08:17→20:04)
[2021-08-07] MEDS: IRON SUCROSE COMPLEX 200 MG in SODIUM CHLORIDE 0.9% IV 50 ML 120 MG IVPB (08:17)
[2021-08-07] MEDS: MULTIVITAMINS /C LUTEIN (CENTRUM SILVER) TABLET *BKC 1 TAB PO (08:17)
[2021-08-07] MEDS: BUMETANIDE INJ 2.5 MG/10 ML VIAL 2 MG IV PUSH (08:30)
[2021-08-07] MEDS: ALBUTEROL SULFATE NEB 2.5 MG/0.5 ML INH 5 MG ×2 (08:40→13:36)
[2021-08-07 11:21] LABS: Glucose Point of Care 166 mg/dl (65-105)
--- NOTE | 2021-08-07 13:53 | PM.PNCARD ---
Progress Note: A&P Assessment and Plan (1) Cardiomyopathy: Code(s): I42.9 - Cardiomyopathy, unspecified Status: Acute (2) CHF (congestive heart failure): Qualifiers: Heart failure chronicity: acute on chronic Code(s): I50.9 - Heart failure, unspecified Status: Acute Plan 86-year-old lady with left ventricular systolic dysfunction as well as valvular heart disease appears to be improved with diuretics. By examination appears to be essentially euvolemic. Would probably shift her to p.o. Bumex at this time and consider discharge to be appropriate in the next 24-48 hours. Edgar French MD [facility] Subjective Date/time seen: Date of service: 08/07/21 13:53 Interval history: Follow-up visit in this 86-year-old woman with: Congestive heart failure with left ventricular systolic dysfunction as well as aortic stenosis and mitral regurgitation. Patient has chronic kidney disease complicating all of this. Feels relatively well today is obviously hard of hearing denies any current shortness of breath. Still receiving intravenous Bumex. Exam Const: General: comfortable and no acute distress Other: Elderly lady seated in the chair just finished physical therapy appears to be quite comfortable HENMT: Mouth: Yes moist mucous membranes Eyes: Sclera: sclerae normal Pupils: Equal, round and reactive pupils present Neck: Neck: supple and no JVD Resp: Effort & Inspection: normal respiratory effort Other: No audible pulmonary rales at this time Cardio: Rate: regular rate Rhythm: regular rhythm GI: GI Palp: Yes Soft to palpation Auscultation: normal bowel sounds Skin: General skin exam: normal color Neuro: Other: Mentation slow but response to questions appropriately obviously hard of hearing Objective Data Vital Signs Vital Signs: Vital Signs - 24 hr 08/06/21 17:05 08/06/21 19:40 08/06/21 20:01 Temperature 36.8 C 36.6 C Pulse Rate 91 93 93 Respiratory Rate 17 18 18 Blood Pressure 160/68 H 162/71 H Pulse Oximetry 97 98 Oxygen Delivery 08/06/21 20:02 08/06/21 20:10 08/06/21 20:00 Temperature Pulse Rate 96 Respiratory Rate 18 Blood Pressure Pulse Oximetry 93 Oxygen Delivery Room Air Room Air 08/06/21 22:45 08/07/21 00:00 08/07/21 04:00 Temperature 36.9 C 36.6 C Pulse Rate 82 94 90 Respiratory Rate 14 17 18 Blood Pressure 153/55 H 150/62 H Pulse Oximetry 98 95 98 Oxygen Delivery BiPAP 08/07/21 08:41 08/07/21 08:47 08/07/21 09:51 Temperature 36.8 C Pulse Rate 87 84 85 Respiratory Rate 12 12 18 Blood Pressure 136/69 Pulse Oximetry 99 Oxygen Delivery 08/07/21 08:17 08/07/21 13:36 08/07/21 13:40 Temperature Pulse Rate 91 89 Respiratory Rate 18 12 12 Blood Pressure Pulse Oximetry 99 Oxygen Delivery BiPAP Intake/Output Intake/Output: Intake & Output 08/04/21 08/05/21 08/06/21 08/07/21 23:59 23:59 23:59 23:59 Intake Total 860 1070 1390 520 Output Total 2175 2300 2800 800 Balance -1315 -1230 -1410 -280 Meds/Results Medications: Active Medications Generic Name Dose Route Start Last Admin Trade Name Freq PRN Reason Stop Dose Admin Albuterol 5 mg 07/31/21 20:00 08/07/21 01:56 Albuterol Sulfate Neb 2.5 Mg/3 Ml Inh INHALATION Not Given Q6HRT ALEXYS Aspirin 325 mg 08/01/21 09:00 08/07/21 08:16 Aspirin 325 Mg Tablet PO 325 mg DAILY ALEXYS Administration Bumetanide 2 mg 08/02/21 19:00 08/07/21 08:30 Bumetanide Inj 2.5 Mg/10 Ml Vial IV PUSH 2 mg BID ALEXYS Administration Bupropion HCl 150 mg 08/01/21 09:00 08/07/21 08:16 Bupropion Hcl Xl (24 Hr) 150 Mg Tabcr PO 150 mg QAM ALEXYS Administration Dextrose 12.5 gm 08/02/21 13:29 08/03/21 08:20 Dextrose 50% 25 Gm/50 Ml Syringe IV PUSH 12.5 gm PRN PRN Administration Hypoglycemia Protocol Docusate Sodium 100 mg 08/01/21 21:00 08/06/21 20:21 Docusate Sodium 100 Mg Capsule PO
--- NOTE | 2021-08-07 14:59 | P.PNIM_ITS ---
Progress Note: A&P Assessment and Plan (1) CHF (congestive heart failure): Qualifiers: Heart failure chronicity: acute on chronic Code(s): I50.9 - Heart failure, unspecified Status: Acute Assessment and Plan: Acute on chronic systolic and diastolic CHF * CXR showed pulmonary edema with bilateral pleural effusions. BNP 6700 * Echo from 07/10/2021 revealed EF 35-40% with diastolic dysfunction * Appreciate cardiology consultation * Transition to p.o. Bumex. Continue metolazone * Continue spironolactone 25 mg daily * Monitor intake and output, daily weights. Heart healthy diet * Volume status has improved significantly, she is nearly euvolemic at this time (2) Altered mental status: Code(s): R41.82 - Altered mental status, unspecified Status: Acute Assessment and Plan: Resolved. Onset 08/01/2021. Patient was extremely drowsy with slurred speech * Head CT on 08/01 showed no acute intracranial findings with evidence of chronic left basal ganglia lacunar infarct * Carotid Doppler with <50% stenosis of bilateral internal carotid arteries * Brain MRI negative for acute infarct * B12, folate, ammonia within normal limits * UA without concerns for infection. Urine culture negative * May have been due to rising BUN/creatinine. This continues to improve. * Adverse effect from medication seems unlikely. Medication list reviewed. * Appreciate Neurology consultation. Patient noted to have mild resting tremor. * Overall mental status improved. Patient A&O x4 today and remains alert (3) Bradycardia: Code(s): R00.1 - Bradycardia, unspecified Status: Acute Assessment and Plan: HR noted to be in the 40-50 upon arrival * Received IV atropine * Metoprolol remains on hold * TSH is slightly elevated with normal T4 * Heart rate has subsequently been well controlled * Appreciate cardiology consultation (4) Acute on chronic kidney failure: Code(s): N17.9 - Acute kidney failure, unspecified; N18.9 - Chronic kidney disease, unspecified Status: Acute Assessment and Plan: Baseline creatinine appears to be fluctuant, 1.7-2.0. Creatinine increased up to 2.9 this admission * Creatinine is 2.3 today. BUN 68 * Most likely due to need for IV diuresis. Lasix discontinued and renal function has improved with Bumex and metolazone * Monitor urine output * Appreciate nephrology consultation * Continue to monitor BMP closely (5) Diabetes: Code(s): E11.9 - Type 2 diabetes mellitus without complications Status: Chronic Assessment and Plan: A1c 5.7 (07/10/2021). Blood sugars well controlled this admission * Continue Accu-Cheks, sliding scale insulin, hypoglycemic protocol * Monitor glucose trends (6) Hypertension: Code(s): I10 - Essential (primary) hypertension Status: Chronic Assessment and Plan: Blood pressure reviewed and have been elevated but are improving. Last BP 150/87 * Metoprolol on hold due to bradycardia * Amlodipine discontinued. May have contributed to lower extremity edema. * Continue spironolactone * Continue with hydralazine 25 mg t.i.d.. * Monitor blood pressure trends closely (7) Anemia: Code(s): D64.9 - Anemia, unspecified Status: Acute Assessment and Plan: Likely anemia of chronic disease * H&H has remained stable * Iron panel, B12, folate reviewed and is appropriate * Received Epogen and IV Venofer per nephrology * Monitor H&H closely (8) Transaminitis:
--- NOTE | 2021-08-07 14:59 | PM.IMPN ---
Progress Note: A&P Assessment and Plan (1) CHF (congestive heart failure): Qualifiers: Heart failure chronicity: acute on chronic Code(s): I50.9 - Heart failure, unspecified Status: Acute Assessment and Plan: Acute on chronic systolic and diastolic CHF CXR showed pulmonary edema with bilateral pleural effusions. BNP 6700 Echo from 07/10/2021 revealed EF 35-40% with diastolic dysfunction Appreciate cardiology consultation Transition to p.o. Bumex. Continue metolazone Continue spironolactone 25 mg daily Monitor intake and output, daily weights. Heart healthy diet Volume status has improved significantly, she is nearly euvolemic at this time (2) Altered mental status: Code(s): R41.82 - Altered mental status, unspecified Status: Acute Assessment and Plan: Resolved. Onset 08/01/2021. Patient was extremely drowsy with slurred speech Head CT on 08/01 showed no acute intracranial findings with evidence of chronic left basal ganglia lacunar infarct Carotid Doppler with <50% stenosis of bilateral internal carotid arteries Brain MRI negative for acute infarct B12, folate, ammonia within normal limits UA without concerns for infection. Urine culture negative May have been due to rising BUN/creatinine. This continues to improve. Adverse effect from medication seems unlikely. Medication list reviewed. Appreciate Neurology consultation. Patient noted to have mild resting tremor. Overall mental status improved. Patient A&O x4 today and remains alert (3) Bradycardia: Code(s): R00.1 - Bradycardia, unspecified Status: Acute Assessment and Plan: HR noted to be in the 40-50 upon arrival Received IV atropine Metoprolol remains on hold TSH is slightly elevated with normal T4 Heart rate has subsequently been well controlled Appreciate cardiology consultation (4) Acute on chronic kidney failure: Code(s): N17.9 - Acute kidney failure, unspecified; N18.9 - Chronic kidney disease, unspecified Status: Acute Assessment and Plan: Baseline creatinine appears to be fluctuant, 1.7-2.0. Creatinine increased up to 2.9 this admission Creatinine is 2.3 today. BUN 68 Most likely due to need for IV diuresis. Lasix discontinued and renal function has improved with Bumex and metolazone Monitor urine output Appreciate nephrology consultation Continue to monitor BMP closely (5) Diabetes: Code(s): E11.9 - Type 2 diabetes mellitus without complications Status: Chronic Assessment and Plan: A1c 5.7 (07/10/2021). Blood sugars well controlled this admission Continue Accu-Cheks, sliding scale insulin, hypoglycemic protocol Monitor glucose trends (6) Hypertension: Code(s): I10 - Essential (primary) hypertension Status: Chronic Assessment and Plan: Blood pressure reviewed and have been elevated but are improving. Last BP 150/87 Metoprolol on hold due to bradycardia Amlodipine discontinued. May have contributed to lower extremity edema. Continue spironolactone Continue with hydralazine 25 mg t.i.d.. Monitor blood pressure trends closely (7) Anemia: Code(s): D64.9 - Anemia, unspecified Status: Acute Assessment and Plan: Likely anemia of chronic disease H&H has remained stable Iron panel, B12, folate reviewed and is appropriate Received Epogen and IV Venofer per nephrology Monitor H&H closely (8) Transaminitis: Code(s): R74.01 - Elevation of levels of liver transaminase levels Status: Acute Assessment and Plan: Resolved. LFTs are normal Hepatitis panel negative Plan Hopeful discharge tomorrow to SNF. Subjective Date/time seen: 08/07/21 14:59 Interval history: Date of service: 08/07/2021 Liza Clark is an 86-year-old female with a history of CVA, CKD, CHF, Type 2 DM who is seen in follow up for CHF exacerbation.
--- NOTE | 2021-08-07 15:12 | PM.PNNEP ---
Progress Note: A&P Additional Plan 1. Liza has chronic kidney disease. This is most likely based on hypertension, diabetes, vascular disease, and chronic pre renal azotemia. Her creatinine is stable at 2.3 today. The patient can be discharged any time she is ready from other aspects. 2. The patient has congestive heart failure. She has a reduced ejection fraction but also more importantly she has severe pulmonary hypertension. patient is getting Bumex 2mg twice a day , spironolactone 25mg daily, and metolazone 5mg once a day. Will continue this regimen while she is here. Whenever [employer] is ready for discharge then change to po diuretics. 3. The patient has hypertension. Systolic blood pressure ranging from 1 30-160. She is on hydralazine and the diuretics. 4. Patient has diabetes. She is on sliding-scale insulin per hospitalists. 5. History of GERD, duodenal ulcer, gastric ulcer. 6. Hemoglobin is 9.0 On EPO plus iron. 7. metabolic acidosis Resolved 8. Her albumin is relatively preserved at 3.5. 9. The patient's mental status looks better 10. hyponatremia. Sodium level is a tiny bit low right now. Will keep an eye on this. If it drops again tomorrow will initiate a fluid restriction. She does not seem to take much in anyway, though. Subjective Date/time seen: 08/07/21 15:12 Interval history: I am seeing for resistant edema and elevated creatinine. She ate a good breakfast. She gets up from bed to chair with help. Exam Narrative: WDWN in NAD skin no rash head ncat lungs decreased breath sounds at the bases. They sound clear. cor reg no rub or gallop abd BS+ nontender and soft ext 1-2+ presacral edema. Objective Data Vital Signs Vital Signs: Vital Signs - 24 hr 08/06/21 17:05 08/06/21 19:40 08/06/21 20:01 Temperature 36.8 C 36.6 C Pulse Rate 91 93 93 Respiratory Rate 17 18 18 Blood Pressure 160/68 H 162/71 H Pulse Oximetry 97 98 Oxygen Delivery 08/06/21 20:02 08/06/21 20:10 08/06/21 20:00 Temperature Pulse Rate 96 Respiratory Rate 18 Blood Pressure Pulse Oximetry 93 Oxygen Delivery Room Air Room Air 08/06/21 22:45 08/07/21 00:00 08/07/21 04:00 Temperature 36.9 C 36.6 C Pulse Rate 82 94 90 Respiratory Rate 14 17 18 Blood Pressure 153/55 H 150/62 H Pulse Oximetry 98 95 98 Oxygen Delivery BiPAP 08/07/21 08:41 08/07/21 08:47 08/07/21 09:51 Temperature 36.8 C Pulse Rate 87 84 85 Respiratory Rate 12 12 18 Blood Pressure 136/69 Pulse Oximetry 99 Oxygen Delivery 08/07/21 08:17 08/07/21 13:36 08/07/21 13:40 Temperature Pulse Rate 91 89 Respiratory Rate 18 12 12 Blood Pressure Pulse Oximetry 99 Oxygen Delivery BiPAP 08/07/21 14:00 Temperature 36.3 C L Pulse Rate 75 Respiratory Rate 18 Blood Pressure 150/87 H Pulse Oximetry 100 Oxygen Delivery Intake/Output Intake/Output: Intake & Output 08/04/21 08/05/21 08/06/21 08/07/21 23:59 23:59 23:59 23:59 Intake Total 860 1070 1390 520 Output Total 2175 [address] [facility] -1315 -1230 -1410 -280 Meds/Results Medications: Active Medications Generic Name Dose Route Start Last Admin Trade Name Freq PRN Reason Stop Dose Admin Albuterol 5 mg 07/31/21 20:00 08/07/21 01:56 Albuterol Sulfate Neb 2.5 Mg/3 Ml Inh INHALATION Not Given Q6HRT ALEXYS Aspirin 325 mg 08/01/21 09:00 08/07/21 08:16 Aspirin 325 Mg Tablet PO 325 mg DAILY ALEXYS Administration Bumetanide 2 mg 08/07/21 17:00 Bumetanide 1 Mg Tablet PO BID ALEXYS Bupropion HCl 150 mg 08/01/21 09:00 08/07/21 08:16 Bupropion Hcl Xl (24 Hr) 150 Mg Tabcr PO 150 mg QAM ALEXYS Administration Dextrose 12.5 gm 08/02/21 13:29 08/03/21 08:20 Dextrose 50% 25 Gm/50 Ml Syringe IV PUSH 12.5 gm PRN PRN Administration Hypoglycemia Protocol Docusate Sodium 100 mg 08/01/21 21:00 08/06/21 20:21 Docusate Sodium 100 Mg Cap
[2021-08-07 16:12] LABS: Glucose Point of Care 174 mg/dl (65-105)
[2021-08-07] MEDS: BUMETANIDE 1 MG TABLET 2 MG PO (16:53)
[2021-08-07] MEDS: DOCUSATE SODIUM 100 MG CAPSULE PO (20:04)
[2021-08-07] MEDS: SIMVASTATIN 20 MG TABLET PO (20:04)
[2021-08-07 20:35] LABS: Glucose Point of Care 193 mg/dl (65-105)
[2021-08-07] MEDS: ALBUTEROL SULFATE NEB 2.5 MG/3 ML INH 5 MG INHALATION (21:16)
[2021-08-08] VITALS (11 sets, daily range): BP systolic 132–167; BP diastolic 51–88; PULSE 85–97; RESP 16–20; TEMP 36.1–36.9; O2SAT 93–97
[2021-08-08 05:48] LABS: Hematocrit 28.6 % (37.0-47.0); Hemoglobin 9.4 g/dL (12.0-15.0); Mean Corpuscular HGB Conc 32.9 g/dl (32-36); Mean Corpuscular Hemoglobin 31.8 pg (26-34); Mean Corpuscular Volume 96.6 fl (80-100); Mean Platelet Volume 10.2 fl (7.4-10.4); Platelet Count Result 148 k/mm3 (150-375); Red Blood Count 2.96 M/mm3 (4.2-5.4); Red Cell Distribution Width 17.1 % (11.5-14.5); White Blood Count 7.1 K/mm3 (4.5-10.0)
[2021-08-08 06:12] LABS: Anion Gap 9 mmol/L (8-16); Blood Urea Nitrogen 74 mg/dL (7-17); Calcium 8.4 mg/dL (8.4-10.2); Carbon Dioxide 28 mmol/L (22-30); Chloride 96 mmol/L (98-107); Estimated CRCL calculation 13 ml/min; Estimated Glomerular Filt Rate 20; Glucose 122 mg/dL (65-110); Potassium 3.8 mmol/L (3.4-5.0); Sodium 133 mmol/L (137-145)
[2021-08-08 07:44] LABS: Glucose Point of Care 144 mg/dl (65-105)
[2021-08-08] MEDS: HEPARIN SODIUM 5,000 UNITS/ML VIAL 5000 UNITS SUB-Q ×2 (08:16→20:00)
[2021-08-08] MEDS: PANTOPRAZOLE 40 MG TABLET PO (08:16)
[2021-08-08] MEDS: SPIRONOLACTONE 25 MG TABLET PO (08:16)
[2021-08-08] MEDS: MULTIVITAMINS /C LUTEIN (CENTRUM SILVER) TABLET *BKC 1 TAB PO (08:16)
[2021-08-08] MEDS: OMEGA 3 POLYUNSAT FATTY ACIDS 1 GM CAP PO (08:16)
[2021-08-08] MEDS: buPROPion HCL XL (24 HR) 150 MG TABCR PO (08:16)
[2021-08-08] MEDS: metOLazone 5 MG TABLET PO (08:16)
[2021-08-08] MEDS: ASPIRIN 325 MG TABLET PO (08:16)
[2021-08-08] MEDS: FERROUS SULFATE 324 MG TABLET PO ×2 (08:16→17:26)
[2021-08-08] MEDS: hydrALAZINE HCL 25 MG TABLET PO ×3 (08:16→17:26)
[2021-08-08] MEDS: EPOETIN ALFA-EPBX 10,000 UNITS/ML VIAL 10000 UNITS SUB-Q (08:17)
[2021-08-08] MEDS: BUMETANIDE 1 MG TABLET 2 MG PO ×2 (08:17→17:25)
[2021-08-08] MEDS: ALBUTEROL SULFATE NEB 2.5 MG/0.5 ML INH (08:54)
--- NOTE | 2021-08-08 11:27 | PM.PNCARD ---
Progress Note: A&P Assessment and Plan (1) Cardiomyopathy: Code(s): I42.9 - Cardiomyopathy, unspecified Status: Acute (2) CHF (congestive heart failure): Qualifiers: Heart failure chronicity: acute on chronic Code(s): I50.9 - Heart failure, unspecified Status: Acute Plan She is euvolemic. She is on stable medications. No changes to her cardiac regimen today. Subjective Date/time seen: 08/08/21 11:27 Interval history: Follow-up visit in this 86-year-old woman with: Congestive heart failure with left ventricular systolic dysfunction as well as aortic stenosis and mitral regurgitation. Patient has chronic kidney disease complicating all of this. Date of service 08/08/2021: She feels little better. No chest pain or shortness of breath Review of Systems Constitutional: Constitutional: Reports fatigue Eyes: Eyes: Reports no additional eye complaints ENT: Reports Normal hearing present and Denies epistaxis Cardiovascular: Cardiovascular: Denies chest pain, Denies leg edema and Denies dyspnea Respiratory: Respiratory: Denies dyspnea Gastrointestinal: Gastrointestinal: Denies abdominal pain Musculoskeletal: Musculoskeletal: Reports no additional musculoskeletal complaints Integumentary/Breasts: Skin/Breast: Denies rash Neurologic: Reports Normal hearing present, Reports Abnormal speech present, Reports behavioral changes and Reports confusion Psychiatric: Psychiatric: Reports behavioral changes and Reports confusion Endocrine: Endocrine: Reports fatigue Exam Const: General: cooperative, comfortable, no acute distress, well developed, alert, awake, acute distress moderate and respiratory, confusion, ill appearing, lethargic, tired appearing and uncomfortable Nutritional Appearance: well nourished Orientation/consciousness: oriented to person, oriented to place, patient oriented x3, confusion and lethargic Limitations: no limitations Other: Elderly lady seated in the chair just finished physical therapy appears to be quite comfortable HENMT: Head: normal to inspection Ears: hearing grossly impaired General nose exam: Normal external nose present Mouth: Yes Normal oral and palatal mucosa present, Yes lip normal, Yes tongue normal, Yes moist mucous membranes and Yes dry mucous membranes Teeth and gingiva: abnormal tooth and associated gingiva and poor dentition Eyes: General: appearance normal, both eyes and all related structures Sclera: sclerae normal Pupils: Equal, round and reactive pupils present EOM: EOMs intact bilaterally Neck: Neck: normal visual inspection, full ROM, trachea midline, supple and no JVD Carotids: normal carotid upstroke Chest: Chest palpation & inspection: normal inspection of the chest Resp: Effort & Inspection: normal respiratory effort, not able to speak in complete sentences, abnormal respiratory pattern, labored, nasal flaring, respiratory distress, tachypneic and uses accessory muscles Auscultation: crackles (bases ) bilateral, rales (Few rales in the right lower lobe), wheezes expiratory wheezes and throughout and diminished lung sounds Other: No audible pulmonary rales at this time Cardio: Jugular venous distension: no JVD Rate: regular rate and bradycardic Rhythm: regular rhythm Heart sounds: S1 normal heart sound present, S2 normal heart sound present and Murmur heart sound present systolic Peripheral pulses: Peripheral pulses 2+ throughout Other: 1-2/6 DONATO mid sternal borders GI: Inspection: abnormal to inspection, distended and visible herniation Auscultation: normal bowel sounds Urinary Catheter: Urinary Catheter: patent and draining and urine clear Skin: General skin exam: normal color and no rashes or lesions noted Lesions: no lesions Rashes: no rashes Trauma: no lacerations or abrasions Wounds: no wounds Hair: normal Nails: normal Neuro: General: oriented to person, oriented to place, patient oriented x3, moves
--- NOTE | 2021-08-08 11:28 | PCNWS ---
Weekly nutritional screen. Patient is tolerating current diet with adequate intake. No weight loss reported. No nutritional needs at this time.
[2021-08-08 11:35] LABS: Glucose Point of Care 156 mg/dl (65-105)
[2021-08-08] MEDS: ALBUTEROL SULFATE NEB 2.5 MG/0.5 ML INH 5 MG INHALATION (14:12)
--- NOTE | 2021-08-08 14:12 | P.PNIM_ITS ---
Progress Note: A&P Assessment and Plan (1) CHF (congestive heart failure): Qualifiers: Heart failure chronicity: acute on chronic Code(s): I50.9 - Heart failure, unspecified Status: Acute Assessment and Plan: Acute on chronic systolic and diastolic CHF * CXR showed pulmonary edema with bilateral pleural effusions. BNP 6700 * Echo from 07/10/2021 revealed EF 35-40% with diastolic dysfunction * Appreciate cardiology consultation * Continue p.o. Bumex and metolazone * Continue spironolactone 25 mg daily * Monitor intake and output, daily weights. Heart healthy diet * Volume status has improved significantly. She appears euvolemic at this time (2) Altered mental status: Code(s): R41.82 - Altered mental status, unspecified Status: Acute Assessment and Plan: Resolved. Onset 08/01/2021. Patient was extremely drowsy with slurred speech * Head CT on 08/01 showed no acute intracranial findings with evidence of chronic left basal ganglia lacunar infarct * Carotid Doppler with <50% stenosis of bilateral internal carotid arteries * Brain MRI negative for acute infarct * B12, folate, ammonia within normal limits * UA without concerns for infection. Urine culture negative * May have been due to rising BUN/creatinine. This continues to improve. * Adverse effect from medication seems unlikely. Medication list reviewed. * Appreciate Neurology consultation. Patient noted to have mild resting tremor. * Overall mental status improved. Patient A&O x4 today and remains alert (3) Bradycardia: Code(s): R00.1 - Bradycardia, unspecified Status: Acute Assessment and Plan: HR noted to be in the 40-50 upon arrival * Received IV atropine * Metoprolol remains on hold * TSH is slightly elevated with normal T4 * Heart rate has subsequently been well controlled * Appreciate cardiology consultation (4) Acute on chronic kidney failure: Code(s): N17.9 - Acute kidney failure, unspecified; N18.9 - Chronic kidney disease, unspecified Status: Acute Assessment and Plan: Baseline creatinine appears to be fluctuant, 1.7-2.0. Creatinine increased up to 2.9 this admission * Creatinine is 2.3 today. BUN 74 * Most likely due to need for IV diuresis. Lasix discontinued and renal function has improved with Bumex and metolazone * Monitor urine output * Appreciate nephrology consultation * Continue to monitor BMP closely (5) Diabetes: Code(s): E11.9 - Type 2 diabetes mellitus without complications Status: Chronic Assessment and Plan: A1c 5.7 (07/10/2021). Blood sugars well controlled this admission * Continue Accu-Cheks, sliding scale insulin, hypoglycemic protocol * Monitor glucose trends (6) Hypertension: Code(s): I10 - Essential (primary) hypertension Status: Chronic Assessment and Plan: Blood pressure reviewed and have been elevated but are improving. Last BP 152/ 82 * Metoprolol on hold due to bradycardia * Amlodipine discontinued. May have contributed to lower extremity edema. * Continue spironolactone * Continue with hydralazine 25 mg t.i.d.. * Monitor blood pressure trends closely (7) Anemia: Code(s): D64.9 - Anemia, unspecified Status: Acute Assessment and Plan: Likely anemia of chronic disease * H&H has remained stable * Iron panel, B12, folate reviewed and is appropriate * Received Epogen and IV Venofer per nephrology * Monitor H&H closely Plan Hopeful discharge tomorrow t
--- NOTE | 2021-08-08 14:12 | PM.IMPN ---
Progress Note: A&P Assessment and Plan (1) CHF (congestive heart failure): Qualifiers: Heart failure chronicity: acute on chronic Code(s): I50.9 - Heart failure, unspecified Status: Acute Assessment and Plan: Acute on chronic systolic and diastolic CHF CXR showed pulmonary edema with bilateral pleural effusions. BNP 6700 Echo from 07/10/2021 revealed EF 35-40% with diastolic dysfunction Appreciate cardiology consultation Continue p.o. Bumex and metolazone Continue spironolactone 25 mg daily Monitor intake and output, daily weights. Heart healthy diet Volume status has improved significantly. She appears euvolemic at this time (2) Altered mental status: Code(s): R41.82 - Altered mental status, unspecified Status: Acute Assessment and Plan: Resolved. Onset 08/01/2021. Patient was extremely drowsy with slurred speech Head CT on 08/01 showed no acute intracranial findings with evidence of chronic left basal ganglia lacunar infarct Carotid Doppler with <50% stenosis of bilateral internal carotid arteries Brain MRI negative for acute infarct B12, folate, ammonia within normal limits UA without concerns for infection. Urine culture negative May have been due to rising BUN/creatinine. This continues to improve. Adverse effect from medication seems unlikely. Medication list reviewed. Appreciate Neurology consultation. Patient noted to have mild resting tremor. Overall mental status improved. Patient A&O x4 today and remains alert (3) Bradycardia: Code(s): R00.1 - Bradycardia, unspecified Status: Acute Assessment and Plan: HR noted to be in the 40-50 upon arrival Received IV atropine Metoprolol remains on hold TSH is slightly elevated with normal T4 Heart rate has subsequently been well controlled Appreciate cardiology consultation (4) Acute on chronic kidney failure: Code(s): N17.9 - Acute kidney failure, unspecified; N18.9 - Chronic kidney disease, unspecified Status: Acute Assessment and Plan: Baseline creatinine appears to be fluctuant, 1.7-2.0. Creatinine increased up to 2.9 this admission Creatinine is 2.3 today. BUN 74 Most likely due to need for IV diuresis. Lasix discontinued and renal function has improved with Bumex and metolazone Monitor urine output Appreciate nephrology consultation Continue to monitor BMP closely (5) Diabetes: Code(s): E11.9 - Type 2 diabetes mellitus without complications Status: Chronic Assessment and Plan: A1c 5.7 (07/10/2021). Blood sugars well controlled this admission Continue Accu-Cheks, sliding scale insulin, hypoglycemic protocol Monitor glucose trends (6) Hypertension: Code(s): I10 - Essential (primary) hypertension Status: Chronic Assessment and Plan: Blood pressure reviewed and have been elevated but are improving. Last BP 152/82 Metoprolol on hold due to bradycardia Amlodipine discontinued. May have contributed to lower extremity edema. Continue spironolactone Continue with hydralazine 25 mg t.i.d.. Monitor blood pressure trends closely (7) Anemia: Code(s): D64.9 - Anemia, unspecified Status: Acute Assessment and Plan: Likely anemia of chronic disease H&H has remained stable Iron panel, B12, folate reviewed and is appropriate Received Epogen and IV Venofer per nephrology Monitor H&H closely Plan Hopeful discharge tomorrow to SNF. Subjective Date/time seen: 08/08/21 14:12 Interval history: Date of service: 08/08/2021 Liza Clark is an 86-year-old female with a history of CVA, CKD, CHF, Type 2 DM who is seen in follow up for CHF exacerbation. She feels well today. She has no concerns at this time. She ate a good breakfast this morning. She has been sleeping well. She denies shortness of breath. Reports her swelling is gone. She denies nausea, vomiti
[2021-08-08 16:36] LABS: Glucose Point of Care 181 mg/dl (65-105)
[2021-08-08] MEDS: DOCUSATE SODIUM 100 MG CAPSULE PO (20:00)
[2021-08-08] MEDS: SIMVASTATIN 20 MG TABLET PO (20:00)
--- NOTE | 2021-08-08 20:37 | PCRCNOTE ---
PT REFUSING UPD TREATMENTS AND BIPAP ON 08/08. PT SATS AT 94% ON ROOM AIR WITH NO RESPIRATORY DISTRESS. PT ADVISED THAT WEARING BIPAP WILL IMPROVE VITAL SIGNS AND ADL'S. PT ADVISED TO CALL NURSE IF SHE IS IN NEED OF AN UPD TREATMENT OR BIPAP.
[2021-08-08 22:24] LABS: Glucose Point of Care 143 mg/dl (65-105)
[2021-08-09] VITALS (9 sets, daily range): BP systolic 144–178; BP diastolic 53–84; PULSE 82–91; RESP 16–20; TEMP 36.3–36.6; O2SAT 95–98
--- NOTE | 2021-08-09 02:20 | PCRCNOTE ---
PT REFUSING 0200 UPD TREATMENT. PT ADVISED TO CALL RN IF TREATMENT WAS NEEDED.
[2021-08-09 05:35] LABS: Hematocrit 30.4 % (37.0-47.0); Hemoglobin 9.7 g/dL (12.0-15.0); Mean Corpuscular HGB Conc 31.9 g/dl (32-36); Mean Corpuscular Hemoglobin 31.6 pg (26-34); Platelet Count Result 162 k/mm3 (150-375); Red Blood Count 3.07 M/mm3 (4.2-5.4); Red Cell Distribution Width 17.2 % (11.5-14.5); White Blood Count 6.7 K/mm3 (4.5-10.0)
[2021-08-09 05:45] LABS: Anion Gap 5 mmol/L (8-16); Blood Urea Nitrogen 68 mg/dL (7-17); Calcium 8.6 mg/dL (8.4-10.2); Carbon Dioxide 33 mmol/L (22-30); Chloride 94 mmol/L (98-107); Estimated CRCL calculation 2 ml/min; Estimated Glomerular Filt Rate 20; Glucose 126 mg/dL (65-110); Potassium 3.4 mmol/L (3.4-5.0); Sodium 132 mmol/L (137-145)
[2021-08-09 08:13] LABS: Glucose Point of Care 125 mg/dl (65-105)
[2021-08-09] MEDS: ALBUTEROL SULFATE NEB 2.5 MG/0.5 ML INH 5 MG INHALATION ×2 (08:30→14:00)
--- NOTE | 2021-08-09 08:32 | PM.PNCARD ---
Progress Note: A&P Assessment and Plan (1) Cardiomyopathy: Code(s): I42.9 - Cardiomyopathy, unspecified Status: Acute (2) CHF (congestive heart failure): Qualifiers: Heart failure chronicity: acute on chronic Code(s): I50.9 - Heart failure, unspecified Status: Acute Assessment and Plan: Will discontinue her metolazone at this point. Continue other diuretics nephrology. KCL 40 mg p.o. x1. Subjective Date/time seen: 08/09/21 08:32 Interval history: Follow-up visit in this 86-year-old woman with: Congestive heart failure with left ventricular systolic dysfunction as well as aortic stenosis and mitral regurgitation. Patient has chronic kidney disease complicating all of this. Date of service 08/09/2021: She feels little better. No chest pain or shortness of breath Review of Systems Constitutional: Constitutional: Reports fatigue Eyes: Eyes: Reports no additional eye complaints ENT: Reports Normal hearing present and Denies epistaxis Cardiovascular: Cardiovascular: Denies chest pain, Denies leg edema and Denies dyspnea Respiratory: Respiratory: Denies dyspnea Gastrointestinal: Gastrointestinal: Denies abdominal pain Musculoskeletal: Musculoskeletal: Reports no additional musculoskeletal complaints Integumentary/Breasts: Skin/Breast: Denies rash Neurologic: Reports Normal hearing present, Reports Abnormal speech present, Reports behavioral changes and Reports confusion Psychiatric: Psychiatric: Reports behavioral changes and Reports confusion Endocrine: Endocrine: Reports fatigue Exam Const: General: cooperative, comfortable, no acute distress, well developed, alert, awake, acute distress moderate and respiratory, confusion, ill appearing, lethargic, tired appearing and uncomfortable Nutritional Appearance: well nourished Orientation/consciousness: oriented to person, oriented to place, patient oriented x3, confusion and lethargic Limitations: no limitations Other: Elderly lady seated in the chair just finished physical therapy appears to be quite comfortable HENMT: Head: normal to inspection Ears: hearing grossly impaired General nose exam: Normal external nose present Mouth: Yes Normal oral and palatal mucosa present, Yes lip normal, Yes tongue normal, Yes moist mucous membranes and Yes dry mucous membranes Teeth and gingiva: abnormal tooth and associated gingiva and poor dentition Eyes: General: appearance normal, both eyes and all related structures Sclera: sclerae normal Pupils: Equal, round and reactive pupils present EOM: EOMs intact bilaterally Neck: Neck: normal visual inspection, full ROM, trachea midline, supple and no JVD Carotids: normal carotid upstroke Chest: Chest palpation & inspection: normal inspection of the chest Resp: Effort & Inspection: normal respiratory effort, not able to speak in complete sentences, abnormal respiratory pattern, labored, nasal flaring, respiratory distress, tachypneic and uses accessory muscles Auscultation: crackles (bases ) bilateral, rales (Few rales in the right lower lobe), wheezes expiratory wheezes and throughout and diminished lung sounds Other: No audible pulmonary rales at this time Cardio: Jugular venous distension: no JVD Rate: regular rate and bradycardic Rhythm: regular rhythm Heart sounds: S1 normal heart sound present, S2 normal heart sound present and Murmur heart sound present systolic Peripheral pulses: Peripheral pulses 2+ throughout Other: 1-2/6 DONATO mid sternal borders GI: Inspection: abnormal to inspection, distended and visible herniation Auscultation: normal bowel sounds Urinary Catheter: Urinary Catheter: patent and draining and urine clear Skin: General skin exam: normal color and no rashes or lesions noted Lesions: no lesions Rashes: no rashes Trauma: no lacerations or abrasions Wounds: no wounds Hair: normal Nails: normal Neuro: General: oriented to person, oriented to
[2021-08-09] MEDS: ASPIRIN 325 MG TABLET PO (08:55)
[2021-08-09] MEDS: MULTIVITAMINS /C LUTEIN (CENTRUM SILVER) TABLET *BKC 1 TAB PO (08:55)
[2021-08-09] MEDS: buPROPion HCL XL (24 HR) 150 MG TABCR PO (08:55)
[2021-08-09] MEDS: hydrALAZINE HCL 25 MG TABLET PO ×2 (08:55→12:24)
[2021-08-09] MEDS: FERROUS SULFATE 324 MG TABLET PO (08:55)
[2021-08-09] MEDS: OMEGA 3 POLYUNSAT FATTY ACIDS 1 GM CAP PO (08:55)
[2021-08-09] MEDS: PANTOPRAZOLE 40 MG TABLET PO (08:55)
[2021-08-09] MEDS: BUMETANIDE 1 MG TABLET 2 MG PO (08:56)
[2021-08-09] MEDS: HEPARIN SODIUM 5,000 UNITS/ML VIAL 5000 UNITS SUB-Q (08:56)
[2021-08-09] MEDS: SPIRONOLACTONE 25 MG TABLET PO (08:56)
[2021-08-09] MEDS: POTASSIUM CHLORIDE 20 MEQ TABLET 40 MEQ PO (08:59)
--- NOTE | 2021-08-09 09:34 | PM.PNNEP ---
Progress Note: A&P Additional Plan 1. Liza has chronic kidney disease. This is most likely based on hypertension, diabetes, vascular disease, and chronic pre renal azotemia. Her creatinine is stable still. The patient can be discharged any time she is ready from other aspects. Will continue IV diuretics while here and just switch to p.o. upon discharge. Discussed with 2. The patient has congestive heart failure. She has a reduced ejection fraction but also more importantly she has severe pulmonary hypertension. patient is getting Bumex 2mg twice a day , spironolactone 25mg daily, and metolazone 5mg once a day. Will continue this regimen while she is here. 3. The patient has hypertension. Systolic blood pressure ranging from 130-180 She is on hydralazine and the diuretics. Will add metoprolol 4. Patient has diabetes. She is on sliding-scale insulin per hospitalists. 5. History of GERD, duodenal ulcer, gastric ulcer. 6. Hemoglobin is 9.7 On EPO plus iron. 7. metabolic acidosis Resolved 8. Her albumin is relatively preserved at 3.5. 9. The patient's mental status looks better 10. hyponatremia. Sodium level is a tiny bit low right now. This is stable at 132 Subjective Date/time seen: 08/09/21 09:34 Interval history: I am seeing for resistant edema and elevated creatinine. She is eating well. She has a small amount of swelling. She denies any shortness of breath Exam Narrative: WDWN in NAD skin no rash head ncat lungs decreased breath sounds at the bases. They sound clear. cor reg no rub or gallop abd BS+ nontender and soft ext 1+ presacral edema. Objective Data Vital Signs Vital Signs: Vital Signs - 24 hr 08/08/21 10:00 08/08/21 14:15 08/08/21 14:00 Temperature 36.9 C 36.3 C L Pulse Rate 90 93 90 Respiratory Rate 16 20 18 Blood Pressure 152/82 H 158/54 H Pulse Oximetry 96 96 Oxygen Delivery 08/08/21 18:00 08/08/21 20:00 08/08/21 20:00 Temperature 36.7 C 36.1 C L Pulse Rate 91 85 Respiratory Rate 16 18 Blood Pressure 132/51 L 144/88 H Pulse Oximetry 97 97 Oxygen Delivery Room Air 08/08/21 20:36 08/09/21 00:17 08/09/21 03:31 Temperature 36.6 C 36.3 C L Pulse Rate 86 84 Respiratory Rate 20 18 Blood Pressure 144/84 H 178/59 H Pulse Oximetry 94 98 97 Oxygen Delivery Room Air 08/09/21 08:31 08/09/21 08:37 08/09/21 08:41 Temperature Pulse Rate 86 86 88 Respiratory Rate 20 20 20 Blood Pressure Pulse Oximetry 95 Oxygen Delivery Room Air Intake/Output Intake/Output: Intake & Output 08/06/21 08/07/21 08/08/21 08/09/21 23:59 23:59 23:59 23:59 Intake Total 1390 1060 1100 360 Output Total 2800 800 400 Balance -1410 260 700 360 Meds/Results Medications: Active Medications Generic Name Dose Route Start Last Admin Trade Name Freq PRN Reason Stop Dose Admin Albuterol 5 mg 08/08/21 14:00 08/09/21 08:30 Albuterol Sulfate Neb 2.5 Mg/0.5 Ml Inh INHALATION 5 mg Q6HRT ALEXYS Administration Aspirin 325 mg 08/01/21 09:00 08/09/21 08:55 Aspirin 325 Mg Tablet PO 325 mg DAILY ALEXYS Administration Bumetanide 2 mg 08/07/21 17:00 08/09/21 08:56 Bumetanide 1 Mg Tablet PO 2 mg BID ALEXYS Administration Bupropion HCl 150 mg 08/01/21 09:00 08/09/21 08:55 Bupropion Hcl Xl (24 Hr) 150 Mg Tabcr PO 150 mg QAM ALEXYS Administration Dextrose 12.5 gm 08/02/21 13:29 08/03/21 08:20 Dextrose 50% 25 Gm/50 Ml Syringe IV PUSH 12.5 gm PRN PRN Administration Hypoglycemia Protocol Docusate Sodium 100 mg 08/01/21 21:00 08/08/21 20:00 Docusate Sodium 100 Mg Capsule PO 100 mg HS ALEXYS Administration Epoetin Eldon-epbx 10,000 units 08/03/21 09:00 08/08/21 08:17 Epoetin Eldon-Epbx 10,000 Units/Ml Vial SUB-Q 10,000 units TuThSa@0900 ALEXYS Administration Ferrous Sulfate 324 mg 08/01/21 08:00 08/09/21 08:55 Ferrous Sulfate 324 Mg Tablet PO 324 mg
--- NOTE | 2021-08-09 11:33 | PM.DS ---
DS: Admitting Diagnosis Discharge Date August 09, 2021 Admitting Diagnosis CHF DS: Discharge Diagnosis Discharge Diagnosis (1) CHF (congestive heart failure): Qualifiers: Heart failure chronicity: acute on chronic Code(s): I50.9 - Heart failure, unspecified Status: Acute Assessment and Plan: Acute on chronic systolic and diastolic CHF Diuretics and cardiac medications have been adjusted. Volume status has improved significantly. She appears euvolemic at this time Breathing okay. Okay for discharge (2) Altered mental status: Code(s): R41.82 - Altered mental status, unspecified Status: Acute Assessment and Plan: Resolved. Onset 08/01/2021. Patient was extremely drowsy with slurred speech Workup unrevealing Overall mental status improved. Patient A&O x4 today and remains alert (3) Bradycardia: Code(s): R00.1 - Bradycardia, unspecified Status: Acute Assessment and Plan: HR noted to be in the 40-50 upon arrival Monitor on discharge Appreciate cardiology consultation, follow up Cardiology (4) Acute on chronic kidney failure: Code(s): N17.9 - Acute kidney failure, unspecified; N18.9 - Chronic kidney disease, unspecified Status: Acute Assessment and Plan: Baseline creatinine appears to be fluctuant, 1.7-2.0. Creatinine increased up to 2.9 this admission Creatinine is 2.3 today. Appears to be new baseline. (5) Diabetes: Code(s): E11.9 - Type 2 diabetes mellitus without complications Status: Chronic Assessment and Plan: A1c 5.7 (07/10/2021). Blood sugars well controlled this admission Monitor glucose trends (6) Hypertension: Code(s): I10 - Essential (primary) hypertension Status: Chronic Assessment and Plan: Blood pressure reviewed and have been elevated but are improving. Medications adjusted. PP better controlled (7) Anemia: Code(s): D64.9 - Anemia, unspecified Status: Acute Assessment and Plan: Likely anemia of chronic disease Monitor DS: Summary Hospital Course Hospital Course: Patient was admitted for CHF and volume overload. Diuretics and cardiac medications have been adjusted appears to be euvolemic currently. Time Spent with Patient Time attestation: Total time spent providing and/or coordinating discharge services: Exam Narrative: General: Obese, chronically ill-appearing 86-year-old female, sitting in a chair by the bedside, comfortable, NARD Neuro: Awake, alert and oriented x4, speech clear, able to follow all commands, HEENMT: normocephalic, atraumatic, EOMI, sclerae anicteric Respiratory: clear to auscultation, nonlabored breathing Cardio: regular rate, regular rhythm with S1-S2 Abdomen: nondistended, normoactive bowel sounds, soft, nontender to palpation Extremities: No edema, no erythema or tenderness to palpation Skin: no rashes or lesions, warm and dry Psych: appropriate mood and affect, logical thought process, judgment and insight fair DS: Data Data Completed and Pending Labs on day of discharge: Labs from last 24 hours 08/09/21 08/09/21 08/09/21 07:55 05:07 05:07 WBC 6.7 RBC 3.07 L Hgb 9.7 L Hct 30.4 L MCV 99.0 MCH 31.6 MCHC 31.9 L RDW 17.2 H Plt Count 162 MPV 10.0 Sodium 132 L Potassium 3.4 Chloride 94 L Carbon Dioxide 33 H Anion Gap 5 L BUN 68 H Creatinine 2.30 H Estim Creat Clear Calc 2 Estimated GFR 20 L Glucose 126 H POC Capillary Glucose 125 H Calcium 8.6 08/08/21 08/08/21 08/08/21 22:22 16:29 11:32 WBC RBC Hgb Hct MCV MCH MCHC RDW Plt Count MPV Sodium Potassium Chloride Carbon Dioxide Anion Gap BUN Creatinine Estim Creat Clear Calc Estimated GFR Glucose POC Capillary Glucose 143 H 181 H 156 H Calcium Discharg
[2021-08-09 11:55] LABS: Glucose Point of Care 186 mg/dl (65-105)
[2021-08-09 12:34] LABS: EDCOVIDSCREEN Negative (Negative)
[2021-08-09 16:10] LABS: Glucose Point of Care 141 mg/dl (65-105)
== END 2021-08-09 16:25 | DRG 291 ==
LOC: ANHED 16:25 → ANHIMU 20:16 → ANH2MED 08-04 16:21
PROVIDERS: Internal Medicine Nephrology; Nurse Practitioner; Nurse Practitioner Adult Health; Physician Assistant; Admitting Provider Chiropractor; Emergency Provider Emergency Medicine; PCP Family Medicine Adolescent Medicine; Visit Provider Chiropractor
DX: I13.0 Hypertensive heart and chronic kidney disease with heart failure and stage 1 through stage 4 chronic kidney disease, or unspecified chronic kidney disease (principal); I50.43 Acute on chronic combined systolic (congestive) and diastolic (congestive) heart failure; J90 Pleural effusion, not elsewhere classified; N17.9 Acute kidney failure, unspecified; N18.4 Chronic kidney disease, stage 4 (severe); E87.2 Acidosis; E87.1 Hypo-osmolality and hyponatremia; Z20.822 Contact with and (suspected) exposure to COVID-19; R00.1 Bradycardia, unspecified; K21.9 Gastro-esophageal reflux disease without esophagitis; E78.00 Pure hypercholesterolemia, unspecified; E11.22 Type 2 diabetes mellitus with diabetic chronic kidney disease; E11.51 Type 2 diabetes mellitus with diabetic peripheral angiopathy without gangrene; I69.322 Dysarthria following cerebral infarction; D63.8 Anemia in other chronic diseases classified elsewhere; I35.0 Nonrheumatic aortic (valve) stenosis; Z79.1 Long term (current) use of non-steroidal anti-inflammatories (NSAID); Z79.899 Other long term (current) drug therapy; Z79.82 Long term (current) use of aspirin; R74.01 Elevation of levels of liver transaminase levels; R47.81 Slurred speech; I42.9 Cardiomyopathy, unspecified; R41.82 Altered mental status, unspecified
CPT/HCPCS: 36415; 36600; 51702; 70450; 70551; 71045; 80048; 80053; 80069; 80074; 81001; 82140; 82375; 82550; 82570; 82805; 82948; 83050; 83735; 83880; 84100; 84156; 84300; 84439; 84443; 84480; 85025; 85027; 85610; 85730; 87086; 87426; 92523; 92610; 93005; 93880; 93970; 94002; 94003; 94640; 96372; 96374; 96376; 97110; 97161; 97166; 97530; 97535; 99285; A9270; C9803; G0378; J0360; J1644; J1756; J1815; J1940; Q5105; U0003; U0005

== ENCOUNTER 2022-01-07 20:19 | Inpatient (IN) | payer OTHER, SELFPAY ==
[2022-01-07] VITALS (10 sets, daily range): BP systolic 103–149; BP diastolic 58–76; PULSE 68–86; RESP 15–20; TEMP 36.1; O2SAT 95–99
--- NOTE | ~2022-01-07 | CT_ITS ---
EXAMINATION: CT abdomen pelvis wo con DATE: 01/07/2022 22:46 INDICATION: Abdominal distention. Diarrhea. TECHNIQUE: Computed tomography (CT) of the abdomen and pelvis was performed without intravenous contr ast. Automated exposure control and iterative reconstruction technique were employed. The dose-length product was 453.95 mGy-cm. COMPARISON: CT abdomen and pelvis 05/25/2020 FINDINGS: The visualized portions of the lung bases demonstrate septal thickening and patchy groundgl ass opacities bilaterally. Calcified left lung nodules are consistent with old granulomatous disease. There are small pleural effusions. Cardiomegaly is noted. There are coronary artery calcifications. No pericardial effusion. There is a small sliding hiatal hernia. The liver is normal. There are briscoe es of cholecystectomy. Calcifications in the spleen are consistent with old granulomatous disease. Th e pancreas, adrenal glands, and kidneys are normal. There are no dilated loops of bowel. There is div erticulosis of the colon without evidence of diverticulitis. There are no pathologically enlarged lym ph nodes. There is no free intraperitoneal fluid. There is a left inguinal hernia containing fat. The re is a total right hip arthroplasty. There are chronic lucencies around the acetabular component, co nsistent with loosening. 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 There is severe lumbar spondylosis. Thoracolumbar levoscoliosis is noted. IMPRESSION: 1. Diffuse lung disease, consistent with moderate pulmonary edema versus pneumonia. 2. Small pleural effusions. 3. Small sliding hiatal hernia. Reviewed, dictated and finalized at location A. MANAGER IMPRESSION: 1. Diffuse lung disease, consistent with moderate pulmonary edema versus pneumo lavinia. 2. Small pleural effusions. 3. Small sliding hiatal hernia.
--- NOTE | ~2022-01-07 | XR_ITS ---
EXAMINATION: XR chest 1V portable DATE: 01/10/2022 06:18 INDICATION: Pulmonary edema. TECHNIQUE: A single frontal view of the chest was obtained. COMPARISON: Chest single view 01/07/2022, CT abdomen and pelvis 01/07/2022 FINDINGS: The patient is rotated to her left. There is a diffuse interstitial pattern in the lungs. T here are airspace opacities in the lungs bilaterally with a perihilar and left basilar predominance. There is a small left pleural effusion. No pneumothorax. Cardiomegaly is noted. Surgical clips in the right upper quadrant are likely from cholecystectomy. IMPRESSION: 1. Worsened diffuse lung disease, consistent with pulmonary edema without or with superimposed pneumo lavinia. 2. Worsened small left pleural effusion. 3. Cardiomegaly. Reviewed, dictated and finalized at location A. CTOR OF CAMPUS RECREATION IMPRESSION: 1. Worsened diffuse lung disease, consistent with pulmonary edema without or wi th superimposed pneumonia. 2. Worsened small left pleural effusion. 3. Cardiomegaly.
--- NOTE | ~2022-01-07 | XR_ITS ---
XR chest 1V DATE: 01/07/2022 20:47 INDICATION: Patient declining over the past 2 days according to family. Patient is poor historian. TECHNIQUE: AP chest COMPARISON: 07/31/2021 portable AP chest FINDINGS: Cardiomegaly. There are bilateral patchy infiltrates scattered throughout both lung mallory. Mild prominence of the minor fissure suggesting subpleural edema. There is minimal if any pleural effusion. No pneumothorax. Diffuse osteopenia. IMPRESSION: Diffuse bilateral pulmonary infiltrates; differential diagnosis includes pulmonary edema, pneumonia, ARDS The infiltrates and pleural effusions are improved since 07/31/2021. Reviewed, dictated and finalized at location A. ING SAWYER IMPRESSION: Diffuse bilateral pulmonary infiltrates; differential diagnosis inc ludes pulmonary edema, pneumonia, ARDS The infiltrates and pleural effusions are improved since 07/31/2021.
--- NOTE | ~2022-01-07 | CT_ITS ---
EXAMINATION: CT brain wo con DATE: 01/07/2022 20:45 INDICATION: Increasing confusion for 2 days TECHNIQUE: Computed tomography (CT) of the head was performed without intravenous contrast. The mA wa s adjusted according to patient size. Iterative reconstruction technique was employed. Exam dose: 60 5.33 mGy-cm total exam DLP. COMPARISON: 08/02/2021 MR brain/brainstem 08/01/2021 CT brain FINDINGS: There is very prominent bilateral vertebral artery and carotid siphon internal carotid chico ry calcification. There is nonspecific diminished attenuation of the cerebral white matter, likely due to chronic small vessel ischemic changes. Chronic left basal ganglia lacunar infarcts. No intracranial mass lesion or hemorrhage or recent cerebrovascular accident is detected. No midline shift or mass effect. There is central and cortical cerebral and cerebellar atrophy. No subdural or epidural hematoma is de tected. No fracture or bone destruction of the cranial vault. The mastoid air cells and included paranasal si nuses are normally developed and aerated. No orbital mass lesion. IMPRESSION: Cerebral atherosclerosis and chronic small vessel ischemic changes of cerebral white mat ter, chronic left basal ganglia lacunar infarcts Central and cortical cerebral and cerebellar atrophy No acute intracranial finding Reviewed, dictated and finalized at [facility] Reviewed, dictated and finalized at [facility]. TER AUTOMATIC IMPRESSION: Cerebral atherosclerosis and chronic small vessel ischemic changes of cerebral white matter, chronic left basal ganglia lacunar infarcts Central and cortical cerebral and cerebellar atrophy No acute intracranial finding
--- NOTE | 2022-01-07 20:25 | ECG_ITS ---
Measurements Intervals [place] Rate: 70 P: 94 [place]: 222 QRS: -24 QRSD: 123 T: 122 QT: 402 QTc: 436 Interpretive Statements SINUS RHYTHM WITH FIRST DEGREE AV BLOCK ATRIAL AND VENTRICULAR PREMATURE COMPLEXES INCOMPLETE LEFT BUNDLE BRANCH BLOCK ST-T WAVE ABNORMALITY IN HIGH LATERAL LEADS- CONSIDER ISCHEMIA BASELINE WANDER- I, II, AVR, V5-V6 ABNORMAL ECG COMPARED TO ECG 07/31/2021 15:31:24 SINUS RHYTHM NOW PRESENT Electronically Signed On 01-08-2022 6:32:51 [employer] by Sunday Alston D.O.
--- NOTE | 2022-01-07 20:29 | ED.AMS ---
HPI - Altered Mental Status General Chief Complaint: Altered Mental Status Stated Complaint: ams from [facility] Time Seen by Provider: 01/07/22 20:21 Source: EMS, RN notes reviewed and old records reviewed Mode of arrival: EMS Limitations: altered mental status History of Present Illness HPI narrative: This is an 86 year old female who presents from [facility] who presents for evaluation of altered mental status for 2 days. EMS states patient unable to follow commands, and she is making repetitive statement of help me . IT is reported that patient is normally alert and oriented and able to follow commands. Nursing reports patient has had diarrhea for 2 days, and she has worsened today. Related Data Home Medications Medication Instructions Recorded Confirmed omega 3-fkv-sew-fish oil 1,200 mg 1 cap PO DAILY 05/11/20 07/31/21 (144 mg-216 mg) capsule (Fish Oil) metformin 500 mg tablet,extended 1,000 mg PO DAILY 03/16/21 07/31/21 release 24 hr docusate sodium 100 mg capsule 100 mg PO HS 06/24/21 07/31/21 (Colace) pantoprazole 40 mg tablet,delayed 40 mg PO DAILY 07/10/21 07/31/21 release geriatric multivitamin-min 1 tablet PO DAILY 07/31/21 07/31/21 magnesium hydroxide 400 mg/5 mL 500 mg PO PRN PRN Constipation 07/31/21 07/31/21 oral suspension (Milk of Magnesia) Allergies Allergy/AdvReac Type Severity Reaction Status Date / Time No Known Allergies Allergy Verified 01/07/22 20:27 Review of Systems Review of Systems: ROS unobtainable: Yes unobtainable due to medical condition PMFSH Past Medical History Medical History Abdominal pain Acute hyperkalemia Acute renal failure Cardiomyopathy Chronic kidney disease, stage 3a CVA, old, 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morrhoidectomy History of left knee replacement History of right hip replacement History of shoulder surgery Family History Family History Unknown Unknown family medical history her parents left her when she was young. Social History Social History Social History: Patient lives at home alone. Grand-niece, Mikala, checks in on her occasionally, either via phone or physically, although has been less due to COVID outbreak. Her PCP is Dr. Coleman. She is listed as a Do not resuscitate. Smoking status: Never smoker Second hand tobacco smoke exposure: Yes Alcohol intake: never Substance use: never Substance use type: does not use Gender identity (if verbalized by the patient): Female Sexual Orientation (if Verbalized by the Patient): Straight or Heterosexual Spiritual care concerns: No Agree to blood products: Yes Exam Const: General: ill appearing Other: patient saying help me over and over again, will not follow commands HENMT: Face and sinus: normal facial exam Eyes: Pupils: Equal, round and reactive pupils present EOM: EOMs intact bilaterally Chest: Chest palpation & inspection: normal inspection of the chest Resp: Effort & Inspection: normal respiratory effort Auscultation: clear to auscultation bilaterally Cardio: Rate: regular rate Rhythm: regular rhythm Heart sounds: no murmurs GI: GI Palp: Yes Soft to palpation, No Tenderness to palpation present (GI), No Guarding due to palpation present (GI) and No Rigid due to palpation Auscultation: normal bowel sounds Skin: General skin exam: normal color [place]
[2022-01-07 20:35] LABS: Glucose Point of Care 134 mg/dl (65-105)
[2022-01-07 21:39] LABS: Basophils Percent Auto 0.4 % (0.2-1.2); Eosinophils Absolute Auto 0.1 K/mm3 (0-0.3); Eosinophils Percent Auto 0.7 % (0-4.4); Hematocrit 28.1 % (37.0-47.0); Hemoglobin 9.3 g/dL (12.0-15.0); Immature Granulocyte Absolute 0.18 K/mm3 (0.00-0.031); Immature Granulocyte Percent A 2.5 % (0-0.5); Lymphocytes Absolute Auto 0.57 K/mm3 (0.9-3.2); Lymphocytes Percent Auto 7.9 % (18.3-44.2); Mean Corpuscular HGB Conc 33.1 g/dl (32-36); Mean Corpuscular Hemoglobin 32.7 pg (26-34); Mean Corpuscular Volume 98.9 fl (80-100); Mean Platelet Volume 9.7 fl (7.4-10.4); Monocytes Absolute Auto 0.7 K/mm3 (0.1-0.6); Monocytes Percent Auto 9.9 % (2.6-8.5); Neutrophils Absolute Auto 5.6 K/mm3 (1.3-6.7); Neutrophils Percent Auto 78.6 % (45.5-73.1); Platelet Count Result 260 k/mm3 (150-375); Red Blood Count 2.84 M/mm3 (4.2-5.4); Red Cell Distribution Width 13.5 % (11.5-14.5); White Blood Count 7.2 K/mm3 (4.5-10.0)
[2022-01-07 21:48] LABS: Lactic Acid Reflex 0.6 mmol/L (0.7-2.0)
[2022-01-07 21:50] LABS: INR 1.1; Prothrombin Time 13.4 Seconds (11.1-14.7)
[2022-01-07 21:51] LABS: Partial Thromboplastin Time 46.9 SECONDS (22.3-36.8)
[2022-01-07 21:58] LABS: Alanine Aminotransferase 25 U/L (6-35); Albumin Level 3.5 g/dL (3.5-5.1); Alkaline Phosphatase 201 U/L (38-126); Anion Gap 21 mmol/L (8-16); Aspartate Amino Transferase 31 U/L (14-36); Bilirubin,Total 0.3 mg/dL (0.2-1.3); Calcium 9.3 mg/dL (8.4-10.2); Carbon Dioxide 10 mmol/L (22-30); Chloride 105 mmol/L (98-107); Estimated Glomerular Filt Rate 8; Glucose 125 mg/dL (65-110); Magnesium 2.3 mg/dL (1.6-2.3); Potassium 4.1 mmol/L (3.4-5.0); Sodium 136 mmol/L (137-145)
[2022-01-07 22:00] LABS: Appearance Urine Clear (Clear); Bilirubin Urine Negative (Negative); Blood Urine Negative (Negative); Color Urine Yellow (Yellow); Glucose Urine UA Negative (Negative); Ketones Urine Negative (Negative); Leukocyte Esterase Ur Trace LEU/UL (Negative); Nitrate Urine Positive (Negative); Protein Urine 2+ mg/dL (Negative); Urobilinogen Urine 0.2 mg/dL (<2.0)
[2022-01-07 22:00] LABS: NT Pro B Type Natriuretic Pept 11100 pg/mL (5-100); Troponin I 0.015 ng/mL (0.000-0.034)
[2022-01-07 22:07] LABS: RBC Urine 0-2 /hpf (0-2)
[2022-01-07 22:08] LABS: Add Urine Microscopic? YES
[2022-01-07 22:16] LABS: Influenza A QL RT-PCR Negative (Negative); Influenza B QL RT-PCR Negative (Negative); SARS-CoV-2 RNA PCR Negative
[2022-01-07] MEDS: ONDANSETRON INJ 4 MG/2 ML VIAL IV PUSH (22:35)
[2022-01-07] MEDS: SODIUM CHLORIDE 0.9% IV 1,000 ML 999 ML IV CONT (22:35)
--- NOTE | 2022-01-07 23:05 | PC.NURSE ---
Report received from SATYA Mg. Assumed care of patient at this time.
[2022-01-07 23:13] LABS: Alveolar/Arterial O2 Gradient 31.5 mmHg; Base Excess ABG -15.5 mEq/l (+/-2.0); Carboxyhemoglobin 0.1 % THb (0-2.0); Fractional Inspired Oxygen 21 %; HCO3 ABG 10.8 mEq/l (22.0-26.0); Methemoglobin ABG 0.1 %THb (0-1.5); Oxygen Content ABG 10.7 %vol (16.0-22.0); Oxygen Saturation ABG 94.8 % (95.0-100.0); Oxyhemoglobin 89.7 % THb (90.0-100.0); PCO2 ABG 27.1 mmHg (35.0-45.0); PO2 ABG 85.8 mmHg (80.0-100.0); PO2 FiO2 Ratio Arterial Blood 4.09 %; Reduced Hemoglobin 10.1 %THb (0-5.0); Total Hemoglobin 8.4 g/dL (12.0-18.0)
[2022-01-07 23:17] LABS: Modified Allen's Test Pass; Site Drawn RIGHT RADIAL
[2022-01-07 23:22] LABS: pH ABG 7.219 (7.350-7.450)
[2022-01-07 23:36] LABS: Blood Urea Nitrogen 145 mg/dL (7-17)
--- NOTE | 2022-01-07 23:57 | PC.NURSE ---
Jessica, patients caregiver at [facility] calls to get update on patient.
[2022-01-08] VITALS (55 sets, daily range): BP systolic 113–159; BP diastolic 43–94; PULSE 63–82; RESP 13–28; TEMP 35.5–36.7; O2SAT 94–100; BMI 22.6
[2022-01-08] MEDS: SODIUM BICARBONATE 8.4% 75 MEQ in SODIUM CHLORIDE 0.45% 1,000 ML IV CONT ×2 (00:51→13:23)
[2022-01-08 03:43] LABS: Glucose Point of Care 157 mg/dl (65-105)
--- NOTE | 2022-01-08 08:53 | PM.IMHP ---
H&P: HPI History of Present Illness Date/Time: 01/08/22 08:53 Chief Complaint: Altered mental status Narrative: 86yo female with CKD, CVA, HTN and DM brought in to the ED for altered mental status. Patient is alert but unable to provide history. She is babbling at times alternating with repetitive statements such as ?give me a drink?. Majority of the history is obtained from the chart nursing reports that the patient has been having diarrhea for the past 2 days. Also on the notes it states the patient is on Bumex 3 mg in the morning and 4 mg in the evening. Her baseline creatinine is 2.3-2.6. There are notes from an outside hospital on 12/12/2021 showing her creatinine was 3.4. Creatinine at the facility on 12/20/2021 was 3.3. Review of Systems Review of Systems: ROS unobtainable: Yes unobtainable due to mental status PMFSH Past Medical History Medical History Cardiomyopathy Chronic kidney disease, stage 3a CVA, old, dysarthria 01/04 Duodenal ulcer Gastric ulcer GERD (gastroesophageal reflux disease) Hypertension Normal colonoscopy 10/08 NSAID long-term use Pure hypercholesterolemia, unspecified Type 2 diabetes mellitus with diabetic peripheral angiopathy without gangrene Surgical History Surgical History H/O left mastectomy 1990 History of cataract surgery History of cholecystectomy History of hemorrhoidectomy History of left knee replacement History of right hip replacement History of shoulder surgery Family History Family History Unknown Unknown family medical history her parents left her when she was young. Social History Social History Social History: Patient lives at home alone. Grand-niece, Mikala, checks in on her occasionally, either via phone or physically, although has been less due to COVID outbreak. Her PCP is Dr. Coleman. She is listed as a Do not resuscitate. Smoking status: Never smoker Second hand tobacco smoke exposure: Yes Alcohol intake: never Substance use: never Substance use type: does not use Gender identity (if verbalized by the patient): Female Sexual Orientation (if Verbalized by the Patient): Straight or Heterosexual Spiritual care concerns: No Agree to blood products: Yes Meds Home Medications and Allergies Home Medications Medication Instructions Recorded Confirmed Type simvastatin 20 mg tablet 20 mg PO HS #90 tabs 03/27/21 07/31/21 Rx docusate sodium 100 mg capsule 100 mg PO HS 06/24/21 07/31/21 History (Colace) pantoprazole 40 mg tablet,delayed 40 mg PO DAILY 07/10/21 07/31/21 History release amlodipine 10 mg tablet 10 mg PO DAILY #30 tabs 07/29/21 07/31/21 Rx magnesium hydroxide 400 mg/5 mL 500 mg PO PRN PRN Constipation 07/31/21 07/31/21 History oral suspension (Milk of Magnesia) metoprolol succinate 25 mg 25 mg PO QAM 30 days #30 tabs 08/09/21 Rx tablet,extended release 24 hr (Toprol XL) spironolactone 25 mg tablet 25 mg PO QAM 30 days #30 tabs 08/09/21 Rx Centrum Silver Ultra Women's 1 tab-cap DAILY 01/08/22 History aspirin 81 mg tablet,delayed 81 mg PO DAILY 01/08/22 History release bumetanide 1 mg tablet 3 mg PO DAILY 01/08/22 History bumetanide 2 mg tablet 2 mg HS 01/08/22 History bupropion HCl 75 mg tablet 75 mg PO BID 01/08/22 History cholecalciferol (vitamin D3) 50 50 mcg PO DAILY 01/08/22 History mcg (2,000 unit) tablet (Vitamin D3) ferrous sulfate 325 mg (65 mg 324 mg PO BID 01/08/22 History iron) tablet hydralazine 25 mg tablet 25 mg PO TID 01/08/22 History insulin glargine 100 unit/mL (3 8 unit subcut HS 01/08/22 History mL) subcutaneous pen (Lantus Solostar U-100 Insulin) Allergies Allergy/AdvReac Type Severity Reaction Status Date / T
[2022-01-08 09:15] LABS: Basophils Percent Auto 0.5 % (0.2-1.2); Eosinophils Absolute Auto 0.1 K/mm3 (0-0.3); Eosinophils Percent Auto 1.3 % (0-4.4); Hematocrit 26.3 % (37.0-47.0); Hemoglobin 8.5 g/dL (12.0-15.0); Immature Granulocyte Absolute 0.25 K/mm3 (0.00-0.031); Lymphocytes Absolute Auto 0.79 K/mm3 (0.9-3.2); Lymphocytes Percent Auto 12.5 % (18.3-44.2); Mean Corpuscular HGB Conc 32.3 g/dl (32-36); Mean Corpuscular Hemoglobin 32.3 pg (26-34); Mean Platelet Volume 9.2 fl (7.4-10.4); Monocytes Absolute Auto 0.8 K/mm3 (0.1-0.6); Monocytes Percent Auto 12.3 % (2.6-8.5); Neutrophils Absolute Auto 4.4 K/mm3 (1.3-6.7); Neutrophils Percent Auto 69.4 % (45.5-73.1); Platelet Count Result 203 k/mm3 (150-375); Red Blood Count 2.63 M/mm3 (4.2-5.4); Red Cell Distribution Width 13.8 % (11.5-14.5); White Blood Count 6.3 K/mm3 (4.5-10.0)
--- NOTE | 2022-01-08 09:20 | PC.NURSE ---
Dr. Garcia in to see pt. Pt confused and talking about [place].
[2022-01-08 09:38] LABS: Alanine Aminotransferase 22 U/L (6-35); Albumin Level 3.2 g/dL (3.5-5.1); Alkaline Phosphatase 186 U/L (38-126); Anion Gap 22 mmol/L (8-16); Aspartate Amino Transferase 33 U/L (14-36); Bilirubin,Total 0.1 mg/dL (0.2-1.3); Calcium 8.7 mg/dL (8.4-10.2); Carbon Dioxide 12 mmol/L (22-30); Chloride 104 mmol/L (98-107); Estimated Glomerular Filt Rate 8; Glucose 133 mg/dL (65-110); Potassium 3.7 mmol/L (3.4-5.0); Sodium 138 mmol/L (137-145)
[2022-01-08 10:10] LABS: Creatinine Urine 24.2 mg/dL; Total Protein Urine Random 46 mg/dL; Urea Random Urine 329 MG/DL
[2022-01-08 10:14] LABS: Sodium Urine Random 93 meq/L
[2022-01-08 11:15] LABS: Eosinophil Urine None Seen % (None Seen)
[2022-01-08 12:14] LABS: Blood Urea Nitrogen 144 mg/dL (7-17)
[2022-01-08 13:31] LABS: Glucose Point of Care 134 mg/dl (65-105)
--- NOTE | 2022-01-08 14:03 | ADMGEN ---
This patient, Liza Clark, was admitted to IMU Room 232-01 on 01/08/2022 at 1337. Report received from Pinky HERNADEZ. Patient/family oriented to hospital policies and general routines including ID bracelet, bed and alarms, visiting hours, pain management, procedures, bathroom and other care routines, personal items, smoking policy, room service/diet, and visiting hours. Information on how to activate the Rapid Response Team has been discussed. Patient/Family are encouraged to report perceived risks to care and to ask questions if they do not understand what they are told or what they should do.
--- NOTE | 2022-01-08 14:48 | P.CONNP_ITS ---
Assessment and Plan Assessment and plan (1) CHARLI (acute kidney injury): Code(s): N17.9 - Acute kidney failure, unspecified Status: Acute Assessment and Plan: * presumably due to overdiuresis (given the high dose diuretics she was on) * exam seems consistent with volume depletion as well * CT abd/pelvis negative wit regard to any pathology regarding kidneys * check urine electrolytes (but may be difficult to interpret given ongoing use of diuretics with severe CHARLI) * agree with gentle IVF hydration * follow repeat labs, UOP, and respiratory status (2) Chronic kidney disease, stage IV (severe): Code(s): N18.4 - Chronic kidney disease, stage 4 (severe) Status: Chronic Assessment and Plan: * creatinine 2.3mg/dl in July 2021 (last hospitalization) * due to hypertension, diabetes, vascular disease, along with chronic prerenal azotemia * chronic prerenal azotemia due to her known cardiomyopathy coupled with need for chronic diuretic therapy * however, labs from nursing facility note a creatinine of 3.3mg/dl (November) -- new baseline(?) (3) Altered mental status: Code(s): R41.82 - Altered mental status, unspecified Status: Acute Assessment and Plan: * suspect uremic encephalopathy given elevated BUN * head CT negative * reported history of dementia but also reported alert and oriented at baseline * follow mentation as BUN improved and r/o other etiologies as well (4) Metabolic acidosis: Code(s): E87.20 - Acidosis, unspecified Status: Acute Assessment and Plan: * quite severe and likely secondary to CHARLI/ARF * admission ABG noted * on bicarbonate fluids * follow trend of repeat labs (5) Hypertension: Code(s): I10 - Essential (primary) hypertension Status: Chronic Assessment and Plan: * reasonable control at this time * follow trend of hemodynamics (6) Diabetes: Code(s): E11.9 - Type 2 diabetes mellitus without complications Status: Chronic Assessment and Plan: * follow accuchecks * glycemic control Will continue to follow. History of Present Illness Reason for Consult Consult date: 01/08/22 Reason for consult: acute renal failure (on chronic kidney disease) Chief Complaint Chief complaint: uremia,ecephalopathy,acute on chronic renal diseas History of Present Illness Narrative: All the information I have obtained is from review of the electronic medical record as well as the accompanying paper chart as the patient is unable to provide any history given her acute confusion. The patient's 86-year-old female with a past medical history as outlined below who presented [facility] evaluation of altered mental status. From my discussion with the ER physician and review of the records available to me, the nursing staff at her facility apparently reported that she has been somewhat confused with progressive worsening in the last couple of days. Furthe rmore, she apparently has been having some on and off issues with diarrhea in that time frame as well. She reportedly is usually awake and oriented but has been making nonsensical statements for last few days and as well as repetitive statements/responses to questions that do not apply the the questions she is asked. Workup and evaluation emergency room demonstrated the patient to be hemodynamic ally stable but quite confused. Routine blood test demonstrated a marked decline in her renal function with a BUN of 145 and a cre
--- NOTE | 2022-01-08 14:48 | PM.CNNEP ---
Assessment and Plan Assessment and plan (1) CHARLI (acute kidney injury): Code(s): N17.9 - Acute kidney failure, unspecified Status: Acute Assessment and Plan: presumably due to overdiuresis (given the high dose diuretics she was on) exam seems consistent with volume depletion as well CT abd/pelvis negative wit regard to any pathology regarding kidneys check urine electrolytes (but may be difficult to interpret given ongoing use of diuretics with severe CHARLI) agree with gentle IVF hydration follow repeat labs, UOP, and respiratory status (2) Chronic kidney disease, stage IV (severe): Code(s): N18.4 - Chronic kidney disease, stage 4 (severe) Status: Chronic Assessment and Plan: creatinine 2.3mg/dl in July 2021 (last hospitalization) due to hypertension, diabetes, vascular disease, along with chronic prerenal azotemia chronic prerenal azotemia due to her known cardiomyopathy coupled with need for chronic diuretic therapy however, labs from nursing facility note a creatinine of 3.3mg/dl (November) -- new baseline(?) (3) Altered mental status: Code(s): R41.82 - Altered mental status, unspecified Status: Acute Assessment and Plan: suspect uremic encephalopathy given elevated BUN head CT negative reported history of dementia but also reported alert and oriented at baseline follow mentation as BUN improved and r/o other etiologies as well (4) Metabolic acidosis: Code(s): E87.20 - Acidosis, unspecified Status: Acute Assessment and Plan: quite severe and likely secondary to CHARLI/ARF admission ABG noted on bicarbonate fluids follow trend of repeat labs (5) Hypertension: Code(s): I10 - Essential (primary) hypertension Status: Chronic Assessment and Plan: reasonable control at this time follow trend of hemodynamics (6) Diabetes: Code(s): E11.9 - Type 2 diabetes mellitus without complications Status: Chronic Assessment and Plan: follow accuchecks glycemic control Will continue to follow. History of Present Illness Reason for Consult Consult date: 01/08/22 Reason for consult: acute renal failure (on chronic kidney disease) Chief Complaint Chief complaint: uremia,ecephalopathy,acute on chronic renal diseas History of Present Illness Narrative: All the information I have obtained is from review of the electronic medical record as well as the accompanying paper chart as the patient is unable to provide any history given her acute confusion. The patient's 86-year-old female with a past medical history as outlined below who presented to [facility] Emergency room from her nursing facility for further evaluation of altered mental status. From my discussion with the ER physician and review of the records available to me, the nursing staff at her facility apparently reported that she has been somewhat confused with progressive worsening in the last couple of days. Furthermore, she apparently has been having some on and off issues with diarrhea in that time frame as well. She reportedly is usually awake and oriented but has been making nonsensical statements for last few days and as well as repetitive statements/responses to questions that do not apply the the questions she is asked. Workup and evaluation emergency room demonstrated the patient to be hemodynamically stable but quite confused. Routine blood test demonstrated a marked decline in her renal function with a BUN of 145 and a creatinine of 5.4 mg/dL. She had no critical electrolyte abnormalities but she did have a severe /significant metabolic acidosis which was confirmed by ABG. Urinalysis was somewhat suggestive of possible urinary tract infection and a CT scan of the abdomen pelvis did not demonstrate any acute pathology with regard to the kidneys. Her chest x-ray demonstrated diffuse infiltrates concerning for possible pul
[2022-01-08] MEDS: SILVERGEL (ELTA) 45 ML 1 APPLIC TOPICAL (16:06)
--- NOTE | 2022-01-08 16:29 | PCSTNOTE ---
Please refer to the Bedside Swallow Evaluation in the EMR. Please note, silent aspiration cannot be ruled out at bedside.
[2022-01-08 18:26] LABS: Glucose Point of Care 158 mg/dl (65-105)
[2022-01-08 21:00] LABS: Glucose Point of Care 134 mg/dl (65-105)
[2022-01-09] VITALS (15 sets, daily range): BP systolic 146–171; BP diastolic 49–78; PULSE 60–97; RESP 12–20; TEMP 36.6–37.2; O2SAT 76–98; BMI 22.6
[2022-01-09 00:01] LABS: Glucose Point of Care 94 mg/dl (65-105)
[2022-01-09] MEDS: SODIUM BICARBONATE 8.4% 75 MEQ in SODIUM CHLORIDE 0.45% 1,000 ML 70 MEQ IV CONT ×2 (05:15→20:40)
[2022-01-09 05:27] LABS: Hemoglobin A1C 4.9 % (<5.7)
[2022-01-09 05:29] LABS: Basophils Percent Auto 0.4 % (0.2-1.2); Eosinophils Absolute Auto 0.1 K/mm3 (0-0.3); Eosinophils Percent Auto 1.4 % (0-4.4); Hematocrit 26.1 % (37.0-47.0); Hemoglobin 8.6 g/dL (12.0-15.0); Immature Granulocyte Absolute 0.19 K/mm3 (0.00-0.031); Immature Granulocyte Percent A 2.4 % (0-0.5); Lymphocytes Absolute Auto 0.75 K/mm3 (0.9-3.2); Lymphocytes Percent Auto 9.6 % (18.3-44.2); Mean Platelet Volume 9.3 fl (7.4-10.4); Monocytes Percent Auto 12.3 % (2.6-8.5); Neutrophils Absolute Auto 5.8 K/mm3 (1.3-6.7); Neutrophils Percent Auto 73.9 % (45.5-73.1); Nucleated Red Blood Cells Perc 0.3 % (0.0-0.2); Platelet Count Result 208 k/mm3 (150-375); Red Blood Count 2.69 M/mm3 (4.2-5.4); Red Cell Distribution Width 13.6 % (11.5-14.5); White Blood Count 7.8 K/mm3 (4.5-10.0)
[2022-01-09 05:39] LABS: Alanine Aminotransferase 25 U/L (6-35); Albumin Level 3.3 g/dL (3.5-5.1); Alkaline Phosphatase 132 U/L (38-126); Anion Gap 22 mmol/L (8-16); Aspartate Amino Transferase 29 U/L (14-36); Bilirubin,Total 0.3 mg/dL (0.2-1.3); Calcium 8.6 mg/dL (8.4-10.2); Carbon Dioxide 16 mmol/L (22-30); Chloride 103 mmol/L (98-107); Estimated CRCL calculation 7 ml/min; Estimated Glomerular Filt Rate 9; Glucose 98 mg/dL (65-110); Phosphorus 9.7 mg/dL (2.5-4.5); Potassium 3.6 mmol/L (3.4-5.0); Sodium 141 mmol/L (137-145)
[2022-01-09 06:01] LABS: Blood Urea Nitrogen 129 mg/dL (7-17)
[2022-01-09] MEDS: ASPIRIN 81 MG ENTERIC TABLET PO (09:48)
[2022-01-09] MEDS: PANTOPRAZOLE 40 MG TABLET PO (09:48)
[2022-01-09] MEDS: METOPROLOL SUCCINATE EXT REL 25 MG TABCR PO (09:48)
[2022-01-09] MEDS: buPROPion HCL 75 MG TABLET PO ×2 (09:48→20:38)
[2022-01-09] MEDS: SILVERGEL (ELTA) 45 ML 1 APPLIC TOPICAL (09:49)
--- NOTE | 2022-01-09 11:01 | P.PNNP_ITS ---
Progress Note: A&P Assessment and Plan (1) CHARLI (acute kidney injury): Code(s): N17.9 - Acute kidney failure, unspecified Status: Acute Assessment and Plan: * slow improvement * presumably due to overdiuresis (given the high dose diuretics she was on) * exam seems consistent with volume depletion as well * cannot discount infection playing a role (bacteremia) * CT abd/pelvis negative wit regard to any pathology regarding kidneys * check urine electrolytes (but may be difficult to interpret given ongoing use of diuretics with severe CHARLI) * agree with gentle IVF hydration * follow repeat labs, UOP, and respiratory status (2) Chronic kidney disease, stage IV (severe): Code(s): N18.4 - Chronic kidney disease, stage 4 (severe) Status: Chronic Assessment and Plan: * creatinine 2.3mg/dl in July 2021 (last hospitalization) * due to hypertension, diabetes, vascular disease, along with chronic prerenal azotemia * chronic prerenal azotemia due to her known cardiomyopathy coupled with need for chronic diuretic therapy * however, labs from nursing facility note a creatinine of 3.3mg/dl (November 2021) -- new baseline(?) (3) Altered mental status: Code(s): R41.82 - Altered mental status, unspecified Status: Acute Assessment and Plan: * suspect uremic encephalopathy given elevated BUN * head CT negative * reported history of dementia but also reported alert and oriented at baseline * follow mentation as BUN improved and r/o other etiologies as well (4) Bacteremia: Code(s): R78.81 - Bacteremia Status: Acute Assessment and Plan: * blood culture with gram negative bacilli * source?? * on IV antibiotics * follow sensitivites (5) Metabolic acidosis: Code(s): E87.20 - Acidosis, unspecified Status: Acute Assessment and Plan: * quite severe and likely secondary to CHARLI/ARF * admission ABG noted * on bicarbonate fluids * follow trend of repeat labs (6) Anemia: Code(s): D64.9 - Anemia, unspecified Status: Acute Assessment and Plan: * probably related to underlying CKD along with acute illness * follow trend * with infection issues, not a candidate for IV iron (so hold off on checking anemia studies) * consider empiric Epogen depending on hospital course (7) Hypertension: Code(s): I10 - Essential (primary) hypertension Status: Chronic Assessment and Plan: * reasonable control at this time * follow trend of hemodynamics (8) Diabetes: Code(s): E11.9 - Type 2 diabetes mellitus without complications Status: Chronic Assessment and Plan: * follow accuchecks * glycemic control Will continue to follow. Subjective Date/time seen: 01/09/22 11:01 More awake and responsive to questions at the time of my visit but still confused; reasonable urine output noted with improvement in renal function (BUN and creatinine); Exam Narrative: General: elderly female laying in bed in NAD Heart: normal S1 and S2; no rub Lungs: clear anteriorly with a few bibasilar crackles Abdomen: soft, nontender, nondistended, positive bowel sounds Extremities: no cyanosis or clubbing; no edema Skin: warm and dry Objective Data Vital Signs Vital Signs: Vital Signs Temp Pulse Resp BP Pulse Ox O2 Del Method 01/09/22
--- NOTE | 2022-01-09 11:01 | PM.PNNEP ---
Progress Note: A&P Assessment and Plan (1) CHARLI (acute kidney injury): Code(s): N17.9 - Acute kidney failure, unspecified Status: Acute Assessment and Plan: slow improvement presumably due to overdiuresis (given the high dose diuretics she was on) exam seems consistent with volume depletion as well cannot discount infection playing a role (bacteremia) CT abd/pelvis negative wit regard to any pathology regarding kidneys check urine electrolytes (but may be difficult to interpret given ongoing use of diuretics with severe CHARLI) agree with gentle IVF hydration follow repeat labs, UOP, and respiratory status (2) Chronic kidney disease, stage IV (severe): Code(s): N18.4 - Chronic kidney disease, stage 4 (severe) Status: Chronic Assessment and Plan: creatinine 2.3mg/dl in July 2021 (last hospitalization) due to hypertension, diabetes, vascular disease, along with chronic prerenal azotemia chronic prerenal azotemia due to her known cardiomyopathy coupled with need for chronic diuretic therapy however, labs from nursing facility note a creatinine of 3.3mg/dl (November 2021) -- new baseline(?) (3) Altered mental status: Code(s): R41.82 - Altered mental status, unspecified Status: Acute Assessment and Plan: suspect uremic encephalopathy given elevated BUN head CT negative reported history of dementia but also reported alert and oriented at baseline follow mentation as BUN improved and r/o other etiologies as well (4) Bacteremia: Code(s): R78.81 - Bacteremia Status: Acute Assessment and Plan: blood culture with gram negative bacilli source?? on IV antibiotics follow sensitivites (5) Metabolic acidosis: Code(s): E87.20 - Acidosis, unspecified Status: Acute Assessment and Plan: quite severe and likely secondary to CHARLI/ARF admission ABG noted on bicarbonate fluids follow trend of repeat labs (6) Anemia: Code(s): D64.9 - Anemia, unspecified Status: Acute Assessment and Plan: probably related to underlying CKD along with acute illness follow trend with infection issues, not a candidate for IV iron (so hold off on checking anemia studies) consider empiric Epogen depending on hospital course (7) Hypertension: Code(s): I10 - Essential (primary) hypertension Status: Chronic Assessment and Plan: reasonable control at this time follow trend of hemodynamics (8) Diabetes: Code(s): E11.9 - Type 2 diabetes mellitus without complications Status: Chronic Assessment and Plan: follow accuchecks glycemic control Will continue to follow. Subjective Date/time seen: 01/09/22 11:01 More awake and responsive to questions at the time of my visit but still confused; reasonable urine output noted with improvement in renal function (BUN and creatinine); Exam Narrative: General: elderly female laying in bed in NAD Heart: normal S1 and S2; no rub Lungs: clear anteriorly with a few bibasilar crackles Abdomen: soft, nontender, nondistended, positive bowel sounds Extremities: no cyanosis or clubbing; no edema Skin: warm and dry Objective Data Vital Signs Vital Signs: Vital Signs Temp Pulse Resp BP Pulse Ox O2 Del Method 01/09/22 10:00 76 01/09/22 08:00 Room Air 01/09/22 08:00 80 01/09/22 09:48 85 01/09/22 08:00 36.6 C 82 18 171/64 H 97 01/09/22 06:00 77 01/09/22 04:00 36.6 C 60 18 165/61 H 97 01/09/22 04:00 80 01/09/22 04:00 Room Air 01/09/22 02:00 74 01/09/22 00:00 72 01/09/22 00:00 Room Air 01/08/22 23:24 36.6 C 70 20 137/57 L 96 01/08/22 22:00 71 01/08/22 20:00 70 01/08/22 20:20 Room Air 01/08/22 20:00 36.6 C 67 20 137/67 97 01/08/22 18:00 63 01/08/22 16:00 35.9 C L 63 16 129/46 L 99 1
[2022-01-09 12:00] LABS: Glucose Point of Care 85 mg/dl (65-105)
--- NOTE | 2022-01-09 14:57 | PM.IMPN ---
Progress Note: A&P Assessment and Plan (1) Bacteremia: Code(s): R78.81 - Bacteremia Status: Acute Assessment and Plan: BCx collected on admission. UA noted but no UCx. CXR as mentioned below but not felt to have PNA. No fevers and WBC normal. Was started on Rocephin. BCx positive (1of2) for GNB. Possibly urine source vs skin from ulcers vs PNA. Abx changed to Cefepime. Follow up on final results. (2) Acute uremia: Code(s): N19 - Unspecified kidney failure Status: Acute Assessment and Plan: Patient brought to emergency room because of altered mental status. She is found to have BUN of 145 and Creatinine 5.4. Suspect most likely related to over-diuresis. Uremia is causing her altered mental status and encephalopathy. She also has a severe gap metabolic acidosis (AG 21, bicarb 10). CT A/P showing normal kidneys. She has been started on IV fluids with bicarb. Nephrology was consulted and appreciate their input. UOP 1150 yesterday. BUN better at 129 and Cr 4.7. Bicarb 16 with AG 22. Further workup looking for other etiologies in process. Monitor urine output, renal function and electrolytes. (3) Acute encephalopathy: Code(s): G93.40 - Encephalopathy, unspecified Status: Acute Assessment and Plan: Related to above. CT the brain showing no acute findings. She does have underlying dementia. Continue to follow. (4) Metabolic acidosis: Code(s): E87.20 - Acidosis, unspecified Status: Acute Assessment and Plan: Patient with metabolic gap acidosis related to CHARLI. ABG noted. Started on IVF with bicarb. Follow bicarb. (5) Acute on chronic renal failure: Code(s): N17.9 - Acute kidney failure, unspecified; N18.9 - Chronic kidney disease, unspecified Status: Acute Assessment and Plan: As above. Baseline creatinine is 2.3-2.6. However last month, her creatinine has been running in the 3 range - new baseline? Home medications not complete but she was on Bumex (5mg per day) and spironolactone both of which will not be continued. Will hold Norvasc and Hydralazine to allow for improved renal perfusion. (6) Decubitus ulcer of heel, bilateral: Code(s): L89.619 - Pressure ulcer of right heel, unspecified stage; L89.629 - Pressure ulcer of left heel, unspecified stage Status: Acute Assessment and Plan: Bilateral heel decubitus ulcers present on admission. Thayer to be stage III. Appreciate incident response engineer input. Continue current dressing changes. (7) Diabetes: Code(s): E11.9 - Type 2 diabetes mellitus without complications Status: Chronic Assessment and Plan: A1c is 4.9. The patient's blood glucose was reviewed on 01/09 Glucose remains well controlled. Continue AccuCheks covering with sliding scale. Hypoglycemia protocol available as needed. Contineu to monitor. Stop Lantus. No plans to continue this after discharge (8) Hypertension: Code(s): I10 - Essential (primary) hypertension Status: Chronic Assessment and Plan: Patient's blood pressure was reviewed on 01/09 Blood pressure remains mildly elevated. Metoprolol resumed but other medications held to allow for renal perfusion. Will continue current medications. (9) Abnormal chest x-ray: Code(s): R93.89 - Abnormal findings on diagnostic imaging of other specified body structures Status: Acute Assessment and Plan: Chest x-ray shows diffuse bilateral pulmonary infiltrates. This was also appreciated in the lung bases by the CT of the abdomen. Probably pulmonary edema related to the acute kidney injury. No oxygen requirement. Minimal findings on lung exam. Follow closely. Repeat CXR in the morning. (10) Anemia: Code(s): D64.9 - Anemia, unspecified Status: Acute Assessment and Plan: Hgb noted. Hgb low but stable. results from June noted. Thayer chronic from her CKD. Follow. [place]
[2022-01-09 19:48] LABS: Glucose Point of Care 167 mg/dl (65-105)
[2022-01-09] MEDS: DOCUSATE SODIUM 100 MG CAPSULE PO (20:38)
[2022-01-09] MEDS: SIMVASTATIN 20 MG TABLET PO (20:38)
[2022-01-09 23:42] LABS: Glucose Point of Care 135 mg/dl (65-105)
[2022-01-10] VITALS (13 sets, daily range): BP systolic 155–198; BP diastolic 58–87; PULSE 76–97; RESP 18–20; TEMP 36.2–37.1; O2SAT 94–100
[2022-01-10 04:28] LABS: Basophils Percent Auto 0.4 % (0.2-1.2); Eosinophils Absolute Auto 0.1 K/mm3 (0-0.3); Eosinophils Percent Auto 1.5 % (0-4.4); Hematocrit 25.1 % (37.0-47.0); Hemoglobin 8.1 g/dL (12.0-15.0); Immature Granulocyte Absolute 0.18 K/mm3 (0.00-0.031); Lymphocytes Absolute Auto 1.17 K/mm3 (0.9-3.2); Lymphocytes Percent Auto 12.8 % (18.3-44.2); Mean Corpuscular HGB Conc 32.3 g/dl (32-36); Mean Corpuscular Volume 99.2 fl (80-100); Mean Platelet Volume 9.3 fl (7.4-10.4); Monocytes Absolute Auto 1.1 K/mm3 (0.1-0.6); Monocytes Percent Auto 11.7 % (2.6-8.5); Neutrophils Absolute Auto 6.6 K/mm3 (1.3-6.7); Neutrophils Percent Auto 71.6 % (45.5-73.1); Nucleated Red Blood Cells Perc 0.2 % (0.0-0.2); Platelet Count Result 173 k/mm3 (150-375); Red Blood Count 2.53 M/mm3 (4.2-5.4); Red Cell Distribution Width 13.4 % (11.5-14.5); White Blood Count 9.2 K/mm3 (4.5-10.0)
[2022-01-10 04:49] LABS: Anion Gap 13 mmol/L (8-16); Blood Urea Nitrogen 116 mg/dL (7-17); Calcium 8.1 mg/dL (8.4-10.2); Carbon Dioxide 18 mmol/L (22-30); Chloride 104 mmol/L (98-107); Estimated CRCL calculation 8 ml/min; Estimated Glomerular Filt Rate 10; Glucose 100 mg/dL (65-110); Magnesium 1.9 mg/dL (1.6-2.3); Phosphorus 7.6 mg/dL (2.5-4.5); Potassium 3.8 mmol/L (3.4-5.0); Sodium 135 mmol/L (137-145)
[2022-01-10 08:08] LABS: Glucose Point of Care 107 mg/dl (65-105)
[2022-01-10 09:13] LABS: Alanine Aminotransferase 26 U/L (6-35); Alkaline Phosphatase 112 U/L (38-126); Anion Gap 15 mmol/L (8-16); Aspartate Amino Transferase 34 U/L (14-36); Bilirubin,Total 0.4 mg/dL (0.2-1.3); Blood Urea Nitrogen 116 mg/dL (7-17); Calcium 8.2 mg/dL (8.4-10.2); Carbon Dioxide 18 mmol/L (22-30); Chloride 105 mmol/L (98-107); Estimated CRCL calculation 8 ml/min; Estimated Glomerular Filt Rate 11; Glucose 100 mg/dL (65-110); Potassium 3.9 mmol/L (3.4-5.0); Sodium 138 mmol/L (137-145)
[2022-01-10] MEDS: SILVERGEL (ELTA) 45 ML 1 APPLIC TOPICAL (09:15)
[2022-01-10] MEDS: PANTOPRAZOLE 40 MG TABLET PO (09:15)
--- NOTE | 2022-01-10 12:25 | PM.IMPN ---
Progress Note: A&P Assessment and Plan (1) Bacteremia: Code(s): R78.81 - Bacteremia Status: Acute Assessment and Plan: patient blood cultures are positive for Gram-negative bacilli awaiting for sensitivity currently on cefepime in possible source is urine versus skin ulcers (2) Acute on chronic renal failure: Code(s): N17.9 - Acute kidney failure, unspecified; N18.9 - Chronic kidney disease, unspecified Status: Acute Assessment and Plan: patient's creatinine has been trending downward And gentle hydration. Avoid nephrotoxic drugs. Monitor antihypertensive drugs Avoid NSAIDs. Routine CMP monitor GFR. Monitor electrolytes potassium levels. Dose antibiotics depending on creatinine clearance (3) Decubitus ulcer of heel, bilateral: Code(s): L89.619 - Pressure ulcer of right heel, unspecified stage; L89.629 - Pressure ulcer of left heel, unspecified stage Status: Acute (4) Diabetes: Code(s): E11.9 - Type 2 diabetes mellitus without complications Status: Chronic Assessment and Plan: diabetes stayed well controlled. Continue sliding scale. Monitor for hypoglycemia. Will try this hold long-acting insulin because of poor intake. (5) Abnormal chest x-ray: Code(s): R93.89 - Abnormal findings on diagnostic imaging of other specified body structures Status: Acute (6) Anemia: Code(s): D64.9 - Anemia, unspecified Status: Acute Assessment and Plan: Patient's anemia appears chronic. Continue to monitor H&H last hemoglobin 8.1. Cause of anemia could be chronic renal failure. Blood transfusion as needed (7) Acute uremia: Code(s): N19 - Unspecified kidney failure Status: Acute (8) Acute encephalopathy: Code(s): G93.40 - Encephalopathy, unspecified Status: Acute (9) Metabolic acidosis: Code(s): E87.20 - Acidosis, unspecified Status: Acute (10) Hypertension: Code(s): I10 - Essential (primary) hypertension Status: Chronic Subjective Date/time seen: 01/10/22 12:25 no new complaints patient is pleasantly confused not able to give us any answers Review of Systems Review of Systems: ROS unobtainable: Yes unobtainable due to medical condition Exam Narrative: GENERAL: Well appearing, well-nourished, non-toxic, in no acute distress. HEAD: Normocephalic, atraumatic. NECK: Supple. No adenopathy, no masses. RESPIRATORY: Airway patent, respirations nonlabored. Clear to auscultation bilaterally, no rales, rhonchi, wheezing. CARDIOVASCULAR: Regular rate and rhythm without murmurs, rubs, or gallops. Peripheral pulses 2+ and equal bilaterally. ABDOMINAL: Soft, nontender, nondistended, no hepatosplenomegaly. Normoactive BS. MUSCULOSKELETAL: no Epigastric and no hypochondrial tenderness SKIN: Warm, dry, normal color. heel ulcers NEURO: A&O X3. Moves all extremities PSYCHIATRIC: Appropriate mood and affect. Normal interaction. Objective Data Vital Signs Vital Signs: Vital Signs - 24 hr 01/09/22 14:00 01/09/22 16:00 01/09/22 16:00 Temperature 36.6 C Pulse Rate 82 79 72 Respiratory Rate 12 Blood Pressure 160/72 H Pulse Oximetry 97 Oxygen Delivery 01/09/22 16:00 01/09/22 18:00 01/09/22 19:58 Temperature 36.6 C Pulse Rate 67 80 Respiratory Rate 18 Blood Pressure 149/78 H Pulse Oximetry 98 Oxygen Delivery Room Air 01/09/22 20:00 01/09/22 20:00 01/09/22 22:00 Temperature Pulse Rate 80 73 76 Respiratory Rate 18 Blood Pressure Pulse Oximetry 98 Oxygen Delivery Room Air 01/09/22 23:49 01/10/22 00:00 01/10/22 00:00 Temperature 36.6 C Pulse Rate 79 79 76 Respiratory Rate 20 20 Blood Pressure 160/73 H Pulse Oximetry 97 97 Oxygen Delivery Room Air 01/10/22 02:00 01/10/22 04:00 01/10/22 04:00 Temperature 36.6 C Pulse Rate 81 81 85 Respiratory Rate 20 Blood Pressure 169/78 H Pulse Oximetry
--- NOTE | 2022-01-10 12:26 | PM.PNNEP ---
Progress Note: A&P Assessment and Plan (1) CHARLI (acute kidney injury): Code(s): N17.9 - Acute kidney failure, unspecified Status: Acute Assessment and Plan: slow improvement presumably due to overdiuresis (given the high dose diuretics she was on) exam seems consistent with volume depletion as well cannot discount infection playing a role (bacteremia) CT abd/pelvis negative wit regard to any pathology regarding kidneys on gentle IVF hydration follow repeat labs, UOP, and respiratory status (2) Chronic kidney disease, stage IV (severe): Code(s): N18.4 - Chronic kidney disease, stage 4 (severe) Status: Chronic Assessment and Plan: creatinine 2.3mg/dl in July 2021 (last hospitalization) due to hypertension, diabetes, vascular disease, along with chronic prerenal azotemia chronic prerenal azotemia due to her known cardiomyopathy coupled with need for chronic diuretic therapy however, labs from nursing facility note a creatinine of 3.3mg/dl (November 2021) -- new baseline(?) (3) Altered mental status: Code(s): R41.82 - Altered mental status, unspecified Status: Acute Assessment and Plan: slowly improving suspect uremic encephalopathy given elevated BUN head CT negative reported history of dementia but also reported alert and oriented at baseline follow mentation as BUN improved and r/o other etiologies as well (4) Bacteremia: Code(s): R78.81 - Bacteremia Status: Acute Assessment and Plan: blood culture with gram negative bacilli source?? on IV antibiotics follow sensitivites (5) Metabolic acidosis: Code(s): E87.20 - Acidosis, unspecified Status: Acute Assessment and Plan: quite severe and likely secondary to CHARLI/ARF admission ABG noted on bicarbonate fluids follow trend of repeat labs (6) Anemia: Code(s): D64.9 - Anemia, unspecified Status: Acute Assessment and Plan: probably related to underlying CKD along with acute illness follow trend with infection issues, not a candidate for IV iron (so hold off on checking anemia studies) consider empiric Epogen depending on hospital course (7) Hypertension: Code(s): I10 - Essential (primary) hypertension Status: Chronic Assessment and Plan: reasonable control at this time follow trend of hemodynamics (8) Diabetes: Code(s): E11.9 - Type 2 diabetes mellitus without complications Status: Chronic Assessment and Plan: follow accuchecks glycemic control Will continue to follow. Subjective Date/time seen: 01/10/22 12:26 Mentation continues to improve albeit slowly although still remains confused in general; no apparent distress noted; no issues overnight or earlier this morning; no apparent distress. Exam Narrative: General: elderly female laying in bed in NAD Heart: normal S1 and S2; no rub Lungs: clear anteriorly with a few crackles at bases Abdomen: soft, nontender, nondistended, positive bowel sounds Extremities: no cyanosis or clubbing; no edema Skin: warm and dry Objective Data Vital Signs Vital Signs: Vital Signs Temp Pulse Resp BP Pulse Ox O2 Del Method 01/10/22 12:00 Room Air 01/10/22 10:00 84 01/10/22 08:00 Room Air 01/10/22 08:00 84 01/10/22 12:00 36.6 C 86 18 158/63 H 96 01/10/22 09:57 95 Room Air 01/10/22 08:00 37.1 C 86 20 155/58 H 95 01/10/22 06:00 83 01/10/22 04:00 85 20 97 Room Air 01/10/22 04:00 85 01/10/22 04:00 36.6 C 81 20 169/78 H 97 01/10/22 02:00 81 01/10/22 00:00 76 01/10/22 00:00 79 20 97 Room Air 01/09/22 23:49 36.6 C 79 20 160/73 H 97 01/09/22 22:00 76 01/09/22 20:00 73 01/09/22 20:00 80 18 98 Room Air 01/09/22 19:58 36.6 C 80 18 149/78 H 98 01/09/22 18:00 67 01/09/22 16:00
--- NOTE | 2022-01-10 12:26 | P.PNNP_ITS ---
Progress Note: A&P Assessment and Plan (1) CHARLI (acute kidney injury): Code(s): N17.9 - Acute kidney failure, unspecified Status: Acute Assessment and Plan: * slow improvement * presumably due to overdiuresis (given the high dose diuretics she was on) * exam seems consistent with volume depletion as well * cannot discount infection playing a role (bacteremia) * CT abd/pelvis negative wit regard to any pathology regarding kidneys * on gentle IVF hydration * follow repeat labs, UOP, and respiratory status (2) Chronic kidney disease, stage IV (severe): Code(s): N18.4 - Chronic kidney disease, stage 4 (severe) Status: Chronic Assessment and Plan: * creatinine 2.3mg/dl in July 2021 (last hospitalization) * due to hypertension, diabetes, vascular disease, along with chronic prerenal azotemia * chronic prerenal azotemia due to her known cardiomyopathy coupled with need for chronic diuretic therapy * however, labs from nursing facility note a creatinine of 3.3mg/dl (November 2021) -- new baseline(?) (3) Altered mental status: Code(s): R41.82 - Altered mental status, unspecified Status: Acute Assessment and Plan: * slowly improving * suspect uremic encephalopathy given elevated BUN * head CT negative * reported history of dementia but also reported alert and oriented at baseline * follow mentation as BUN improved and r/o other etiologies as well (4) Bacteremia: Code(s): R78.81 - Bacteremia Status: Acute Assessment and Plan: * blood culture with gram negative bacilli * source?? * on IV antibiotics * follow sensitivites (5) Metabolic acidosis: Code(s): E87.20 - Acidosis, unspecified Status: Acute Assessment and Plan: * quite severe and likely secondary to CHARLI/ARF * admission ABG noted * on bicarbonate fluids * follow trend of repeat labs (6) Anemia: Code(s): D64.9 - Anemia, unspecified Status: Acute Assessment and Plan: * probably related to underlying CKD along with acute illness * follow trend * with infection issues, not a candidate for IV iron (so hold off on checking anemia studies) * consider empiric Epogen depending on hospital course (7) Hypertension: Code(s): I10 - Essential (primary) hypertension Status: Chronic Assessment and Plan: * reasonable control at this time * follow trend of hemodynamics (8) Diabetes: Code(s): E11.9 - Type 2 diabetes mellitus without complications Status: Chronic Assessment and Plan: * follow accuchecks * glycemic control Will continue to follow. Subjective Date/time seen: 01/10/22 12:26 Mentation continues to improve albeit slowly although still remains confused in general; no apparent distress noted; no issues overnight or earlier this morning; no apparent distress. Exam Narrative: General: elderly female laying in bed in NAD Heart: normal S1 and S2; no rub Lungs: clear anteriorly with a few crackles at bases Abdomen: soft, nontender, nondistended, positive bowel sounds Extremities: no cyanosis or clubbing; no edema Skin: warm and dry Objective Data Vital Signs Vital Signs: Vital Signs Temp Pulse Resp BP Pulse Ox O2 Del Method 01/10/22 12:00 Room Air 01/10/22 10:00 84 01/10/22 08:00
[2022-01-10 14:16] LABS: Glucose Point of Care 98 mg/dl (65-105)
[2022-01-10 16:48] LABS: Glucose Point of Care 93 mg/dl (65-105)
[2022-01-10 20:25] LABS: Glucose Point of Care 93 mg/dl (65-105)
[2022-01-10 20:35] LABS: Myoglobin, Urine <27 mcg/L (<28)
[2022-01-10 21:35] LABS: Total Triiodothyronine (T3) 0.85 NG/ML (0.97-1.69)
[2022-01-11] VITALS (8 sets, daily range): BP systolic 143–173; BP diastolic 65–125; PULSE 81–103; RESP 16–20; TEMP 35.8–36.4; O2SAT 96–100
[2022-01-11 00:27] LABS: Glucose Point of Care 78 mg/dl (65-105)
[2022-01-11] MEDS: hydrALAZINE HCL 20 MG/ML VIAL 10 MG IV PUSH (00:57)
[2022-01-11 05:56] LABS: Glucose Point of Care 85 mg/dl (65-105)
[2022-01-11] MEDS: SILVERGEL (ELTA) 45 ML 1 APPLIC TOPICAL (08:58)
[2022-01-11] MEDS: buPROPion HCL 75 MG TABLET PO (08:58)
[2022-01-11] MEDS: SODIUM BICARBONATE 8.4% 75 MEQ in SODIUM CHLORIDE 0.45% 1,000 ML 70 MEQ IV CONT (11:17)
--- NOTE | 2022-01-11 11:32 | PM.PNNEP ---
Progress Note: A&P Assessment and Plan (1) CHARLI (acute kidney injury): Code(s): N17.9 - Acute kidney failure, unspecified Status: Acute Assessment and Plan: slow improvement presumably due to overdiuresis (given the high dose diuretics she was on) exam seems consistent with volume depletion as well cannot discount infection playing a role (bacteremia) CT abd/pelvis negative wit regard to any pathology regarding kidneys on gentle IVF hydration follow repeat labs, UOP, and respiratory status (2) Chronic kidney disease, stage IV (severe): Code(s): N18.4 - Chronic kidney disease, stage 4 (severe) Status: Chronic Assessment and Plan: creatinine 2.3mg/dl in July 2021 (last hospitalization) due to hypertension, diabetes, vascular disease, along with chronic prerenal azotemia chronic prerenal azotemia due to her known cardiomyopathy coupled with need for chronic diuretic therapy however, labs from nursing facility note a creatinine of 3.3mg/dl (November 2021) -- new baseline(?) (3) Altered mental status: Code(s): R41.82 - Altered mental status, unspecified Status: Acute Assessment and Plan: slowly improving suspect uremic encephalopathy given elevated BUN head CT negative reported history of dementia but also reported alert and oriented at baseline follow mentation as BUN improved and r/o other etiologies as well (4) Bacteremia: Code(s): R78.81 - Bacteremia Status: Acute Assessment and Plan: blood culture with E.coli source?? on IV antibiotics follow repeat cultures (5) Metabolic acidosis: Code(s): E87.20 - Acidosis, unspecified Status: Acute Assessment and Plan: quite severe and likely secondary to CHARLI/ARF admission ABG noted on bicarbonate fluids follow trend of repeat labs (6) Anemia: Code(s): D64.9 - Anemia, unspecified Status: Acute Assessment and Plan: probably related to underlying CKD along with acute illness follow trend with infection issues, not a candidate for IV iron (so hold off on checking anemia studies) consider empiric Epogen depending on hospital course (7) Hypertension: Code(s): I10 - Essential (primary) hypertension Status: Chronic Assessment and Plan: reasonable control at this time follow trend of hemodynamics (8) Diabetes: Code(s): E11.9 - Type 2 diabetes mellitus without complications Status: Chronic Assessment and Plan: follow accuchecks glycemic control Will continue to follow. Subjective Date/time seen: 01/11/22 11:32 Renal function continues to slowly improve with current therapy/interventions; mentation also getting better/slwoly improving as well; no apparent distress noted; no issues/events overnight or earlier this AM.; no apparent distress voiced. Exam Narrative: General: elderly female laying in bed in NAD Heart: normal S1 and S2; no rub Lungs: clear anteriorly with a few crackles at bases Abdomen: soft, nontender, nondistended, positive bowel sounds Extremities: no cyanosis or clubbing; no edema Skin: warm and intact Objective Data Vital Signs Vital Signs: Vital Signs Temp Pulse Resp BP Pulse Ox O2 Del Method 01/11/22 08:00 Room Air 01/11/22 08:00 36.4 C L 98 20 153/99 H 97 01/11/22 06:00 98 01/11/22 04:00 Room Air 01/11/22 04:00 36.2 C L 100 16 163/73 H 96 01/11/22 04:00 103 H 01/11/22 02:00 96 01/11/22 00:00 93 01/10/22 22:00 94 01/10/22 20:00 92 01/11/22 00:00 Room Air 01/10/22 20:00 Room Air 01/11/22 00:00 36.4 C L 99 20 169/65 H 100 01/10/22 20:00 36.7 C 97 20 174/87 H 100 01/10/22 18:00 87 01/10/22 16:00 90 01/10/22 16:00 Room Air 01/10/22 16:00 36.2 C L 78 20 198/69 H 94 01/10/22 14:00 95 Intake/Output In
--- NOTE | 2022-01-11 11:32 | P.PNNP_ITS ---
Progress Note: A&P Assessment and Plan (1) CHARLI (acute kidney injury): Code(s): N17.9 - Acute kidney failure, unspecified Status: Acute Assessment and Plan: * slow improvement * presumably due to overdiuresis (given the high dose diuretics she was on) * exam seems consistent with volume depletion as well * cannot discount infection playing a role (bacteremia) * CT abd/pelvis negative wit regard to any pathology regarding kidneys * on gentle IVF hydration * follow repeat labs, UOP, and respiratory status (2) Chronic kidney disease, stage IV (severe): Code(s): N18.4 - Chronic kidney disease, stage 4 (severe) Status: Chronic Assessment and Plan: * creatinine 2.3mg/dl in July 2021 (last hospitalization) * due to hypertension, diabetes, vascular disease, along with chronic prerenal azotemia * chronic prerenal azotemia due to her known cardiomyopathy coupled with need for chronic diuretic therapy * however, labs from nursing facility note a creatinine of 3.3mg/dl (November 2021) -- new baseline(?) (3) Altered mental status: Code(s): R41.82 - Altered mental status, unspecified Status: Acute Assessment and Plan: * slowly improving * suspect uremic encephalopathy given elevated BUN * head CT negative * reported history of dementia but also reported alert and oriented at baseline * follow mentation as BUN improved and r/o other etiologies as well (4) Bacteremia: Code(s): R78.81 - Bacteremia Status: Acute Assessment and Plan: * blood culture with E.coli * source?? * on IV antibiotics * follow repeat cultures (5) Metabolic acidosis: Code(s): E87.20 - Acidosis, unspecified Status: Acute Assessment and Plan: * quite severe and likely secondary to CHARLI/ARF * admission ABG noted * on bicarbonate fluids * follow trend of repeat labs (6) Anemia: Code(s): D64.9 - Anemia, unspecified Status: Acute Assessment and Plan: * probably related to underlying CKD along with acute illness * follow trend * with infection issues, not a candidate for IV iron (so hold off on checking anemia studies) * consider empiric Epogen depending on hospital course (7) Hypertension: Code(s): I10 - Essential (primary) hypertension Status: Chronic Assessment and Plan: * reasonable control at this time * follow trend of hemodynamics (8) Diabetes: Code(s): E11.9 - Type 2 diabetes mellitus without complications Status: Chronic Assessment and Plan: * follow accuchecks * glycemic control Will continue to follow. Subjective Date/time seen: 01/11/22 11:32 Renal function continues to slowly improve with current therapy/interventions; mentation also getting better/slwoly improving as well; no apparent distress noted; no issues/events overnight or earlier this AM.; no apparent distress voiced. Exam Narrative: General: elderly female laying in bed in NAD Heart: normal S1 and S2; no rub Lungs: clear anteriorly with a few crackles at bases Abdomen: soft, nontender, nondistended, positive bowel sounds Extremities: no cyanosis or clubbing; no edema Skin: warm and intact Objective Data Vital Signs Vital Signs: Vital Signs Temp Pulse Resp BP Pulse Ox O2 Del Method 01/11/22 08:00 Room Air
[2022-01-11 11:50] LABS: Hematocrit 26.4 % (37.0-47.0); Hemoglobin 8.7 g/dL (12.0-15.0); Mean Platelet Volume 9.4 fl (7.4-10.4); Platelet Count Result 157 k/mm3 (150-375); Red Blood Count 2.64 M/mm3 (4.2-5.4); Red Cell Distribution Width 13.6 % (11.5-14.5); White Blood Count 9.1 K/mm3 (4.5-10.0)
[2022-01-11 12:01] LABS: Alanine Aminotransferase 29 U/L (6-35); Albumin Level 3.4 g/dL (3.5-5.1); Alkaline Phosphatase 105 U/L (38-126); Anion Gap 21 mmol/L (8-16); Aspartate Amino Transferase 39 U/L (14-36); Bilirubin,Total 0.6 mg/dL (0.2-1.3); Blood Urea Nitrogen 105 mg/dL (7-17); Calcium 8.5 mg/dL (8.4-10.2); Carbon Dioxide 17 mmol/L (22-30); Chloride 105 mmol/L (98-107); Estimated CRCL calculation 10 ml/min; Estimated Glomerular Filt Rate 14; Glucose 145 mg/dL (65-110); Potassium 3.8 mmol/L (3.4-5.0); Sodium 143 mmol/L (137-145)
[2022-01-11 12:09] LABS: Glucose Point of Care 143 mg/dl (65-105)
--- NOTE | 2022-01-11 12:51 | PM.IMPN ---
Progress Note: A&P Assessment and Plan (1) Bacteremia: Code(s): R78.81 - Bacteremia Status: Acute Assessment and Plan: blood cultures show E coli currently on cefepime. (2) Acute on chronic renal failure: Code(s): N17.9 - Acute kidney failure, unspecified; N18.9 - Chronic kidney disease, unspecified Status: Acute Assessment and Plan: patient's creatinine has been trending downward And gentle hydration. Avoid nephrotoxic drugs. Monitor antihypertensive drugs Avoid NSAIDs. Routine CMP monitor GFR. Monitor electrolytes potassium levels. Dose antibiotics depending on creatinine clearance (3) Decubitus ulcer of heel, bilateral: Code(s): L89.619 - Pressure ulcer of right heel, unspecified stage; L89.629 - Pressure ulcer of left heel, unspecified stage Status: Acute (4) Diabetes: Code(s): E11.9 - Type 2 diabetes mellitus without complications Status: Chronic Assessment and Plan: diabetes stayed well controlled. Continue sliding scale. Monitor for hypoglycemia. Will try this hold long-acting insulin because of poor intake. (5) Abnormal chest x-ray: Code(s): R93.89 - Abnormal findings on diagnostic imaging of other specified body structures Status: Acute (6) Anemia: Code(s): D64.9 - Anemia, unspecified Status: Acute Assessment and Plan: Patient's anemia appears chronic. Continue to monitor H&H last hemoglobin 8.1. being trending upwards Cause of anemia could be chronic renal failure. Blood transfusion as needed (7) Acute uremia: Code(s): N19 - Unspecified kidney failure Status: Acute (8) Acute encephalopathy: Code(s): G93.40 - Encephalopathy, unspecified Status: Acute (9) Metabolic acidosis: Code(s): E87.20 - Acidosis, unspecified Status: Acute (10) Hypertension: Code(s): I10 - Essential (primary) hypertension Status: Chronic Assessment and Plan: blood pressure uncontrolled will increase amlodipine to 10 (11) Hypothyroidism (acquired): Code(s): E03.9 - Hypothyroidism, unspecified Status: Acute Assessment and Plan: TSH is 12.2 starting levothyroxine Time Spent With Patient Time with patient: 25 - 35 minutes Subjective Date/time seen: 01/11/22 12:51 Interval history: no new complaint Exam Narrative: GENERAL: Well appearing, well-nourished, non-toxic, in no acute distress. HEAD: Normocephalic, atraumatic. NECK: Supple. No adenopathy, no masses. RESPIRATORY: Airway patent, respirations nonlabored. Clear to auscultation bilaterally, no rales, rhonchi, wheezing. CARDIOVASCULAR: Regular rate and rhythm without murmurs, rubs, or gallops. Peripheral pulses 2+ and equal bilaterally. ABDOMINAL: Soft, nontender, nondistended, no hepatosplenomegaly. Normoactive BS. MUSCULOSKELETAL: no Epigastric and no hypochondrial tenderness SKIN: Warm, dry, normal color. heel ulcers NEURO: A&O X3. Moves all extremities PSYCHIATRIC: Appropriate mood and affect. Normal interaction. Objective Data Vital Signs Vital Signs: Vital Signs - 24 hr 01/10/22 14:00 01/10/22 16:00 01/10/22 16:00 Temperature 36.2 C L Pulse Rate 95 78 Respiratory Rate 20 Blood Pressure 198/69 H Pulse Oximetry 94 Oxygen Delivery Room Air 01/10/22 16:00 01/10/22 18:00 01/10/22 20:00 Temperature 36.7 C Pulse Rate 90 87 97 Respiratory Rate 20 Blood Pressure 174/87 H Pulse Oximetry 100 Oxygen Delivery 01/11/22 00:00 01/10/22 20:00 01/11/22 00:00 Temperature 36.4 C L Pulse Rate 99 Respiratory Rate 20 Blood Pressure 169/65 H Pulse Oximetry 100 Oxygen Delivery Room Air Room Air 01/10/22 20:00 01/10/22 22:00 01/11/22 00:00 Temperature Pulse Rate 92 94 93 Respiratory Rate Blood Pressure Pulse Oximetry Oxygen Delivery 01/11/22 02:00 01/11/22 04:00 01/11/22 04:00 Temperat
[2022-01-12] VITALS: BP 163/95; PULSE 84; RESP 20; TEMP 36.3; O2SAT 98
[2022-01-12 00:13] LABS: Glucose Point of Care 112 mg/dl (65-105)
[2022-01-12] MEDS: SODIUM BICARBONATE 8.4% 75 MEQ in SODIUM CHLORIDE 0.45% 1,000 ML 70 MEQ IV CONT (01:40)
[2022-01-12 05:59] LABS: Glucose Point of Care 97 mg/dl (65-105)
[2022-01-12 08:00] VITALS: BP 175/72; PULSE 93; RESP 18; TEMP 36.3; O2SAT 97
[2022-01-12 11:57] LABS: Glucose Point of Care 111 mg/dl (65-105)
[2022-01-12 12:00] VITALS: BP 167/78; PULSE 115; RESP 20; TEMP 36.6; O2SAT 98
--- NOTE | 2022-01-12 12:18 | PM.PNNEP ---
Progress Note: A&P Assessment and Plan (1) HIRAL (acute kidney injury): Code(s): N17.9 - Acute kidney failure, unspecified Status: Acute Assessment and Plan: slow improvement presumably due to overdiuresis (given the high dose diuretics she was on) exam seems consistent with volume depletion as well cannot discount infection playing a role (bacteremia) CT abd/pelvis negative wit regard to any pathology regarding kidneys on gentle IVF hydration follow repeat labs, UOP, and respiratory status if she is unable to eat, I fear will continue to be susceptible to further Hiral/ARF (2) Chronic kidney disease, stage IV (severe): Code(s): N18.4 - Chronic kidney disease, stage 4 (severe) Status: Chronic Assessment and Plan: creatinine 2.3mg/dl in July 2021 (last hospitalization) due to hypertension, diabetes, vascular disease, along with chronic prerenal azotemia chronic prerenal azotemia due to her known cardiomyopathy coupled with need for chronic diuretic therapy however, labs from nursing facility note a creatinine of 3.3mg/dl (November 2021) -- new baseline(?) (3) Altered mental status: Code(s): R41.82 - Altered mental status, unspecified Status: Acute Assessment and Plan: slowly improving suspect uremic encephalopathy given elevated BUN head CT negative reported history of dementia but also reported alert and oriented at baseline follow mentation as BUN improved and r/o other etiologies as well (4) Bacteremia: Code(s): R78.81 - Bacteremia Status: Acute Assessment and Plan: blood culture with E.coli source?? on IV antibiotics follow repeat cultures (5) Metabolic acidosis: Code(s): E87.20 - Acidosis, unspecified Status: Acute Assessment and Plan: quite severe and likely secondary to HIRAL/ARF admission ABG noted on bicarbonate fluids follow trend of repeat labs (6) Anemia: Code(s): D64.9 - Anemia, unspecified Status: Acute Assessment and Plan: probably related to underlying CKD along with acute illness follow trend with infection issues, not a candidate for IV iron (so hold off on checking anemia studies) consider empiric Epogen depending on hospital course (7) Hypertension: Code(s): I10 - Essential (primary) hypertension Status: Chronic Assessment and Plan: reasonable control at this time follow trend of hemodynamics (8) Diabetes: Code(s): E11.9 - Type 2 diabetes mellitus without complications Status: Chronic Assessment and Plan: follow accuchecks glycemic control Noted discussion with family regarding goals of care and possibly comfort care measure/hospice given patient's overall declining condition. Will continue to follow. Subjective Date/time seen: 01/12/22 12:18 No real significant change compared to yesterday; continues to make reasonable urine output with IVFs since hospitalization; no apparent distress voiced currently; no other issues/events overnight or earlier this morning; no AM labs available for review; unfortunately, she is not eating and drinking very much since admission. Exam Narrative: General: elderly female laying in bed in NAD Heart: normal S1 and S2; no rub Lungs: clear anteriorly with a few crackles at bases Abdomen: soft, nontender, nondistended, positive bowel sounds Extremities: no cyanosis or clubbing; no edema Skin: no rash Objective Data Vital Signs Vital Signs: Vital Signs Temp Pulse Resp BP Pulse Ox O2 Del Method 01/12/22 12:00 36.6 C 115 H 20 167/78 H 98 01/12/22 08:00 36.3 C L 93 18 175/72 H 97 01/12/22 08:00 Room Air 01/12/22 00:00 36.3 C L 84 20 163/95 H 98 01/11/22 20:00 35.8 C L 86 16 143/106 H 98 01/11/22 20:00 Room Air 01/11/22 16:00 36.1 C L 81 16 162/125 H 96 Intake/Output Intake/Output: Intake
--- NOTE | 2022-01-12 12:18 | P.PNNP_ITS ---
Progress Note: A&P Assessment and Plan (1) HIRAL (acute kidney injury): Code(s): N17.9 - Acute kidney failure, unspecified Status: Acute Assessment and Plan: * slow improvement * presumably due to overdiuresis (given the high dose diuretics she was on) * exam seems consistent with volume depletion as well * cannot discount infection playing a role (bacteremia) * CT abd/pelvis negative wit regard to any pathology regarding kidneys * on gentle IVF hydration * follow repeat labs, UOP, and respiratory status * if she is unable to eat, I fear will continue to be susceptible to further Hiral/ARF (2) Chronic kidney disease, stage IV (severe): Code(s): N18.4 - Chronic kidney disease, stage 4 (severe) Status: Chronic Assessment and Plan: * creatinine 2.3mg/dl in July 2021 (last hospitalization) * due to hypertension, diabetes, vascular disease, along with chronic prerenal azotemia * chronic prerenal azotemia due to her known cardiomyopathy coupled with need for chronic diuretic therapy * however, labs from nursing facility note a creatinine of 3.3mg/dl (December 14) -- new baseline(?) (3) Altered mental status: Code(s): R41.82 - Altered mental status, unspecified Status: Acute Assessment and Plan: * slowly improving * suspect uremic encephalopathy given elevated BUN * head CT negative * reported history of dementia but also reported alert and oriented at baseline * follow mentation as BUN improved and r/o other etiologies as well (4) Bacteremia: Code(s): R78.81 - Bacteremia Status: Acute Assessment and Plan: * blood culture with E.coli * source?? * on IV antibiotics * follow repeat cultures (5) Metabolic acidosis: Code(s): E87.20 - Acidosis, unspecified Status: Acute Assessment and Plan: * quite severe and likely secondary to HIRAL/ARF * admission ABG noted * on bicarbonate fluids * follow trend of repeat labs (6) Anemia: Code(s): D64.9 - Anemia, unspecified Status: Acute Assessment and Plan: * probably related to underlying CKD along with acute illness * follow trend * with infection issues, not a candidate for IV iron (so hold off on checking anemia studies) * consider empiric Epogen depending on hospital course (7) Hypertension: Code(s): I10 - Essential (primary) hypertension Status: Chronic Assessment and Plan: * reasonable control at this time * follow trend of hemodynamics (8) Diabetes: Code(s): E11.9 - Type 2 diabetes mellitus without complications Status: Chronic Assessment and Plan: * follow accuchecks * glycemic control Noted discussion with family regarding goals of care and possibly comfort care measure/hospice given patient's overall declining condition. Will continue to follow. Subjective Date/time seen: 01/12/22 12:18 No real significant change compared to yesterday; continues to make reasonable urine output with IVFs since hospitalization; no apparent distress voiced currently; no other issues/events overnight or earlier this morning; no AM labs available for review; unfortunately, she is not eating and drinking very much since admission. Exam Narrative: General: elderly female laying in bed in NAD Heart: normal S1 and S2; no rub Lungs: clear anteriorly with a few crackles at bases Abdomen: soft, nontender, nondistended, positive bowel sounds Extremities: no cyanosis or c
--- NOTE | 2022-01-12 12:59 | PM.IMPN ---
Progress Note: A&P Assessment and Plan (1) Bacteremia: Code(s): R78.81 - Bacteremia Status: Acute Assessment and Plan: blood cultures show E coli currently on cefepime. (2) Acute on chronic renal failure: Code(s): N17.9 - Acute kidney failure, unspecified; N18.9 - Chronic kidney disease, unspecified Status: Acute Assessment and Plan: patient's creatinine has been trending downward creatinine down to 3.2 And gentle hydration. Avoid nephrotoxic drugs. Monitor antihypertensive drugs Avoid NSAIDs. Routine CMP monitor GFR. Monitor electrolytes potassium levels. Dose antibiotics depending on creatinine clearance (3) Decubitus ulcer of heel, bilateral: Code(s): L89.619 - Pressure ulcer of right heel, unspecified stage; L89.629 - Pressure ulcer of left heel, unspecified stage Status: Acute (4) Diabetes: Code(s): E11.9 - Type 2 diabetes mellitus without complications Status: Chronic Assessment and Plan: diabetes stayed well controlled. Continue sliding scale. Monitor for hypoglycemia. Will try this hold long-acting insulin because of poor intake. (5) Abnormal chest x-ray: Code(s): R93.89 - Abnormal findings on diagnostic imaging of other specified body structures Status: Acute (6) Anemia: Code(s): D64.9 - Anemia, unspecified Status: Acute Assessment and Plan: Patient's anemia appears chronic. Continue to monitor H&H last hemoglobin 8.1. being trending upwards Cause of anemia could be chronic renal failure. Blood transfusion as needed (7) Hypertension: Code(s): I10 - Essential (primary) hypertension Status: Chronic Assessment and Plan: blood pressure uncontrolled will increase amlodipine to 10 (8) Hypothyroidism (acquired): Code(s): E03.9 - Hypothyroidism, unspecified Status: Acute Assessment and Plan: TSH is 12.2 starting levothyroxine Plan plan to discuss with the family to opt for hospice/ palliative care and possible discharge to nursing facility Subjective Date/time seen: 01/12/22 12:59 Interval history: no new complaints Exam Narrative: GENERAL: Well appearing, well-nourished, non-toxic, in no acute distress. HEAD: Normocephalic, atraumatic. NECK: Supple. No adenopathy, no masses. RESPIRATORY: Airway patent, respirations nonlabored. Clear to auscultation bilaterally, no rales, rhonchi, wheezing. CARDIOVASCULAR: Regular rate and rhythm without murmurs, rubs, or gallops. Peripheral pulses 2+ and equal bilaterally. ABDOMINAL: Soft, nontender, nondistended, no hepatosplenomegaly. Normoactive BS. MUSCULOSKELETAL: no Epigastric and no hypochondrial tenderness SKIN: Warm, dry, normal color. heel ulcers NEURO: A&O X3. Moves all extremities heel pads for decubital ulcers PSYCHIATRIC: Appropriate mood and affect. Normal interaction. Objective Data Vital Signs Vital Signs: Vital Signs - 24 hr 01/11/22 16:00 01/11/22 20:00 01/11/22 20:00 Temperature 36.1 C L 35.8 C L Pulse Rate 81 86 Respiratory Rate 16 16 Blood Pressure 162/125 H 143/106 H Pulse Oximetry 96 98 Oxygen Delivery Room Air 01/12/22 00:00 01/12/22 08:00 01/12/22 08:00 Temperature 36.3 C L 36.3 C L Pulse Rate 84 93 Respiratory Rate 20 18 Blood Pressure 163/95 H 175/72 H Pulse Oximetry 98 97 Oxygen Delivery Room Air 01/12/22 12:00 Temperature 36.6 C Pulse Rate 115 H Respiratory Rate 20 Blood Pressure 167/78 H Pulse Oximetry 98 Oxygen Delivery Intake/Output Intake/Output: Intake & Output 01/09/22 01/10/22 01/11/22 01/12/22 23:59 23:59 23:59 23:59 Intake Total 2630 1797 848 7977 Output Total 1800 2100 2000 950 Balance 240 -409 -8963 175 Meds/Results Medications: Active Medications Generic Name Dose Route Start Last Admin Trade Name Freq PRN Reason Stop Dose Admin Amlodipine Besylate 10 mg 01/09/22 09:00 01/09/22 09:45
[2022-01-12] MEDS: SILVERGEL (ELTA) 45 ML 1 APPLIC TOPICAL (13:36)
[2022-01-12 16:05] LABS: Chloride Rand Ur 61 mmol/L (32-290); Chloride/Creatinine Rand Ur 381 (38-318); Creatinine Random Urine 16 mg/dL (20-275)
[2022-01-12 18:00] VITALS: BP 138/90; PULSE 90; RESP 22; TEMP 36.3; O2SAT 92
--- NOTE | 2022-01-12 18:42 | PM.DS ---
DS: Admitting Diagnosis Discharge Date 01/12/22 Admitting Diagnosis Pneumonia DS: Discharge Diagnosis Discharge Diagnosis (1) Decubitus ulcer of heel, bilateral: Code(s): L89.619 - Pressure ulcer of right heel, unspecified stage; L89.629 - Pressure ulcer of left heel, unspecified stage Status: Acute (2) Hypothyroidism (acquired): Code(s): E03.9 - Hypothyroidism, unspecified Status: Acute (3) Bacteremia: Code(s): R78.81 - Bacteremia Status: Acute (4) Chronic kidney disease, stage IV (severe): Code(s): N18.4 - Chronic kidney disease, stage 4 (severe) Status: Chronic (5) Hypertension: Code(s): I10 - Essential (primary) hypertension Status: Chronic (6) Metabolic acidosis: Code(s): E87.20 - Acidosis, unspecified Status: Acute (7) Cardiomyopathy: Code(s): I42.9 - Cardiomyopathy, unspecified Status: Acute DS: Summary Hospital Course Hospital Course: pt has been transferred to hospice care Time Spent with Patient Time attestation: Total time spent providing and/or coordinating discharge services: Exam Narrative: GENERAL: Well appearing, well-nourished, non-toxic, in no acute distress. HEAD: Normocephalic, atraumatic. NECK: Supple. No adenopathy, no masses. RESPIRATORY: Airway patent, respirations nonlabored. Clear to auscultation bilaterally, no rales, rhonchi, wheezing. CARDIOVASCULAR: Regular rate and rhythm without murmurs, rubs, or gallops. Peripheral pulses 2+ and equal bilaterally. ABDOMINAL: Soft, nontender, nondistended, no hepatosplenomegaly. Normoactive BS. MUSCULOSKELETAL: no Epigastric and no hypochondrial tenderness SKIN: Warm, dry, normal color. heel ulcers NEURO: A&O X3. Moves all extremities heel pads for decubital ulcers PSYCHIATRIC: Appropriate mood and affect. Normal interaction. DS: Data Data Completed and Pending Labs on day of discharge: Labs from last 24 hours 01/12/22 01/12/22 01/12/22 11:54 05:41 00:10 POC Capillary Glucose 111 H 97 112 H Ur Random Creatinine Ur Random Chloride U Random Chloride/Creat 01/08/22 09:40 POC Capillary Glucose Ur Random Creatinine 16 L Ur Random Chloride 61 U Random Chloride/Creat 381 H Preliminary micro results at discharge 01/07/22 21:25 Blood Culture - Preliminary Blood Escherichia Coli 01/07/22 21:25 Blood Culture - Preliminary Blood Discharge Plan Discharge Consulting providers: Dean Sanderson Discharging Clinician: Giovanni Valdez Patient Disposition: Hospice - Home Activity: as tolerated Diet: regular Stand Alone Forms: General Discharge Information Discharge Medications: New sulfamethoxazole-trimethoprim [Bactrim DS] 800-160 mg tablet 1 tablet PO Q12H Qty: 14 0RF Continued magnesium hydroxide [Milk of Magnesia] 400 mg/5 mL Suspension 500 mg PO PRN PRN (Reason: Constipation) spironolactone 25 mg Tablet 25 mg PO QAM 30 Days Qty: 30 0RF metoprolol succinate [Toprol XL] 25 mg Tablet Extended Release 24 Hr 25 mg PO QAM 30 Days Qty: 30 0RF bumetanide 2 mg tablet 2 mg PO HS aspirin [Aspir-81] 81 mg Tablet,Delayed Release (Dr/Ec) 81 mg PO DAILY bupropion HCl 75 mg tablet 75 mg PO BID insulin glargine [Lantus Solostar U-100 Insulin] 100 unit/mL (3 mL) insulin pen 8 unit SUBCUT HS cholecalciferol (vitamin D3) [Vitamin D3] 50 mcg (2,000 unit) Tablet 50 mcg PO DAILY Centrum Silver Ultra Women's 1 tab-cap PO DAILY hydralazine 25 mg tablet 25 mg PO TID ferrous sulfate 325 mg (65 mg iron) tablet 324 mg PO BID bumetanide 1 mg tablet 3 mg PO DAILY Rx Instructions: morning docusate sodium [Colace] 100 mg Capsule 100 mg PO HS pantoprazole 40 mg tablet,delayed release (DR/EC) 40 mg PO DAILY simvastatin 20 mg tablet 20 mg PO HS Qty: 90 2RF amlodipine 10 mg tablet 10 mg PO MAMI
[2022-01-12 18:47] LABS: Glucose Point of Care 92 mg/dl (65-105)
--- NOTE | 2022-01-12 18:51 | PC.NURSE ---
This patient, Liza Clark, was transferred to [facility] on 01/12/22 at 1857. Personal belongings sent with patient. Report given to Carolann HERNADEZ. Appropriate documentation sent with patient.
== END 2022-01-12 18:41 | disposition hospice, home (50) | DRG 682 ==
LOC: ANHED 20:27 → ANHIMU 01-08 02:53
PROVIDERS: Internal Medicine; Internal Medicine Nephrology; Admitting Provider Internal Medicine; Emergency Provider General Practice; PCP Family Medicine; Visit Provider Internal Medicine
DX: N17.9 Acute kidney failure, unspecified (principal); G93.41 Metabolic encephalopathy; E87.21 Acute metabolic acidosis; I42.9 Cardiomyopathy, unspecified; R78.81 Bacteremia; L89.629 Pressure ulcer of left heel, unspecified stage; L89.619 Pressure ulcer of right heel, unspecified stage; E11.22 Type 2 diabetes mellitus with diabetic chronic kidney disease; I12.9 Hypertensive chronic kidney disease with stage 1 through stage 4 chronic kidney disease, or unspecified chronic kidney disease; N18.4 Chronic kidney disease, stage 4 (severe); D63.1 Anemia in chronic kidney disease; F03.90 Unspecified dementia, unspecified severity, without behavioral disturbance, psychotic disturbance, mood disturbance, and anxiety; T50.1X5A Adverse effect of loop [high-ceiling] diuretics, initial encounter; E03.9 Hypothyroidism, unspecified; K21.9 Gastro-esophageal reflux disease without esophagitis; Z20.822 Contact with and (suspected) exposure to COVID-19; Z96.652 Presence of left artificial knee joint; Z96.641 Presence of right artificial hip joint; Z79.82 Long term (current) use of aspirin; Z79.4 Long term (current) use of insulin; Z79.899 Other long term (current) drug therapy; B96.20 Unspecified Escherichia coli [E. coli] as the cause of diseases classified elsewhere
CPT/HCPCS: 36415; 36600; 51701; 70450; 71045; 74176; 80053; 80069; 81001; 82375; 82436; 82570; 82805; 82948; 83036; 83050; 83605; 83735; 83874; 83880; 84100; 84156; 84300; 84439; 84443; 84480; 84484; 84540; 85025; 85027; 85610; 85730; 85999; 87040; 87077; 87186; 87636; 92610; 93005; 96361; 96365; 96375; 99291; A9270; J0360; J0692; J0696; J2405; J7030

== ENCOUNTER 2022-01-12 19:42 | HOS | payer OTHER, MEDICARE, SELFPAY ==
[2022-01-12 20:09] VITALS: PULSE 80; RESP 12
[2022-01-12] MEDS: HYDROmorphone HCL/PF (*CRX) 50 MG in SODIUM CHLORIDE 0.9% IV 95 ML IV CONT (20:09)
[2022-01-12 21:51] VITALS: BP 162/87; RESP 18; TEMP 36.5
[2022-01-13 05:00] VITALS: RESP 14; TEMP 36.6
[2022-01-13 08:00] VITALS: BP 134/98; PULSE 90; RESP 14; TEMP 36.7; O2SAT 91
--- NOTE | 2022-01-13 09:19 | PM.IMHP ---
H&P: HPI History of Present Illness Date/Time: 01/13/22 09:19 Chief Complaint: uncontrolled pain Narrative: 86-year-old female was admitted from group home on January 08 due to altered mental status. She had elevated creatinine at 3.3 at the group home 3.4 upon admission here. This was elevated from her usual baseline of around 2.5. She was babbling incoherently at admission. She was treated with IV cefepime and blood cultures grew E coli sensitive to cefepime. Because of failure to improve poor appetite and discomfort and restlessness family opted for comfort care with inpatient hospice. 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 Social History Social History Social History: Patient lives at home alone. Grand-niece, Mikala, checks in on her occasionally, either via phone or physically, although has been less due to COVID outbreak. Her PCP is Dr. Coleman. She is listed as a Do not resuscitate. Smoking status: Never smoker Second hand tobacco smoke exposure: Yes Alcohol intake: never Substance use: never Gender identity (if verbalized by the patient): Female Sexual Orientation (if Verbalized by the Patient): Straight or Heterosexual Spiritual care concerns: No Agree to blood products: Yes Meds Home Medications and Allergies Home Medications Medication Instructions Recorded Confirmed Type simvastatin 20 mg tablet 20 mg PO HS #90 tabs 03/27/21 01/08/22 Rx docusate sodium 100 mg capsule 100 mg PO HS 06/24/21 01/08/22 History (Colace) pantoprazole 40 mg tablet,delayed 40 mg PO DAILY 07/10/21 01/08/22 History release amlodipine 10 mg tablet 10 mg PO DAILY #30 tabs 07/29/21 01/08/22 Rx magnesium hydroxide 400 mg/5 mL 500 mg PO PRN PRN Constipation 07/31/21 01/08/22 History oral suspension (Milk of Magnesia) metoprolol succinate 25 mg 25 mg PO QAM 30 days #30 tabs 08/09/21 01/08/22 Rx tablet,extended release 24 hr (Toprol XL) spironolactone 25 mg tablet 25 mg PO QAM 30 days #30 tabs 08/09/21 01/08/22 Rx Centrum Silver Ultra Women's 1 tab-cap PO DAILY 01/08/22 01/08/22 History aspirin 81 mg tablet,delayed 81 mg PO DAILY 01/08/22 01/08/22 History release bumetanide 1 mg tablet 3 mg PO DAILY 01/08/22 01/08/22 History bumetanide 2 mg tablet 2 mg PO HS 01/08/22 01/08/22 History bupropion HCl 75 mg tablet 75 mg PO BID 01/08/22 01/08/22 History cholecalciferol (vitamin D3) 50 50 mcg PO DAILY 01/08/22 01/08/22 History mcg (2,000 unit) tablet (Vitamin D3) ferrous sulfate 325 mg (65 mg 324 mg PO BID 01/08/22 01/08/22 History iron) tablet hydralazine 25 mg tablet 25 mg PO TID 01/08/22 01/08/22 History insulin glargine 100 unit/mL (3 8 unit subcut HS 01/08/22 01/08/22 History mL) subcutaneous pen (Lantus Solostar U-100 Insulin) Allergies Allergy/AdvReac Type Severity Reaction Status Date / Time No Known Allergies Allergy Verified 01/07/22 20:27 Vital Signs Vital S
[2022-01-13 20:00] VITALS: BP 165/63; PULSE 97; RESP 12; TEMP 37.2; O2SAT 92
[2022-01-13 22:45] VITALS: PULSE 88; RESP 14
[2022-01-13] MEDS: HYDROmorphone HCL/PF (*CRX) 50 MG in SODIUM CHLORIDE 0.9% IV 95 ML IV CONT (22:45)
[2022-01-14] MEDS: diazePAM INJ (*CRX) 10 MG/2 ML SYRINGE 5 MG IV PUSH ×2 (07:44→12:14)
[2022-01-14 08:00] VITALS: BP 86/73; PULSE 102; RESP 10; TEMP 36.9; O2SAT 86
[2022-01-14 12:56] VITALS: PULSE 102; RESP 10
--- NOTE | 2022-01-14 13:22 | PC.NURSE ---
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 Patient restless with sbp in the 160s. valium recently given. Orders received for Dr. Marx to increase dilaudid drip and bolus med.
--- NOTE | 2022-01-14 14:31 | PM.IMPN ---
Progress Note: A&P Assessment and Plan (1) Palliative care encounter: Code(s): Z51.5 - Encounter for palliative care Status: Acute Assessment and Plan: Meet inpatient hospice criteria due to requiring continuous IV hydromorphone for control of pain and restlessness remainder palliative regimen as ordered (2) Sepsis: Code(s): A41.9 - Sepsis, unspecified organism Status: Acute (3) Altered mental status: Code(s): R41.82 - Altered mental status, unspecified Status: Acute (4) Chronic kidney disease, stage IV (severe): Code(s): N18.4 - Chronic kidney disease, stage 4 (severe) Status: Chronic (5) CHARLI (acute kidney injury): Code(s): N17.9 - Acute kidney failure, unspecified Status: Acute (6) Decubitus ulcer of heel, bilateral: Code(s): L89.619 - Pressure ulcer of right heel, unspecified stage; L89.629 - Pressure ulcer of left heel, unspecified stage Status: Acute (7) Hypertension: Code(s): I10 - Essential (primary) hypertension Status: Chronic (8) Metabolic acidosis: Code(s): E87.20 - Acidosis, unspecified Status: Acute (9) Acute encephalopathy: Code(s): G93.40 - Encephalopathy, unspecified Status: Acute (10) CHF (congestive heart failure): Qualifiers: Heart failure chronicity: acute on chronic Code(s): I50.9 - Heart failure, unspecified Status: Acute (11) Diabetes: Code(s): E11.9 - Type 2 diabetes mellitus without complications Status: Chronic (12) Atherosclerotic heart disease of [place] coronary artery without angina pectoris: Code(s): I25.10 - Atherosclerotic heart disease of [place] coronary artery without angina pectoris Status: Acute (13) Occlusion and stenosis of bilateral carotid arteries: Code(s): I65.23 - Occlusion and stenosis of bilateral carotid arteries Status: Acute (14) Peripheral vascular disease, unspecified: Code(s): I73.9 - Peripheral vascular disease, unspecified Status: Acute (15) CVA, old, 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 Status: Acute Subjective Date/time seen: 01/14/22 14:31 Interval history: palliative f/u Some intermittent twitching of UE's. No grimacing or moaning. Additional IV diazepam given earlier this afternoon. Review of Systems Review of Systems: ROS unobtainable: Yes unobtainable due to medical condition Exam Narrative: chronically ill-appearing elderly female is awake but does not respond to verbal stimuli, responds to tactile stimuli neck without JVD chest coarse breath sounds bilaterally heart normal S1 and S2 with regular rate abdomen soft with hypoactive bowel sounds extremities no edema musculoskeletal no gross deformities to visual inspection neurologic cranial nerves with right facial droop Objective Data Vital Signs Vital Signs: Vital Signs - 24 hr 01/13/22 17:27 01/13/22 20:00 01/13/22 22:45 Temperature 98.9 F Pulse Rate 97 88 Respiratory Rate 12 14 Blood Pressure 165/63 H Pulse Oximetry 92 Oxygen Delivery Room Air 01/13/22 22:45 01/14/22 08:00 01/14/22 12:56 Temperature 98.5 F Pulse Rate 88 102 H 102 H Respiratory Rate 14 10 L 10 L Blood Pressure 86/73 L Pulse Oximetry 86 L Oxygen Delivery Intake/Output Intake/Output: Intake & Output 01/11/22 01/12/22 01/13/22 01/14/22 23:59 23:59 23:59 23:59 Intake Total 10 0 Output Total 825 250 Balance -815 -250 Meds/Results Medications: Active Medications Generic Name Dose Route Start Last Admin Trade Name Freq PRN Reason Stop Dose Admin Acetaminophen 650 mg 01/12/22 19:00 Acetaminophen 650 Mg Suppository RECTAL Q4H PRN Fever Artificial Tears 1 drop 01/12/22 18:59 Artificial Tears Ophth Soln 15 Ml Bottle EACH EYE Q4H PRN Dry Eye(s) Bisacodyl 10 mg 01/12/22 1
[2022-01-14 20:00] VITALS: PULSE 93; RESP 12; TEMP 36.1; O2SAT 95
[2022-01-14 20:17] VITALS: PULSE 100; RESP 10
[2022-01-14] MEDS: HYDROmorphone HCL/PF (*CRX) 50 MG in SODIUM CHLORIDE 0.9% IV 95 ML IV CONT (20:17)
[2022-01-15 08:00] VITALS: BP 169/116; PULSE 105; RESP 12; TEMP 36.8; O2SAT 93
--- NOTE | 2022-01-15 19:43 | PM.IMPN ---
Progress Note: A&P Assessment and Plan (1) Palliative care encounter: Code(s): Z51.5 - Encounter for palliative care Status: Acute Assessment and Plan: Meet inpatient hospice criteria due to requiring continuous IV hydromorphone for control of pain and restlessness remainder palliative regimen as ordered (2) Sepsis: Code(s): A41.9 - Sepsis, unspecified organism Status: Acute (3) Altered mental status: Code(s): R41.82 - Altered mental status, unspecified Status: Acute (4) Chronic kidney disease, stage IV (severe): Code(s): N18.4 - Chronic kidney disease, stage 4 (severe) Status: Chronic (5) CHARLI (acute kidney injury): Code(s): N17.9 - Acute kidney failure, unspecified Status: Acute (6) Decubitus ulcer of heel, bilateral: Code(s): L89.619 - Pressure ulcer of right heel, unspecified stage; L89.629 - Pressure ulcer of left heel, unspecified stage Status: Acute (7) Hypertension: Code(s): I10 - Essential (primary) hypertension Status: Chronic (8) Metabolic acidosis: Code(s): E87.20 - Acidosis, unspecified Status: Acute (9) Acute encephalopathy: Code(s): G93.40 - Encephalopathy, unspecified Status: Acute (10) CHF (congestive heart failure): Qualifiers: Heart failure chronicity: acute on chronic Code(s): I50.9 - Heart failure, unspecified Status: Acute (11) Diabetes: Code(s): E11.9 - Type 2 diabetes mellitus without complications Status: Chronic (12) Atherosclerotic heart disease of [place] coronary artery without angina pectoris: Code(s): I25.10 - Atherosclerotic heart disease of [place] coronary artery without angina pectoris Status: Acute (13) Occlusion and stenosis of bilateral carotid arteries: Code(s): I65.23 - Occlusion and stenosis of bilateral carotid arteries Status: Acute (14) Peripheral vascular disease, unspecified: Code(s): I73.9 - Peripheral vascular disease, unspecified Status: Acute (15) CVA, old, 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 Status: Acute Subjective Date/time seen: 01/15/22 19:43 Interval history: Palliative f/u No indication of pain but resistant to care Review of Systems Review of Systems: ROS unobtainable: Yes unobtainable due to medical condition Exam Narrative: chronically ill-appearing elderly female is awake but does not respond to verbal stimuli, responds to tactile stimuli neck without JVD chest coarse breath sounds bilaterally heart normal S1 and S2 with regular rate abdomen soft with hypoactive bowel sounds extremities no edema musculoskeletal no gross deformities to visual inspection neurologic cranial nerves with right facial droop Objective Data Vital Signs Vital Signs: Vital Signs - 24 hr 01/14/22 20:17 01/14/22 20:17 01/14/22 20:00 Temperature 97 F L Pulse Rate 100 100 93 Respiratory Rate 10 L 10 L 12 Blood Pressure Pulse Oximetry 95 Oxygen Delivery 01/14/22 20:00 01/15/22 08:00 Temperature 98.2 F Pulse Rate 105 H Respiratory Rate 12 Blood Pressure 169/116 H Pulse Oximetry 93 Oxygen Delivery Room Air Intake/Output Intake/Output: Intake & Output 01/12/22 01/13/22 01/14/22 01/15/22 23:59 23:59 23:59 23:59 Intake Total 10 10 0 Output Total 822 074 725 Balance -683 -228 -086 Meds/Results Medications: Active Medications Generic Name Dose Route Start Last Admin Trade Name Otisq PRN Reason Stop Dose Admin Acetaminophen 650 mg 01/12/22 19:00 Acetaminophen 650 Mg Suppository RECTAL Q4H PRN Fever Artificial Tears 1 drop 01/12/22 18:59 Artificial Tears Ophth Soln 15 Ml Bottle EACH EYE Q4H PRN Dry Eye(s) Bisacodyl 10 mg 01/12/22 19:00 Bisacodyl 10 Mg Suppository RECTAL DAILY PRN Constipation Diazepam 5 mg 1
[2022-01-15 19:51] VITALS: PULSE 102; RESP 5
[2022-01-15] MEDS: HYDROmorphone HCL/PF (*CRX) 50 MG in SODIUM CHLORIDE 0.9% IV 95 ML IV CONT (19:51)
[2022-01-15 20:00] VITALS: BP 166/69; PULSE 108; RESP 20; TEMP 36.8; O2SAT 97
[2022-01-16 14:00] VITALS: BP 186/89; PULSE 97; RESP 14; TEMP 37.1; O2SAT 88
--- NOTE | 2022-01-16 19:09 | PM.IMPN ---
Progress Note: A&P Assessment and Plan (1) Palliative care encounter: Code(s): Z51.5 - Encounter for palliative care Status: Acute Assessment and Plan: Meet inpatient hospice criteria due to requiring continuous IV hydromorphone for control of pain and restlessness remainder palliative regimen as ordered (2) Sepsis: Code(s): A41.9 - Sepsis, unspecified organism Status: Acute (3) Altered mental status: Code(s): R41.82 - Altered mental status, unspecified Status: Acute (4) Chronic kidney disease, stage IV (severe): Code(s): N18.4 - Chronic kidney disease, stage 4 (severe) Status: Chronic (5) CHARLI (acute kidney injury): Code(s): N17.9 - Acute kidney failure, unspecified Status: Acute (6) Decubitus ulcer of heel, bilateral: Code(s): L89.619 - Pressure ulcer of right heel, unspecified stage; L89.629 - Pressure ulcer of left heel, unspecified stage Status: Acute (7) Hypertension: Code(s): I10 - Essential (primary) hypertension Status: Chronic (8) Metabolic acidosis: Code(s): E87.20 - Acidosis, unspecified Status: Acute (9) Acute encephalopathy: Code(s): G93.40 - Encephalopathy, unspecified Status: Acute (10) CHF (congestive heart failure): Qualifiers: Heart failure chronicity: acute on chronic Code(s): I50.9 - Heart failure, unspecified Status: Acute (11) Diabetes: Code(s): E11.9 - Type 2 diabetes mellitus without complications Status: Chronic (12) Atherosclerotic heart disease of [place] coronary artery without angina pectoris: Code(s): I25.10 - Atherosclerotic heart disease of [place] coronary artery without angina pectoris Status: Acute (13) Occlusion and stenosis of bilateral carotid arteries: Code(s): I65.23 - Occlusion and stenosis of bilateral carotid arteries Status: Acute (14) Peripheral vascular disease, unspecified: Code(s): I73.9 - Peripheral vascular disease, unspecified Status: Acute (15) CVA, old, 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 Status: Acute Subjective Date/time seen: 01/16/22 19:09 Interval history: hospice f/u Remains comfortable Review of Systems Review of Systems: ROS unobtainable: Yes unobtainable due to medical condition Exam Narrative: chronically ill-appearing elderly female is awake but does not respond to verbal stimuli, responds to tactile stimuli neck without JVD chest coarse breath sounds bilaterally heart normal S1 and S2 with regular rate abdomen soft with hypoactive bowel sounds extremities no edema musculoskeletal no gross deformities to visual inspection neurologic cranial nerves with right facial droop Objective Data Vital Signs Vital Signs: Vital Signs - 24 hr 01/15/22 19:51 01/15/22 19:51 01/15/22 20:00 Temperature 98.2 F Pulse Rate 102 H 102 H 108 H Respiratory Rate 5 L 5 L 20 Blood Pressure 166/69 H Pulse Oximetry 97 Oxygen Delivery 01/15/22 20:00 01/16/22 14:00 Temperature 98.7 F Pulse Rate 97 Respiratory Rate 14 Blood Pressure 186/89 H Pulse Oximetry 88 L Oxygen Delivery Room Air Intake/Output Intake/Output: Intake & Output 01/13/22 01/14/22 01/15/22 01/16/22 23:59 23:59 23:59 23:59 Intake Total 10 10 23 0 Output Total 825 700 725 500 Balance -815 -690 -702 -500 Meds/Results Medications: Active Medications Generic Name Dose Route Start Last Admin Trade Name Freq PRN Reason Stop Dose Admin Acetaminophen 650 mg 01/12/22 19:00 Acetaminophen 650 Mg Suppository RECTAL Q4H PRN Fever Artificial Tears 1 drop 01/12/22 18:59 Artificial Tears Ophth Soln 15 Ml Bottle EACH EYE Q4H PRN Dry Eye(s) Bisacodyl 10 mg 01/12/22 19:00 Bisacodyl 10 Mg Suppository RECTAL DAILY PRN Constipation Diazepam 5 mg 01/12/22
[2022-01-16 20:00] VITALS: BP 152/95; PULSE 94; RESP 16; TEMP 36.6; O2SAT 97
[2022-01-16] MEDS: HYDROmorphone HCL/PF (*CRX) 50 MG in SODIUM CHLORIDE 0.9% IV 95 ML IV CONT (20:19)
[2022-01-17 08:00] VITALS: BP 66/30; PULSE 91; RESP 6; TEMP 36.3; O2SAT 92
[2022-01-17] MEDS: diazePAM INJ (*CRX) 10 MG/2 ML SYRINGE 5 MG IV PUSH ×2 (17:19→20:58)
[2022-01-17 20:00] VITALS: BP 152/82; PULSE 110; RESP 6; TEMP 37.2; O2SAT 90
--- NOTE | 2022-01-17 20:14 | PM.IMPN ---
Progress Note: A&P Assessment and Plan (1) Palliative care encounter: Code(s): Z51.5 - Encounter for palliative care Status: Acute Assessment and Plan: Meet inpatient hospice criteria due to requiring continuous IV hydromorphone for control of pain and restlessness remainder palliative regimen as ordered (2) Sepsis: Code(s): A41.9 - Sepsis, unspecified organism Status: Acute (3) Altered mental status: Code(s): R41.82 - Altered mental status, unspecified Status: Acute (4) Chronic kidney disease, stage IV (severe): Code(s): N18.4 - Chronic kidney disease, stage 4 (severe) Status: Chronic (5) CHARLI (acute kidney injury): Code(s): N17.9 - Acute kidney failure, unspecified Status: Acute (6) Decubitus ulcer of heel, bilateral: Code(s): L89.619 - Pressure ulcer of right heel, unspecified stage; L89.629 - Pressure ulcer of left heel, unspecified stage Status: Acute (7) Hypertension: Code(s): I10 - Essential (primary) hypertension Status: Chronic (8) Metabolic acidosis: Code(s): E87.20 - Acidosis, unspecified Status: Acute (9) Acute encephalopathy: Code(s): G93.40 - Encephalopathy, unspecified Status: Acute (10) CHF (congestive heart failure): Qualifiers: Heart failure chronicity: acute on chronic Code(s): I50.9 - Heart failure, unspecified Status: Acute (11) Diabetes: Code(s): E11.9 - Type 2 diabetes mellitus without complications Status: Chronic (12) Atherosclerotic heart disease of [place] coronary artery without angina pectoris: Code(s): I25.10 - Atherosclerotic heart disease of [place] coronary artery without angina pectoris Status: Acute (13) Occlusion and stenosis of bilateral carotid arteries: Code(s): I65.23 - Occlusion and stenosis of bilateral carotid arteries Status: Acute (14) Peripheral vascular disease, unspecified: Code(s): I73.9 - Peripheral vascular disease, unspecified Status: Acute (15) CVA, old, 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 Status: Acute Subjective Date/time seen: 01/17/22 20:14 Interval history: Palliative f/u telehealth. Remains comfortable. Mumbled some intermittently. Review of Systems Review of Systems: ROS unobtainable: Yes unobtainable due to medical condition Exam Narrative: sleeping Objective Data Vital Signs Vital Signs: Vital Signs - 24 hr 01/17/22 08:00 01/17/22 08:00 Temperature 97.3 F L Pulse Rate 91 Respiratory Rate 6 L Blood Pressure 66/30 L Pulse Oximetry 92 Oxygen Delivery Room Air Intake/Output Intake/Output: Intake & Output 01/14/22 01/15/22 01/16/22 01/17/22 23:59 23:59 23:59 23:59 Intake Total 10 23 30 0 Output Total 700 725 500 350 Balance -235 -702 -470 -350 Meds/Results Medications: Active Medications Generic Name Dose Route Start Last Admin Trade Name Freq PRN Reason Stop Dose Admin Acetaminophen 650 mg 01/12/22 19:00 Acetaminophen 650 Mg Suppository RECTAL Q4H PRN Fever Artificial Tears 1 drop 01/12/22 18:59 Artificial Tears Ophth Soln 15 Ml Bottle EACH EYE Q4H PRN Dry Eye(s) Bisacodyl 10 mg 01/12/22 19:00 Bisacodyl 10 Mg Suppository RECTAL DAILY PRN Constipation Diazepam 5 mg 01/12/22 18:57 01/17/22 17:19 Diazepam Inj (*Crx) 10 Mg/2 Ml Syringe IV PUSH 5 mg Q4H PRN Administration RESTLESSNESS/AGITATION/ANXIETY Glycopyrrolate 0.1 mg 01/12/22 19:00 Glycopyrrolate Inj (*Sp) 0.2 Mg/Ml Vial IV PUSH Q4H PRN secretions Hydromorphone HCl 1 mg 01/14/22 13:22 Hydromorphone Hcl Inj (*Crx) 1 Mg/Ml Syr IV PUSH Q2H PRN Pain Hydromorphone HCl 50 mg/ 100 mls @ 1 mls/hr 01/12/22 19:00 01/16/22 20:19 Sodium Chloride IV CONT 0.5 mg/hr .Q24H ALEXYS 1 mls/hr Administratio
[2022-01-17 20:50] VITALS: PULSE 111; RESP 6; O2SAT 90
[2022-01-17 20:55] VITALS: PULSE 111; RESP 6
[2022-01-17] MEDS: HYDROmorphone HCL/PF (*CRX) 50 MG in SODIUM CHLORIDE 0.9% IV 95 ML IV CONT (20:55)
[2022-01-17 21:07] VITALS: PULSE 111; RESP 6
[2022-01-18 06:43] VITALS: BP 152/59; PULSE 105; RESP 12; TEMP 36.6; O2SAT 91
[2022-01-18] MEDS: diazePAM INJ (*CRX) 10 MG/2 ML SYRINGE 5 MG IV PUSH ×3 (07:49→18:02)
[2022-01-18 08:00] VITALS: BP 152/73; PULSE 97; RESP 18; TEMP 36.7; O2SAT 91
[2022-01-18 17:01] VITALS: PULSE 100; RESP 8
[2022-01-18] MEDS: HYDROmorphone HCL/PF (*CRX) 50 MG in SODIUM CHLORIDE 0.9% IV 95 ML IV CONT (17:01)
[2022-01-18 20:00] VITALS: BP 141/64; PULSE 100; PULSE 109; RESP 8; TEMP 38.1; O2SAT 81; O2SAT 91
--- NOTE | 2022-01-18 23:09 | PM.IMPN ---
Progress Note: A&P Assessment and Plan (1) Palliative care encounter: Code(s): Z51.5 - Encounter for palliative care Status: Acute Assessment and Plan: Meet inpatient hospice criteria due to requiring continuous IV hydromorphone for control of pain and restlessness remainder palliative regimen as ordered (2) Sepsis: Code(s): A41.9 - Sepsis, unspecified organism Status: Acute (3) Altered mental status: Code(s): R41.82 - Altered mental status, unspecified Status: Acute (4) Chronic kidney disease, stage IV (severe): Code(s): N18.4 - Chronic kidney disease, stage 4 (severe) Status: Chronic (5) CHARLI (acute kidney injury): Code(s): N17.9 - Acute kidney failure, unspecified Status: Acute (6) Decubitus ulcer of heel, bilateral: Code(s): L89.619 - Pressure ulcer of right heel, unspecified stage; L89.629 - Pressure ulcer of left heel, unspecified stage Status: Acute (7) Hypertension: Code(s): I10 - Essential (primary) hypertension Status: Chronic (8) Metabolic acidosis: Code(s): E87.20 - Acidosis, unspecified Status: Acute (9) Acute encephalopathy: Code(s): G93.40 - Encephalopathy, unspecified Status: Acute (10) CHF (congestive heart failure): Qualifiers: Heart failure chronicity: acute on chronic Code(s): I50.9 - Heart failure, unspecified Status: Acute (11) Diabetes: Code(s): E11.9 - Type 2 diabetes mellitus without complications Status: Chronic (12) Atherosclerotic heart disease of [place] coronary artery without angina pectoris: Code(s): I25.10 - Atherosclerotic heart disease of [place] coronary artery without angina pectoris Status: Acute (13) Occlusion and stenosis of bilateral carotid arteries: Code(s): I65.23 - Occlusion and stenosis of bilateral carotid arteries Status: Acute (14) Peripheral vascular disease, unspecified: Code(s): I73.9 - Peripheral vascular disease, unspecified Status: Acute (15) CVA, old, 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 Status: Acute Subjective Date/time seen: 01/18/22 09:00 Interval history: Palliative f/u some restlessness last PM calmed by increased hydromorphone. Review of Systems Review of Systems: ROS unobtainable: Yes unobtainable due to medical condition Exam Narrative: sleeping Objective Data Vital Signs Vital Signs: Vital Signs - 24 hr 01/18/22 06:43 01/18/22 08:00 01/18/22 08:00 Temperature 97.9 F 98.0 F Pulse Rate 105 H 97 Respiratory Rate 12 18 Blood Pressure 152/59 H 152/73 H Pulse Oximetry 91 91 Oxygen Delivery Room Air 01/18/22 17:01 01/18/22 17:01 01/18/22 20:00 Temperature Pulse Rate 100 100 100 Respiratory Rate 8 L 8 L 8 L Blood Pressure Pulse Oximetry 91 Oxygen Delivery Room Air 01/18/22 20:00 Temperature 100.6 F H Pulse Rate 109 H Respiratory Rate 8 L Blood Pressure 141/64 H Pulse Oximetry 81 L Oxygen Delivery Intake/Output Intake/Output: Intake & Output 01/15/22 01/16/22 01/17/22 01/18/22 23:59 23:59 23:59 23:59 Intake Total 23 30 40 32 Output Total 725 500 350 225 Balance -702 -470 -310 -193 Meds/Results Medications: Active Medications Generic Name Dose Route Start Last Admin Trade Name Freq PRN Reason Stop Dose Admin Acetaminophen 650 mg 01/12/22 19:00 Acetaminophen 650 Mg Suppository RECTAL Q4H PRN Fever Artificial Tears 1 drop 01/12/22 18:59 Artificial Tears Ophth Soln 15 Ml Bottle EACH EYE Q4H PRN Dry Eye(s) Bisacodyl 10 mg 01/12/22 19:00 Bisacodyl 10 Mg Suppository RECTAL DAILY PRN Constipation Diazepam 5 mg 01/12/22 18:57 01/18/22 18:02 Diazepam Inj (*Crx) 10 Mg/2 Ml Syringe IV PUSH 5 mg Q4H PRN Administration RESTLESSNESS/AGITATION/ANXIETY Glycopyrrolate 0.1 mg
[2022-01-19 11:56] VITALS: BP 149/68; PULSE 109; RESP 18; TEMP 37.1; O2SAT 80
[2022-01-19] MEDS: diazePAM INJ (*CRX) 10 MG/2 ML SYRINGE 5 MG IV PUSH (12:03)
--- NOTE | 2022-01-19 14:51 | PM.IMPN ---
Progress Note: A&P Assessment and Plan (1) Palliative care encounter: Code(s): Z51.5 - Encounter for palliative care Status: Acute Assessment and Plan: Meet inpatient hospice criteria due to requiring continuous IV hydromorphone for control of pain and restlessness remainder palliative regimen as ordered (2) Sepsis: Code(s): A41.9 - Sepsis, unspecified organism Status: Acute (3) Altered mental status: Code(s): R41.82 - Altered mental status, unspecified Status: Acute (4) Chronic kidney disease, stage IV (severe): Code(s): N18.4 - Chronic kidney disease, stage 4 (severe) Status: Chronic (5) CHARLI (acute kidney injury): Code(s): N17.9 - Acute kidney failure, unspecified Status: Acute (6) Decubitus ulcer of heel, bilateral: Code(s): L89.619 - Pressure ulcer of right heel, unspecified stage; L89.629 - Pressure ulcer of left heel, unspecified stage Status: Acute (7) Hypertension: Code(s): I10 - Essential (primary) hypertension Status: Chronic (8) Metabolic acidosis: Code(s): E87.20 - Acidosis, unspecified Status: Acute (9) Acute encephalopathy: Code(s): G93.40 - Encephalopathy, unspecified Status: Acute (10) CHF (congestive heart failure): Qualifiers: Heart failure chronicity: acute on chronic Code(s): I50.9 - Heart failure, unspecified Status: Acute (11) Diabetes: Code(s): E11.9 - Type 2 diabetes mellitus without complications Status: Chronic (12) Atherosclerotic heart disease of [place] coronary artery without angina pectoris: Code(s): I25.10 - Atherosclerotic heart disease of [place] coronary artery without angina pectoris Status: Acute (13) Occlusion and stenosis of bilateral carotid arteries: Code(s): I65.23 - Occlusion and stenosis of bilateral carotid arteries Status: Acute (14) Peripheral vascular disease, unspecified: Code(s): I73.9 - Peripheral vascular disease, unspecified Status: Acute (15) CVA, old, 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 Status: Acute Subjective Date/time seen: 01/19/22 14:51 Interval history: Palliative f/u Remains comfortable. Febrile. Review of Systems Review of Systems: ROS unobtainable: Yes unobtainable due to medical condition Exam Narrative: sleeping No JVD chest coarse breath sounds heart regular rate abdomen hypoactive bowel sounds soft extremities no edema Objective Data Vital Signs Vital Signs: Vital Signs - 24 hr 01/18/22 17:01 01/18/22 17:01 01/18/22 20:00 Temperature Pulse Rate 100 100 100 Respiratory Rate 8 L 8 L 8 L Blood Pressure Pulse Oximetry 91 Oxygen Delivery Room Air 01/18/22 20:00 01/19/22 08:00 01/19/22 11:56 Temperature 100.6 F H 98.8 F Pulse Rate 109 H 109 H Respiratory Rate 8 L 18 Blood Pressure 141/64 H 149/68 H Pulse Oximetry 81 L 80 L Oxygen Delivery Room Air Intake/Output Intake/Output: Intake & Output 01/16/22 01/17/22 01/18/22 01/19/22 23:59 23:59 23:59 23:59 Intake Total 30 40 32 0 Output Total 500 350 225 0 Balance -470 -310 -193 0 Meds/Results Medications: Active Medications Generic Name Dose Route Start Last Admin Trade Name Freq PRN Reason Stop Dose Admin Acetaminophen 650 mg 01/12/22 19:00 Acetaminophen 650 Mg Suppository RECTAL Q4H PRN Fever Artificial Tears 1 drop 01/12/22 18:59 Artificial Tears Ophth Soln 15 Ml Bottle EACH EYE Q4H PRN Dry Eye(s) Bisacodyl 10 mg 01/12/22 19:00 Bisacodyl 10 Mg Suppository RECTAL DAILY PRN Constipation Diazepam 5 mg 01/12/22 18:57 01/19/22 12:03 Diazepam Inj (*Crx) 10 Mg/2 Ml Syringe IV PUSH 5 mg Q4H PRN Administration RESTLESSNESS/AGITATION/ANXIETY Glycopyrrolate 0.1 mg 01/12/22 19:00 Glycopyrrolate Inj (*Sp) 0.2 Mg/
[2022-01-19 20:00] VITALS: BP 139/62; PULSE 105; PULSE 109; RESP 17; RESP 18; TEMP 36.9; O2SAT 66; O2SAT 80
[2022-01-20 08:00] VITALS: BP 137/57; PULSE 108; RESP 22; TEMP 37.3; O2SAT 63
[2022-01-20 10:14] VITALS: PULSE 66; RESP 10
[2022-01-20] MEDS: HYDROmorphone HCL/PF (*CRX) 50 MG in SODIUM CHLORIDE 0.9% IV 95 ML IV CONT (10:14)
[2022-01-20] MEDS: diazePAM INJ (*CRX) 10 MG/2 ML SYRINGE 5 MG IV PUSH (15:31)
--- NOTE | 2022-01-21 19:27 | PM.DDS ---
Discharge Summary Date and Time Date of : 01/20/22 Time of : 17:18 Provider Pronounced By: Tresa Smith and Odessa Beth Probable Cause of Probable Cause of : sepsis due to e coli bacteremia of undetermined origin Summary Hospital Course: Admitted due to uncontrolled discomfort and restlessness. Medications titrated to comfort. Mrs. Clark peacefully. Additional Data Confirmation of as documented by pronouncing clinician: Pupillary Reflex, Palpable Pulses, Response to Stimuli, Heart Tones and Breath Sounds Name of Provider Notified: Zoltan Marx Time Provider Notified: 17:44 Provider Requests Autopsy: No [employer] Operator Notified: Yes Date [facility] Notified of : 01/20/22 Time [facility] Notified of : 17:40
== END 2022-01-20 17:18 | disposition expired | DRG 951 ==
PROVIDERS: Admitting Provider Internal Medicine; PCP Family Medicine; Visit Provider Internal Medicine
DX: Z51.5 Encounter for palliative care (principal); A41.51 Sepsis due to Escherichia coli [E. coli]; G93.40 Encephalopathy, unspecified; N18.4 Chronic kidney disease, stage 4 (severe); N17.9 Acute kidney failure, unspecified; E87.20 Acidosis, unspecified; I13.0 Hypertensive heart and chronic kidney disease with heart failure and stage 1 through stage 4 chronic kidney disease, or unspecified chronic kidney disease; I50.9 Heart failure, unspecified; E11.22 Type 2 diabetes mellitus with diabetic chronic kidney disease; I69.322 Dysarthria following cerebral infarction; E78.00 Pure hypercholesterolemia, unspecified; E11.51 Type 2 diabetes mellitus with diabetic peripheral angiopathy without gangrene; I65.23 Occlusion and stenosis of bilateral carotid arteries; I25.10 Atherosclerotic heart disease of native coronary artery without angina pectoris; L89.629 Pressure ulcer of left heel, unspecified stage; L89.619 Pressure ulcer of right heel, unspecified stage; Z66 Do not resuscitate
CPT/HCPCS: A9270; J1170; J3360